=== PATIENT | female | born 1990 | race Caucasian/White ===

== ENCOUNTER 2016-10-22 13:52 | Emergency (ER) | payer MEDICAID ==
[~2016-10-22] VITALS: Ht 147.3 cm; Wt 68.0 kg
[~2016-10-22 13:52] MED LIST: ALBUTEROL-200 PUFFS/ IH; AMOXICILLIN 50500 MG PO; AMOXIL500 MG PO; AUGMENTIN1 TA2 PO; BACTRIM DS 8001 TA1 PO; BACTRIM DS 8001 TAB PO; BENTYL10 M1 PO; BENTYL20 M1 PO; BENTYL20 MG PO; CIPRO 250MG TA250 MG PO; CIPRO 500MG TA500 MG PO; CIPROFLOXACIN500 MG PO; CLEOCIN HCL300 MG PO; CLINDAMYCIN HC300 MG PO; ENDOMETRIN100 MG VG; FIORICET 325 MG1 TAB PO; FLAGYL 500MG.500 MG PO; FLEXERIL10 M1 PO; HYDROCODON-ACETAMINO PO; HYDROCODONE/ACE1 TA5 PO; HYDROXYZINE HYD25 MG PO; IBU-8800 MG PO; IBU400 MG PO; IBUPROFEN600 MG PO; LORTAB 5/500 501 TAB PO; MACROBID 100MG100 MG PO; MECLIZINE HYDRO25 MG PO; MEDROL 4MG. DOSE4 MG PO; MIRALAX(PO17 GM/1 PA PO; MOTRIN400 MG PO; NAPROSYN 375MG375 MG PO; NAPROSYN500 M1 PO; NAPROXEN SODIU500 MG PO; NOMEDS; NOMEDS *; NOMEDS XX; NORCO 325 MG-51 TAB PO; NYSTATIN OINTME15 GM EX; ORTHO TRI-CYCLE1 TAB PO; PERCOCET 5/3251 EACH PO; PHENERGAN 25MG.25 M1 PO; PREDNISONE 10MG10 MG PO; PREDNISONE50 MG PO; PRENATAL VITAMI1 TA3 PO; PROTONIX40 MG PO; PYRIDIUM 200MG200 MG PO; REGLAN 10 MG TA10 MG PO; REGLAN 5MG TABLE5 MG PO; SEPTRA DS 800 M1 TAB PO; SULFAMETHOXAZOL1 TA6 PO; TESSALON PERLE100 M1 PO; ULTRACET 325 MG1 TAB PO; ULTRAM 50 MG TA50 MG PO; VIBRAMYCIN 100100 MG PO; VISTARIL25 M1 PO; VOLTAREN75 MG PO; ZANTAC 150150 MG OR; ZANTAC 150150 MG PO; ZITHROMAX Z-PA250 M1 PO; ZOFRAN ODT4 MG PO; ZOFRAN ODT8 MG PO; ZOFRAN4 MG; ZOFRAN4 MG PO; ZYRTEC 10MG TAB10 MG PO; Zofran4 MG PO; [UNRECOGNIZED DRUG - OTHER] OP
--- NOTE | 2016-10-22 14:08 | Emergency Room Report ---
History of Present Illness Time Seen by 420Claire Presenting Problem in Triage Pt arrived:Walked Presenting Problem:PT HAS BEEN SEEN MULTIPLE TIMES OVER THE WEEKEND RELATED TO ISSUES WITH HER CATHETER, SHE ADVISES THAT THIS MORNING THERE HAS BEEN BLOOD IN HER URINE AND WHAT APPEARS TO BE LITTLE TYLOR. 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 N Clinical Suspician of Infection? N Mental Status: 1 - Regular (Normal Baseline) Sepsis Risk:Low Sepsis Risk Have you (or family members/close friends) recently traveled outside the [place]? N If Yes, where/when: Have you had exposure to infectious disease within the past month? N TB? Other? 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 She has since returned to [facility] and ED due to issues with discomfort, and Xiao removed then replaced. She now has a little blood in her urine. Patient of Dr. Al Choi in [place]. ALLERGIES Coded Allergies: cephalexin (From KEFLEX) (11/25/15) morphine (11/25/15) promethazine (From PHENERGAN) (11/25/15) tetanus toxoid, adsorbed (11/25/15) Home Medications Active Scripts DICYCLOMINE HCL (Bentyl) 10 MG PO Q8HP PRN spasm #21 CAP Prov: 10/20/16 History Medical History General CAD? No Angina: No [place]: No Hypertension? No Hyperlipidemia? No CHF? No DVT? No PE? No COPD? No Asthma? No Anemia? No GERD? No Gastric ulcers? Yes GI Bleed? No Hernia? No Thyroid Problems? No Hypothyroidism? No CVA? No Seizures? No Diabetes? No Insulin Dependent: No Insulin Pump: No Home FSBS? No Renal Insuffiency? No End Stage Renal Disease? No UTI? Yes BPH? No GB Disease: Yes Nephritic Syndrome? No Asplenia? No Hepatitis? No Sickle Cell Disease? No Arthritis? No Migraines? Yes Cataracts? No Glaucoma? No MRSA? No HIV? No TB? No Anxiety? Yes Depression? Yes Cancer? Yes Site: CERVICAL More? Yes Additional hx: DRUG USE Immunization Hx DT/Tetanus Refuses Flu Refused Pneumonia Refuses Surgical Hx Previous Surgery?Y EXP LAP -ENDOMETRIOSIS Tonsils EXC. OF OVARIAN CYST Appendix SCAR REVISION IMPLANON IMPLANON- REMOVED EGD IUD 02/2010 IUD REMOVED 05/19/10 GALLBLADDER BTL 2012 ABSCESS TO WRIST DERRICK HAND Hx LMP N/A Family History Family Hx Diabetes No CAD No Hypertension Yes Hyperlipidemia No Cancer No TB No Social History Smoking Hx Smoker: Current Every Day Smoker Tobacco: Yes Type Cigarettes Packs/day < 1 Pack Alcohol Alcohol: Yes Review of Systems All Other Systems Reviewed and Negative Genitourinary see HPI. Physical Exam Vital Signs Vital Signs Date Time Temp Pulse Resp B/P Pulse O2 O2 Flow FiO2 Ox Delivery Rate 10/22 1400 98.6 72 16 164/84 98 General Appearance normal appearance, WD/WN, no apparent distress Eye Exam - bilateral eye normal exam, bilateral eye PERRL Neck supple Respiratory Status No: respiratory distress. Cardiovascular no peripheral edema Gastrointestinal normal bowel sounds, normal exam, non tender, soft, no organomegaly, no guarding, no rebound Back normal inspection, no CVA tenderness Pelvic Xiao examined at urethral meatus; placement is good with no leakage or discharge noted; no trauma; no lesions or erythema. 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 Nurse present during exam? Yes Neurologic alert, normal exam, no motor/sensory deficits, oriented x 3 Skin intact, normal color Medical Decision Making LABS/Meds/Orders Pt receiving controlled substance in ED? No Results/Orders Laboratory Tests 10/22/16 1420: Urine Color YELLOW, Urine Appearance SL CLOUDY, Urine pH 6.0, Ur Specific [place] >= 1.030, Urine Protein 2+ H, Urine Ketones NEGATIVE, Urine Blood 3+ H , Urine Nitrate NEGATIVE, Urine Bilirubin NEGATIVE, Urine Urobilinogen 0.2, Ur Leukocyte Esterase TRACE H, Urine Glucose NEGATIVE Orders Procedure Date/time Status URINALYSIS/COMPLETE 10/22 1407 Complete Departure Departure Time of Disposition 1447 Disposition DC Home or Self Care(routine) Clinical Impression Primary Impression: Hematuria Secondary Impressions: Xiao catheter in place Condition STABLE Referrals Evan ARCINIEGA,Macho Choi MD,Isiah Rahman (Family) Patient Instructions How to Care for Your Xiao Catheter -- Female Additional Instructions Keep Xiao in place until further instructed by Dr. Choi; follow up with urologist of choice, this week. Discharge Counseling Counseled pt/family regarding diagnosis, test results, home care, follow up needs ED Critical Care Critical Care No at [id number]
--- NOTE | 2016-10-22 14:08 | Emergency Room Report ---
History of Present Illness Time Seen by 035Claire Presenting Problem in Triage Pt arrived:Walked Presenting Problem:PT HAS BEEN SEEN MULTIPLE TIMES OVER THE WEEKEND RELATED TO ISSUES WITH HER CATHETER, SHE ADVISES THAT THIS MORNING THERE HAS BEEN BLOOD IN HER URINE AND WHAT APPEARS TO BE LITTLE TYLOR. 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 N Clinical Suspician of Infection? N Mental Status: 1 - Regular (Normal Baseline) Sepsis Risk:Low Sepsis Risk Have you (or family members/close friends) recently traveled outside the [place]? N If Yes, where/when: Have you had exposure to infectious disease within the past month? N TB? Other? 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 She has since returned to [facility] and ED due to issues with discomfort, and Xiao removed then replaced. She now has a little blood in her urine. Patient of Dr. Al Choi in [place]. ALLERGIES Coded Allergies: cephalexin (From KEFLEX) (11/25/15) morphine (11/25/15) promethazine (From PHENERGAN) (11/25/15) tetanus toxoid, adsorbed (11/25/15) Home Medications Active Scripts DICYCLOMINE HCL (Bentyl) 10 MG PO Q8HP PRN spasm #21 CAP Prov: 10/20/16 History Medical History General CAD? No Angina: No [place]: No Hypertension? No Hyperlipidemia? No CHF? No DVT? No PE? No COPD? No Asthma? No Anemia? No GERD? No Gastric ulcers? Yes GI Bleed? No Hernia? No Thyroid Problems? No Hypothyroidism? No CVA? No Seizures? No Diabetes? No Insulin Dependent: No Insulin Pump: No Home FSBS? No Renal Insuffiency? No End Stage Renal Disease? No UTI? Yes BPH? No GB Disease: Yes Nephritic Syndrome? No Asplenia? No Hepatitis? No Sickle Cell Disease? No Arthritis? No Migraines? Yes Cataracts? No Glaucoma? No MRSA? No HIV? No TB? No Anxiety? Yes Depression? Yes Cancer? Yes Site: CERVICAL More? Yes Additional hx: DRUG USE Immunization Hx DT/Tetanus Refuses Flu Refused Pneumonia Refuses Surgical Hx Previous Surgery?Y EXP LAP -ENDOMETRIOSIS Tonsils EXC. OF OVARIAN CYST Appendix SCAR REVISION IMPLANON IMPLANON- REMOVED EGD IUD 02/2010 IUD REMOVED 05/19/10 GALLBLADDER BTL 2012 ABSCESS TO WRIST [employer] Hx LMP N/A Family History Family Hx Diabetes No CAD No Hypertension Yes Hyperlipidemia No Cancer No TB No Social History Smoking Hx Smoker: Current Every Day Smoker Tobacco: Yes Type Cigarettes Packs/day < 1 Pack Alcohol Alcohol: Yes Review of Systems All Other Systems Reviewed and Negative Genitourinary see HPI. Physical Exam Vital Signs Vital Signs Date Time Temp Pulse Resp B/P Pulse O2 O2 Flow FiO2 Ox Delivery Rate 10/22 1400 98.6 72 16 164/84 98 General Appearance normal appearance, WD/WN, no apparent distress Eye Exam - bilateral eye normal exam, bilateral eye PERRL Neck supple Respiratory Status No: respiratory distress. Cardiovascular no peripheral edema Gastrointestinal normal bowel sounds, normal exam, non tender, soft, no organomegaly, no guarding, no rebound Back normal inspection, no CVA tenderness Pelvic Xiao examined at urethral meatus; placement is good with no leakage or discharge noted; no trauma; no lesions or erythema. 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 Nurse present during exam? Yes Neurologic alert, normal exam, no motor/sensory deficits, oriented x 3 Skin intact, normal color Medical Decision Making LABS/Meds/Orders Pt receiving controlled substance in ED? No Results/Orders Laboratory Tests 10/22/16 1420: Urine Color YELLOW, Urine Appearance SL CLOUDY, Urine pH 6.0, Ur Specific [place] >= 1.030, Urine Protein 2+ H, Urine Ketones NEGATIVE, Urine Blood 3+ H , Urine Nitrate NEGATIVE, Urine Bilirubin NEGATIVE, Urine Urobilinogen 0.2, Ur Leukocyte Esterase TRACE H, Urine Glucose NEGATIVE Orders Procedure Date/time Status URINALYSIS/COMPLETE 10/22 1407 Complete Departure Departure Time of Disposition 1447 Disposition DC Home or Self Care(routine) Clinical Impression Primary Impression: Hematuria Secondary Impressions: Xiao catheter in place Condition STABLE Referrals Evan ARCINIEGA,Macho Choi MD,Isiah Rahman (Family) Patient Instructions How to Care for Your Xiao Catheter -- Female Additional Instructions Keep Xiao in place until further instructed by Dr. Choi; follow up with urologist of choice, this week. Discharge Counseling Counseled pt/family regarding diagnosis, test results, home care, follow up needs ED Critical Care Critical Care No at [id number]
--- OUTSIDE RECORDS SUMMARY | 2016-10-22 14:10 | External Medical Summary Rpt ---
Author Author , Organization [employer] Address Unknown Phone Unavailable Care Team Providers Care Residential Property Manager Name Role Phone JONATHAN CASTILLO Unavailable Unavailable OMAR LOMAR L Unavailable Unavailable CARLEY JAM, CARLEY JAM Unavailable Unavailable LEWIS, LEWIS Unavailable Unavailable LEWIS ALL, LEWIS ALL Unavailable Unavailable [facility] Unavailable Unavailable [facility], [facility] PH[facility]IAN Unavailable Unavailable PRACTICE L, [facility]available Unavailable SERVICE, [facility] Unavailable Unavailable SERVICE, [facility] FARAH, FARAH Unavailable Unavailable CELLAROSI - YORBA Unavailable Unavailable PAT, CELLAROSI - YORBA PAT CHEESEMAN MICHELLE, Unavailable Unavailable CHEESEMAN MICHELLE SNOWDEN TJ, SNOWDEN Unavailable Unavailable TJ SNOWDEN TJ, SNOWDEN Unavailable Unavailable TJ SNOWDEN, ERIK J, Unavailable Unavailable SNOW[facility], ERIK J [facility] Un[facility], Unavailable Unavailable [facility] Un[facility] Unavailable [facility], [facility] Unavailable Unavailable [facility] JONY, DAVON Unavailable Unavailable JONY KRISTAL, KRISTAL Unavailable Unavailable KRISTAL KIERA, Unavailable Unavailable KRISTAL KIERA KRISTAL KIERA, Unavailable Unavailable KRISTAL KIERA KRISTAL, GALA, Unavailable Unavailable KRISTAL, GALA LIRA PAULA, LIRA Unavailable Unavailable [facility] [place] [place]available [facility]available [facility] Unavailable Unavailable E[facility]ER[facility] C, Unavailable Unavailable [facility]ER[facility] C MICH WHEAT Unavailable Unavailable YANELIS QUANG VERA, QUANG Unavailable Unavailable CHUY QUANG VERA, QUANG Unavailable Unavailable CHUY [facility], Unavailable Unavailable [facility]available [facility], [facility] Unavailable Unavailable EMS, [facility] Unavailable Unavailable EMS, [facility] HARPEL DAVID, HARPEL Unavailable Unavailable DAVID HARPEL DAVID, HARPEL Unavailable Unavailable DAVID HARPEL, ZURDO R, Unavailable Unavailable HARPEL, ZURDO R DOMÍNGUEZ KYLE, DOMÍNGUEZ Unavailable Unavailable KYLE [facility] Unavailable Unavailable [facility], [facility] Unavailable Unavailable [facility], [facility] Unavailable Unavailable INC, [facility] Unavailable Unavailable [facility] Unavailable Unavailable HOSPITAL P, [facility] REMI STRATTON HARVEY, Unavailable Unavailable REMI [facility], Unavailable Unavailable [facility] CARDONA, CARDONA Unavailable Unavailable CARDONA CHRIS, CARDONA CHRIS Unavailable Unavailable CARDONA CHRIS, CARDONA CHRIS Unavailable Unavailable ROBY IMT, ROBY Unavailable Unavailable IMT JAHANSHAHI FEE, Unavailable Unavailable JAHANSHAHI FEE JAHANSHAHI FEE, Unavailable Unavailable JAHANSHAHI FEE [facility] ANNA DAYTON, ANNA DAYTON Unavailable Unavailable [facility] Unavailable [facility]available [facility] JUDGE, CINDY L, Unavailable Unavailable JUDGE, CINDY L AC JR DWI, AC Unavailable Unavailable JR DWI MARIMAR, W F, Unavailable Unavailable MARIMAR, W F EUGENE VICTOR, Unavailable Unavailable [facility], Unavailable Unavailable [facility] Unavailable Unavailable SERVICES, [facility] MAST ANN, MAST ANN Unavailable Unavailable MAST ANN, MAST ANN Unavailable Unavailable PEDRO PISANO JR Unavailable Unavailable F, PEDRO PISANO JR, PAMELA Unavailable Unavailable R, ADRIAN VAN R ASHOK ANDREWS, Unavailable Unavailable ASHOK ANDREWS [facility] Unavailable [facility] GABRIELE MITCHEL, GABRIELE MITCHEL Unavailable Unavailable GABRIELE GRULLON, GABRIELE MITCHEL Unavailable Unavailable RADHA EDW, RADHA Unavailable Unavailable EDW O'OMAIRA ANASTACIO, O'OMAIRA Unavailable Unavailable ANASTACIO O'OMAIRA ANASTACIO, O'OMAIRA Unavailable Unavailable ANASTACIO [facility], Unavailable [facility]available [facility], [facility] Unavailable Unavailable LAB, [facility] KINDRA MEJIA, Unavailable Unavailable KINDRA MEJIA PICKLESIMER JR GARRETT, Unavailable Unavailable PICKLESIMER JR GARRETT PICKLESIMER JR GARRETT, Unavailable Unavailable PICKLESIMER JR GARRETT [facility], Unavailable Unavailable [facility], Unavailable Unavailable [facility] RAINS ALL, RAINS ALL Unavailable Unavailable RENUSCH YULIANA, RENUSCH Unavailable Unavailable YULIANA [id number], Unavailable Unavailable [id number] Unavailable Unavailable [id number] [id number], [facility] [id number] [address] [id number] BLAKE KERMIT, BLAKE KERMIT Unavailable Unavailable BLAKE KERMIT, BLAKE KERMIT Unavailable Unavailable HONEY HERNANDEZ H, Unavailable Unavailable SHAKIRAEK, MOHAMED H ALESSIO GRULLON, ALESSIO Unavailable Unavailable MITCHEL ADRIAN WEISS, Unavailable Unavailable ADRIAN WEISS KARL, Unavailable Unavailable ANNIKA TALAMANTES SHA, ZAVALA SHA Unavailable Unavailable ZAVALA SHA, ZAVALA SHA Unavailable Unavailable SOKAN BAB, SOKAN BAB Unavailable Unavailable SOKAN, ADAN O, Unavailable Unavailable SOKAN, ADAN O SOT[facility]EANU MED[facility], Unavailable Unavailable SOTINGEANU MEDINA [facility] Unavailable [facility], [facility] ROSY SHE, Unavailable Unavailable ROSY SHE FRITZ, VIRAJ E, Unavailable Unavailable FRITZ, VIRAJ E [facility], Unavailable Unavailable [facility], Unavailable Unavailable [facility] WEHRMAN III MITCHEL, Unavailable Unavailable WEHRMAN III MITCHEL WEHRMAN III MITCHEL, Unavailable Unavailable WEHRMAN III MITCHEL KHUSHI CASTILLO, KHUSHI CASTILLO Unavailable Unavailable CRYSTAL COOLEY, Unavailable Unavailable CRYSTAL COOLEY [facility] Unavailable Unavailable [facility] [place], [facility] Purpose Continuity of Care Document - 06-02-2007 through 2016 Problems Code Diagnosis DOS Provider Status F19.10 OTHER 07-18-2016 PSYCHOACTIV E SUBSTANCE ABUSE, UNCOMPLICAT ED R03.0 ELEVATED 07-18-2016 BLOOD-PRESS URE READING, WITHOUT DIAGNOSIS OF HYPERTENSIO N R51 HEADACHE 07-18-2016 K29.20 ALCOHOLIC 07-13-2016 GASTRITIS WITHOUT BLEEDING R07.89 OTHER CHEST 07-13-2016 PAIN R07.9 CHEST PAIN, 07-13-2016 UNSPECIFIED R51 HEADACHE 07-13-2016 [facility] R079 CHEST PAIN 07-07-2016 [facility]- UNSPECIFIED [facility] R1013 EPIGASTRIC 07-07-2016 [facility]- PAIN [facility] H21042 PAIN IN 06-08-2016 [facility] B99181 PAIN IN 06-08-2016 [facility] UNSPECIFIED MEDICAL HIP IMAGING ASS Q66495 PAIN IN 06-08-2016 [facility] RIGHT MEDICAL FOREARM IM[facility] F47475 PAIN IN 06-08-2016 [facility] THIGH [facility] [id number] UNSPECIFIED 06-08-2016 [facility] INJURY [facility]ICAL RIGHT ELBOW IMAGING ASS INITIAL ENCOUNTER Z7689 PERSONS 06-08-2016 [facility]ALTH SRVC SERVICE OTH CIRCUMSTANC ES Z452 ENCOUNTER 05-23-2016 [facility] ADJUSTMENT& MEDICAL MGMT IMAGING ASS VASCULAR ACCESS DEVICE R600 LOCALIZED 05-21-2016 [facility]MA [facility] Z8701 PERSONAL 05-19-2016 [facility] HISTORY OF MEDICAL PNEUMONIA IMAGING ASS RECURRENT J209 ACUTE 05-11-2016 [facility] BRONCHITIS PHYSICIANS, UNSPECIFIED PLLC N926 IRREGULAR 03-19-2016 [facility] MENSTRUATIO PHYSICIANS N GROUP UNSPECIFIED R102 PELVIC AND 03-19-2016 [facility] PERINEAL PHYSICIANS PAIN GROUP R1084 GENERALIZED 03-17-2016 [facility] ABDOMINAL PHYSICIANS, PAIN PLLC R109 UNSPECIFIED 03-13-2016 [facility] ABDOMINAL [facility] PAIN IM[facility] R112 NAUSEA WITH 03-13-2016 [facility] UNSPECIFIED SERVICE P956BRJ FOREIGN 03-13-2016 [facility] BODY IN PHYSICIANS, VULVA & PLLC VAGINA INITIAL ENCOUNTER M545 LOW BACK 02-09-2016 [facility] PAIN PHYSICIANS, PLLC N200 CALCULUS OF 02-09-2016 [facility] R1031 RIGHT LOWER 02-09-2016 [facility] R1032 LEFT LOWER 02-09-2016 [facility] W88098 ENCOUNTER 12-23-2015 [facility] ROUTINE PHYSICIANS CHECKING IU GROUP CONTRACEPT DEVICE [id number] MIGRAINE 12-05-2015 [place] W/AURA NOT PHYSICIAN INTRACT W/O PRACTICE L STAT MIGRAINOSUS V35389 PERSONAL 11-25-2015 [facility] HISTORY OF [facility] NICOTINE INC DEPENDENCE W51038 ENCOUNTER 11-08-2015 [facility] INITIAL PHYSICIANS PRESCRIPTIO GROUP N IU CONTRACEPT DEV Z7251 HIGH RISK 11-08-2015 [facility] HETEROSEXUA [facility] L BEHAVIOR INC N6011 DIFFUSE 10-05-2015 [facility] CYSTIC [facility] MASTOPATHY INC OF RIGHT BREAST N6489 OTHER 10-05-2015 [facility] SPECIFIED MEDICAL DISORDERS IMAGING ASS OF BREAST N644 MASTODYNIA 09-27-2015 [facility] GROUP J40 BRONCHITIS 08-23-2015 [facility] NOT PHYSICIANS SPECIFIED GROUP ACUTE OR CHRONIC K219 GASTRO-ESOP 08-10-2015 [facility] H REFLUX PHYSICIANS DISEASE GROUP WITHOUT ESOPHAGITIS B1920 UNS VIRAL 07-27-2015 [facility] HEPATITIS C [facility] WITHOUT INC HEPATIC COMA R071 CHEST PAIN 05-24-2015 [facility]ERGENCY BREATHING PHYS R0789 OTHER CHEST 05-24-2015 [facility] PAIN COMMUNTIY HOSPITA R5381 OTHER 05-24-2015 [facility] MALAISE SCOT T CO EMS M940 CHONDROCOST 05-16-2015 [facility] JUNCTION N EMERGENCY SYNDROME PHYS TIETZE R072 PRECORDIAL 05-16-2015 [facility] PAIN N EMERGENCY PHYS R509 FEVER 05-16-2015 [facility] UNSPECIFIED SCOT T CO EMS R52 PAIN 05-16-2015 [facility] UNSPECIFIED SCOT T CO EMS [id number] POISONING 02-24-2015 [facility] HEROIN [facility] UNDETERMINE INC D INITIAL ENCOUNTER 75955 COMA 01-09-2015 [facility] AMBULANCE SERVICE 33354 POISONING 01-09-2015 [facility] BY [facility] P 9779 POISONING 01-09-2015 [facility] UNSPECIFIED AMBULANCE SERVICE DRUG/MEDICI NAL SUBSTANCE 6824 CELLULITIS& 09-23-2014 [facility] ABSCESS OF ANESTH OF HAND EXCEPT THE BLUE FINGERS&FERN MB 1905 CELLULITIS 09-22-2014 TG AND ABSCESS PHYSICIANS, OF UPPER PLLC ARM AND FOREARM 7245 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[facility] BACKACHE PHYSICIANS GROUP 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[facility] 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 68273 PHLEBITIS&T 03-14-2014 [facility] HROMBOPHLEB [facility] HOS[facility] SUP VEINS INC UPPER EXTREM 19568 PHLEBITIS 03-14-2014 [facility] AND N EMERGENCY THROMBOPHLE PHYS BITIS OF OTHER SITE 5758 OTHER 03-14-2014 [facility] SPECIFIED [facility] DISORDER OF INC GALLBLADDER V148 PERSONAL 03-14-2014 [facility] HISTORY [facility] ALLERGY OTH INC SPEC MEDICINAL AGTS 79470 UNSPECIFIED 03-02-2014 [facility] N [place] 6259 UNSPEC 03-02-2014 [facility] SYMPTOM [facility]OC CLINIC OF W/FEMALE [place] GENITAL ORGANS 6264 IRREGULAR 03-02-2014 [facility] MENSTRUAL HEALTH CYCLE CLINIC OF [place] 93492 ABDOMINAL 03-02-2014 [facility] PAIN, LEFT HEALTH LOWER CLINIC OF QUADRANT [place] 05580 UNSPECIFIED 02-02-2014 [facility] VAGINITIS [facility] OF VULVOVAGINI [place] TIS 17472 HEMATURIA 12-24-2013 [facility] UNSPECIFIED N EMERGENCY PHYS 45397 ABDOMINAL 12-24-2013 [place] PA[place] OTHER MEDICAL SPECIFIED IMAGING ASS SITE 21902 CHLAMYDTRAC 01-02-2013 [facility] HOMATIS JR TUCKER INFECTION LOWER SITES V242 ROUTINE 01-02-2013 [facility] JR TUCKER FOLLOW-UP 6146 PELVIC 11-21-2012 [facility] PERITONEAL [facility] ADHESIONS, INC FEMALE V252 STERILIZATI 11-21-2012 [place] V2509 OTH GENERAL 11-20-2012 [facility] CNSL&ADVICE INC CONTRACEPT MANAGEMENT 650 NORMAL 10-22-2012 [facility] DELIVERY 05391 FIRST-DEGRE 10-22-2012 [facility] E PERINEAL [facility] LACERATION INC WITH DELIVERY V270 OUTCOME OF 10-22-2012 [facility] DELIVERY [facility] SINGLE INC LIVEBORN 82918 THREATENED 10-20-2012 [facility] TJ PREMATURE LABOR ANTEPARTUM V221 SUPERVISION 10-20-2012 [facility] TJ OF OTHER NORMAL 12767 OTHER 10-11-2012 HARPEL DAVID THREATENED LABOR, ANTEPARTUM 29471 ABNORMAL 08-08-2012 [facility] TJ MATERNAL GLUCOSE TOLERANCE ANTEPARTUM 15051 DELAY DELIV 07-30-2012 O'OMAIRA ANASTACIO AFTER SPONT/UNSPE C RUP MEMB ANTPRTM 84445 CHEST PAIN 07-27-2012 BLAKE KERMIT UNSPECIFIED 08653 CERVICAL 07-21-2012 O'OMAIRA ANASTACIO SHORTENING ANTEPARTUM CONDITION OR COMP 33820 PREMATURE 07-18-2012 [facility] RUPTURE [facility] ANTEPARTUM 7802 SYNCOPE AND 07-18-2012 [facility] COLLAPSE V2341 SUPERVISION 07-18-2012 [facility] W/HISTORY PRE-TERM LABOR V2389 SUPERVISION 07-18-2012 [facility] OF OTHER [facility] HIGH-RISK 91559 LATE 07-17-2012 [facility] ANTEPARTUM 94902 OTH 07-17-2012 [facility] ALICE VENEREAL DISEASE ANTPRTM COND/COMPL 82772 OTH CURRENT 07-17-2012 [facility] CLASSIFIABL E ELSW ANTPRTM 58298 CERVICAL 07-17-2012 O'OMAIRAANNAMARIA KASPER DELIVERED W/WO ANTPRTM COND V230 07-17-2012 [facility] ANN WITH HISTORY OF INFERTILITY 63698 NAUSEA WITH 06-30-2012 [facility]OMITING [facility] INC 44995 ABDOMINAL 06-30-2012 [facility] PAIN, [facility] GENERALIZED INC V220 SUPERVISION 06-30-2012 SP SPENCER OF NORMAL FIRST V283 ENCOUNTER 06-19-2012 SP SPENCER ROUTINE SCREEN MALFORMATIO N ULTRASONIC 87855 DEHYDRATION 06-12-2012 [facility] INC 34253 HYPEREMESIS 06-12-2012 [facility] W/METAB INC DISTURBANCE ANTPRTM 7880 RENAL COLIC 06-12-2012 [facility] INC 01668 MILD 06-11-2012 QUANG MIC HYPEREMESIS GRAVIDARUM UNSPEC EPIS CARE 591 HYDRONEPHRO 06-04-2012 K[facility] SIS KIERA 59433 OTHER 06-04-2012 K[facility] SPECIFIED KIERA DISORDER OF KIDNEY AND URETER 06745 THREATENED 06-03-2012 [facility] PREMATURE [facility]ERG[facility]Y LABOR SERVICES UNSPEC EPIS CARE 09720 OTHER 06-03-2012 KRISTAL SPECIFED KIERA COMPLICATIO N ANTEPARTUM 45127 OT CURRENT 05-29-2012 WEHRMAN III MATERNAL MITCHEL CCE-COMPL PG CB/PP-UNS EOC 4660 ACUTE 04-30-2012 [facility] BRONCHITIS [facility] INC V222 04-30-2012 [facility] STATE, [facility] INCIDENTAL INC 7910 PROTEINURIA 04-25-2012 [facility] TJ 7916 ACETONURIA 04-25-2012 SP TJ 5920 CALCULUS OF 04-24-2012 [facility] 5990 URINARY 04-24-2012 [facility] TRACT EMERGENCY INFECTION SERVICES SITE NOT SPECIFIED 29806 INFS 04-24-2012 [facility] TRACT [facility] SERVICES UNSPEC EPIS CARE 55058 MILD 04-14-2012 [facility] HYPEREMESIS [facility] GRAVIDARUM INC ANTEPARTUM 15051 ABDOMINAL 04-14-2012 WEHRMAN III PAIN, MITCHEL UNSPECIFIED SITE 2768 HYPOPOTASSE 04-07-2012 [facility] DUYEN [facility] 5589 OTH&UNSPEC 04-07-2012 [facility] NONINFECTIO EMERGENCY US SERVICES GASTROENTER ITIS&COLITI S V745 SCREENING 03-19-2012 [facility] EXAMINATION VALENTE FOR VENEREAL DISEASE 58439 INFECTIONS 03-06-2012 [facility] GENITOURINA INC RY TRACT ANTEPARTUM V7242 03-03-2012 [facility] EXAMINATION HEALTH OR TEST CENTER POSITIVE RESULT 84965 PAIN IN 02-13-2012 [place] JOINT, MEDICAL ANKLE AND IMAGING ASS FOOT 7295 PAIN IN 02-13-2012 [facility] SOFT EMERGENCY TISSUES OF SERVICES LIMB 10473 UNSPECIFIED 02-13-2012 [facility] ANKLE SPRAIN AND STRAIN 46878 CONTUSION 02-13-2012 [facility] FOOT [facility] INC 9599 INJURY 02-13-2012 [facility] OTHER AND MEDICAL UNSPECIFIED IMAGING ASS UNSPECIFIED SITE 45228 ACUT 01-29-2012 [facility] TIS W/O LES INC RENAL MEDULRY NECROS 85320 UNSPECIFIED 01-29-2012 [facility] PYELONEPHRI SERVICES TIS 6201 CORPUS 01-10-2012 [facility] TJ LUTEUM CYST OR HEMATOMA 55143 ABDOMINAL 01-10-2012 [facility] TJ PAIN RIGHT LOWER QUADRANT 51334 UNSPECIFIED 11-10-2011 [facility] DENTAL [facility] CARIES INC 5259 UNSPECIFIED 11-10-2011 WEHRMAN III DISORDER MITCHEL TEETH&SUPPO RTING STRUCTURES 57030 PAIN IN 09-26-2011 [place] JOINT, HAND MEDICAL IMAGING ASS 40675 CONTUSION 09-26-2011 [facility] HAND EMERGENCY SERVICES E9179 OTHER 09-26-2011 [facility] STRIKING MEDICAL AGAINST IMAGING ASS W/WO SUBSEQUENT FALL 7804 DIZZINESS 08-23-2011 [facility] AND EMERGENCY GIDDINESS SERVICES V692 PROBLEMS 08-21-2011 [facility] TJ RELATED TO HIGH-RISK SEXUAL BEHAVIOR 7231 CERVICALGIA 08-20-2011 [facility] 91740 SPASM OF 08-20-2011 [facility] CHRIS MUSCLE 6202 OTHER AND 08-15-2011 [facility] UNSPECIFIED MEDICAL OVARIAN IMAGING ASS CYST 55026 OTHER 08-15-2011 [facility] ASCITES [facility] IM[facility]ING ASS 2662 OTHER 07-26-2011 [facility] B-COMPLEX HEALTH DEFICIENCIE CENTER S V7241 07-26-2011 [facility] MATHIS EXAMINATION HEALTH OR TEST CENTER NEGATIVE RESULT 7840 HEADACHE 07-19-2011 [facility] 6827 CELLULITIS 07-05-2011 [facility] AND ABSCESS EMERGENCY OF FOOT SERVICES EXCEPT TOES 13609 UNSPECIFIED 05-31-2011 WEHRMAN III ACUTE MITCHEL CONJUNCTIVI TIS 01341 UNSPECIFIED 05-31-2011 [facility] CONJUNCTIVI TIS 95660 LEUKOCYTOSI 05-28-2011 JAHANSHAHI S FEE UNSPECIFIED 88599 ABSCESS OF 05-28-2011 [facility] EYELID FEE 50568 ONE EYE: 05-27-2011 [facility] TOT VISN EMERGENCY IMPAIR; OTH SERVICES EYE: NR-NL VISN 88009 ORBITAL 05-27-2011 [facility] CELLULITIS [facility] 99688 PAIN IN OR 05-27-2011 [facility] AROUND EYE SERV FOUNDATIO 76011 SWELLING OR 05-27-2011 [facility] MASS OF SERV EYE FOUNDATIO 6820 CELLULITIS 05-27-2011 [facility]ICAL AND ABSCESS SERV OF FACE FOUNDATIO 462 ACUTE 05-05-2011 [facility] PHARYNGITIS EMERGENCY SERVICES 09836 MIGRAINE 04-04-2011 [facility] W/O HOSPITAL INTRACT W/O STATUS MIGRAINOSUS 6829 CELLULITIS 04-04-2011 [facility] MATHIS AND ABSCESS [facility] UNSPECIFIED SITE V5889 ENCOUNTER 04-01-2011 [facility] FOR OTHER N EMERGENCY SPECIFIED PHYSI AFTERCARE 9134 ELB 03-30-2011 [facility] FORARM&WRST [facility] INSECT INC BITE NONVENOMOUS W/O INF 07527 SPRAIN AND 07-31-2009 [facility] STRAIN OF MEDICAL UNSPECIFIED IMAGING SITE OF ASSOCIATES WRIST E8493 PLACE OF 07-31-2009 [facility] OCCURRENCE MEDICAL INDUSTRIAL IMAGING PLACES&PUSHPA ASSOCIATES ISES E918 CAUGHT 07-31-2009 [facility] ACCIDENTALL MEDICAL Y IN OR IMAGING BETWEEN ASSOCIATES OBJECTS V2549 SURVEILLANC 06-16-2009 [facility] E OTH PREV [facility] CY[facility] 9104 FCE 03-29-2009 [facility] NCK&SCLP NO EMERGENCY EYE INSECT SERVICES BITE ASSOCIATES NONVNOM W/O INF 9895 TOXIC 03-29-2009 [facility] EFFECT OF [facility] HOS[facility] VENOM INC 6160 CERVICITIS 03-07-2009 PATHOLOGY & AND CYTOLOGY ENDOCERVICI LAB TIS 75610 DYSPLASIA 03-07-2009 PATHOLOGY & OF CERVIX CYTOLOGY UNSPECIFIED LAB 38325 PAP SMER 03-04-2009 [facility]EN'[facility] CERV W/LW HEALTH GRADE CLINIC OF SQUAMOUS [place] INTRAEPITH PLLC LES 76120 CERV HIGH 03-04-2009 WOMEN'[facility] RISK HUMAN HEALTH PAPILLOMAVI CLINIC OF JENNIFER DNA [place] TEST POS PLLC 51831 PAP SMER 02-25-2009 [facility] CERV HEALTH W/ATYPICAL CENTRAL SQUAMOUS BANK ACCT CELLS UNDET V7231 ROUTINE 01-24-2009 [facility] GYNECOLOGIC HEALTH AL CLINIC OF EXAMINATION [place] PLLC 2331 CARCINOMA 12-12-2008 [facility] IN SITU [facility] CERVIX UTERI 83541 ERLY ONSET 12-12-2008 [facility] W/WO MENTION ANTPRTM COND 71412 OTH 12-12-2008 [facility] CONGENITAL/ HOSPITAL ACQUIRED ABNORM CERVIX W/DELIVERY 09920 OTHER AND 12-12-2008 [facility] UTERINE INERTIA W/DELIVERY 38168 ULCER OF 11-25-2008 [facility], ESOPHAGUS ANNIKA WITHOUT BLEEDING 5780 HEMATEMESIS 11-25-2008 [facility] ANNIKA 76954 VOMITING 11-25-2008 [facility], ALONE ANNIKA 63746 ACUTE 11-18-2008 PATHOLOGY & ESOPHAGITIS CYTOLOGY LAB 5533 DIAPHRAGMAT 11-18-2008 [facility] ANIVAL W/O MEM HOS[facility] MENTION INC OBSTRUCTION /GANGREN 02744 OTH CURRENT 11-18-2008 [facility] MATERNAL [facility] CCE INC W/DELIVERY 5789 UNSPECIFIED 11-10-2008 [facility] HEMORRHAGE EMERGENCY OF SERVICES GASTROINTES ASSOCIATES TINAL TRACT 9309 FOREIGN 09-01-2008 EDMUNDO Sauceda BODY IN [facility] UNSPECIFIED HOSP SITE ON EXTERNAL EYE E914 FOREIGN 09-01-2008 EDMUNDO B BODY [facility] ACCIDENTALL HOSP Y ENTERING EYE&ADNEXA V8271 SCREENING 08-16-2008 [facility] FOR GENETIC PATHOLOGY DISEASE LAB NETWORK CARRIER INC STATUS V2543 SURVEILLANC 10-09-2007 CATHY, E PREV PRSC ZURDO Hayward IMPL SUBDERMAL CONTRACEPT 6282 OTH D/O 08-29-2007 ZURDO Hayward MENSTRUATIO CATHY ARCINIEGA N&OTH ABN BLEED FE GNT TRACT 1110 PITYRIASIS 08-15-2007 [facility] VERSICOLOR [place] INTERNAL MED 59913 ANAL OR 08-15-2007 [facility] RECTAL PAIN [place] INTERNAL MED 9212 CONTUSION 08-01-2007 [facility] OF ORBITAL [facility] HOS[facility] TISSUES INC E8494 PLACE OF 08-01-2007 [facility] IMAGING RECREATION ASSOCIATES AND SPORT E8851 FALL FROM 08-01-2007 [facility] 5781 BLOOD IN 07-31-2007 [facility] [place] [facility] 6258 OTH SPEC 07-21-2007 [facility] W/FEMALE GENITAL ORGANS 5950 ACUTE 07-10-2007 [facility] [place] CYSTITIS CATHY ARCINIEGA V069 NEED PROPH 06-23-2007 [facility]ACC[facility] W/UNSPEC CENTRAL COMB BANK ACCT VACCINE V255 INSERTION 06-19-2007 [facility] BOSS MD IMPLANTABLE SUBDERMAL CONTRACEPTI VE V7388 SPECIAL SCR 06-13-2007 [facility] [place] [facility] EXAMINATION OTH SPEC CHLAMYDIAL DZ V762 SCREENING 06-13-2007 [facility] [place] [facility] MALIGNANT NEOPLASM OF THE CERVIX V780 SCREENING 06-13-2007 [facility] [place] FOR IRON CATHY ARCINIEGA DEFICIENCY ANEMIA 6918 OTHER 06-02-2007 [facility] CONDITIONS [id number] Excessive [place] vomiting in [facility] F10.929 ALCOHOL USE, UNSPECIFIED WITH INTOXICATIO N, UNSPECIFIED F11.10 OPIOID ABUSE, UNCOMPLICAT ED F14.10 COCAINE ABUSE, UNCOMPLICAT ED F19.90 OTHER PSYCHOACTIV E SUBSTANCE USE, UNSPECIFIED , UNCOMPLICAT ED F32.9 MAJOR DEPRESSIVE DISORDER, SINGLE EPISODE, UNSPECIFIED I80.8 PHLEBITIS AND THROMBOPHLE BITIS OF OTHER SITES J20.9 ACUTE BRONCHITIS, UNSPECIFIED L03.113 CELLULITIS OF RIGHT UPPER LIMB L03.90 CELLULITIS, UNSPECIFIED M54.9 DORSALGIA, UNSPECIFIED N32.89 OTHER SPECIFIED DISORDERS OF BLADDER R10.9 UNSPECIFIED ABDOMINAL PAIN R11.10 VOMITING, UNSPECIFIED R31.9 HEMATURIA, UNSPECIFIED R45.851 SUICIDAL IDEATIONS T19.2XXA FOREIGN BODY IN VULVA AND VAGINA, INITIAL ENCOUNTER T83.9XXA UNSP COMPLICATIO N OF GENITOURINA RY PROSTH DEV/GRFT, INIT Allergies, Adverse Reactions, Alerts Type Drug Allergy Propensity to adverse reactions to drug Adverse Reaction to Substance Substance Reaction Severity Cephalexin I-HIVES Intermediate Morphine S-DIFF. BREATHING Severe Tetanus Toxoid PT STATES ARM SWOLLEN Severe IN AREA OF INJECTION SIZE OF BASEBALL Promethazine I-HIVES Intermediate Medications Na ND Rx Da Fi Fi Am Da Di Ph RX Ph St me C No te ll ll ou ys ag ar # ys at rm s nt no ma ic us Or Da si cy ia de te s n re d OM 00 03 03 30 30 00 HO Ac EP 78 -0 -3 .0 00 ME ti RA 12 6- 1- 00 06 TO ve ZO 23 20 20 16 WN LE 40 17 [address] AR MA 40 CY MG CA PS UL E EV 60 03 03 0. 30 00 HO Ac ZI 84 -0 -3 80 00 ME ti O 20 8- 1- 0 06 TO ve 2 05 20 20 16 WN MG 10 17 17 56 1 60 PH AU AR TO MA -I CY NJ EC TO R PH 00 02 03 36 5 00 HO Ac EN 60 -1 -1 .0 00 ME ti OB 35 1- 0- 00 04 TO ve AR 16 20 20 04 WN BI 53 17 17 05 TA 2 55 PH L AR 16 MA .2 CY MG TA BL ET ON 00 02 03 15 25 00 HO Ac DA 78 -0 -1 .0 00 ME ti NS 15 9- 0- 00 06 TO ve ET 23 20 20 16 WN RO 86 17 17 28 N 4 10 PH OD AR T MA 4 CY MG TA BL ET HY 00 02 03 [address] 18 -0 -1 .0 00 ME ti OX 50 9- 0- 00 06 TO ve YZ 67 20 20 16 WN IN 40 17 17 28 E 5 11 PH PA AR M MA 25 CY MG CA P DO 00 02 03 30 30 00 HO Ac XE 37 -0 -1 .0 00 ME ti PI 84 9- 0- 00 06 TO ve N 25 20 20 16 WN 50 00 17 17 28 1 12 PH MG AR MA CA CY PS UL E CY 00 02 03 42 14 00 HO Ac CL 37 -0 -1 .0 00 ME ti OB 80 9- 0- 00 06 TO ve EN 75 20 20 16 WN ZA 11 17 17 28 OH 0 13 PH IN AR E MA 10 CY MG TA BL ET CL 00 01 02 15 5 00 CL Ac IN 59 -2 -1 .0 00 IN ti DA 12 1- 7- 00 00 IC ve MY 93 20 20 41 CI 20 17 17 97 PH N 1 84 AR HC MA L CY 30 0 MG CA PS UL E ME 68 01 02 21 6 00 HO Ac TH 00 -0 -0 .0 00 ME ti YL 10 6- 3- 00 06 TO ve OH 00 20 20 07 WN ED 50 17 17 90 NI 1 89 PH SO AR LO MA NE CY 4 OF MG CY DO NT SE HI PK AN A VE 00 01 02 18 30 00 HO Ac NT 17 -0 -0 .0 00 ME ti OL 30 6- 3- 00 06 TO ve IN 68 20 20 07 WN 22 17 17 90 HF 0 90 PH A AR 90 MA CY MC G OF IN SANDOVAL CY LE NT R HI AN A ON 55 12 01 15 25 00 RI Ac DA 11 -1 -0 .0 00 TE ti NS 10 3- 9- 00 01 ve ET 15 20 20 15 AI RO 33 16 17 88 D N 0 15 PH HC AR L MA 4 CY MG #3 TA 93 BL 8 ET FA 51 06 0 No MO 07 -2 TI 90 0- Lo DI 96 20 ng NE 62 13 er 0 20 Ac ti MG ve TA BL ET AN 00 06 0 No TA 11 -2 CI 30 0- Lo D [address] 74 13 er US 0 Ac AN ti TI ve -G RE LF LI Q DE 00 06 0 No XT 40 -1 RO 97 9- Lo SE 92 20 ng 90 13 er 5% 9 -L Ac R ti IV ve SO JAY TI ON LA [address] 40 -1 AT 97 9- Lo ED 95 20 ng 30 13 er RI 9 NG Ac ER ti S ve IN JE CT IO N PI 11 06 0 No TO 11 -1 CI 11 9- Lo N 11 20 ng 30 13 13 er 3 UN Ac IT ti S/ ve LR 50 0M L IV BU 55 06 2 No TO 39 -1 RP 00 9- Lo SANDOVAL 18 20 ng NO 30 13 er L 1 1 Ac MG ti /M ve L AL PA 59 06 0 No SO 76 -1 OH 25 9- Lo OS 00 20 ng TO 80 13 er L 1 20 Ac 0 ti MC ve G TA BL ET ON 00 06 2 No DA 64 -1 NS 16 9- Lo ET 08 20 ng RO 02 13 er N 5 HC Ac L ti 4 ve MG /2 ML AL MA 00 06 2 No PA 90 -1 P 41 9- Lo 32 98 20 ng 5 26 13 er MG 1 Ac TA ti BL ve ET DE 63 06 2 No RM 02 -1 OP 98 9- Lo LA [address] 40 13 er 1 SP Ac RA ti Y ve Ib 62 06 2 No up 58 -1 ro 40 9- Lo fe 74 20 ng n 60 13 er 40 1 0M Ac G ti Ta ve bl et OX 00 06 2 No YC 40 -1 OD 60 9- Lo ON 55 20 ng E 26 13 er HC 2 L Ac 5 ti MG ve TA BL ET WI 05 06 2 No TC 32 -1 H 58 9- Lo SANDOVAL 82 20 ng ZE 24 13 er L 0 40 Ac ti PA ve DS /C AN LA [address] 40 -2 AT 97 5- Lo ED 95 20 ng 30 13 er RI 9 NG Ac ER ti S ve IN JE CT IO N BU 55 02 0 No TO 39 -2 RP 00 5- Lo SANDOVAL 18 20 ng NO 30 13 er L 1 1 Ac MG ti /M ve L AL ON 00 02 0 No DA 64 -2 NS 16 5- Lo ET 08 20 ng RO 02 13 er N 5 HC Ac L ti 4 ve MG /2 ML AL FA 00 02 0 No MO 64 -2 TI 16 5- Lo DI 02 20 ng NE 22 13 er 5 20 Ac ti MG ve /2 ML AL DI 00 03 03 14 7 RI 82 GA Ac CL 78 -2 -2 .0 TE 74 IN ti OF 11 8- 9- 00 23 EY ve EN 78 20 20 AI AC 90 10 10 D PA 1 PH CH SO AR AE D MA L EC CY S 75 03 93 MG 8 # TA 03 B 93 ME 59 08 02 02 1. 1 CL [address] 76 -2 -2 00 IN 94 AR ti OX 24 4- 6- 0 IC 00 KE ve YP 53 20 20 RO 70 09 10 PH DE GE [address] MA K ER CY J ON E 15 0 MG /M L ME 00 11 12 00 21 6 RI 81 SO Ac TH 60 -2 -0 .0 TE 02 KA ti YL 34 4- 3- 00 91 N ve OH 59 20 20 AI BA ED 31 09 09 D BA NI 5 PH TU SO AR ND LO M E NE #3 O 4 93 8 MG DO SE PK BU 00 11 12 00 12 3 EA 15 GA Ac TA 59 -2 -[address] 31 IN ti LB 13 5- 3- 00 SI 25 EY ve -A 36 20 20 DE CE 90 09 09 PA TA 5 PH CH PA AR AE N- MA L CA CY S FF OF 50 CY -3 NT 25 HI -4 AN 0 A ANGULO 00 11 12 00 28 14 RI 81 SO Ac LF 60 -2 -0 .0 TE 02 KA ti AM 35 4- 3- 00 90 N ve ET 78 20 20 AI BA HO 12 09 09 D BA XA 8 PH TU ZO AR ND LE M E -T #3 O MP 93 8 DS TA BL ET ME 59 08 12 01 1. 1 CL [address] 76 -2 -0 00 IN 94 AR ti OX 24 4- 3- 0 IC 00 KE ve YP 53 20 20 RO 70 09 09 PH DE GE [address] [place] K ER CY J ON E 15 0 MG /M L TR 00 11 12 00 10 2 RI 81 SO Ac AM 09 -2 -0 .0 TE 02 KA ti AD 30 4- 3- 00 89 N ve OL 05 20 20 AI BA 80 09 09 D BA HC 1 PH TU L AR ND 50 M E #3 O MG 93 8 TA BL ET ME 59 08 09 00 1. 1 CL [address] 76 -2 -1 00 IN 94 AR ti OX 24 4- 0- 0 IC 00 KE ve YP 53 20 20 RO 70 09 09 PH DE GE [address] [place] K ER CY J ON E 15 0 MG /M L 59 08 08 00 30 30 RI 79 No Ac 63 -1 -2 .0 TE 53 t ti 00 1- 7- 00 39 Av ve 41 20 20 AI ai 83 09 09 D la 0 PH bl AR e M #3 93 8 IB 53 08 08 00 60 15 RI 79 No Ac UP 74 -1 -2 .0 TE 53 t ti RO 60 1- 7- 00 38 Av ve FE 46 20 20 AI ai N 50 09 09 D la 60 5 PH bl 0 AR e MG M #3 TA 93 BL 8 ET DO 00 08 08 00 60 30 RI 79 No Ac CU 53 -1 -2 .0 TE 53 t ti SA 63 1- 7- 00 41 Av ve TE 75 20 20 AI ai 70 09 09 D la SO 1 PH bl DI AR e UM M #3 25 93 0 8 MG CA PS UL E TR 00 08 08 00 28 28 RI 79 No Ac I- 55 -1 -2 .0 TE 53 t ti SP 59 2- 7- 00 40 Av ve RI 01 20 20 AI ai NT 85 09 09 D la EC 8 PH bl AR e TA M BL #3 ET 93 8 OH 37 07 07 00 56 28 RI 79 SC Ac IL 00 -1 -3 .0 TE 21 HU ti OS 00 6- 0- 00 15 LS ve EC 45 20 20 AI TA 50 09 09 D D OT 3 PH CA C AR MP 20 M BE .6 #3 LL 93 K MG 8 TA BL ET RA 00 07 07 00 60 30 RI 79 CL Ac NI 17 -2 -3 .0 TE 31 AR ti TI 24 4- 0- 00 42 KE ve DI 35 20 20 AI NE 74 09 09 D DE 9 PH RE 15 AR K 0 M J MG #3 93 TA 8 BL ET ME 63 07 07 00 10 2 RI 79 SO Ac TO 30 -0 -1 .0 TE 10 KA ti CL 40 8- 6- 00 23 N ve OP 84 20 20 AI BA RA 60 09 09 D BA PA 5 PH TU DE AR ND M E 10 #3 O 93 MG 8 TA BL ET FE 00 06 07 00 30 30 RI 78 CL Ac RR 67 -1 -0 .0 TE 85 AR ti OU 70 7- 2- 00 89 KE ve S 07 20 20 AI ANGULO 00 09 09 D DE LF 1 PH RE AT AR K E M J 32 #3 5 93 MG 8 TA BL ET FE 00 05 06 00 30 30 RI 78 CL Ac RR 67 -2 -0 .0 TE 52 AR ti OU 70 2- 4- 00 66 KE ve S 07 20 20 AI ANGULO 00 09 09 D DE LF 1 PH RE AT AR K E M J 32 #3 5 93 MG 8 TA BL ET BU 00 05 05 00 6. 1 RI 78 SO Ac TA 60 -1 -2 00 TE 42 KA ti LB 32 4- 1- 0 26 N ve -A 54 20 20 AI BA CE 42 09 09 D BA TA 1 PH TU PA AR ND N- M E CA #3 O FF 93 8 50 -3 25 -4 0 ON 00 05 05 00 12 30 RI 78 CL Ac DA 37 -0 -2 .0 TE 33 AR ti NS 80 8- 1- 00 87 KE ve ET 34 20 20 AI RO 49 09 09 D DE N 3 PH RE HC AR K L M J 8 #3 MG 93 8 TA BL ET 59 04 04 00 30 30 RI 77 CL Ac 63 -0 -0 .0 TE 82 AR ti 00 2- 9- 00 02 KE ve 41 20 20 AI 43 09 09 D DE 5 PH RE AR K M J #3 93 8 ME 00 05 05 00 10 2 RI 73 No Ac TO 09 -0 -2 .0 TE 27 t ti CL 32 8- 2- 00 87 Av ve OP 20 20 20 AI ai RA 40 08 08 D la PA 1 PH bl DE AR e 5 M #3 MG 93 8 TA BL ET 00 05 05 00 10 2 RI 73 No Ac 40 -0 -2 .0 TE 27 t ti 60 8- 2- 00 88 Av ve 35 20 20 AI ai 70 08 08 D la 5 PH bl AR e M #3 93 8 ANGULO 53 05 05 00 20 10 EA 97 No Ac LF 48 -1 -[address] 98 t ti AM 90 4- 2- 00 SI 75 Av ve ET 14 20 20 DE ai HO 60 08 08 la XA 1 PH bl ZO AR e LE MA -T CY MP OF DS CY NT TA HI BL AN ET A NI 00 05 05 00 20 10 RI 73 No Ac TR 37 -1 -2 .0 TE 27 t ti OF 83 1- 2- 00 86 Av ve UR 42 20 20 AI ai AN 20 08 08 D la TO 1 PH bl IN AR e M MO #3 NO 93 -M 8 CR 10 0 MG GR 00 04 04 00 30 30 EA 97 No Ac IS 88 -1 -[address] 57 t ti -P 40 1- 4- 00 SI 69 Av ve EG 77 20 20 DE ai 30 08 08 la 25 4 PH bl 0 AR e MG MA CY TA BL OF ET CY NT HI AN A 00 03 04 00 30 7 EA 97 No Ac 59 -0 -[address] 10 t ti 10 6- 7- 00 SI 78 Av ve 34 20 20 DE ai 90 08 08 la 1 PH bl AR e MA CY OF CY NT HI AN A 60 03 04 00 14 7 EA 97 No Ac 50 -0 -[address] 07 t ti 51 4- 7- 00 SI 25 Av ve 30 20 20 DE ai 90 08 08 la 1 PH bl AR e MA CY OF CY NT HI AN A OH 00 03 04 00 20 5 EA 97 No Ac OC 09 -0 -[address] 10 t ti HL 39 6- 7- 00 SI 79 Av ve OR 65 20 20 DE ai PE 20 08 08 la RA 1 PH bl ZI AR e NE MA CY 10 OF MG CY NT TA HI B AN A 00 03 04 00 6. 2 EA 97 No Ac 59 -0 -[address] 07 t ti 10 4- 7- 0 SI 24 Av ve 34 20 20 DE ai 90 08 08 la 1 PH bl AR e MA CY OF CY NT HI AN A 00 01 03 00 12 8 EA 96 No Ac 67 -2 -[address] 52 t ti 70 8- 6- 00 SI 67 Av ve 69 20 20 DE ai 80 08 08 la 1 PH bl AR e MA CY OF CY NT HI AN A 50 01 03 00 20 4 EA 96 No Ac 11 -2 -[address] 52 t ti 10 8- 6- 00 SI 66 Av ve 30 20 20 DE ai 80 08 08 la 1 PH bl AR e MA CY OF CY NT HI AN A Vital Signs 10-22-2012 08:48 Name Value Interpretat Reference Comment ion Range Weight 114 [lb_av] Measured Weight 51.710 kg Measured Results Labs Lab Lab Date Result Refere Interp Status Commen Order Detail nces retati t Range on pH BldCo (10-22-2012 12:48) pH 7.13 7.35-7. complet BldCo 013 UNK 45 ed 12:48 CBC with AUTO DIFF (10-22-2012 03:05) WBC # 10-22- 10.6 4.8-10. complet Bld 013 K/MM3 8 ed Auto 03:05 RBC # 4.21 4.2-5.4 complet Bld 013 M/mm3 ed Auto 03:05 Hgb 11.5 12.2-16 complet Bld-mCn 013 g/dL .2 ed c 03:05 Hct Fr 33.9 % 37.0-47 complet Bld 013 .0 ed 03:05 MCV RBC 80.4 fl 82.2-97 complet 013 .8 ed 03:05 MCH RBC 27.2 pg 27-31.2 complet Qn 013 ed Auto 03:05 MEAN 33.8 31.8-35 complet CORPUSC 013 g/dl .4 ed ULAR 03:05 HGB CONC RDW RBC 14.7 % 11.5-17 complet Auto 013 .5 ed 03:05 Platele 229 142-424 complet t Bld 013 K/mm3 ed Ql 03:05 Manual MEAN 06-19-2 9.2 fl 7.4-10. complet PLATELE 013 4 ed T 03:05 VOLUME Granulo 06-19-2 62.8 % 37.0-80 complet cytes 013 .0 ed Fr Bld 03:05 Auto LYMPH % 06-19-2 30.6 % 10-50.0 complet 013 ed 03:05 Monocyt 06-19-2 5.6 % 1.7-9.3 complet es Fr 013 ed Bld 03:05 Auto Eosinop 06-19-2 0.7 % 0.1-12. complet hil Fr 013 0 ed Bld 03:05 Auto Basophi 06-19-2 0.4 % 0.1-2.0 complet ls Fr 013 ed Bld 03:05 Auto Granulo 06-19-2 6.6 1.8-7.8 complet cytes # 013 K/mm3 ed Bld 03:05 Auto Lymphoc 06-19-2 3.2 0.7-4.5 complet ytes Fr 013 K/mm3 ed Bld 03:05 Auto Monocyt 06-19-2 0.6 0.1-1.0 complet es # 013 K/mm3 ed Bld 03:05 Auto Eosinop 06-19-2 0.1 0.0-0.4 complet hil # 013 K/mm3 ed Bld 03:05 Auto Basophi 06-19-2 0.0 0-0.2 complet ls # 013 K/MM3 ed Bld 03:05 Auto URINALYSIS/COMPLETE (10-22-2012 02:00) URINE 06-19-2 YELLOW YELLOW complet COLOR 013 ed 02:00 URINE -19-2 CLOUDY CLEAR complet APPEARA 013 ed NCE 02:00 URINE 06-19-2 NEGATIV NEG complet GLUCOSE 013 E ed - 02:00 DIPSTIC K URINE 06-19-2 NEGATIV NEG complet BILIRUB 013 E ed IN - 02:00 DIPSTIC K URINE 06-19-2 NEGATIV NEG complet KETONE 013 E mg/dL ed 02:00 URINE 06-19-2 1.015 1.005-1 complet SPECIFI 013 UNK .030 ed C 02:00 GRAVITY URINE -19-2 NEGATIV NEG complet BLOOD 013 E ed 02:00 URINE 06-19-2 8.5 UNK 5.0-8.5 complet PH 013 ed 02:00 URINE 10-22-2 NEGATIV NEG complet PROTEIN 013 E mg/dL ed - 02:00 DIPSTIC K URINE 10-22-2 0.2 NEG complet UROBILI 013 E.U./dL ed NOGEN - 02:00 DIPSTIC K URINE 10-22- NEGATIV NEG complet NITRATE 013 E ed - 02:00 DIPSTIC K URINE 10-22-2 NEGATIV NEG complet LEUK 013 E ed ESTERAS 02:00 E URINE 10-22- 5-10 NONE complet RENAL 013 #/HPF ed CELLS 02:00 URINE 10-22-2 4+ NONE complet AMORPH 013 ed SEDIMEN 02:00 T Procedures Procedure [place] [address] [facility] HEAD/BRAI 7 RADIOLOGY N W/O CONTRAST MATERIAL GROUND A0425 [facility] EVY RATLIFF PER AL EMS CO EMS STATUTE MILE AMB A0427 [facility] SERVICE 7 EVY RATLIFF ALS CO EMS CO EMS EMERGENCY TRANSPORT LEVEL 1 RADEX 83904 [facility] 2 7 MEDICAL VIEWS IMAGING ASS RADEX 51252 [facility] ELBOW 7 MEDICAL COMPLETE IMAGING MINIMUM 3 ASS VIEWS RADIOLOGI 54593 [facility] C 7 MEDICAL EXAMINATI IMAGING ON CHEST ASS SINGLE VIEW FRONTAL RADIOLOGI 89617 [facility] [facility] C 7 MEDICAL EXAMINATI IMAGING ON PELVIS ASS 1/2 VIEWS AMBULANCE A0429 [facility] SERVICE 7 AMBULANCE AMBULANCE BLS SERVICE SERVICE EMERGENCY TRANSPORT GROUND A0425 [facility] 7 AMBULANCE AMBULANCE PER SERVICE SERVICE STATUTE MILE RADIOLOGI 80732 [place] [facility] C 7 MEDICAL EXAMINATI IMAGING ON FEMUR ASS MINIMUM 2 VIEWS RADIOLOGI 42981 [facility] C 7 MEDICAL EXAMINATI IMAGING [place] [address] [place] [facility] EXTREMITY 7 MEDICAL NON-VASC IMAGING ASS REAL-TIME IMG LMTD RADIOLOGI 28375 [place] [facility] EXAM 7 MEDICAL CHEST 2 IMAGING VIEWS ASS FRONTAL&[place] [address] [facility] [place] [facility] TRANSVAGI 6 RADIOLOGY KYLE NAL RADIOLOGI 28501 [facility] [place] [facility] C 6 RADIOLOGY KYLE [place]AMIN[place] [address] [facility] ALL ABDOMEN & 6 MEDICAL PELVIS IMAGING W/CONTRAS ASS T MATERIAL AMBULANCE A0429 [facility] 6 AMBULANCE AMBULANCE BLS SERVICE SERVICE EMERGENCY TRANSPORT GROUND A0425 [facility] MILEAGE 6 AMBULANCE AMBULANCE PER SERVICE SERVICE STATUTE MILE UNCLASSIF J3490 [facility] IED DRUGS 6 [facility] INC INC URINE 97965 [facility] 6 [facility] TEST INC INC VISUAL COLOR CMPRSN METHS DRUG TST G0477 M[facility] PRESUMP;C 6 [facility] PBL BEING INC INC READ DC OPT OBV ONLY THERAPEUT 30807 [facility] IC 6 [facility] PROPHYLAC INC INC TIC/DX INJECTION SUBQ/[place] [address] [place] ALL ABDOMEN & 6 MEDICAL PELVIS IMAGING W/O ASS CONTRAST MATERIAL UNCLASSIF J3490 [facility] IED DRUGS 6 [facility] INC INC THERAPEUT 85796 [facility] IC 6 [facility] PROPHYLAC INC INC TIC/DX INJECTION SUBQ/IM IADNA 70058 [facility] NEISSERIA 6 [facility] INC INC GONORRHOE AE AMPLIFIED PROBE TQ IADNA 48766 [facility] CHLAMYDIA 6 [facility] INC INC TRACHOMAT IS AMPLIFIED PROBE TQ LEVONORGE J7298 [facility] SP STREL-RLS 6 PHYSICIAN TJ S GROUP INTRAUTER INE SHELBY SYS 52 MG INSERTION 63296 [facility] SP 6 PHYSICIAN TJ INTRAUTER S GROUP INE DEVICE IUD US BREAST 30414 [facility] ALL UNI REAL 6 MEDICAL TIME IMAGING WITH ASS IMAGE LIMITED US BREAST 15269 [facility] UNI REAL 6 [facility] TIME INC INC WITH IMAGE COMPLETE HEPATITIS 38459 M[facility] A 6 [facility] ANTIBODY INC INC HAAB INF AGT G0432 [facility] AB DETECT 6 [facility] EIA TECH INC INC HIV-1&/HI V-2 SCR HEPATITIS 55537 [facility] C 6 [facility] ANTIBODY INC INC HEPATITIS 75944 [facility] B CORE 6 [facility] ANTIBODY INC INC HBCAB TOTAL HEPATITIS 04438 [facility] SURF 6 [facility] [address] [facility] HEPATITIS 6 [facility] B INC INC SURFACE ANTIGEN COLLECTIO 21136 [facility] N VENOUS 6 [facility] BLOOD INC INC VENIPUNCT URE DRUG TEST G0479 [facility] 6 N N PRESUMP;I COMMUNTIY COMMUNTIY NSTRUMENT HOSPITA HOSPITA ED CHEMISTRY ANLYZER ECG 89433 [facility] CELLAROSI ROUTINE 6 [place] - YORBA ECG EMERGENCY PAT W/LEAST PHYS 12 LDS I&R ONLY GROUND A0425 [facility] MILEAGE 6 N SCOT T N SCOT [place] [address] [facility] INFUSION 6 N N HYDRATION COMMUNTIY COMMUNTIY EACH HOSPITA HOSPITA ADDITIONA L HOUR COLLECTIO 91871 [facility] N VENOUS 6 N N BLOOD COMMUNTIY COMMUNTIY VENIPUNCT HOSPITA HOSPITA URE COMPREHEN 66678 [facility] SIVE 6 N N METABOLIC COMMUNTIY COMMUNTIY PANEL HOSPITA HOSPITA AMB A0427 [facility] SERVICE 6 N SCOT T N SCOT T ALS CO EMS CO EMS EMERGENCY TRANSPORT LEVEL 1 FIBRIN 46208 [facility] DGRADJ 6 N N PRODUCTS COMMUNTIY COMMUNTIY D-DIMER HOSPITA HOSPITA QUANTITAT TANO THER 76565 [facility] PROPH/DX 6 N N NJX IV COMMUNTIY COMMUNTIY PUSH HOSPITA HOSPITA SINGLE/1S T SBST/DRUG ECG 92143 [facility] ROUTINE 6 N N ECG COMMUNTIY COMMUNTIY W/LEAST HOSPITA HOSPITA 12 [facility] TRCG ONLY W/O I&[place] [address] [facility] TROPONIN 6 N N QUANTITAT COMMUNTIY COMMUNTIY TANO HOSPITA HOSPITA BLOOD 27758 [facility] COUNT 6 N N COMPLETE COMMUNTIY COMMUNTIY AUTO&AUTO HOSPITA HOSPITA DIFRNTL WBC RADIOLOGI 48565 [facility] C EXAM 6 N N CHEST 2 COMMUNTIY COMMUNTIY VIEWS HOSPITA HOSPITA FRONTAL&L ATERAL THER 57948 [facility] PROPH/DX 6 N N NJX IV COMMUNTIY COMMUNTIY PUSH HOSPITA HOSPITA SINGLE/1S T SBST/DRUG ECG 79455 [facility] ROUTINE 6 N N ECG COMMUNTIY COMMUNTIY W/LEAST HOSPITA HOSPITA 12 [facility] TRCG ONLY W/O I&R COLLECTIO 91016 [facility] N VENOUS 6 N N BLOOD COMMUNTIY COMMUNTIY VENIPUN[place] [address] [facility] TROPONIN 6 N N QUANTITAT COMMUNTIY COMMUNTIY TANO HOSPITA HOSPITA RADIOLOGI 78684 [facility] C EXAM 6 N N CHEST 2 COMMUNTIY COMMUNTIY VIEWS HOSPITA HOSPITA FRONTAL&L ATERAL ECG 77632 [facility] ROUTINE 6 [place] YANELIS ECG EMERGENCY W/LEAST PHYS 12 LDS I&R ONLY GROUND A0425 [facility] MILEAGE 6 N SCOT T N SCOT T PER CO EMS CO EMS STATUTE MILE AMB A0427 [facility] SERVICE 6 N SCOT T N SCOT T ALS CO EMS CO EMS EMERGENCY TRANSPORT LEVEL 1 GROUND A0425 [facility] 5 AMBULANCE AMBULANCE PER SERVICE SERVICE STATUTE MILE AMB A0427 [facility] DIV[facility] SERVICE 5 AMBULANCE AMBULANCE ALS SERVICE SERVICE EMERGENCY TRANSPORT LEVEL 1 ECG 78906 [facility] SH[facility] JR ROUTINE 5 [facility] W/LEAST P 12 LDS I&R ONLY ANES 56747 [facility] INTEG 5 ANESTH SHE EXTREMITI OF THE ES ANT BLUE TRUNK & PERINEUM NOS INCISION 96886 [facility] NELSON L & 5 PHYSICIAN DRAINAGE S, PLLC ABSCESS COMPLICAT ED/MULTIP LE CULTURE 53284 [facility] BACTERIAL 5 [facility] INC INC QUANTTATI VE COLONY COUNT URINE CULTURE 96069 [facility] BCT 5 [facility] ISOL&PRSM INC INC PTV ID ISOLATE EA URINE SUSCEPTIB 02657 [facility] LTY STDY 5 [facility] ANTIMICRB INC INC IAL MICRO/AGA R DILUTJ URNLS DIP 04328 [facility] QUANG 5 PHYSICIAN CHUY STICK/TAB S GROUP LET RGNT NON-AUTO W/O MICRSCP UNCLASSIF J3490 [facility] IED DRUGS 4 [place] [address] [facility] TRANSVAGI 4 [facility] URNLS DIP 37486 [facility] 4 [facility]ALTH TJ STICK/TAB CLINIC OF LET RGNT [place] NON-AUTO W/O MICRSCP SMR PRIM 13808 [facility] SRC WET 4 [facility] TJ [facility] CL[facility] OF NFCT AGT [place] HANDLG&/O 78734 [facility] R CONVEY 4 HEALTH TJ OF SPEC CLINIC OF FOR TR [place] OFFICE TO LAB CULTURE 06668 [facility] BACTERIAL 4 [facility] INC INC QUANTTATI VE COLONY COUNT URINE UNCLASSIF J3490 [facility] IED DRUGS 4 [facility] INC INC URINE 77345 M[facility] 4 [facility] TEST INC [place] [address] [facility] ABDOMEN & 4 [facility] PELVIS INC INC W/O CONTRAST MATERIAL URNLS DIP 64298 [facility] 4 [facility] STICK/TAB INC INC LET REAGENT AUTO MICROSCOP Y IADNA 64031 [facility] P[facility] CHLAMYDIA 3 ER JR GARRETT ER JR GARRETT TRACHOMAT IS AMPLIFIED PROBE TQ CYTP C/V 08419 [facility] AUTO THIN 3 ER JR GARRETT ER JR GARRETT LYR PREPJ SCR MNL RESCR PHYS IADNA 83923 [facility] PICK[facility]IM NEISSERIA 3 ER JR GARRETT ER JR GARRETT GONORRHOE AE AMPLIFIED PROBE TQ ANES IPER 43749 GABRIELE SUAZO MITCHEL LWR ABD 3 W/LAPS TUBAL LIGATION/ [place] [address] [facility] INFUSION 3 [facility] THERAPY INC INC PROPHYLAX IS/DX EA HOUR LAPAROSCO 85989 [facility] PY W/PLMT 3 [facility] INC INC OCCLUSION DEVICE OVIDUCTS BASIC 30552 [facility] METABOLIC 3 [facility] PANEL INC INC CALCIUM TOTAL GONADOTRO 91606 [facility] PIN 3 [facility] CHORIONIC INC INC QUALITATI VE BLOOD 40941 [facility] COUNT 3 [facility] COMPLETE INC INC AUTO&AUTO DIFRNTL WBC REPAIR OF 7569 [facility] OTHER 3 [facility] CURRENT INC INC OBSTETRIC LACERATIO N NEURAXIAL 56471 SALLY ZAVALA SHA LABOR 3 ANALG/ANE S PLND VAGINAL DELIVERY VAGINAL 55267 [facility] DELIVERY 3 TJ TJ ONLY W/POSTPAR LAUREN CARE 54208 [facility] NONSTRESS 3 TJ TJ TEST 00745 [facility] NONSTRESS 3 TJ TJ TEST 75012 [facility] NONSTRESS 3 [facility] TEST INC INC CULTURE 91814 [facility] BACTERIAL 3 [facility] INC INC QUANTTATI VE COLONY COUNT URINE URNLS DIP 03139 [facility] 3 [facility] STICK/TAB INC INC LET REAGENT AUTO MICROSCOP Y 82052 SP [facility] NONSTRESS 3 TJ TJ TEST 56051 SP [facility] NONSTRESS 3 TJ TJ TEST CUL BACT 26495 COMBINED COMBINED XCPT 3 PHYSICIAN PHYSICIAN URINE S LA S LA BLOOD/STO OL AEROBIC ISOL 21537 [facility] NONSTRESS 3 TJ TJ TEST 03389 [facility] NONSTRESS 3 TJ TJ TEST 90424 [facility] NONSTRESS 3 TJ TJ TEST 58284 [facility] NONSTRESS 3 TJ TJ TEST US PREG 58755 [facility] UTERUS 3 TJ TJ REAL TIME W/IMAGE DCMTN TRANSVAG DOPPLER 62801 [facility] VELOCIMET 3 TJ TJ RY UMBILICAL ARTERY 17480 [facility] BIOPHYSIC 3 TJ TJ AL PROFILE NON-STRES S TESTING 52332 [facility] NONSTRESS 3 TJ TJ TEST 56212 [facility] NONSTRESS 3 TJ TJ TEST GLUCOSE 00073 [facility] TOLERANCE 3 TJ TJ TEST GTT 3 SPECIMENS 59177 [facility] NONSTRESS 3 [place] [address] [facility] O'OMAIRA 3 ANASTACIO ANASTACIO UTERUS LIMITED 1/> FETUSES ECG 12997 [facility] BLAKE KER[facility] ROUTINE 3 ECG W/LEAST 12 LDS [place] [address] [facility] UTERUS LIMITED 1/> [place]US[place] PREG 49622 [facility]'OMA[facility] UTERUS 3 ANASTACIO ANASTACIO REAL TIME W/IMAGE DCMTN TRANSVAG SBSQ 36209 [facility] CARE/DAY 25 MINUTES SBSQ 36626 [facility] CARE/DAY 25 [place] [address] [facility] 3 [facility] UTERUS LIMITED 1/> FETUSES [place] PREG 44772 [facility] 3 [facility] REAL TIME W/IMAGE DCMTN TRANSVAG ECG 96347 [facility] CHI ROUTINE 3 ECG W/LEAST 12 LDS I&R ONLY ECG 18417 [place] [facility] [place] CHI ROUTINE 3 ECG W/LEAST 12 LDS I&R ONLY US PREG 43695 [facility] UTERUS 3 Y Y W/DETAIL [facility] ARNOLD 1ST GESTATION [place] PREG 07056 [facility] UTERUS 3 Y Y REAL TIME [facility] W/IMAGE DCMTN TRANSVAG SBSQ 58145 [facility] 3 CARE/DAY 25 MINUTES THERAPEUT 70593 [facility] IC 3 [facility] PROPHYLAC INC INC TIC/DX INJECTION SUBQ/IM [place] PREG 11958 [facility] UTERUS 3 TJ TJ REAL TIME W/IMAGE DCMTN [facility] G0378 [facility] OBSERVATI 3 [facility] ON INC INC SERVICE [facility] G0378 [facility] OBSERVATI 3 [facility] ON INC INC SERVICE PER HOUR INJECTION J2405 [facility] 3 [facility] ONDANSETR INC INC ON HCL PER 1 MG INJECTION J0595 [facility] 3 [facility] BUTORPHAN INC INC OL TARTRATE 1 [place] PREG 43812 [facility] UTER[facility] 3 TJ TJ AFTER 1ST TRIMEST 1/ [facility] G0378 [facility] OBSERVATI 3 [facility] ON INC INC SERVICE PER HOUR INJECTION J2405 [facility] 3 [facility] ONDANSETR INC INC ON HCL PER 1 MG BLOOD 45007 [facility] COUNT 3 [facility] COMPLETE INC INC AUTO&AUTO DIFRNTL WBC BASIC 06750 [facility] METABOLIC 3 [facility] PANEL INC INC CALCIUM TOTAL CULTURE 47372 [facility] BACTERIAL 3 [facility] INC INC QUANTTATI VE COLONY COUNT URINE THERAPEUT 01746 M[facility] IC 3 [facility] [place]JECTION [place] [address] [facility] INFUSION 3 [facility] THERAPY/P INC INC ROPHYLAXI S /DX 1ST TO 1 HR URNLS DIP 48857 [facility] STICK/TAB INC INC LET REAGENT AUTO MICROSCOP Y BLOOD 26686 [facility] COUNT 3 [facility] COMPLETE INC INC AUTO&AUTO DIFRNTL WBC COMPREHEN 75200 [facility] SIVPoly 3 [facility] METABOLIC INC INC PANEL HOSPITAL G0378 [facility] OBSERVATI 3 [facility] ON INC INC SERVICE PER HOUR INJECTION J2405 [facility] 3 [facility] ONDANSETR INC INC ON HCL PER 1 [facility] G0378 [facility] OBSERVATI 3 [facility] ON INC INC SERVICE PER HOUR BLOOD 13284 [facility] COUNT 3 [facility] COMPLETE INC INC AUTO&AUTO DIFRNTL WBC INITIAL 98021 SP [facility] OBSERVATI 3 TJ TJ ON CARE/DAY 50 MINUTES BASIC 18933 [facility] METABOLIC 3 [facility] PANEL INC INC CALCIUM TOTAL LOCM Q9967 [facility] 300-399 3 [facility] MG/ML INC INC IODINE CONCENTRA TION PER ML INJECTION J2405 [facility] 3 [facility] ONDANSETR INC INC ON HCL PER 1 MG RADEX 71761 [facility] ABDOMEN 3 [facility] COMPL INC INC W/DCBTS&/ ERC VIEWS UROGRAPHY 80960 KRISTAL KRISTAL IV W/WO 3 KIERA KIERA KUB W/[place] [address] [facility] UTERUS INC INC LIMITED 1/> FETUSES COMPREHEN 74421 [facility] SIVE 3 MEM [facility] METABOLIC INC INC PANEL INJECTION J2405 M[facility]QUIADES ARNETT 3 [facility] ONDANSETR INC [place] ON HCL [place] 1 [place] [address] MELQUIADES ARNETT INFUSION 3 [facility] THERAPY/P INC INC ROPHYLAXI S /DX 1ST TO 1 HR URNLS DIP 54278 MELQUIADES ARNETT 3 [facility] STICK/TAB INC INC LET REAGENT AUTO MICROSCOP Y BLOOD 05041 MELQUIADES ARNETT COUNT 3 [facility] COMPLETE INC INC AUTO&AUTO DIFRNTL WBC INITIAL 82495 [facility] [place] OBSERVATI 3 TJ TJ ON CARE/DAY 30 MINUTES HOSPITAL [id number] MELQUIADES ARNETT OBSERVATI 3 [facility] ON INC INC SERVICE PER HOUR ALPHA-FET 76537 MELQUIADES ARNETT OPROTEIN 3 [facility] [place] [address] MELQUIADES ARNETT ESTRIOL 3 [facility] INC INC GONADOTRO 74523 MELQUIADES ARNETT PIN 3 [facility] CHORIONIC INC INC QUANTITAT TANO GONADOTRO 50113 MELQUIADES ARNETT PIN 3 [facility] CHORIONIC INC INC QUANTITAT TANO US PREG 12283 MELQUIADES ARNETT UTERUS 3 [facility] REAL TIME INC INC W/IMAGE DCMTN TRANSVAG US PREG 61748 KRISTAL KRISTAL UTERUS 3 KIERA KIERA REAL TIME F/U TRNSABDL PER FETUS URINE 76029 MELQUIADES ARNETT 3 [facility] TEST INC [place] [address] MELQUIADES ARNETT 3 [facility] UTERUS INC INC LIMITED 1/> FETUSES BLOOD 39929 MELQUIADES ARNETT COUNT 3 [facility] COMPLETE INC INC AUTO&AUTO DIFRNTL WBC URNLS DIP 76239 MELQUIADES ARNETT 3 [facility] STICK/TAB INC INC LET REAGENT AUTO MICROSCOP Y COMPREHEN 00309 MELQUIADES ARNETT SIVE 3 [facility] [place] [address] MELQUIADES MELQUIADES STREPTOCO 2 [facility] CCUS INC INC GROUP A IAADI 64603 MELQUIADES ARNETT INFLUENZA 2 [facility] B VIRUS INC INC IAADI 52586 MELQUIADES ARNETT INFFLUENZ 2 [facility] A A VIRUS INC INC URNLS DIP 92726 SP [place] 2 TJ TJ STICK/TAB [place] RG[place] [address] MELQUIADES ARNETT RETROPERI 2 [facility] TONEAL INC INC REAL TIME W/IMAGE COMPLETE URNLS DIP 04594 MELQUIADES ARNETT 2 [facility] STICK/TAB INC INC LET REAGENT AUTO MICROSCOP Y CULTURE 34277 MELQUIADES ARNETT BACTERIAL 2 [facility] INC INC QUANTTATI VE COLONY COUNT URINE US PREG 68971 MELQUIADES ARNETT UTERUS 2 [facility] REAL TIME INC INC W/IMAGE DCMTN TRANSVAG URNLS DIP 10731 SP [place] 2 TJ TJ STICK/TAB LET RGNT NON-AUTO W/O MICRSCP COMPREHEN 23122 MELQUIADES ARNETT SIVE 2 [facility] METABOLIC INC INC PANEL INJECTION J2405 MELQUIADES MELQUIADES 2 [facility] ONDANSETR INC INC ON HCL PER 1 MG THERAPEUT 15384 MELQUIADES ARNETT IC 2 [facility] INJECTION INC INC IV PUSH EACH NEW DRUG BLOOD 22580 MELQUIADESEMY ARNETT COUNT 2 [facility] COMPLETE INC INC AUTO&AUTO DIFRNTL WBC URNLS DIP 38902 MELQUIADES ARNETT 2 [facility] STICK/TAB INC [place] [address] MELQUIADES VASQUEZON INFUSION 2 [facility] THERAPY/P INC INC ROPHYLAXI S /DX 1ST TO 1 HR US PREG 84497 BECKY KRISTAL UTERUS 2 MEDICAL KIERA REAL TIME IMAGING W/IMAGE ASS DCMTN TRANSVAG OBSERVATI 33543 [facility] [place] ON CARE 2 JT TJ DISCHARGE [facility] G0378 MELQUIADES ARNETT OBSERVATI 2 [facility] ON INC INC SERVICE PER HOUR INJECTION J2405 MELQUIADES MELQUIADES 2 [facility] ONDANSETR INC INC [place] H[place] 1 [place] [address] MELQUIADES ARNETT INFUSION 2 [facility] THER INC INC PROPH ADDL SE[place]ENT[place] L TO 1 [place] [address] MELQUIADES ARNETT INFUSION 2 [facility] THERAPY INC INC PROPHYLAX IS/DX EA HOUR URINE 31636 MELQUIADES ARNETT 2 [facility] TEST INC INC VISUAL COLOR CMPRSN METHS BASIC 25975 MELQUIADES ARNETT METABOLIC 2 [facility] PANEL INC INC CALCIUM TOTAL CULTURE 67578 MELQUIADES ARNETT BACTERIAL 2 [facility] INC INC QUANTTATI VE COLONY COUNT URINE THER 08053 MELQUIADES ARNETT PROPH/DX 2 [facility] NJX EA INC INC SEQL [place] P[place] SBST/[place] [address] MELQUIADES ARNETT INFUSION 2 [facility] THERAPY/P INC INC ROPHYLAXI S /DX 1ST TO 1 HR URNLS DIP 33042 MELQUIADES ARNETT 2 [facility] STICK/TAB INC INC LET REAGENT AUTO MICROSCOP Y BLOOD 20019 MELQUIADES ARNETT COUNT 2 [facility] COMPLETE INC INC AUTO&AUTO DIFRNTL WBC THERAPEUT 56601 MELQUIADES ARNETT IC 2 [facility] INJECTION INC INC IV PUSH EACH NEW DRUG INITIAL 64114 SP [place] OBSERVATI 2 TJ TJ ON CARE/DAY 50 MINUTES IADNA 13343 EUGENE KNIGHT CHLAMYDIA 2 [facility] VAL[facility] TRACHOMAT IS AMPLIFIED PROBE TQ IADNA 34378 EUGENE KNIGHT NEISSERIA 2 VALENTE VALENTE GONORRHOE AE AMPLIFIED PROBE TQ CYTP 18771 EUGENE KNIGHT CERVICAL/ 2 [facility] VAL[facility]E VAGINAL REQ INTERP PHYSICIAN CYTP C/V 90638 EUGENE KNIGHT AUTO THIN 2 VALENTE VALENTE LYR PREPJ SCR MNL RESCR PHYS US PREG 86525 [facility] [place] UTERUS 2 TJ TJ REAL TIME W/IMAGE DCMTN TRANSVAG URNLS DIP 27995 MELQUIADES ARNETT 2 [facility] STICK/TAB INC INC LET REAGENT AUTO MICROSCOP Y URINE 28396 MELQUIADES ARNETT 2 [facility] TEST INC INC VISUAL COLOR CMPRSN METHS URINE 36121 MELQUIADES ARNETT 2 [facility]ENTER VISUAL COLOR CMPRSN METHS RUSTCHS E0114 [facility] UNDARM 2 OTH THAN WOOD PAIR PAD TIP&HNDGR IP RADEX 91627 MELQUIADES ARNETT FOOT 2 [facility] COMPLETE INC INC MINIMUM 3 VIEWS SUSCEPTIB 94804 MELQUIADES ARNETT LTY STDY 2 [facility] ANTIMICRB INC INC IAL MICRO/AGA R DILUTJ URNLS DIP 64833 MELQUIADES ARNETT 2 [facility] STICK/TAB INC INC LET REAGENT AUTO MICROSCOP Y CULTURE 59066 MELQUIADES ARNETT BACTERIAL 2 [facility] INC INC QUANTTATI VE COLONY COUNT URINE URINE 91568 MELQUIADES ARNETT 2 [facility] TEST INC INC VISUAL COLOR CMPRSN METHS THERAPEUT 18661 MELQUIADES ARNETT IC 2 [facility] PROPHYLAC INC INC TIC/DX INJECTION SUBQ/[place] [address] SP [place] TRANSVAGI 2 TJ TJ NAL URINE 41476 SP [place] 2 TJ TJ TEST [place] [address] SP [place] TRANSVAGI 2 TJ TJ NAL RADEX 57246 MELQUIADES MELQUIADES HAND 2 [facility] MINIMUM 3 INC INC VIEWS URINE 52963 MELQUIADES ARNETT 2 [facility] TEST INC INC VISUAL COLOR CMPRSN METHS URNLS DIP 81093 MELQUIADES ARNETT 2 [facility] STICK/TAB INC [place] [address] MELQUIADES ARNETT TRANSVAGI 2 [facility] [place] [address] MELQUIADES ARNETT LIPASE 2 [facility] INC INC BLOOD 63800 MELQUIADES ARNETT COUNT 2 [facility] COMPLETE INC INC AUTO&AUTO DIFRNTL WBC URNLS DIP 23858 MELQUIADES MELQUIADES 2 [facility] STICK/TAB INC INC LET REAGENT AUTO MICROSCOP Y URINE 96316 MELQUIADES ARNETT 2 [facility] TEST INC INC V[place] [address] MELQUIADES ARNETT AMYLASE 2 [facility] INC INC COMPREHEN 06628 MELQUIADES ARNETT SIVE 2 [facility] METABOLIC INC INC PANEL URINE 32522 MELQUIADES MELQUIADES 2 [facility] VISUAL COLOR CMPRSN METHS THERAPEUT 64519 MELQUIADES ARNETT IC 2 [facility] PROPHYLAC INC INC TIC/DX INJECTION SUBQ/IM INJECTION J0595 MELQUIADES ARNETT 2 [facility] BUTORPHAN INC INC OL TARTRATE 1 MG INJECTION J2405 MELQUIADES ARNETT 2 [facility] ONDANSETR INC INC ON HCL PER 1 MG [facility] 10404 [facility] 2 I FEE I FEE DAY MANAGEMEN T 30 MIN/< SBSQ 62930 [facility] 2 I FEE I FEE CARE/DAY 25 MINUTES INITIAL 70586 [facility] 2 EMERGENCY PAULA CARE/DAY SERVICES [address] ORBIT [address] [place] SELLA/POS 2 MEDICAL T SERV FOSSA/EAR FOUNDATIO W/[place] [address] MELQUIADES ARNETT STREPTOCO 1 [facility] CCUS INC INC GROUP A INJECTION J1885 [address] KETOROLAC TROMETHAM INE PER 15 MG THERAPEUT [address] PROPHYLAC TIC/DX INJECTION SUBQ/IM ONDANSETR Q0179 [facility] ON HCL [address] [place] [address] MG ORL NOT >48 HR DOSE REGIMEN RADEX 58957 ARNALDOY KRISTAL, WRIST 0 MEDICAL GALA COMPLETE IMAGING MINIMUM 3 ASSOCIATE VIEWS S RADEX 38210 BECKY KRISTAL, FOREARM 2 0 MEDICAL GALA VIEWS IMAGING ASSOCIATE S THERAPEUT 35725 [facility] SP, IC 0 HEALTH ERIK J PROPHYLAC CLINIC OF TIC/DX INJECTION [place] SUBQ/IM PLLC THERAPEUT 28685 [facility] SP, IC 9 [facility] ERIK J PROPHYLAC CLINIC OF TIC/DX INJECTION [place] SUBQ/[place] [address] PATHOLOGY PATHOLOGY SURG 9 & & PATHOLOGY CYTOLOGY CYTOLOGY LAB LAB GROSS&CHUY ROSCOPIC EXAM COLPOSCOP 26337 [facility] [place], Y CERVIX 9 HEALTH ERIK J BX CERVIX CLINIC OF & ENDOCRV KAUSHAL ROBERTS PLLC CYTP 14632 PATHOLOGY PATHOLOGY CERVICAL/ 9 & & VAGINAL CYTOLOGY CYTOLOGY REQ LAB LAB INTERP PHYSICIAN CYTP C/V 26176 PATHOLOGY PATHOLOGY AUTO THIN 9 & & LYR CYTOLOGY CYTOLOGY PREPJ SCR LAB LAB MNL RESCR PHYS IADNA 80017 PATHOLOGY PATHOLOGY PAPILLOMA 9 & & VIRUS CYTOLOGY CYTOLOGY HUMAN LAB LAB AMPLIFIED PROBE TQ VAGINAL 29450 [place] [facility] DELIVERY 9 MEDICAL NN, ONLY SERV ADRIAN Hayward PATIENCE OTHER 7359 [facility] 9 Y Y [place]IST[facility] [place] [address] MELQUIADES ARNETT INFUSION 9 [facility] THERAPY/P INC INC ROPHYLAXI S /DX 1ST TO 1 HR GROUND A0425 [facility] 9 AMBULANCE AMBULANCE [place] [address] MELQUIADES ARNETT INFUSION 9 [facility] THERAPY INC INC PROPHYLAX IS/DX EA HOUR 62653 MELQUIADES ARNETT NONSTRESS 9 [facility] TEST INC INC AMB A0427 [facility] 9 AMBULANCE AMBULANCE ALS SERVICE SERVICE EMERGENCY TRANSPORT LEVEL 1 OBSERVATI 92898 ZURDO MAE, EMY/INPATI 9 CATHY [facility] ENT [facility]PITAL CARE 55 MINUTES HOSPITAL G0378 MELQUIADES ARNETT OBSERVATI 9 [facility] ON INC INC SERVICE PER HOUR GLUCOSE 77370 [facility] [place], [facility] CLINIC OF DOSE [facility] GLUCOSE 82352 [facility] [place], TOLERANCE 9 [facility] TEST GTT CLINIC OF 3 SPECIMENS [facility] SPCL STN 03212 PATHOLOGY PATHOLOGY 2 I&R 9 & & EXCPT CYTOLOGY CYTOLOGY MICROORG/ LAB LAB ENZYME/IM CYT ANES 73396 COMMUNITY JUDGE, UPPER GI 9 ANESTH CINDY L ENDOSCOPY OF THE PROXIMAL BLUEGRASS TO DUODENUM EGD 64913 SCHUL[facility] KEVINSTJAREN TRANSORAL 9 , ANNIKA , ANNIKA BIOPSY SINGLE/[place] [address] MELQUIADES VASQUEZON INFUSION 9 [facility] THERAPY/P INC INC ROPHYLAXI S /DX 1ST TO 1 [place] [address] PATHOLOGY PATHOLOGY SURG 9 & & PATHOLOGY CYTOLOGY CYTOLOGY LAB LAB GROSS&CHUY ROSCOPIC EXAM ESOPHAGOG 4516 MELQUIADES ARNETT ASTRODUOD 9 [facility] ENOSCOPY INC INC WITH CLOSED BIOPSY BLOOD 85301 MELQUIADES ARNETT COUNT 9 [facility] COMPLETE INC INC AUTO&AUTO DIFRNTL WBC BLOOD 90142 MELQUIADES ARNETT OCCULT 9 [facility] PEROXIDAS INC INC E ACTV QUAL FECES 1-3 SPEC URNLS DIP 66351 MELQUIADES ARNETT 9 [facility] STICK/TAB INC INC LET REAGENT AUTO MICROSCOP Y BASIC 17066 MELQUIADES ARNETT METABOLIC 9 [facility] PANEL INC INC CALCIUM [place] PREG 98082 [facility] [place], UTERUS 9 HEALTH ERIK J AFTER 1ST CLINIC OF TRIMEST [place] GESTATION PLLC URNLS DIP 85503 MELQUIADES MELQUIADES 9 [facility] STICK/TAB INC INC LET REAGENT AUTO MICROSCOP Y BLOOD 80589 MELQUIADES ARNETT COUNT 9 [facility] COMPLETE INC INC AUTO&AUTO DIFRNTL WBC BASIC 42441 MELQUIADES ARNETT METABOLIC 9 [facility] PANEL INC INC CALCIUM TOTAL CULTURE 68049 MELQUIADES ARNETT BACTERIAL 9 [facility] INC INC QUANTTATI VE COLONY COUNT URINE GONADOTRO 08131 MELQUIADES ARNETT PIN 9 [facility] CHORIONIC INC INC QUANTITAT TANO ALPHA-FET 15837 MELQUIADES ARNETT OPROTEIN 9 [facility] [place] [address] MELQUIADES ARNETT ESTRIOL 9 [facility] INC INC US PREG 64972 [facility] [place], UTERUS 9 HEALTH ERIK J REAL TIME CLINIC OF W/IMAGE DCMTN KAUSHAL TRANSVAG PLLC MOLECULAR 21934 MOLECULAR MOLECULAR DX AMP 9 TARGET PATHOLOGY PATHOLOGY MULTIPLEX LAB LAB 1ST 2 NETWORK NETWORK SEQ INC INC MUTATION 63573 MOLECULAR MOLECULAR ID 9 ENZYMATIC PATHOLOGY PATHOLOGY LAB LAB LIG/PRIME NETWORK NETWORK R XTN 1 INC INC SGM EA MOLECULAR 08916 MOLECULAR MOLECULAR 9 DIAGNOSTI PATHOLOGY PATHOLOGY CS LAB LAB INTERPRET NETWORK NETWORK ATION & INC INC REPORT CYTP C/V 60064 PATHOLOGY PATHOLOGY AUTO THIN 9 & & LYR CYTOLOGY CYTOLOGY PREPJ SCR LAB LAB MNL RESCR PHYS CYTP 26279 PATHOLOGY PATHOLOGY CERVICAL/ 9 & & VAGINAL CYTOLOGY CYTOLOGY REQ LAB LAB INTERP PHYSICIAN IADNA 01738 PATHOLOGY PATHOLOGY NEISSERIA 9 & & CYTOLOGY CYTOLOGY GONORRHOE LAB LAB AE AMPLIFIED PROBE TQ MOLECULAR 92076 MOLECULAR MOLECULAR DX AMP 9 TARGET PATHOLOGY PATHOLOGY MULTIPLEX LAB LAB EA ADDL NETWORK NETWORK SEQ INC INC MOLEC 30784 MOLECULAR MOLECULAR SEP&ID HI 9 RESOLU PATHOLOGY PATHOLOGY TQ EACH LAB LAB NUCLEIC NETWORK NETWORK ACID PREP INC INC MOLEC 46852 MOLECULAR MOLECULAR ISOL/XTRJ 9 HP PATHOLOGY PATHOLOGY NUCLEIC LAB LAB ACID EA NETWORK NETWORK TYPE INC INC IADNA 24977 PATHOLOGY PATHOLOGY CHLAMYDIA 9 & & CYTOLOGY CYTOLOGY TRACHOMAT LAB LAB IS AMPLIFIED PROBE TQ URINE 96022 DHS/CO MELQUIADES 9 [facility] VISUAL BANK ACCT COLOR CMPRSN METHS REMOVAL 66013 HARPEL, HARPEL, IMPLANTAB 8 ZURDO RENNER R LE CONTRACEP TIVE CAPSULES URNLS DIP 62737 MELQUIADES ARNETT 8 [facility] STICK/TAB INC INC LET REAGENT AUTO MICROSCOP Y CULTURE 44220 MELQUIADES ARNETT BACTERIAL 8 [facility] INC INC QUANTTATI VE COLONY COUNT URINE COMPREHEN 45227 MELQUIADES ARNETT SIVE 8 [facility] METABOLIC INC INC PANEL URINE 01862 MELQUIADES ARNETT 8 [facility] TEST INC [place] [address] MELQUIADES ARNETT THER 8 [facility] PROPH/DX INC INC 1ST >1 HR BLOOD 96344 MELQUIADES ARNETT COUNT 8 [facility] COMPLETE INC INC AUTO&AUTO DIFRNTL WBC URINE 73953 ZURDO MAE, 8 CATHY [facility] TEST VISUAL COLOR CMPRSN METHS RADEX 79295 MELQUIADES ARNETT WRIST 8 [facility] COMPLETE INC INC MINIMUM 3 VIEWS 3D 42367 [place] KRISTAL, RENDERING 8 MEDICAL GALA IMAGING W/INTERP& ASSOCIATE POSTPROC S DIFF WORK STATION CULTURE 36833 MELQUIADES ARNETT BACTERIAL 8 [facility] INC INC QUANTTATI VE COLONY COUNT URINE CULTURE 38153 MELQUIADES ARNETT BCT 8 [facility] ISOL&PRSM [place] [address] [place] KRISTAL, ABDOMEN 8 MEDICAL GALA W/O IMAGING CONTRAST ASSOCIATE MATERIAL S SUSCEPTIB 51173 MELQUIADES ARNETT LTY STDY 8 [facility] ANTIMICRB INC INC IAL MICRO/AGA R DILUTJ URNLS DIP 53836 MELQUIADES ARNETT 8 [facility] STICK/TAB INC INC LET REAGENT AUTO MICROSCOP Y URINE 07375 MELQUIADES ARNETT 8 [facility] TEST INC INC VISUAL COLOR CMPRSN METHS CT PELVIS 74484 [place] KRISTAL, W/O 8 MEDICAL GALA CONTRAST IMAGING MATERIAL ASSOCIATE S URINE 56239 ZURDO MAE, 8 CATHY [facility] TEST VISUAL COLOR CMPRSN METHS INSERTION 76837 ZURDO MAE, 8 CATHY [facility] IMPLANTAB LE CONTRACEP TIVE CAPSULES CYTP 82730 [facility] FR[facility], CERV/VAG 8 [place] INC VIRAJ E AUTO THIN LAYER PREP MNL SCREEN BLOOD 51685 ZURDO MAE, COUNT 8 CATHY [facility] HEMOGLOBI N IADNA 80420 [facility] FR[facility], NEISSERIA 8 [place] INC VIRAJ E GONORRHOE AE AMPLIFIED PROBE TQ IADNA 84467 [facility], CHLAMYDIA 8 [place] INC VIRAJ Pang TRACHOMAT [place] [address] MELQUIADES ARNETT STREPTOCO 8 [facility] INC GROUP A Encounters Encounter Start End Date Code Location Performer Type Date EMERGENCY 79599 TG CARDONA 7 7 PHYSICIAN [facility] T VISIT HIGH/URGE NT SEVERITY OFFICE 38493 [facility] SP OUTPATIEN 6 6 PHYSICIAN TJ T VISIT S GROUP 25 MINUTES EMERGENCY 89456 TG BRAUN 6 6 PHYSICIAN [place] [facility] T VISIT HIGH/URGE NT SEVERITY EMERGENCY 83135 TG [place] DEPT 6 6 PHYSICIAN [place] VISIT [facility] HIGH SEVERITY& THREAT FUNCJ EMERGENCY 86264 TG RIZZO 6 6 PHYSICIAN U MEDINA [facility] T VISIT HIGH/URGE NT SEVERITY EMERGENCY 64893 MELQUIADES 6 6 [facility] T VISIT LOW/MODER SEVERITY HOSPITAL MELQUIADES - 6 6 [facility] OFF[facility] 99786 [facility] SP MURRIETAPATIEN 6 6 PHYSICIAN TJ T VISIT S GROUP 15 MINUTES OFFICE 20740 [facility] OUTPATIEN 6 6 PHYSICIAN JONY T NEW 30 PRACTICE MINUTES L EMERGENCY 98327 MELQUIADES 6 6 [facility] T VISIT LOW/MODER SEVERITY EMERGENCY 29950 TG DEL RIO 6 6 PHYSICIAN [facility] T VISIT MODERATE SEVERITY HOSPITAL MELQUIADES - 6 6 [facility] MELQUIADES - 6 6 [facility] MELQUIADES [facility] 6 6 [facility] OFF[facility] 02773 [facility] [place] OUTPATIEN 6 6 PHYSICIAN TJ T VISIT S GROUP 15 MINUTES OFFICE 25504 [facility] QUANG OUTPATIEN 6 6 PHYSICIAN CHUY T VISIT S GROUP 15 MINUTES OFFICE 58390 [facility] QUANG OUTPATIEN 6 6 PHYSICIAN CHUY T VISIT S GROUP 15 MINUTES HOSPITAL MELQUIADES - 6 6 [facility] OUTPATIEN INC T EMERGENCY 55826 [facility] 6 6 N DEPARTMEN COMMUNTIY T VISIT HOSPITA HIGH/URGE NT SEVERITY EMERGENCY 03026 [facility] DEPT 6 6 [place] - YOR[place] VISIT EMERGENCY PAT HIGH PHYS SEVERITY& THREAT [facility] - 6 6 N OUTPATIEN COMMUNTIY T [facility] - 6 6 N OUTPATIEN COMMUNTIY [facility] EMERGENCY 07413 [facility] DEPT 6 6 [place] YANELIS VISIT EMERGENCY HIGH PHYS SEVERITY& THREAT [facility] EMERGENCY 79588 [facility] 6 6 N DEPARTMEN COMMUNTIY T VISIT HOSPITA HIGH/URGE NT SEVERITY EMERGENCY 52966 MELQUIADES 5 5 [facility] DEPARTMEN INC T VISIT MODERATE SEVERITY HOSPITAL MELQUIADES - 5 5 [facility] OUTPATIEN INC T EMERGENCY 52394 TG Ramos 5 5 PHYSIC[facility] HIGH/URGE NT SEVERITY HOSPITAL MELQUIADES - 5 5 [facility] OUTPATIEN INC T OFFICE 59142 [facility] QUANG OUTPATIEN 5 5 PHYSICIAN CHUY T VISIT S GROUP 15 MINUTES HOSPITAL MELQUIADES - 4 4 [facility] OUTPATIEN INC T EMERGENCY 58118 [facility] 4 4 [place] IMT DEPARTMEN EMERGENCY T VISIT PHYS MODERATE SEVERITY EMERGENCY 34176 MELQUIADES 4 4 [facility] DEPARTMEN INC T VISIT LIMITED/M INOR PROB OFFICE 87233 [facility] OUTPATIEN 4 4 HEALTH TJ T VISIT CLINIC OF 15 DANITA MINUTES OFFICE 91243 [facility] OUTPATIEN 4 4 HEALTH TJ T VISIT CLINIC OF 25 DANITA MINUTES [facility] MELQUIADES - 4 4 [facility] OUTPATIEN INC T EMERGENCY 87873 MELQUIADES 4 4 [facility] DEPARTMEN INC T VISIT LOW/MODER SEVERITY EMERGENCY 50974 [facility] [address] [facility] EMERGENCY T VISIT PHYS HIGH/URGE NT SEVERITY [facility] MELQUIADES - 3 3 [facility] OUT[facility]IEN [facility] MELQUIADES - 3 3 [facility] OUTPATIEN [facility] T Inpatient IMP Melquiades Mae MD (IN) 3 00:40 3 14:10 [facility] MELQUIADES - 3 3 [facility] INPATIENT INC OFFICE 91217 SP [facility] OUTPATIEN 3 3 TJ TJ T VISIT 15 MINUTES OFFICE 52751 [facility] OUTPATIEN 3 3 TJ TJ T VISIT 15 MINUTES HOSPITAL MELQUIADES - 3 3 [facility] OUTPATIEN INC T OFFICE 16688 CATHY MAE OUTPATIEN 3 3 DAVID DAVID T VISIT 15 MINUTES OFFICE 64403 [facility] OUTPATIEN 3 3 TJ TJ T VISIT 15 MINUTES OFFICE 07377 [facility] OUTPATIEN 3 3 TJ TJ T VISIT 15 MINUTES OFFICE 40585 SP [facility] OUTPATIEN 3 3 TJ TJ T VISIT 15 MINUTES OFFICE 27372 SP [facility] OUTPATIEN 3 3 TJ TJ T VISIT 15 MINUTES OFFICE 70245 SP [facility] OUTPATIEN 3 3 TJ TJ T VISIT 15 MINUTES OFFICE 41033 SP [facility] OUTPATIEN 3 3 TJ TJ T VISIT 15 MINUTES OFFICE 15925 SP [facility] OUTPATIEN 3 3 TJ TJ T VISIT 15 MINUTES OFFICE 11423 [facility] OUTPATIEN 3 3 TJ TJ T VISIT 5 MINUTES OFFICE 30626 [facility] OUTPATIEN 3 3 TJ TJ T VISIT 15 MINUTES HOSPITAL UNIVERSIT - 3 3 Y INPATIENT [facility] MELQUIADES - 3 3 [facility] OUTPATIEN INC T Inpatient IMP Melquiades Snowden ([place]) 3 13:32 3 10:10 [facility] MELQUIADES - 3 3 [facility] OUTPATIEN INC T OFFICE 24219 [facility] OUTPATIEN 3 3 TJ TJ T VISIT 15 MINUTES OFFICE 82532 SP [facility] OUTPATIEN 3 3 TJ TJ T VISIT 15 MINUTES HOSPITAL MELQUIADES - 3 3 [facility] OUTPATIEN INC T EMERGENCY 45533 MELQUIADES 3 3 [facility] DEPARTMEN INC T VISIT HIGH/URGE NT SEVERITY EMERGENCY 02183 QUANG DEL RIO DEPT 3 3 CHUY CHUY VISIT HIGH SEVERITY& THREAT FUNJ OFFICE 72852 SP [facility] OUTPATIEN 3 3 TJ TJ T VISIT 15 MINUTES EMERGENCY 26266 MELQUIADES 3 3 [facility] DEPARTMEN INC T VISIT HIGH/URGE NT SEVERITY [facility]OSPITAL M[facility]QUIADES - 3 3 [facility] OUTPATIEN INC T EMERGENCY 38373 EUGENE VAUGHAN DEPT 3 3 EMERGENCY VISIT SERVICES HIGH SEVERITY& THREAT FUN HOSPITAL MELQUIADES - 3 3 [facility] T OFFICE 65099 SP [facility] OUTPATIEN 3 3 TJ TJ T VISIT 15 MINUTES EMERGENCY 33182 CHRISTIAN GONZALES DEPT 3 3 III MITCHEL III MITCHEL VISIT HIGH SEVERITY& THREAT [facility] MELQUIADES - 3 3 [facility] T EMERGENCY 82810 MELQUIADES 3 3 [facility] T VISIT HIGH/URGE NT SEVERITY OFFICE 69849 SP [facility] OUTPATIEN 3 3 TJ TJ T VISIT 15 MINUTES EMERGENCY 88736 MELQUIADES 2 2 [facility] T VISIT LIMITED/M INOR PROB EMERGENCY 49811 QUANG DEL RIO 2 2 [facility] T VISIT HIGH/URGE NT SEVERITY HOSPITAL MELQUIADES - 2 2 [facility] OFFICE 30306 SP [facility] OUTPATIEN 2 2 TJ TJ T VISIT 15 MINUTES HOSPITAL MELQUIADES - 2 2 [facility] 17707 MELQUIADES 2 2 [facility] T VISIT LOW/MODER SEVERITY EMERGENCY 48420 EUGENE MCCALLUM DEPT 2 2 EMERGENCY MITCHEL VISIT SERVICES HIGH SEVERITY& THREAT [facility] OFFICE 07208 SP SNOWDEN OUTPATIEN 2 2 TJ TJ T VISIT 15 MINUTES EMERGENCY 00719 MELQUIADES 2 2 [facility] T VISIT HIGH/URGE NT SEVERITY EMERGENCY 52263 CHRISTIAN GONZALES DEPT 2 2 III MITCHEL III MITCHEL VISIT HIGH SEVERITY& THREAT [facility] MELQUIADES - 2 2 [facility] OUTPATIEN [facility] HOSPITAL MELQUIADES - 2 2 [facility] T EMERGENCY 18453 MELQUIADES DEPT 2 2 [facility] VISIT INC HIGH SEVERITY& THREAT [facility] EMERGENCY 49265 EUGENE CASTILLO DEPT 2 2 EMERGENCY VISIT SERVICES HIGH SEVERITY& THREAT [facility] EMERGENCY 64729 MELQUIADES 2 2 [facility] DEPARTMEN INC T VISIT LIMITED/M INOR PROB EMERGENCY 05974 QUANG DEL RIO 2 2 [facility] DEPARTMEN T VISIT HIGH/URGE NT SEVERITY HOSPITAL MELQUIADES - 2 2 [facility] OUTPATI[facility] INC T OFFICE 65352 MELQUIADES SIMMONS 2 2 [facility] T VISIT CENTER CENTER 25 MINUTES EMERGENCY 37563 EUGENE CASTILLO 2 2 EMERGENCY DEPARTMEN SERVICES T VISIT HIGH/URGE NT SEVERITY EMERGENCY 57381 [facility] 2 2 [facility] T VISIT MODERATE SEVERITY [facility] - 2 2 [facility] T [facility] - 2 2 [facility] OUTPATI[facility] INC T EMERGENCY 66655 MELQUIADES 2 2 [facility] DEPARTMEN INC T VISIT MODERATE SEVERITY EMERGENCY 08106 EUGENE CASTILLO DEPT 2 2 EMERGENCY VISIT SERVICES HIGH SEVERITY& THREAT FUNCJ OFFICE 33324 SP ESTEVEZEN 2 2 TJ TJ T VISIT 25 MINUTES EMERGENCY 03458 CHRISTIAN GONZALES 2 2 III MITCHEL III MITCHEL DEPARTMEN T VISIT HIGH/URGE NT SEVERITY [facility]OSPITAL [facility] - 2 2 [facility] OUTPATIEN INC T EMERGENCY 61476 MELQUIADES 2 2 [facility] DEPARTMEN INC T VISIT LOW/MODER SEVERITY EMERGENCY 99795 EUGENE MCCALLUM 2 2 EMERGENCY [facility]CHEL DEPARTMEN SERVICES T VISIT MODERATE SEVERITY EMERGENCY 14481 MELQUIADES 2 2 [facility] DEPARTMEN INC T VISIT LOW/MODER SEVERITY HOSPITAL M[facility] - 2 2 [facility] OUTPATIEN [facility] T HOSPITAL MELQUIADES [facility] 2 2 [facility] OUTPATIEN INC T EMERGENCY 13754 EUGENE DEL RIO DEPT 2 2 EMERGENCY CHUY VISIT SERVICES HIGH SEVERITY& THREAT FUNCJ EMERGENCY 09665 MELQUIADES 2 2 [facility] DEPARTMEN INC T VISIT LOW/MODER SEVERITY OFFICE 08286 SP SNODWEN OUTPATIEN 2 2 TJ TJ T VISIT 25 MINUTES EMERGENCY 26100 NAHED 2 2 [facility] T VISIT LOW/MODER SEVERITY HOSPITAL BORACHEL - 2 2 [facility] T EMERGENCY 75573 DULCE PEREZ DEPT 2 2 VISIT [facility]IGH SEVERITY& [facility] 2 [facility] OUTPATIEN [facility] T EMERGENCY 50115 CHRISTIAN GONZALES 2 2 III MITCHEL III [facility] DEPART[facility] T VISIT HIGH/URGE NT SEVERITY HOSPITAL M[facility]QUIADES - 2 2 [facility] OUTPATIEN [facility] T EMERGENCY 32464 MELQUIADES 2 2 [facility] DEPARTMEN INC T VISIT MODERATE SEVERITY OFFICE 35506 MELQUIADES AR[facility]T OUTPATIEN 2 2 [facility] T VISIT CENTER CENTER 15 MINUTES EMERGENCY 28903 EUGENE DEL RIO 2 2 EMERGENCY [facility] DEPARTMEN SERVICES T VISIT HIGH/URGE NT SEVERITY EMERGENCY 72535 MELQUIADES 2 2 [facility] DEPARTMEN INC T VISIT MODERATE SEVERITY HOSPITAL MELQUIADES - 2 2 [facility] OUTPATIEN INC T EMERGENCY 97393 EUGENE DEL RIO 2 2 EMERGENCY [facility] DEPARTMEN SERVICES T VISIT MODERATE SEVERITY EMERGENCY 71409 MELQUIADES 2 2 [facility] DEPART[facility] INC T VISIT LOW/MODER SEVERITY [facility]OSPITAL [facility] - 2 2 [facility] OUTPATIEN INC T EMERGENCY 17373 MELQUIADES 2 2 [facility] DEPARTMEN INC T VISIT LIMITED/M INOR PROB EMERGENCY 37019 UNIVERSIT 2 2 [facility] H[facility] T VISIT HIGH/URGE NT SEVERITY HOSPITAL [facility] - [facility] 49355 [place] RAINS ALL 2 2 MEDICAL DEPARTMEN SERV T VISIT FOUNDATIO MODERATE SEVERITY HOSPITAL UNIVERSIT - 2 2 Y INPATIENT HOSPITAL EMERGENCY 90120 [place] ECKERLINE DEPT 2 2 MEDICAL C VISIT SERV HIGH FOUNDATIO SEVERITY& THREAT [facility] MELQUIADES - 2 2 [facility] OUTPATIEN INC T EMERGENCY 58517 [facility] V[facility]/M INOR PROB EMERGENCY 97156 CHRISTIAN GONZALES 2 2 III MITCHEL III [facility] EMERGENCY DEPARTMENT T VISIT MODERATE SEVERITY HOSPITAL MELQUIADES - 2 2 [facility] OUTPATIEN INC T EMERGENCY 31429 MELQUIADES 2 2 [facility] L[facility]MODER SEVERITY EMERGENCY 28483 CHRISTIAN GONZALES [address] [facility] SE[facility] - 1 1 [facility] OUTPATIEN INC T EMERGENCY 68571 EUGENE DEL RIO 1 1 EMERGENCY [facility] SERVICES T VISIT MODERATE SEVERITY EMERGENCY 64470 MELQUIADES 1 1 [facility] DEPARTMEN INC T VISIT LOW/MODER SEVERITY EMERGENCY 95884 ZEHRA 1 1 HOSPITAL DEPARTMEN T VISIT MODERATE SEVERITY OFFICE 66321 MELQUIADES RANETT OUTPATIEN 1 1 [facility] T VISIT CENTER CENTER 15 MINUTES HOSPITAL [facility] 1 1 [facility] OUTPATIEN T EMERGENCY 13810 [facility] CHEESEBIB 1 1 [facility] EMERGENCY T VISIT PHYSI HIGH/URGE NT SEVERITY EMERGENCY 63335 [facility] CARLEY JAM 1 1 [facility] EMERGENCY T VISIT PHYSI HIGH/URGE NT SEVERITY EMERGENCY 91841 [facility] RADHA DEPT 1 1 [facility]IN EDW VISIT EMERGENCY HIGH PHYSI SEVERITY& THREAT [facility] MELQUIADES - 1 1 [facility] OUTPATIEN INC T EMERGENCY 31502 MELQUIADES 1 1 [facility] LOW/MODER SEVERITY EMERGENCY 45846 [facility]QU[facility]ADES 0 0 [facility]IGH/URGE NT SEVERITY [facility]OSPITAL MELQUIADES - 0 0 [facility] OFF[facility] 33906 [facility] 0 0 [facility] J T VISIT 5 CLINIC OF MINUTES [facility] MELQUIADES - 0 0 [facility]EN [facility] HOSPITAL MELQUIADES - 9 9 [facility] OUTPATIEN [facility] T OFFICE 22613 [facility] 9 9 [facility] E[facility]K J T VISIT 5 CLINIC OF MINUTES [facility] EMERGENCY 51393 EUGENE DEL RIO, 9 9 EMERGENCY CATARINA S [facility] SERVICES T VISIT HIGH/URGE ASSOCIATE NT S SEVERITY EMERGENCY 59776 MELQUIADES 9 9 [facility] DEPARTMEN INC T VISIT LIMITED/M INOR PROB EMERGENCY 79050 EUGENE MARES, 9 9 [facility] HIGH/URGE ASSOCIATE NT S SEVERITY HOSPITAL [facility] - 9 9 [facility] OUTPATIEN INC T EMERGENCY 90515 MELQUIADES 9 9 [facility] DEPARTMEN INC T VISIT LOW/MODER SEVERITY OFFICE 12097 [facility] OUTPATIEN 9 9 [facility]ALTH [facility] T [facility]IT [facility] 25 BANK ACCT MINUTES OFFICE 66518 [facility], [facility] 9 9 HEALTH E[facility] J T VISIT CLINIC OF 25 MINUTES [facility] OFFICE 64415 [facility], OUTPATIEN 9 9 [facility]ALTH [facility] T VISIT CLINIC OF 15 MINUTES [facility] UNIVERSIT - 9 9 Y INPATIENT HOSPITAL OFFICE 79275 [facility], OUTPAT[facility]EN 9 9 HEALTH ERIK J T VISIT 5 CLINIC OF MINUTES [facility] OFFICE 72036 [facility] OUTPATIEN 9 9 HEALTH E[facility]K T VISIT CLINIC OF 15 MINUTES [facility] OFFICE 60143 [facility] OUTPATIEN 9 9 , ANNIKA ROBLERO T VISIT 10 MINUTES HOSPITAL M[facility]QUIADES - 9 9 [facility] OUTPATIEN INC T OFFICE 27933 [facility] 9 9 , ANNIKA ROBLERO ION NEW/ESTAB PATIENT 60 MIN EMERGENCY 62136 MELQUIADES 9 9 [facility] DEPARTMEN INC T VISIT LOW/MODER SEVERITY EMERGENCY 76090 EUGENE MARES, DEPT 9 9 EMERGENCY ADAN VISIT SERVICES O HIGH SEVERITY& ASSOCIATE THREAT S [facility] MELQUIADES - 9 9 [facility] OUTPATIEN INC T OFFICE 38442 [facility] OUTPATIEN 9 9 HEALTH ERIK J T VISIT CLINIC OF 15 MINUTES [facility] OFFICE 06227 [facility], OUTPATIEN 9 9 [facility]ALTH [facility] J T VISIT CLINIC OF 15 MINUTES [facility] EMERGENCY 73571 MELQUIADES 9 9 [facility] DEPARTMEN INC T VISIT MODERATE SEVERITY HOSPITAL MELQUIADES - 9 9 [facility] OUTPATIEN INC T OFFICE 03630 [facility] J T VISIT CLINIC OF 15 MINUTES [facility] MELQUIADES - 9 9 [facility] OUTPATIEN INC T EMERGENCY 78226 EDMUNDO MINAYA, 9 [facility] T VISIT LOW/MODER SEVERITY OFFICE 66202 DHS/CO [facility] 9 9 HEALTH CO HEALTH T VISIT [facility] 25 BANK ACCT MINUTES HOSPITAL NAHED - 8 8 [facility] T EMERGENCY 78713 JUSTICE MEJIA, 8 8 [facility] EMERGENCY T VISIT PHYS INC MODERATE SEVERITY EMERGENCY 14006 NAHED 8 8 [facility] T VISIT LOW/MODER SEVERITY EMERGENCY 40335 MELQUIADES 8 8 [facility] T VISIT LIMITED/M INOR PROB HOSPITAL MELQUIADES [facility] 8 8 [facility] T EMERGENCY 60126 MELQUIADES 8 8 [facility] INC T VISIT LOW[facility]MODER SEVERITY HOSPITAL MELQUIADES [facility] 8 8 [facility] T EMERGENCY 81447 MELQUIADES COOLEY, 8 8 [facility] T VISIT PROF SERV MODERATE SEVERITY HOSPITAL MELQUIADES - 8 8 [facility] OUTPATIEN INC T OFFICE 54010 IRIS WEISS 8 8 CATHY Hayward T VISIT 15 MINUTES EMERGENCY 03051 MELQUIADES 8 8 [facility] DEPARTMEN INC T VISIT LOW/MODER SEVERITY HOSPITAL MELQUIADES - 8 8 [facility] OUTPATIEN INC T EMERGENCY 75740 MELQUIADES HERNANDEZ, 8 8 [facility] T VISIT PROF SERV MODERATE SEVERITY OFFICE 10993 [facility] OUTPATIEN 8 8 NORRIS MARTINEZ, T VISIT INTERNAL PEDRO F 15 MED MINUTES HOSPITAL MELQUIADES - 8 8 [facility] OUTPATIEN INC T EMERGENCY 18078 MELQUIADES 8 8 [facility] MODERATE SEVERITY OFFICE 02315 [facility] NORRIS KHALIL T VISIT INTERNAL 15 MED MINUTES OFFICE 37342 ZURDO MAE OUTPATIEN 8 8 CATHY Hayward T VISIT 15 MINUTES OFFICE 75505 [facility] 8 CATHY Hayward T VISIT 15 MINUTES HOSPITAL MELQUIADES - 8 8 [facility] OUTPATIEN INC T EMERGENCY 26000 MELQUIADES 8 8 [facility] DEPARTMEN INC T VISIT LOW/MODER SEVERITY OFFICE 57483 DHS/CO [facility] 8 8 HEALTH CO HEALTH T VISIT [facility] 10 BANK ACCT MINUTES PERIODIC 44505 ZURDO MAE, PREVENTIV 8 8 CATHY Hayward E MED EST PATIENT 18-39 YRS HOSPITAL MELQUIADES - 8 8 [facility] OUTPATIEN INC T EMERGENCY 02505 MELQUIADES 8 8 [facility] DEPARTMEN INC T VISIT LOW/MODER SEVERITY
--- OUTSIDE RECORDS SUMMARY | 2016-10-22 14:10 | External Medical Summary Rpt ---
Author Author , Organization [employer] Address Unknown Phone Unavailable Care Team Providers Care Java Security Architect Name Role Phone JONATHAN CASTILLO Unavailable Unavailable OMAR LOMAR L Unavailable Unavailable CARLEY JAM, CARLEY JAM Unavailable Unavailable LEWIS, LEWIS Unavailable Unavailable LEWIS ALL, LEWIS ALL Unavailable Unavailable [facility] Unavailable Unavailable [facility], [facility] Unavailable Unavailable PRACTICE L, [facility] Unavailable Unavailable SERVICE, [facility] Unavailable Unavailable SERVICE, [facility] FARAH, FARAH Unavailable Unavailable [...] [facility] Unavailable Unavailable [facility] JONY, DAVON Unavailable Unavailable JONY KRISTAL, KRISTAL Unavailable Unavailable KRISTAL KIERA, Unavailable Unavailable KRISTAL KIERA KRISTAL KIERA, Unavailable Unavailable KRISTAL KIERA KRISTAL, GALA, Unavailable Unavailable KRISTAL, GALA LIRA PAULA, LIRA Unavailable Unavailable PAULA [facility] Un[place] [place] [facility]available Unavailable [facility] Unavailable Unavailable E[facility]ER[facility] C, Unavailable Unavailable E[facility]ER[facility] C MICH WHEAT Unavailable Unavailable YANELIS QUANG VERA, QUANG Unavailable Unavailable CHUY QUANG VERA, QUANG Unavailable Unavailable CHUY CATARINA DEL RIO, Unavailable Unavailable CATARINA DEL RIO [facility], [facility] Unavailable [facility]available EMS, [facility] Unavailable Unavailable EMS, [facility] Unavailable Unavailable EMS, [facility] HARPEL DAVID, HARPEL Unavailable Unavailable DAVID HARPEL DAVID, HARPEL Unavailable Unavailable DAVID HARPEL, ZURDO R, Unavailable Unavailable HARPEL, ZURDO R DOMÍNGUEZ KYLE, DOMÍNGUEZ Unavailable Unavailable KYLE [facility] Unavailable Unavailable [place] Unavailable Unavailable [place], [facility] Unavailable Unavailable INC, [facility] Unavailable Unavailable Hospital, [facility] Unavailable Unavailable HOSPITAL P, [facility] REMI STRATTON HARVEY, Unavailable Unavailable REMI [facility], Unavailable Unavailable [facility] CARDONA, CARDONA Unavailable Unavailable CARDONA CHRIS, CARDONA CHRIS Unavailable Unavailable CARDONA CHRIS, CARDONA CHRIS Unavailable Unavailable ROBY IMT, ROBY Unavailable Unavailable IMT JAHANSHAHI FEE, Unavailable Unavailable JAHANSHAHI FEE JAHANSHAHI FEE, Unavailable Unavailable JAHANSHAHI FEE [facility] ANNA DAYTON, ANNA DAYTON [...] Unavailable [facility] Unavailable Unavailable SERVICES, [facility] MAST ANN, MAST ANN Unavailable [...] PHARM #[id number] [facility] Unavailable Unavailable [id number] [address] [id number], [facility] [id number] # [id number] BLAKE KERMIT, BLAKE KERMIT Unavailable [...] O SOTINGEANU MEDINA, Unavailable Unavailable SOTINGEANU MEDINA [facility] Unavailable Unavailable EMERGENCY PHYS, [facility] Unavailable Unavailable EMERGENCY PHYSI, [facility] ROSY SHE, Unavailable Unavailable ROSY SHE FRITZ, VIRAJ E, Unavailable Unavailable FRITZ, VIRAJ E [facility], Unavailable Unavailable [facility], Unavailable Unavailable [facility] WEHRMAN III MITCHEL, Unavailable Unavailable WEHRMAN III [...] [facility] [place] [facility] R079 CHEST PAIN 07-07-2016 [facility]- UNSPECIFIED [facility] R1013 EPIGASTRIC 07-07-2016 [facility]- PAIN [facility] [id number] PAIN IN 06-08-2016 [place] [facility] Q91344 PAIN IN 06-08-2016 [place] UNSPECIFIED MEDICAL HIP IMAGING ASS F88290 PAIN IN 06-08-2016 [place] RIGHT MEDICAL FOREARM IMAGING ASS C99708 PAIN IN 06-08-2016 [place] RIGHT THIGH [facility]ICAL IMAGING ASS [id number] UNSPECIFIED 06-08-2016 [place] INJURY MEDICAL RIGHT ELBOW IMAGING ASS INITIAL ENCOUNTER Z7689 PERSONS 06-08-2016 [facility] HEALTH SRVC SERVICE OTH CIRCUMSTANC ES Z452 ENCOUNTER 05-23-2016 [place] ADJUSTMENT& MEDICAL MGMT IMAGING ASS VASCULAR ACCESS DEVICE R600 LOCALIZED 05-21-2016 [facility] EDEMA [facility] Z8701 PERSONAL 05-19-2016 [place] HISTORY OF MEDICAL PNEUMONIA IMAGING ASS RECURRENT J209 ACUTE 05-11-2016 [facility] BRONCHITIS PHYSICIANS, UNSPECIFIED PLLC N926 IRREGULAR 03-19-2016 [facility] MENSTRUATIO PHYSICIANS N GROUP UNSPECIFIED R102 PELVIC AND 03-19-2016 [facility] PERINEAL PHYSICIANS PAIN GROUP R1084 GENERALIZED 03-17-2016 [facility] ABDOMINAL PHYSICIANS, PAIN PLLC R109 UNSPECIFIED 03-13-2016 [place] ABDOMINAL MEDICAL PAIN IMAGING ASS R112 NAUSEA WITH 03-13-2016 [facility] UNSPECIFIED SERVICE D246QCH FOREIGN 03-13-2016 [facility] BODY IN PHYSICIANS, VULVA & PLLC VAGINA INITIAL ENCOUNTER M545 LOW BACK 02-09-2016 [facility] PAIN PHYSICIANS, PLLC N200 CALCULUS OF 02-09-2016 [place] KIDNEY [facility] R1031 RIGHT LOWER 02-09-2016 [place] [facility]ANT [facility] PAIN IMAGING ASS R1032 LEFT LOWER 02-09-2016 [place] [facility] PA[facility] IMAGING ASS Z88698 ENCOUNTER 12-23-2015 [facility] ROUTINE PHYSICIANS CHECKING IU GROUP CONTRACEPT DEVICE L14292 MIGRAINE 12-05-2015 [place] W/AURA NOT PHYSICIAN INTRACT W/O PRACTICE L STAT MIGRAINOSUS V62994 PERSONAL 11-25-2015 [facility] HISTORY OF [facility] NICOTINE INC DEPENDENCE C58818 ENCOUNTER 11-08-2015 [facility] INITIAL PHYSICIANS PRESCRIPTIO GROUP N IU CONTRACEPT DEV Z7251 HIGH RISK 11-08-2015 [facility] HETEROSEXUA [facility] L BEHAVIOR INC N6011 DIFFUSE 10-05-2015 [facility] CYSTIC [facility] MASTOPATHY INC OF RIGHT BREAST N6489 OTHER 10-05-2015 [place] SPECIFIED MEDICAL DISORDERS IMAGING ASS OF BREAST N644 MASTODYNIA 09-27-2015 [facility] PHYS[facility]ANS GROUP J40 BRONCHITIS 08-23-2015 [facility] NOT PHYSICIANS SPECIFIED GROUP ACUTE OR CHRONIC K219 GASTRO-ESOP 08-10-2015 [facility] H REFLUX PHYSICIANS DISEASE GROUP WITHOUT ESOPHAGITIS B1920 UNS VIRAL 07-27-2015 [facility] HEPATITIS C [facility] WITHOUT INC HEPATIC COMA R071 CHEST PAIN 05-24-2015 [facility] N EMERGENCY BREATHING PHYS R0789 OTHER CHEST 05-24-2015 [facility] PAIN COMMUNTIY HOSPITA R5381 OTHER 05-24-2015 [facility] MALAISE [facility] EMS M940 CHONDROCOST 05-16-2015 [facility] AL JUNCTION N EMERGENCY SYNDROME PHYS TIETZE R072 PRECORDIAL 05-16-2015 [facility] PAIN N EMERGENCY PHYS R509 FEVER 05-16-2015 [facility] UNSPECIFIED SCOT T CO EMS R52 PAIN 05-16-2015 [facility] UNSPECIFIED SCOT T CO EMS [id number] POISONING 02-24-2015 [facility] HEROIN [facility] UNDETERMINE INC D INITIAL ENCOUNTER 00062 COMA 01-09-2015 [facility]ANCE SERVICE 17440 POISONING 01-09-2015 [facility] BY [facility] P 9779 POISONING 01-09-2015 [facility] UNSPECIFIED AMBULANCE SERVICE DRUG/MEDICI NAL SUBSTANCE 6824 CELLULITIS& 09-23-2014 [facility] ABSCESS OF ANESTH OF HAND EXCEPT THE BLUE FINGERS&FERN MB 7667 CELLULITIS 09-22-2014 TG AND ABSCESS PHYSICIANS, OF UPPER PLLC ARM AND FOREARM 7245 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[facility] BACKACHE PHYSICIANS GROUP 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[facility] 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 24718 PHLEBITIS&T 03-14-2014 [facility] HROMBOPHLEB [facility]OS[facility] SUP VEINS INC UPPER EXTREM 44546 PHLEBITIS 03-14-2014 [facility] AND N EMERGENCY THROMBOPHLE PHYS BITIS OF OTHER SITE 5758 OTHER 03-14-2014 [facility] SPECIFIED [facility] DISORDER OF INC GALLBLADDER V148 PERSONAL 03-14-2014 [facility] HISTORY [facility] ALLERGY OTH INC SPEC MEDICINAL AGTS 73736 UNSPECIFIED 03-02-2014 [facility] CONST[facility] CLINIC OF N DANITA 6259 UNSPEC 03-02-2014 [facility] SYMPTOM HEALTH ASSOC CLINIC OF W/FEMALE DANITA GENITAL ORGANS 6264 IRREGULAR 03-02-2014 [facility] MENSTRUAL HEALTH CYCLE CLINIC OF DANITA 93388 ABDOMINAL 03-02-2014 [facility]EN'[facility] PAIN, LEFT HEALTH LOWER CLINIC OF QUADRANT DANITA 40479 UNSPECIFIED 02-02-2014 [facility] VAGINITIS [facility] AND CLIN[facility] OF VULVOVAGINI DANITA TIS 28709 HEMATURIA 12-24-2013 [facility] UNSPECIFIED N EMERGENCY PHYS 82028 ABDOMINAL 12-24-2013 [place] PAIN OTHER MEDICAL SPECIFIED IMAGING ASS SITE 52607 CHLAMYDTRAC 01-02-2013 [facility] HOMATIS JR TUCKER INFECTION LOWER SITES V242 ROUTINE 01-02-2013 [facility] JR TUCKER FOLLOW-UP 6146 PELVIC 11-21-2012 [facility] PERITONEAL [facility] ADHESIONS, INC FEMALE V252 STERILIZATI 11-21-2012 SUAZO MITCHEL ON V2509 OTH GENERAL 11-20-2012 [facility] CNSL&ADVICE INC CONTRACEPT MANAGEMENT 650 NORMAL 10-22-2012 [facility]AV[facility] DELIVERY 06749 FIRST-DEGRE 10-22-2012 [facility] E PERINEAL [facility] LACERATION INC WITH DELIVERY V270 OUTCOME OF 10-22-2012 [facility] DELIVERY [facility] SINGLE INC LIVEBORN 25431 THREATENED 10-20-2012 [facility] PREMATURE LABOR ANTEPARTUM V221 SUPERVISION 10-20-2012 [facility] OF OTHER NORMAL 25352 OTHER 10-11-2012 HARPEL DAVID THREATENED LABOR, ANTEPARTUM 61298 ABNORMAL 08-08-2012 [facility] MATERNAL GLUCOSE TOLERANCE ANTEPARTUM 15610 DELAY DELIV 07-30-2012 [facility] ANASTACIO AFTER SPONT/UNSPE C RUP MEMB ANTPRTM 60283 CHEST PAIN 07-27-2012 BLAKE KERMIT UNSPECIFIED 22478 CERVICAL 07-21-2012 [facility] ANASTACIO SHORTENING ANTEPARTUM CONDITION [place] COMP 15798 PREMATURE 07-18-2012 [facility] ANTEPARTUM 7802 SYNCOPE AND 07-18-2012 [facility] COLLAPSE V2341 SUPERVISION 07-18-2012 [facility] W/HISTORY PRE-TERM LABOR V2389 SUPERVISION 07-18-2012 [facility] OF OTHER GELNN HIGH-RISK 11617 LATE 07-17-2012 [facility] ANTEPARTUM 16029 OTH 07-17-2012 [facility] VENEREAL DISEASE ANTPRTM COND/COMPL 43020 OTH CURRENT 07-17-2012 [facility] CLASSIFIABL E ELSW ANTPRTM 23384 CERVICAL 07-17-2012 O'OMAIRAANNAMARIA KASPER DELIVERED W/WO ANTPRTM COND V230 07-17-2012 [facility] WITH HISTORY OF INFERTILITY 24572 NAUSEA WITH 06-30-2012 [facility] VOMITING [facility] INC 69189 ABDOMINAL 06-30-2012 [facility] PAIN, [facility] GENERALIZED INC V220 SUPERVISION 06-30-2012 SP SPENCER OF NORMAL FIRST V283 ENCOUNTER 06-19-2012 SP SPENCER ROUTINE SCREEN MALFORMATIO N ULTRASONIC 96563 DEHYDRATION 06-12-2012 [facility] INC 40435 HYPEREMESIS 06-12-2012 [facility] W/METAB INC DISTURBANCE ANTPRTM 7880 RENAL COLIC 06-12-2012 [facility] INC 07992 MILD 06-11-2012 QUANG MIC HYPEREMESIS GRAVIDARUM UNSPEC EPIS CARE 591 HYDRONEPHRO 06-04-2012 KRISTAL SIS KIERA 55503 OTHER 06-04-2012 KRISTAL SPECIFIED KIERA DISORDER OF KIDNEY AND URETER 26993 THREATENED 06-03-2012 [facility] LABOR SERVICES UNSPEC EPIS CARE 24309 OTHER 06-03-2012 KRISTAL SPECIFED KIERA COMPLICATIO N ANTEPARTUM 53861 OT CURRENT 05-29-2012 WEHR[facility] III MATERNAL MITCHEL CCE-COMPL PG CB/PP-UNS EOC 4660 ACUTE 04-30-2012 [facility] BRONCHITIS [facility] INC V222 04-30-2012 [facility] STATE, [facility] INCIDENTAL INC 7910 PROTEINURIA 04-25-2012 [facility] TJ 7916 ACETONURIA 04-25-2012 SP TJ 5920 CALCULUS OF 04-24-2012 [facility] KIDNEY [facility] SERVICES 5990 URINARY 04-24-2012 [facility] TRACT EMERGENCY INFECTION SERVICES SITE NOT SPECIFIED 05510 INFS 04-24-2012 [facility] TRACT [facility]ERGENCY SERVICES UNSPEC EPIS CARE 80810 MILD 04-14-2012 [facility] HYPEREMESIS [facility] GRAVIDARUM INC ANTEPARTUM 73981 ABDOMINAL 04-14-2012 WEHRMAN III PAIN, MITCHEL UNSPECIFIED SITE 2768 HYPOPOTASSE 04-07-2012 [facility] DUYEN [facility] SERVICES 5589 OTH&UNSPEC 04-07-2012 [facility] NONINFECTIO EMERGENCY US SERVICES GASTROENTER ITIS&COLITI S V745 SCREENING 03-19-2012 [facility] EXAMINATION [place] FOR VENEREAL DISEASE 17395 INFECTIONS 03-06-2012 [facility] GENITOURINA INC RY TRACT ANTEPARTUM V7242 03-03-2012 [facility] EXAM[facility]ATION [facility] OR TEST CENTER POSITIVE RESULT 80930 PAIN IN 02-13-2012 [place] JOINT, MEDICAL ANKLE AND IMAGING ASS FOOT 7295 PAIN IN 02-13-2012 [facility] SOFT EMERGENCY TISSUES OF SERVICES LIMB 30819 UNSPECIFIED 02-13-2012 [facility] SITE OF ANKLE SPRAIN AND STRAIN 62525 CONTUSION 02-13-2012 [facility] FOOT [facility] INC 9599 INJURY 02-13-2012 [place] OTHER AND MEDICAL UNSPECIFIED IMAGING ASS UNSPECIFIED SITE 24621 ACUT 01-29-2012 [facility] TIS W/O LES INC RENAL MEDULRY NECROS 23707 UNSPECIFIED 01-29-2012 [facility] PYELONEPHRI SERVICES TIS 6201 CORPUS 01-10-2012 [facility] LUTEUM CYST OR HEMATOMA 56166 ABDOMINAL 01-10-2012 [facility] PAIN RIGHT LOWER QUADRANT 35829 UNSPECIFIED 11-10-2011 [facility] DENTAL [facility] CARIES INC 5259 UNSPECIFIED 11-10-2011 [facility] III DISORDER MITCHEL TEETH&SUPPO RTING STRUCTURES 18343 PAIN IN 09-26-2011 [place] JOINT, HAND MEDICAL IMAGING ASS 03543 CONTUSION 09-26-2011 [facility] HAND EMERGENCY SERVICES E9179 OTHER 09-26-2011 [place] STRIKING MEDICAL AGAINST IMAGING ASS W/WO SUBSEQUENT FALL 7804 DIZZINESS 08-23-2011 [facility] AND EMERGENCY GIDDINESS SERVICES V692 PROBLEMS 08-21-2011 [facility] T[facility] RELATED TO HIGH-RISK SEXUAL BEHAVIOR 7231 CERVICALGIA 08-20-2011 [facility] 74007 SPASM OF 08-20-2011 C[facility] CHRIS MUSCLE 6202 OTHER AND 08-15-2011 [place] UNSPECIFIED MEDICAL OVARIAN IMAGING ASS CYST 63658 OTHER 08-15-2011 [place] ASCITES MEDICAL IMAGING ASS 2662 OTHER 07-26-2011 [facility] B-COMPLEX HE[facility] DEFICIENCIE CENTER S V7241 07-26-2011 [facility] MATHIS EXAMINATION HEALTH OR TEST CENTER NEGATIVE RESULT 7840 HEADACHE 07-19-2011 [facility] 6827 CELLULITIS 07-05-2011 [facility] AND ABSCESS EMERGENCY OF FOOT SERVICES EXCEPT TOES 76447 UNSPECIFIED 05-31-2011 WE[facility] III ACUTE MITCHEL CONJUNCTIVI TIS 48692 UNSPECIFIED 05-31-2011 [facility] CONJUNCTIVI TIS 73090 LEUKOCYTOSI 05-28-2011 JAHANSHAHI S FEE UNSPECIFIED 29272 ABSCESS OF 05-28-2011 [facility] EYELID FEE 30487 ONE EYE: 05-27-2011 [facility] TOT VISN EMERGENCY IMPAIR; OTH SERVICES EYE: NR-NL VISN 84326 ORBITAL 05-27-2011 [facility] CELLULITIS [facility] 48589 PAIN IN OR 05-27-2011 [facility] AROUND EYE SERV FOUNDATIO 43997 SWELLING OR 05-27-2011 [facility] MASS OF SERV EYE FOUNDATIO 6820 CELLULITIS 05-27-2011 [facility] AND ABSCESS SERV OF FACE FOUNDATIO 462 ACUTE 05-05-2011 [facility] PHARYNGITIS EMERGENCY SERVICES 72893 MIGRAINE 04-04-2011 [facility] W/O HOSPITAL INTRACT W/O STATUS MIGRAINOSUS 6829 CELLULITIS 04-04-2011 [facility] MATHIS AND ABSCESS HEALTH OF [place] UNSPECIFIED SITE V5889 ENCOUNTER 04-01-2011 [facility] FOR OTHER N EMERGENCY SPECIFIED PHYSI AFTERCARE 9134 ELB 03-30-2011 [facility] FORARM&WRST [facility] INSECT INC BITE NONVENOMOUS W/O INF 72579 SPRAIN AND 07-31-2009 [place] STRAIN OF MEDICAL UNSPECIFIED IMAGING SITE OF ASSOCIATES WRIST E8493 PLACE OF 07-31-2009 [place] OCCURRENCE MEDICAL INDUSTRIAL IMAGING PLACES&PUSHPA ASSOCIATES ISES E918 CAUGHT 07-31-2009 [place] ACCIDENTALL MEDICAL Y IN OR IMAGING BETWEEN ASSOCIATES OBJECTS V2549 SURVEILLANC 06-16-2009 WOMEN'S E OTH PREV [facility] 9104 FCE 03-29-2009 [facility] NCK&SCLP NO EMERGENCY EYE INSECT SERVICES BITE ASSOCIATES NONVNOM W/O INF 9895 TOXIC 03-29-2009 [facility] EFFECT OF [facility] VENOM INC 6160 CERVICITIS 03-07-2009 PATHOLOGY & AND CYTOLOGY ENDOCERVICI LAB TIS 21110 DYSPLASIA 03-07-2009 PATHOLOGY & OF CERVIX CYTOLOGY UNSPECIFIED LAB 21058 PAP SMER 03-04-2009 WOMEN'S CERV W/LW HEALTH GRADE CLINIC OF SQUAMOUS [place] INTRAEPITH PLLC LES 62567 CERV HIGH 03-04-2009 WOMEN'S RISK HUMAN HEALTH PAPILLOMAVI CLINIC OF JNENIFER DNA [place] TEST POS PLLC 99742 PAP SMER 02-25-2009 [facility] CERV HEALTH W/ATYPICAL CENTRAL SQUAMOUS BANK ACCT CELLS UNDET V7231 ROUTINE 01-24-2009 WOMEN'S GYNECOLOGIC HEALTH AL CLINIC OF EXAMINATION [place] PLLC 2331 CARCINOMA 12-12-2008 [facility] IN SITU [facility] CERVIX UTERI 55994 ERLY ONSET 12-12-2008 [facility] AZLE W/WO MENTION ANTPRTM COND 59200 OTH 12-12-2008 [facility] CONGENITAL/ HOSPITAL ACQUIRED ABNORM CERVIX W/DELIVERY 55078 OTHER AND 12-12-2008 [facility] UTERINE INERTIA W/DELIVERY 57032 ULCER OF 11-25-2008 VINITA, ESOPHAGUS ANNIKA WITHOUT BLEEDING 5780 HEMATEMESIS 11-25-2008 [facility] ANNIKA 74104 VOMITING 11-25-2008 VINITA, ALONE ANNIKA 76967 ACUTE 11-18-2008 PATHOLOGY & ESOPHAGITIS CYTOLOGY LAB 5533 DIAPHRAGMAT 11-18-2008 [facility] ANIVAL W/O [facility] MENTION INC OBSTRUCTION /GANGREN 25053 OTH CURRENT 11-18-2008 [facility] MATERNAL [facility] CCE INC W/DELIVERY 5789 UNSPECIFIED 11-10-2008 [facility] HEMORRHAGE EMERGENCY OF SERVICES GASTROINTES ASSOCIATES TINAL TRACT 9309 FOREIGN 09-01-2008 EDMUNDO Sauceda BODY IN [facility] UNSPECIFIED HOSP SITE ON EXTERNAL EYE E914 FOREIGN 09-01-2008 EDMUNDO B BODY [facility] ACCIDENTALL HOSP Y ENTERING EYE&ADNEXA V8271 SCREENING 08-16-2008 [facility] FOR GENETIC PATHOLOGY DISEASE LAB NETWORK CARRIER INC STATUS V2543 SURVEILLANC 10-09-2007 CATHY, E PREV PRSC ZURDO [place] IMPL SUBDERMAL CONTRACEPT 6285 OTH D/O 08-29-2007 ZURDO Hayward MENSTRUATIO CATHY ARCINIEGA N&OTH ABN BLEED FE GNT TRACT 1110 PITYRIASIS 08-15-2007 [facility] VERSICOLOR [facility] INTERNAL MED 63344 ANAL OR 08-15-2007 [facility] RECTAL PAIN MILLS INTERNAL MED 9212 CONTUSION 08-01-2007 [facility] OF ORBITAL [facility] HOS[facility] TISSUES INC E8494 PLACE OF 08-01-2007 [facility] IMAGING RECREATION ASSOCIATES AND SPORT E8851 FALL FROM 08-01-2007 [facility] IMAGING ASSOCIATES 5781 BLOOD IN 07-31-2007 [facility] STOOL [facility]ILLS INTERNAL MED 6258 OTH SPEC 07-21-2007 ZURDO [...] CATHY ARCINIEGA DEFICIENCY ANEMIA 6918 OTHER 06-02-2007 [facility] AND RELATED PROF SERV CONDITIONS [id number] Excessive Roland vomiting in [facility] F10.929 ALCOHOL USE, UNSPECIFIED WITH INTOXICATIO N, [...] 16 WN ZA 11 17 17 28 MS 0 13 PH IN AR E MA [...] 10 6- 3- 00 06 TO ve MS 00 20 20 07 WN ED 50 [...] 90 MA CY MC G OF IN SANDOAVL CY LE NT R HI AN A [...] Ac MG ti /M ve L AL GA 59 06 0 No SO 76 -1 MS 25 9- Lo OS 00 20 ng [...] 20 AI AC 90 10 10 D GA 1 PH CH SO AR AE D [...] 34 4- 3- 00 91 N ve MS 59 20 20 AI BA ED 31 [...] 20 20 DE CE 90 09 09 GA TA 5 PH CH GA AR AE N- MA L CA CY [...] TA M BL #3 ET 93 8 MS 37 07 07 00 56 28 RI [...] BA RA 60 09 09 D BA GA 5 PH TU DE AR ND M [...] 09 D BA TA 1 PH TU GA AR ND N- M E CA #3 [...] ai RA 40 08 08 D la GA 1 PH bl DE AR e 5 [...] CY OF CY NT HI AN A MS 00 03 04 00 20 5 EA [...] Procedure [place] [address] [facility] HEAD/BRAI 7 RADIOLOGY N W/O CONTRAST MATERIAL GROUND A0425 [facility] 7 EVY RATLIFF PER ME EMS CO EMS STATUTE MILE AMB A0427 [facility] SERVICE 7 EVY RATLIFF ALS CO EMS CO EMS EMERGENCY TRANSPORT LEVEL 1 RADEX 01901 [place] [facility]IS FOREARM 2 7 MEDICAL VIEWS IMAGING ASS RADEX 88612 [place] LEWIS ELBOW 7 MEDICAL COMPLETE IMAGING MINIMUM 3 ASS VIEWS RADIOLOGI 18602 [place] LEWIS C 7 MEDICAL EXAMINATI IMAGING ON CHEST ASS SINGLE VIEW FRONTAL RADIOLOGI 59869 [place] LWEIS C 7 MEDICAL EXAMINATI IMAGING ON PELVIS ASS 1/2 VIEWS AMBULANCE A0429 [facility] SERVICE 7 AMBULANCE AMBULANCE BLS SERVICE SERVICE EMERGENCY TRANSPORT GROUND A0425 [facility] 7 AMBULANCE AMBULANCE PER SERVICE SERVICE STATUTE MILE RADIOLOGI 95265 [place] LEWIS C 7 MEDICAL EXAMINATI IMAGING ON FEMUR ASS MINIMUM 2 VIEWS RADIOLOGI 60359 [place] LEWIS C 7 MEDICAL EXAMINATI [place] [address] [place] KRISTAL EXTREMITY 7 MEDICAL NON-VASC IMAGING ASS REAL-TIME IMG LMTD RADIOLOGI 84584 [place] BEINE[place] C EXAM 7 MEDICAL CHEST 2 IMAGING VIEWS ASS FRONTAL&[place] [address] [facility] [place] DOMÍNGUEZ TRANSVAGI 6 RADIOLOGY KYLE NAL RADIOLOGI 53694 [facility] [place] DOMÍNGUEZ C 6 RADIOLOGY KYLE EXAMINAT[place] [address] BECKY LEWIS ALL ABDOMEN & 6 MEDICAL PELVIS IMAGING W/CONTRAS ASS T MATERIAL AMBULANCE A0429 [facility] SERVICE 6 AMBULANCE AMBULANCE BLS SERVICE SERVICE EMERGENCY TRANSPORT GROUND A0425 [facility] MILEAGE 6 AMBULANCE AMBULANCE PER SERVICE SERVICE STATUTE MILE UNCLASSIF J3490 [facility] IED DRUGS 6 MEM HOS[facility] INC INC URINE 42506 [facility] 6 [facility] TEST INC INC VISUAL COLOR CMPRSN METHS DRUG TST G0477 [facility] PRESUMP;C 6 [facility] PBL BEING INC INC READ DC OPT OBV ONLY THERAPEUT 46488 [facility] IC 6 [facility] PROPHYLAC INC INC TIC/DX INJECTION SUBQ/[place] [address] [place] [facility] ABDOMEN & 6 MEDICAL PELVIS IMAGING W/O ASS CONTRAST MATERIAL UNCLASSIF [id number] [facility] IED DRUGS 6 [facility] INC INC THERAPEUT 37499 [facility] IC 6 [facility] PROPHYLAC INC INC TIC/DX INJECTION SUBQ/IM IADNA 42178 [facility] NEISSERIA 6 [facility] INC INC GONORRHOE AE AMPLIFIED PROBE TQ IADNA 50783 [facility] CHLAMYDIA 6 [facility] INC INC TRACHOMAT IS AMPLIFIED PROBE TQ LEVONORGE J7298 [facility] SP STREL-RLS 6 PHYSICIAN TJ S GROUP INTRAUTER INE SHELBY SYS 52 MG INSERTION 35650 [facility] SP 6 PHYSICIAN TJ INTRAUTER S GROUP INE DEVICE IUD US BREAST 34487 [facility] LEWIS ALL UNI REAL 6 MEDICAL TIME IMAGING WITH ASS IMAGE LIMITED US BREAST 87577 [facility] UNI REAL 6 [facility] TIME INC INC WITH IMAGE COMPLETE HEPATITIS 62960 [facility] A 6 [facility] ANTIBODY INC INC HAAB INF AGT G0432 [facility] AB DETECT 6 [facility] EIA TECH INC INC HIV-1&/HI V-2 SCR HEPATITIS 11570 [facility] C 6 [facility] ANTIBODY INC INC HEPATITIS 08498 [facility] B CORE 6 [facility] ANTIBODY INC INC HBCAB TOTAL HEPATITIS 10184 [facility] [place] SURF 6 [facility] [place] [address] [facility] HEPATITIS 6 [facility] B INC INC SURFACE ANTIGEN COLLECTIO 80595 [facility] N VENOUS 6 [facility] BLOOD INC INC VENIPUNCT URE DRUG TEST G0479 [facility] 6 N N PRESUMP;I COMMUNTIY COMMUNTIY NSTRUMENT HOSPITA HOSPITA ED CHEMISTRY ANLYZER ECG 05349 [facility] CELLAROSI ROUTINE 6 [place] - YORBA ECG EMERGENCY PAT W/LEAST PHYS 12 LDS I&R ONLY GROUND A0425 [facility] MILEAGE 6 N SCOT T N SCOT [place] [address] [facility] INFUSION 6 N N HYDRATION COMMUNTIY COMMUNTIY EACH HOSPITA HOSPITA ADDITIONA L HOUR COLLECTIO 03077 [facility] N VENOUS 6 N N BLOOD COMMUNTIY COMMUNTIY VENIPUNCT HOSPITA HOSPITA URE COMPREHEN 37188 [facility] SIVE 6 N N METABOLIC COMMUNTIY COMMUNTIY PANEL HOSPITA HOSPITA AMB A0427 [facility] SERVICE 6 N SCOT T N SCOT T ALS CO EMS CO EMS EMERGENCY TRANSPORT LEVEL 1 FIBRIN 66610 [facility] DGRADJ 6 N N PRODUCTS COMMUNTIY COMMUNTIY D-DIMER HOSPITA HOSPITA QUANTITAT TANO THER 00266 [facility] PROPH/DX 6 N N NJX IV COMMUNTIY COMMUNTIY PUSH HOSPITA HOSPITA SINGLE/1S T SBST/DRUG ECG 03009 [facility] ROUTINE 6 N N ECG COMMUNTIY COMMUNTIY W/LEAST HOSPITA HOSPITA 12 [place]TA [facility] [place] [address] [facility] TROPONIN 6 N N QUANTITAT COMMUNTIY COMMUNTIY TANO HOSPITA HOSPITA BLOOD 98432 [facility] COUNT 6 N N COMPLETE COMMUNTIY COMMUNTIY AUTO&AUTO HOSPITA HOSPITA DIFRNTL WBC RADIOLOGI 88255 [facility] C EXAM 6 N N CHEST 2 COMMUNTIY COMMUNTIY VIEWS HOSPITA HOSPITA FRONTAL&L ATERAL THER 34609 [facility] PROPH/DX 6 N N NJX IV COMMUNTIY COMMUNTIY PUSH HOSPITA HOSPITA SINGLE/1S T SBST/DRUG ECG 80821 [facility] ROUTINE 6 N N ECG COMMUNTIY COMMUNTIY W/LEAST HOSPITA HOSPITA 12 [facility] ONLY W/O I&R COLLECTIO 71018 [facility] N VENOUS 6 N N BLOOD COMMUNTIY COMMUNTIY [place] [address] [facility] TROPONIN 6 N N QUANTITAT COMMUNTIY COMMUNTIY TANO HOSPITA HOSPITA RADIOLOGI 68080 [facility] C EXAM 6 N N CHEST 2 COMMUNTIY COMMUNTIY VIEWS HOSPITA HOSPITA FRONTAL&L ATERAL ECG 25867 [facility] ROUTINE 6 BENJAMIN YANELIS ECG EMERGENCY W/LEAST PHYS 12 LDS I&R ONLY GROUND A0425 [facility] MILEAGE 6 N SCOT T N SCOT T PER CO EMS CO EMS STATUTE MILE AMB [id number] [facility] SERVICE 6 N SCOT T N SCOT T ALS CO EMS CO EMS EMERGENCY TRANSPORT LEVEL 1 GROUND A0425 [facility] 5 AMBULANCE AMBULANCE PER SERVICE SERVICE STATUTE MILE AMB A0427 [facility] SERVICE 5 AMBULANCE AMBULANCE ALS SERVICE SERVICE EMERGENCY TRANSPORT LEVEL 1 ECG 94390 [facility]QU[facility] SHEN JR ROUTINE 5 [facility] W/LEAST P 12 LDS I&R ONLY ANES 95903 [facility] INTEG 5 ANESTH SHE EXTREMITI OF THE ES ANT BLUE TRUNK & PERINEUM NOS INCISION 52900 [facility] NELSON L & 5 PHYSICIAN DRAINAGE S, PLLC ABSCESS COMPLICAT ED/MULTIP LE CULTURE 49335 [facility] BACTERIAL 5 [facility] INC INC QUANTTATI VE COLONY COUNT URINE CULTURE 34961 [facility] BCT 5 [facility] ISOL&PRSM INC INC PTV ID ISOLATE EA URINE SUSCEPTIB 36130 [facility] LTY STDY 5 [facility] ANTIMICRB INC INC IAL MICRO/AGA R DILUTJ URNLS DIP 93091 [facility] QUANG 5 PHYSICIAN CHUY STICK/TAB S GROUP LET RGNT NON-AUTO W/O MICRSCP UNCLASSIF J3490 MELQUIADES ARNETT IED DRUGS 4 [place] [address] [facility] TRANSVAGI 4 HEALTH TJ [facility] [place] URNLS DIP 40273 [facility] 4 HEALTH TJ STICK/TAB CLINIC OF LET RGNT [place]AN[place] NON-AUTO W/O MICRSCP SMR PRIM 78905 [facility] SRC WET 4 [facility] TJ [facility] CL[facility] OF NFCT AGT DANITA HANDLG&/O 60026 [facility] R CONVEY 4 HEALTH TJ OF SPEC CLINIC OF FOR TR [place]AN[place] OFFICE TO LAB CULTURE 78613 [facility] BACTERIAL 4 [facility] INC INC QUANTTATI VE COLONY COUNT URINE UNCLASSIF J3490 [facility] IED DRUGS 4 [facility] INC INC URINE 95311 M[facility] AR[facility] 4 [facility] TEST INC [place] [address] [facility] AR[facility] ABDOMEN & 4 [facility] PELVIS INC INC W/O CONTRAST MATERIAL URNLS DIP 99316 [facility] ARNET[facility] 4 [facility] STICK/TAB INC INC LET REAGENT AUTO MICROSCOP Y IADNA 34967 PICKLESIM PICKLESIM CHLAMYDIA 3 ER JR GARRETT ER JR GARRETT TRACHOMAT IS AMPLIFIED PROBE TQ CYTP C/V 29322 PICKLESIM PICKLESIM AUTO THIN 3 ER JR GARRETT ER JR GARRETT LYR PREPJ SCR MNL RESCR PHYS IADNA 42760 PICKLESIM PICKLESIM NEISSERIA 3 ER JR GARRETT ER JR GARRETT GONORRHOE AE AMPLIFIED PROBE TQ ANES IPER 33574 GABRIELE SUAZO MITCHEL LWR ABD 3 W/LAPS TUB[place] LIGATION/ [place] [address] [facility] AR[facility] INFUSION 3 [facility] THERAPY INC INC PROPHYLAX IS/DX EA HOUR LAPAROSCO 43489 [facility] PY W/PLMT 3 [facility] INC INC OCCLUSION DEVICE OVIDUCTS BASIC 49904 [facility] METABOLIC 3 [facility] PANEL INC INC CALCIUM TOTAL GONADOTRO 65910 [facility] PIN 3 [facility] CHORIONIC INC INC QUALITATI VE BLOOD 81306 [facility] COUNT 3 [facility] COMPLETE INC INC AUTO&AUTO DIFRNTL WBC REPAIR OF 7569 [facility] AR[facility] OTHER 3 [facility] CURRENT INC INC OBSTETRIC LACERATIO N NEURAXIAL 49484 SALLY ZAVALA SHA LABOR 3 ANALG/ANE S PLND VAGINAL DELIVERY VAGINAL 07964 [facility] DELIVERY 3 TJ TJ ONLY W/POSTPAR LAUREN CARE 88771 [facility] NONSTRESS 3 TJ TJ TEST 28729 [facility] NONSTRESS 3 TJ TJ TEST 46872 [facility] AR[facility] NONSTRESS 3 [facility] TEST INC INC CULTURE 33488 [facility] AR[facility] BACTERIAL 3 [facility] INC INC QUANTTATI VE COLONY COUNT URINE URNLS DIP 84905 [facility] ARNETT 3 [facility] STICK/TAB INC INC LET REAGENT AUTO MICROSCOP Y 32537 [facility] NONSTRESS 3 TJ TJ TEST 41654 [facility] NONSTRESS 3 TJ TJ TEST CUL BACT 53343 COMBINED COMBINED XCPT 3 PHYSICIAN PHYSICIAN URINE S LA S LA BLOOD/STO OL AEROBIC ISOL 69585 [facility] NONSTRESS 3 TJ TJ TEST 31015 [facility] NONSTRESS 3 TJ TJ TEST 81490 [facility] NONSTRESS 3 TJ TJ TEST 04053 [facility] NONSTRESS 3 TJ TJ TEST [place] PREG 96323 [facility] UTERUS 3 TJ TJ REAL TIME W/IMAGE DCMTN TRANSVAG DOPPLER 53381 [facility] VELOCIMET 3 TJ TJ RY UMBILICAL ARTERY 06387 [facility] BIOPHYSIC 3 TJ TJ AL PROFILE NON-STRES S TESTING 54914 [facility] NONSTRESS 3 TJ TJ TEST 63589 [facility] NONSTRESS 3 TJ TJ TEST GLUCOSE 89271 [facility] TOLERANCE 3 TJ TJ TEST GTT 3 SPECIMENS 79980 [facility] NONSTRESS 3 [place] [address] [facility] O'OMAIR[facility] 3 ANASTACIO ANASTACIO UTERUS LIMITED 1/> FETUSES ECG 47826 [facility] ROUTINE 3 ECG W/LEAST 12 LDS I&[place] [address] [facility] UTERUS LIMITED 1/> FETUSES [place] PREG 96773 [facility] UTERUS 3 ANASTACIO ANASTACIO REAL TIME W/IMAGE DCMTN TRANSVAG SBSQ 68297 [facility] 3 [facility] CARE/DAY 25 MINUTES SBSQ 50906 [facility] 3 [facility]ENN CARE/DAY 25 [place] [address] [facility] UTERUS LIMITED 1/> FETUSES US PREG 81130 [facility] UTERUS 3 GLENN GLENN REAL TIME W/IMAGE DCMTN TRANSVAG ECG 42308 [facility] ROUTINE 3 ECG W/LEAST 12 LDS I&R ONLY ECG 92884 [facility] CHI ROUTINE 3 ECG W/LEAST 12 LDS I&R ONLY US PREG 47893 [facility] UTERUS 3 Y Y W/DETAIL [facility] [place] 1ST [place] PREG 32549 [facility] UTERUS 3 Y Y REAL TIME [facility] W/IMAGE DCMTN TRANSVAG SBSQ 86793 [facility] 3 CARE/DAY 25 MINUTES THERAPEUT 82417 MELQUIADES ARNETT IC 3 [facility] PROPHYLAC INC INC TIC/DX INJECTION SUBQ/IM US PREG 06234 [facility] UTERUS 3 TJ TJ REAL TIME W/IMAGE DCMTN [facility] G0378 MELQUIADES ARNETT OBSERVATI 3 [facility] [...] INC OL TARTRATE 1 MG [place] PREG 79585 [facility] UTERUS 3 TJ TJ AFTER 1ST [facility]IMEST 1/ [facility] G[facility]8 [facility] OBSERVATI 3 [facility] ON INC INC SERVICE PER HOUR INJECTION J2405 [facility] ARNETT 3 [facility] ONDANSETR INC INC ON HCL PER 1 MG BLOOD 71978 MELQUIADES ARNETT COUNT 3 [facility] COMPLETE INC INC AUTO&AUTO DIFRNTL WBC BASIC 13570 MELQUIADES ARNETT METABOLIC 3 [facility] PANEL INC INC CALCIUM TOTAL CULTURE 81656 M[facility]QUIAD[facility] ARNETT BACTERIAL 3 [facility] INC INC QUANTTATI VE COLONY COUNT URINE THERAPEUT 78438 M[facility] ARNETT IC 3 [facility] INJECTION [place] [address] M[facility]QUIAD[facility] ARNETT INFUSION 3 [facility] THERAPY/P INC INC ROPHYLAXI S /DX 1ST TO 1 HR URNLS DIP 76190 [facility] ARNETT 3 [facility] STICK/TAB INC INC LET REAGENT AUTO MICROSCOP Y BLOOD 41471 [facility]QUIAD[facility] ARNETT COUNT 3 [facility] COMPLETE INC INC AUTO&AUTO DIFRNTL WBC COMPREHEN 83261 MELQUIAD[facility] ARNETT SIVPoly 3 [facility] METABOLIC INC INC PANEL [facility]OSPITAL G0378 M[facility]QUIAD[facility] AR[facility]T OBSERVATI 3 [facility] ON INC INC SERVICE PER HOUR INJECTION J2405 [facility]QUIADES ARNETT 3 [facility] ONDANSETR INC INC ON HCL PER 1 MG [facility] G0378 MELQUIADES ARNETT OBSERVATI 3 [facility] ON INC INC SERVICE PER HOUR BLOOD 75707 [facility]AD[facility] ARNETT COUNT 3 [facility] COMPLETE INC INC AUTO&AUTO DIFRNTL WBC INITIAL 06334 [facility] OBSERVATI 3 TJ TJ ON CARE/DAY 50 MINUTES BASIC 44066 MELQUIADES ARNETT METABOLIC 3 [facility] PANEL INC INC CALCIUM TOTAL LOCM Q9967 MELQUIADES ARNETT 300-399 3 [facility] MG/ML INC INC IODINE CONCENTRA TION PER ML INJECTION J2405 MELQUIADES ARNETT 3 [facility] ONDANSETR INC INC ON HCL PER 1 MG RADEX 87431 MELQUIADES ARNETT ABDOMEN 3 [facility] COMPL INC INC W/DCBTS&/ ERC VIEWS UROGRAPHY 15988 KRISTAL KRISTAL IV W/WO 3 KIERA KIERA KUB W/[place] [address] MELQUIADES ARNETT 3 [facility] UTERUS INC INC LIMITED 1/> FETUSES COMPREHEN 64058 [facility]QUIAD[facility] ARNETT SIVE 3 [facility] METABOLIC INC INC PANEL INJECTION J2405 MELQUIADES ARNETT 3 [facility] ONDANSETR INC [place] ON H[place] 1 [place] [address] MELQUIADES ARNETT INFUSION 3 [facility] THERAPY/P INC INC ROPHYLAXI S /DX 1ST TO 1 HR URNLS DIP 82506 MELQUIAD[facility] ARNETT 3 [facility] STICK/TAB INC INC LET REAGENT AUTO MICROSCOP Y BLOOD 19811 MELQUIADES ARNETT COUNT 3 [facility] COMPLETE INC INC AUTO&AUTO DIFRNTL WBC INITIAL 77048 [facility] OBSERVATI 3 TJ TJ ON CARE/DAY 30 MINUTES HOSPITAL G0378 M[facility]QUIAD[facility] AR[facility]T OBSERVATI 3 [facility] ON INC INC SERVICE PER HOUR ALPHA-FET 36241 MELQUIADES ARNETT OPROTEIN 3 [facility] [place] [address] MELQUIADES ARNETT ESTRIOL 3 [facility] INC INC GONADOTRO 68616 MELQUIADES ARNETT PIN 3 [facility] CHORIONIC INC INC QUANTITAT TANO GONADOTRO 15263 MELQUIADES ARNETT PIN 3 [facility] CHORIONIC INC [place] P[place] 46886 MELQUIADES ARNETT UTERUS 3 [facility] REAL TIME INC INC W/IMAGE DCMTN TRANSVAG [place] P[place] 83512 KRISTAL KRISTAL UTERUS 3 KIERA KIERA REAL TIME F/U TRNSABDL PER FETUS URINE 23326 MELQUIADES ARNETT 3 [facility] TEST INC [place] [address] MELQUIADES RANETT 3 [facility] UTERUS INC INC LIMITED 1/> FETUSES BLOOD 26198 MELQUIADES ARNETT COUNT 3 [facility] COMPLETE INC INC AUTO&AUTO DIFRNTL WBC URNLS DIP 07278 MELQUIADES ARNETT 3 [facility] STICK/TAB INC INC LET REAGENT AUTO MICROSCOP Y COMPREHEN 60683 MELQUIADES ARNETT SIVE 3 [facility] [address] MELQUIADES MELQUIADES STREPTOCO 2 [facility] CCUS INC INC GROUP A IAADI 89293 MELQUIADES ARNETT INFLUENZA 2 [facility] B VIRUS INC INC IAADI 59573 M[facility]QUIAD[facility] ARNETT INFFLUENZ 2 [facility] A A VIRUS INC INC URNLS DIP 06406 [facility] 2 TJ TJ STICK/TAB LET RGNT [place] [address] MELQUIADES ARNETT RETROPERI 2 [facility] TONEAL INC INC REAL TIME W/IMAGE COMPLETE URNLS DIP 04317 MELQUIADES ARNETT 2 [facility] STICK/TAB INC INC LET REAGENT AUTO MICROSCOP Y CULTURE 99162 MELQUIADES ARNETT BACTERIAL 2 [facility] INC INC QUANTTATI [place] 57635 MELQUIADES ARNETT UTERUS 2 [facility] REAL TIME INC INC W/IMAGE DCMTN TRANSVAG URNLS DIP 48919 SP [facility] 2 TJ TJ STICK/TAB LET RGNT NON-AUTO W/O MICRSCP COMPREHEN 83050 MELQUIADES ARNETT SIVE 2 [facility] METABOLIC INC INC PANEL INJECTION J2405 MELQUIADES MELQUIADES 2 [facility] ONDANSETR INC INC ON HCL PER 1 MG THERAPEUT 93271 MELQUIADES ARNETT IC 2 [facility] INJECTION INC INC IV PUSH EACH NEW DRUG BLOOD 83387 MELQUIADESEMY ARNETT COUNT 2 [facility] COMPLETE INC INC AUTO&AUTO DIFRNTL WBC URNLS DIP 38782 MELQUIADES ARNETT 2 [facility] STICK/TAB INC [place] [address] MELQUIADES VASQUEZON INFUSION 2 [facility] THERAPY/P INC INC ROPHYLAXI S /DX 1ST TO 1 HR US PREG 59229 BECKY KRISTAL UTERUS 2 MEDICAL KIERA REAL TIME IMAGING W/IMAGE ASS DCMTN TRANSVAG OBSERVATI 33149 [facility] ON CARE 2 TJ TJ DISCHARGE [facility] G0378 MELQUIADES ARNETT OBSERVATI 2 [facility] ON INC INC SERVICE PER HOUR INJECTION J2405 MELQUIADES MELQUIADES 2 [facility] ONDANSETR INC INC ON HCL PER 1 [place] [address] MELQUIADES ARNETT INFUSION 2 [facility] THER INC INC PROPH ADDL SEQUENT[place] L TO 1 [place] [address] MELQUIADES ARNETT INFUSION 2 [facility] THERAPY INC INC PROPHYLAX IS/DX EA HOUR URINE 85354 MELQUIADES ARNETT 2 [facility] TEST INC INC VISUAL COLOR CMPRSN METHS BASIC 42607 MELQUIADES ARNETT METABOLIC 2 [facility] PANEL INC INC CALCIUM TOTAL CULTURE 84901 MELQUIADES ARNETT BACTERIAL 2 [facility] INC INC QUANTTATI VE COLONY COUNT URINE THER 75556 MELQUIADES ARNETT PROPH/DX 2 [facility] NJX EA INC INC SEQL [place] P[place] SBST/[place] [address] MELQUIADES ARNETT INFUSION 2 [facility] THERAPY/P INC INC ROPHYLAXI S /DX 1ST TO 1 HR URNLS DIP 34185 MLEQUIADES ARNETT 2 [facility] STICK/TAB INC INC LET REAGENT AUTO MICROSCOP Y BLOOD 43022 MELQUIADES ARNETT COUNT 2 [facility] COMPLETE INC INC AUTO&AUTO DIFRNTL WBC THERAPEUT 75068 MELQUIADES ARNETT IC 2 [facility] INJECTION INC INC IV PUSH EACH NEW DRUG INITIAL 93447 [facility] OBSERVATI 2 TJ TJ ON CARE/DAY 50 MINUTES IADNA 64710 EUGENE KNIGHT CHLAMYDIA 2 [facility] TRACHOMAT IS AMPLIFIED PROBE TQ IADNA 54445 EU[facility] KNIGHT NEISSERIA 2 [facility] GONORRHOE AE AMPLIFIED PROBE TQ CYTP 23913 EU[facility] K[facility]IGHT CERVICAL/ 2 [facility] VAGINAL REQ INTERP PHYSICIAN CYTP C/V 75478 [facility]IGHT AUTO THIN 2 VALENTE VALENTE LYR PREPJ SCR MNL [place]YS [place] PREG 13018 [facility] UTERUS 2 TJ TJ REAL TIME W/IMAGE DCMTN TRANSVAG URNLS DIP 00589 MELQUIADES ARNETT 2 [facility] STICK/TAB INC INC LET REAGENT AUTO MICROSCOP Y URINE 33613 MELQUIADES ARNETT 2 [facility] TEST INC INC VISUAL COLOR CMPRSN METHS URINE 41533 MELQUIADES ARNETT 2 [facility] CENTER VISUAL COLOR CMPRSN [facility]HS [facility] E[facility]14 [facility] UNDARM 2 OTH THAN WOOD PAIR PAD TIP&HNDGR IP RADEX 79601 MELQUIADES ARNETT FOOT 2 [facility] COMPLETE INC INC MINIMUM 3 VIEWS SUSCEPTIB 85309 MELQUIADES ARNETT LTY STDY 2 [facility] ANTIMICRB INC INC IAL MICRO/AGA R DILUTJ URNLS DIP 78211 MELQUIADES ARNETT 2 [facility] STICK/TAB INC INC LET REAGENT AUTO MICROSCOP Y CULTURE 48144 MELQUIADES ARNETT BACTERIAL 2 [facility] INC INC QUANTTATI VE COLONY COUNT URINE URINE 38622 MELQUIADES ARNETT 2 [facility] TEST INC INC VISUAL COLOR CMPRSN METHS THERAPEUT 68643 MELQUIADES ARNETT IC 2 [facility] PROPHYLAC INC INC TIC/[place] INJECTION SUBQ/[place] [address] [facility] TRANSVAGI 2 TJ TJ NAL URINE 57640 SP [facility] 2 TJ TJ [place] [address] [facility] TRANSVAGI 2 TJ TJ NAL RADEX 87340 MELQUIADES MELQUIADES HAND 2 [facility] MINIMUM 3 INC INC VIEWS URINE 92633 MELQUIADES ARNETT 2 [facility] TEST INC INC VISUAL COLOR CMPRSN METHS URNLS DIP 94695 MELQUIADES ARNETT 2 [facility] STICK/TAB INC [place] [address] MELQUIADES ARNETT TRANSVAGI 2 [facility] [place] [address] MELQUIADES ARNETT LIPASE 2 [facility] INC INC BLOOD 46432 MELQUIADES ARNETT COUNT 2 [facility] COMPLETE INC INC AUTO&AUTO DIFRNTL WBC URNLS DIP 99323 MELQUIADES MELQUIADES 2 [facility] STICK/TAB INC INC LET REAGENT AUTO MICROSCOP Y URINE 61527 MELQUIADES ANRETT 2 [facility] TEST INC INC [place] [address] MELQUIADES ARNETT AMYLASE 2 [facility] INC INC COMPREHEN 45091 MELQUIADES ARNETT SIVE 2 [facility] METABOLIC INC INC PANEL URINE 21157 MELQUIADES MELQUIADES 2 [facility] VISUAL COLOR CMPRSN METHS THERAPEUT 96166 MELQUIADES ARNETT IC 2 [facility] PROPHYLAC INC INC TIC/DX INJECTION SUBQ/IM INJECTION J0595 MELQUIADES ARNETT 2 [facility] BUTORPHAN INC INC OL TARTRATE 1 MG INJECTION J2405 MELQUIADES ARNETT 2 [facility] ONDANSETR INC INC ON HCL PER 1 MG [facility] [address] [facility] 2 I FEE I FEE DAY MANAGEMEN T 30 MIN/< SBSQ 17605 [facility] 2 I FEE I FEE CARE/DAY 25 MINUTES INITIAL 03900 [facility] 2 EMERGENCY PAULA CARE/DAY SERVICES [address] ORBIT [address] [place] SELLA/POS 2 MEDICAL T SERV FOSSA/EAR FOUNDATIO W/[place] [address] MELQUIADES ARNETT STREPTOCO 1 [facility] CCUS INC INC GROUP A INJECTION J1885 [address] KETOROLAC TROMETHAM INE PER 15 MG THERAPEUT [address] PROPHYLAC TIC/DX INJECTION SUBQ/IM ONDANSETR Q0179 [facility] ON HCL [address] [place] [address] MG ORL NOT >48 HR DOSE REGIMEN RADEX 13375 ARNALDOY KRISTAL, WRIST 0 MEDICAL GALA COMPLETE IMAGING MINIMUM 3 ASSOCIATE VIEWS S RADEX 36075 BECKY KRISTAL, FOREARM 2 0 MEDICAL GALA VIEWS IMAGING ASSOCIATE S THERAPEUT 73166 [facility] SP, IC 0 HEALTH ERIK J PROPHYLAC CLINIC OF TIC/DX INJECTION [place] SUBQ/IM PLLC THERAPEUT 67959 [facility] SP, IC 9 [facility] ERIK J PROPHYLAC CLINIC OF TIC/DX INJECTION [place] SUBQ/[place] [address] PATHOLOGY PATHOLOGY SURG 9 & & PATHOLOGY CYTOLOGY CYTOLOGY LAB LAB GROSS&CHUY ROSCOPIC EXAM COLPOSCOP 66076 [facility], Y CERVIX 9 HEALTH ERIK J BX CERVIX CLINIC OF & ENDOCRV KAUSHAL ROBERTS PLLC CYTP 77152 PATHOLOGY PATHOLOGY CERVICAL/ 9 & & VAGINAL CYTOLOGY CYTOLOGY REQ LAB LAB INTERP PHYSICIAN CYTP C/V 30246 PATHOLOGY PATHOLOGY AUTO THIN 9 & & LYR CYTOLOGY CYTOLOGY PREPJ SCR LAB LAB MNL RESCR PHYS IADNA 99229 PATHOLOGY PATHOLOGY PAPILLOMA 9 & & VIRUS CYTOLOGY CYTOLOGY HUMAN LAB LAB AMPLIFIED PROBE TQ VAGINAL 20431 [place] [facility] DELIVERY 9 MEDICAL NN, ONLY SERV ADRIAN [facility] PATIENCE OTHER 7359 [facility] 9 Y Y [facility]ISTED [place] [address] MELQUIADES ARNETT INFUSION 9 [facility] THERAPY/P INC INC ROPHYLAXI S /DX 1ST TO 1 HR GROUND A0425 [facility] 9 AMBULANCE AMBULANCE [place] [address] MELQUIADES ARNETT INFUSION 9 [facility] THERAPY INC INC PROPHYLAX IS/DX EA HOUR 38973 MELQUIADES ARNETT NONSTRESS 9 [facility] TEST INC INC AMB A0427 [facility] SERVICE 9 AMBULANCE AMBULANCE ALS SERVICE SERVICE EMERGENCY TRANSPORT LEVEL 1 OBSERVATI 88587 ZURDO MAE, EMY/INPATI 9 [facility] CARE 55 MINUTES HOSPITAL G0378 MELQUIADES ARNETT OBSERVATI 9 [facility] ON INC INC SERVICE PER HOUR GLUCOSE 45947 [facility] DOSE [facility] GLUCOSE 67494 [facility] [place], TOLERANCE 9 [facility] TEST [facility] OF 3 SPECIMENS [facility] SPCL STN 57855 PATHOLOGY PATHOLOGY 2 I&R 9 & & EXCPT CYTOLOGY CYTOLOGY MICROORG/ LAB LAB ENZYME/IM CYT ANES 75746 COMMUNITY JUDGE, UPPER GI 9 ANESTH CINDY L ENDOSCOPY OF THE PROXIMAL [place]UEGRASS TO DUODENUM EGD 75803 SCHULSTAD KEVINSTJAREN TRANSORAL 9 , ANNIKA , ANNIKA BIOPSY SINGLE/[place] [address] MELQUIADES VASQUEZON INFUSION 9 [facility] THERAPY/P INC INC ROPHYLAXI S /DX 1ST TO [place] [address] PATHOLOGY PATHOLOGY SURG 9 & & PATHOLOGY CYTOLOGY CYTOLOGY LAB LAB GROSS&CHUY ROSCOPIC EXAM ESOPHAGOG 4516 MELQUIADES ARNETT ASTRODUOD 9 [facility] ENOSCOPY INC INC WITH CLOSED BIOPSY BLOOD 35976 MELQUIADES [facility] COUNT 9 [facility] COMPLETE INC INC AUTO&AUTO DIFRNTL WBC BLOOD 03817 M[facility]QUIADES [facility] OCCULT 9 [facility] PEROXIDAS INC INC E ACTV QUAL FECES 1-3 SPEC URNLS DIP 81964 MELQUIADES ARNETT 9 [facility] STICK/TAB INC INC LET REAGENT AUTO MICROSCOP Y BASIC 40920 MELQUIADES ARNETT METABOLIC 9 [facility] PANEL INC INC CALCIUM TOTAL US PREG 66088 [facility] [place], UTERUS 9 [facility]ALTH ERIK J AFTER [facility] [place] [facility] URNLS DIP 44101 MELQUIADES MELQUIADES 9 [facility] STICK/TAB INC INC LET REAGENT AUTO MICROSCOP Y BLOOD 93662 MELQUIADES ARNETT COUNT 9 [facility] COMPLETE INC INC AUTO&AUTO DIFRNTL WBC BASIC 85058 MELQUIADES ARNETT METABOLIC 9 [facility] PANEL INC INC CALCIUM TOTAL CULTURE 30140 MELQUIADES AR[facility] BACTERIAL 9 [facility] INC INC QUANTTATI VE COLONY COUNT URINE GONADOTRO 22456 MELQUIADES ARNETT PIN 9 [facility] CHORIONIC INC INC QUANTITAT TANO ALPHA-FET 80108 MELQUIADES AR[facility]T OPROTEIN 9 [facility] [place] [address] MELQUIADES ARNETT ESTRIOL 9 [facility] INC INC [place] PREG 78288 [facility] [place], UTERUS 9 HEALTH ERIK J [facility] OF W/IMAGE DCMTN [facility] MOLECULAR 50034 MOLECULAR MOLECULAR DX AMP 9 TARGET PATHOLOGY PATHOLOGY MULTIPLEX LAB LAB 1ST 2 NETWORK NETWORK SEQ INC INC MUTATION 19890 MOLECULAR MOLECULAR ID 9 ENZYMATIC PATHOLOGY PATHOLOGY LAB LAB LIG/PRIME NETWORK NETWORK R XTN 1 INC INC SGM EA MOLECULAR 35406 MOLECULAR MOLECULAR 9 DIAGNOSTI PATHOLOGY PATHOLOGY CS LAB LAB INTERPRET NETWORK NETWORK ATION & INC INC REPORT CYTP C/V 11855 PATHOLOGY PATHOLOGY AUTO THIN 9 & & LYR CYTOLOGY CYTOLOGY PREPJ SCR LAB LAB MNL RESCR PHYS CYTP 13408 PATHOLOGY PATHOLOGY CERVICAL/ 9 & & VAGINAL CYTOLOGY CYTOLOGY REQ LAB LAB INTERP PHYSICIAN IADNA 73139 PATHOLOGY PATHOLOGY NEISSERIA 9 & & CYTOLOGY CYTOLOGY GONORRHOE LAB LAB AE AMPLIFIED PROBE TQ MOLECULAR 17968 MOLECULAR MOLECULAR DX AMP 9 TARGET PATHOLOGY PATHOLOGY MULTIPLEX LAB LAB EA ADDL NETWORK NETWORK SEQ INC INC MOLEC 04002 MOLECULAR MOLECULAR SEP&ID HI 9 RESOLU PATHOLOGY PATHOLOGY TQ EACH LAB LAB NUCLEIC NETWORK NETWORK ACID PREP INC INC MOLEC 29951 MOLECULAR MOLECULAR ISOL/XTRJ 9 HP PATHOLOGY PATHOLOGY NUCLEIC LAB LAB ACID EA NETWORK NETWORK TYPE INC INC IADNA 03311 PATHOLOGY PATHOLOGY CHLAMYDIA 9 & & CYTOLOGY CYTOLOGY TRACHOMAT LAB LAB IS AMPLIFIED PROBE TQ URINE 70804 DHS/CO MELQUIADES 9 [facility] VISUAL BANK ACCT COLOR CMPRSN METHS REMOVAL 97360 HARPEL, HARPEL, IMPLANTAB 8 ZURDO RENNER R LE CONTRACEP TIVE CAPSULES URNLS DIP 43713 MELQUIADES ARNETT 8 [facility] STICK/TAB INC INC LET REAGENT AUTO MICROSCOP Y CULTURE 50765 MELQUIADES ARNETT BACTERIAL 8 [facility] INC INC QUANTTATI VE COLONY COUNT URINE COMPREHEN 94947 MELQUIADES ARNETT SIVE 8 [facility] METABOLIC INC INC PANEL URINE 76887 MELQUIADES ARNETT 8 [facility] TEST INC [place] [address] MELQUIADES ARNETT THER 8 [facility] PROPH/DX INC INC 1ST >1 HR BLOOD 08790 MELQUIADES ARNETT COUNT 8 [facility] COMPLETE INC INC AUTO&AUTO DIFRNTL WBC URINE 60661 ZURDO MAE, 8 CATHY [place] TEST VISUAL COLOR CMPRSN METHS RADEX 72252 MELQUIADES ARNETT WRIST 8 [facility] COMPLETE INC INC MINIMUM 3 VIEWS 3D 09365 [place] KRIST[place], RENDERING 8 MEDICAL GAL[facility] IMAGING W/INTERP& ASSOCIATE POSTPROC S DIFF WORK STATION CULTURE 23649 MELQUIADES ARNETT BACTERIAL 8 [facility] INC INC QUANTTATI VE COLONY COUNT URINE CULTURE 48316 MELQUIADES ARNETT BCT 8 [facility] IS[facility]&PRSM INC [place] [address] [place], ABDOMEN 8 MEDICAL [facility]AL[place] W/O IMAGING CONTRAST ASSOCIATE MATERIAL S SUSCEPTIB 32415 MELQUIADES ARNETT LTY STDY 8 [facility] ANTIMICRB INC INC IAL MICRO/AGA R DILUTJ URNLS DIP 00110 MELQUIADES ARNETT 8 [facility] STICK/TAB INC INC LET REAGENT AUTO MICROSCOP Y URINE 23741 MELQUIADES ARNETT 8 [facility] TEST INC INC VISUAL COLOR CMPRSN [place] CT PELVIS [address] [place] KRISTAL, W/O 8 MEDICAL [facility]AL[place] CONTRAST IMAGING MATERIAL ASSOCIATE S URINE 02110 ZURDO MAE, 8 CATHY [place] TEST VISUAL COLOR CMPRSN METHS INSERTION 49014 ZURDO MAE, 8 CATHY Hayward IMPLANTAB LE CONTRACEP TIVE CAPSULES CYTP 86541 [facility] FRITZ, CERV/VAG 8 [place] INC VIRAJ E AUTO THIN LAYER PREP MNL SCREEN BLOOD 16055 ZURDO MAE, COUNT 8 CATHY Hayward HEMOGLOBI N IADNA 89342 [facility], NEISSERIA 8 [place] VIR[place] GONORRHOE AE AMPLIFIED PROBE TQ IADNA 73593 [facility], CHLAMYDIA 8 [place] VIR[place] Pang TRACHOM[place] [address] MELQUIADES ARNETT STREPTOCO 8 [facility] INC GROUP A Encounters Encounter Start End Date Code Location Performer Type Date EMERGENCY 07803 TG CARDONA 7 7 PHYSICIAN [facility] T VISIT HIGH/URGE NT SEVERITY OFFICE 96304 [facility] SP OUTPATIEN 6 6 PHYSICIAN TJ T VISIT S GROUP 25 MINUTES EMERGENCY 67703 TG BRAUN 6 6 PHYSICIAN [place] [facility] T VISIT HIGH/URGE NT SEVERITY EMERGENCY 42054 TG [place] DEPT 6 6 PHYSICIAN [place] VISIT [facility] HIGH SEVERITY& THREAT FUNCJ EMERGENCY 70194 TG RIZZO 6 6 PHYSICIAN U MEDINA [facility] T VISIT HIGH/URGE NT SEVERITY EMERGENCY 01964 MELQUIADES 6 6 [facility] T VISIT LOW/MODER SEVERITY HOSPITAL MELQUIADES - 6 6 [facility] 21907 [facility] SP MURRIETAPATIEN 6 6 PHYSICIAN TJ T VISIT S GROUP 15 MINUTES OFFICE 83936 NAHED MAYS OUTPATIEN 6 6 PHYSICIAN JONY T NEW 30 PRACTICE MINUTES L EMERGENCY 69584 MELQUIADES 6 6 MEM [facility] T VISIT LOW/MODER SEVERITY EMERGENCY 34951 TG DEL RIO 6 6 PHYSICIAN [facility] T VISIT MODERATE SEVERITY HOSPITAL MELQUIADES - 6 6 [facility] M[facility]QUIADES - 6 6 [facility] MELQUIADES [facility] 6 6 [facility] OFF[facility] 37944 [facility] SNOWDEN OUTPATIEN 6 6 PHYSICIAN TJ T VISIT S GROUP 15 MINUTES OFFICE 76377 [facility] QUANG OUTPATIEN 6 6 PHYSICIAN CHUY T VISIT S GROUP 15 MINUTES OFFICE 07984 [facility] QUANG OUTPATIEN 6 6 PHYSICIAN CHUY T VISIT S GROUP 15 MINUTES HOSPITAL MELQUIADES - 6 6 [facility] OUTPATIEN INC T EMERGENCY 97932 [facility] 6 6 N DEPARTMEN COMMUNTIY T VISIT HOSPITA HIGH/URGE NT SEVERITY EMERGENCY 30977 [facility] CELLAR[facility] DEPT 6 6 [place] - YORBA VISIT EMERGENCY PAT HIGH PHYS SEVERITY& THREAT [facility] - 6 6 N OUTPATIEN COMMUNTIY T [facility] - 6 6 N OUTPATIEN COMMUNTIY T [facility] EMERGENCY 94258 [facility] DEPT 6 6 [place] YANELIS VISIT EMERGENCY HIGH PHYS SEVERITY& THREAT [facility] EMERGENCY 64346 [facility] 6 6 N DEPARTMEN COMMUNTIY T VISIT HOSPITA HIGH/URGE NT SEVERITY EMERGENCY 20995 MELQUIADES 5 5 [facility] DEPARTMEN INC T VISIT MODERATE SEVERITY HOSPITAL MELQUIADES - 5 5 [facility] OUTPATIEN INC T EMERGENCY 33699 TG Ramos 5 5 PHYSICIAN DEPARTMEN S, [facility] T VISIT HIGH/URGE NT SEVERITY HOSPITAL MELQUIADES - 5 5 [facility] OUTPATIEN INC T OFFICE 46899 [facility] QUANG OUTPATIEN 5 5 PHYSICIAN CHUY T VISIT S GROUP 15 MINUTES HOSPITAL MELQUIADES - 4 4 [facility] OUTPATIEN INC T EMERGENCY 38170 [facility] 4 4 [place] IMT DEPARTMEN EMERGENCY T VISIT PHYS MODERATE SEVERITY EMERGENCY 87485 MELQUIADES 4 4 [facility] DEPARTMEN INC T VISIT LIMITED/M INOR PROB OFFICE 52855 [facility] OUTPATIEN 4 4 HEALTH TJ T VISIT CLINIC OF 15 DANITA MINUTES OFFICE 31927 [facility] 4 4 HEALTH TJ T VISIT CLINIC OF 25 DANITA MINUTES [facility] MELQUIADES - 4 4 [facility] OUTPATIEN INC T EMERGENCY 24498 MELQUIADES 4 4 [facility] DEPARTMEN INC T VISIT LOW/MODER SEVERITY EMERGENCY 98035 [facility] 4 4 [facility] EMERGENCY T VISIT PHYS HIGH/URGE NT SEVERITY [facility] MELQUIADES - 3 3 [facility] OUTPATIEN [facility]PITAL MELQUIADES - 3 3 [facility] OUTPATIEN [facility] T Inpatient IMP Melquiades Mae MD (IN) 3 00:40 3 14:10 [facility] MELQUIADES - 3 3 [facility] INPATIENT INC OFFICE 30108 [facility] OUTPATIEN 3 3 TJ TJ T VISIT 15 MINUTES OFFICE 17450 [facility] OUTPATIEN 3 3 TJ TJ T VISIT 15 MINUTES HOSPITAL MELQUIADES - 3 3 [facility] OUTPATIEN INC T OFFICE 32461 CATHY MAE OUTPATIEN 3 3 DAVID DAVID T VISIT 15 MINUTES OFFICE 06698 [facility] OUTPATIEN 3 3 TJ TJ T VISIT 15 MINUTES OFFICE 48368 [facility] OUTPATIEN 3 3 TJ TJ T VISIT 15 MINUTES OFFICE 02232 [facility] OUTPATIEN 3 3 TJ TJ T VISIT 15 MINUTES OFFICE 45419 SP [facility] OUTPATIEN 3 3 TJ TJ T VISIT 15 MINUTES OFFICE 28805 SP [facility] OUTPATIEN 3 3 TJ TJ T VISIT 15 MINUTES OFFICE 78256 SP [facility] OUTPATIEN 3 3 TJ TJ T VISIT 15 MINUTES OFFICE 62430 SP OMRRISE OUTPATIEN 3 3 TJ TJ T VISIT 15 MINUTES OFFICE 36607 [facility] OUTPATIEN 3 3 TJ TJ T VISIT 5 MINUTES OFFICE 60769 [facility] OUTPATIEN 3 3 TJ TJ T VISIT 15 MINUTES HOSPITAL UNIVERSIT - 3 3 Y INPATIENT [facility] MELQUIADES - 3 3 [facility] OUTPATIEN INC T Inpatient IMP Melquiades Snowden (IN) 3 13:32 3 10:10 [facility] MELQUIADES - 3 3 [facility] OUTPATIEN INC T OFFICE 45588 [facility] OUTPATIEN 3 3 TJ TJ T VISIT 15 MINUTES OFFICE 69758 [facility] OUTPATIEN 3 3 TJ TJ T VISIT 15 MINUTES HOSPITAL MELQUIADES - 3 3 [facility] OUTPATIEN INC T EMERGENCY 08961 MELQUIADES 3 3 [facility] DEPARTMEN INC T VISIT HIGH/URGE NT SEVERITY EMERGENCY 99065 QUANG DEL RIO DEPT 3 3 CHUY CHUY VISIT HIGH SEVERITY& THREAT FUNJ OFFICE 63290 SP [facility] OUTPATIEN 3 3 TJ TJ T VISIT 15 MINUTES EMERGENCY 03984 MELQUIADES 3 3 [facility] DEPARTMEN INC T VISIT HIGH/URGE NT SEVERITY HOSPITAL MELQUIADES - 3 3 [facility] OUTPATIEN INC T EMERGENCY 80002 EUGENE VAUGHAN DEPT 3 3 EMERGENCY VISIT SERVICES HIGH SEVERITY& THREAT FUN [facility]OSPITAL MELQUIADES - 3 3 [facility] T OFFICE 03873 SP [facility] OUTPATIEN 3 3 TJ TJ T VISIT 15 MINUTES EMERGENCY 95540 CHRISTIAN GONZALES DEPT 3 3 III MITCHEL III MITCHEL VISIT HIGH SEVERITY& THREAT [facility] MELQUIADES - 3 3 [facility] T EMERGENCY 26392 MELQUIADES 3 3 [facility] T VISIT HIGH/URGE NT SEVERITY OFFICE 23995 [facility] OUTPATIEN 3 3 TJ TJ T VISIT 15 MINUTES EMERGENCY 09786 MELQUIADES 2 2 [facility] T VISIT LIMITED/M INOR PROB EMERGENCY 82260 QUANG DEL RIO 2 2 [facility] T VISIT HIGH/URGE NT SEVERITY HOSPITAL MELQUIADES - 2 2 [facility] OFFICE 36842 [facility] OUTPATIEN 2 2 TJ TJ T VISIT 15 MINUTES HOSPITAL MELQIUADES - 2 2 [facility] 52817 MELQUIADES 2 2 [facility] T VISIT LOW/MODER SEVERITY EMERGENCY 26222 EUGENE MCCALLUM DEPT 2 2 EMERGENCY MITCHEL VISIT SERVICES HIGH SEVERITY& THREAT [facility] OFFICE 96284 [facility] OUTPATIEN 2 2 TJ TJ T VISIT 15 MINUTES EMERGENCY 46488 MELQUIADES 2 2 [facility] T VISIT HIGH/URGE NT SEVERITY EMERGENCY 60510 CHRISTIAN GONZALES DEPT 2 2 III MITCHEL III MITCHEL VISIT HIGH SEVERITY& THREAT [facility] MELQUIADES - 2 2 [facility]OSPITAL MELQUIADES - 2 2 [facility] OUTPATIEN INC T EMERGENCY 90551 MELQUIADES DEPT 2 2 [facility] VISIT INC HIGH SEVERITY& THREAT FUNCJ EMERGENCY 00633 EUGENE CASTILLO DEPT 2 2 EMERGENCY VISIT SERVICES HIGH SEVERITY& THREAT FUNCJ EMERGENCY 25485 MELQUIADES 2 2 [facility] DEPARTMEN INC T VISIT LIMITED/M INOR PROB EMERGENCY 58279 QUANG DEL RIO 2 2 CHUY [facility] DEPARTMEN T VISIT HIGH/URGE NT SEVERITY HOSPITAL MELQUIADES - 2 2 [facility] OUTPATIEN INC T OFFICE 29532 MELQUIADES SIMMONS 2 2 [facility] T VISIT CENTER CENTER 25 MINUTES EMERGENCY 40987 EUGENE CASTILLO 2 2 EMERGENCY DEPARTMEN SERVICES T VISIT HIGH/URGE NT SEVERITY EMERGENCY 73338 MELQUIADES 2 2 [facility] DEPARTMEN INC T VISIT MODERATE SEVERITY HOSPITAL MELQUIADES - 2 2 [facility] OUTPATIEN INC T HOSPITAL MELQUIADES - 2 2 [facility] OUTPATIEN INC T EMERGENCY 65780 MELQUIADES 2 2 [facility] DEPARTMEN INC T VISIT MODERATE SEVERITY EMERGENCY 41827 EUGENE CASTILLO DEPT 2 2 EMERGENCY VISIT SERVICES HIGH SEVERITY& THREAT FUNCJ OFFICE 31713 SP ESTEVEZEN 2 2 TJ TJ T VISIT 25 MINUTES EMERGENCY 68323 CHRISTIAN GONZALES 2 2 III MITCHEL III MITCHEL DEPARTMEN T VISIT HIGH/URGE NT SEVERITY HOSPITAL MELQUIADES - 2 2 [facility] OUTPATIEN INC T EMERGENCY 26673 MELQUIADES 2 2 [facility] DEPARTMEN INC T VISIT LOW/MODER SEVERITY EMERGENCY 54069 EUGENE MCCALLUM 2 2 EMERGENCY MITCHEL DEPARTMEN SERVICES T VISIT MODERATE SEVERITY EMERGENCY 08733 MELQUIADES 2 2 [facility] DEPARTMEN INC T VISIT LOW/MODER SEVERITY HOSPITAL MELQUIADES - 2 2 [facility] OUTPATIEN [facility] T HOSPITAL MELQUIADES - 2 2 [facility] OUTPATIEN INC T EMERGENCY 46738 EUGENE DEL RIO DEPT 2 2 EMERGENCY CHUY VISIT SERVICES HIGH SEVERITY& THREAT FUNCJ EMERGENCY 66656 MELQUIADES 2 2 [facility] DEPARTMEN INC T VISIT LOW/MODER SEVERITY OFFICE 16363 [facility] OUTPATIEN 2 2 TJ TJ T VISIT 25 MINUTES EMERGENCY 36901 NAHED 2 2 [facility] T VISIT LOW/MODER SEVERITY HOSPITAL BORACHEL - 2 2 [facility] T EMERGENCY 60991 DULCE PEREZ DEPT 2 2 VISIT [facility]IGH SEVERITY& [facility]AT [facility] M[facility] - 2 2 [facility] OUTPATIEN [facility] T EMERGENCY 71289 CHRISTIAN GONZALES 2 2 III MITCHEL III [facility] DEPARTMEN T VISIT HIGH/URGE NT SEVERITY HOSPITAL MELQUIADES - 2 2 [facility] OUTPATIEN [facility] T EMERGENCY 00864 MELQUIADES 2 2 [facility] DEPARTMEN INC T VISIT MODERATE SEVERITY OFFICE 56738 MELQUIADES ARNETT OUTPATIEN 2 2 [facility] T VISIT CENTER CENTER 15 MINUTES EMERGENCY 04373 EUGENE DEL RIO 2 2 EMERGENCY [facility] DEPARTMEN SERVICES T VISIT HIGH/URGE NT SEVERITY EMERGENCY 49528 MELQUIADES 2 2 [facility] DEPARTMEN INC T VISIT MODERATE SEVERITY HOSPITAL MELQUIADES - 2 2 [facility] OUTPATIEN INC T EMERGENCY 65723 EUGENE DEL RIO 2 2 EMERGENCY [facility] DEPARTMEN SERVICES T VISIT MODERATE SEVERITY EMERGENCY 81165 MELQUIADES 2 2 [facility] DEPARTMEN INC T VISIT LOW/MODER SEVERITY HOSPITAL MELQUIADES - 2 2 [facility] OUTPATIEN INC T EMERGENCY 61404 MELQUIADES 2 2 [facility] DEPARTMEN INC T VISIT LIMITED/M INOR PROB EMERGENCY 58059 UNIVERSIT 2 2 Y [facility] T VISIT HIGH/URGE NT SEVERITY HOSPITAL UNIVERSIT - 2 2 [facility] 35794 [place] RAINS ALL 2 2 MEDICAL DEPARTMEN SERV T VISIT FOUNDATIO MODERATE SEVERITY HOSPITAL UNIVERSIT - 2 2 Y INPATIENT HOSPITAL EMERGENCY 58776 [place] ECKERLINE DEPT 2 2 MEDICAL C VISIT SERV HIGH FOUNDATIO SEVERITY& THREAT [facility] MELQUIADES - 2 2 [facility] OUTPATIEN INC T EMERGENCY 45834 M[facility]QUIADES 2 2 [facility] VISIT LIMITED/M INOR PROB EMERGENCY 00587 CHRISTIAN GONZALES 2 2 III [facility] T VISIT MODERATE SEVERITY [facility]OSPITAL MELQUIADES - 2 2 [facility] T EMERGENCY 64701 MELQUIADES 2 2 [facility] T VISIT LOW/MODER SEVERITY EMERGENCY 92383 CHRISTIAN GONZALES 2 2 III MITCHEL III [facility] T VISIT MODERATE SEVERITY HOSPITAL MELQUIADES - 1 1 [facility] OUTPATIEN INC T EMERGENCY 98914 EUGENE DEL RIO 1 1 EMERGENCY [facility] SERVICES T VISIT MODERATE SEVERITY EMERGENCY 09155 MELQUIADES 1 1 [facility] DEPARTMEN INC T VISIT LOW/MODER SEVERITY EMERGENCY 70870 ZEHRA 1 1 HOSPITAL DEPARTMEN T VISIT MODERATE SEVERITY OFFICE 36160 MELQUIADES ARNETT OUTPATIEN 1 1 [facility] HEALTH T VISIT CENTER CENTER 15 MINUTES HOSPITAL [facility] 1 1 [facility] OUTPATIEN T EMERGENCY 05464 [facility] CHEESEBIB 1 1 [place] [facility] EMERGENCY T VISIT PHYSI HIGH/URGE NT SEVERITY EMERGENCY 67278 [facility] CARLEY JAM 1 1 [place] [facility] EMERGENCY T VISIT PHYSI HIGH/URGE NT SEVERITY EMERGENCY 20969 [facility] RADHA DEPT 1 1 [place] EDW VISIT EMERGENCY HIGH PHYSI SEVERITY& THREAT [facility] MELQUIADES - 1 1 [facility] OUTPATIEN INC T EMERGENCY 39742 MELQUIADES 1 1 [facility] T VISIT LOW/MODER SEVERITY EMERGENCY 32373 MELQUIADES 0 0 [facility] T VISIT HIGH/URGE NT SEVERITY HOSPITAL MELQUIADES - 0 0 [facility] OFFICE 69021 [facility], OUT[facility]IEN 0 0 HEALTH ERIK J T VISIT 5 CLINIC OF MINUTES [facility] MELQUIADES - 0 0 [facility] OUTPATIEN [facility] HOSPITAL MELQUIADES - 9 9 [facility] OUTPATIEN [facility] T OFFICE 29117 [facility], OUTPATIEN 9 9 HEALTH ERIK J T VISIT 5 CLINIC OF MINUTES [facility] EMERGENCY 84156 EUGENE DEL RIO, 9 9 EMERGENCY CATARINA S [facility] SERVICES T VISIT HIGH/URGE ASSOCIATE NT S SEVERITY EMERGENCY 43873 MELQUIADES 9 9 [facility] DEPARTMEN INC T VISIT LIMITED/M INOR PROB EMERGENCY 89407 EUGENE MARES, 9 9 EMERGENCY ADAN [facility] T VISIT HIGH/URGE ASSOCIATE NT S SEVERITY HOSPITAL MELQUIADES - 9 9 [facility] OUTPATIEN INC T EMERGENCY 88912 MELQUIADES 9 9 [facility] DEPARTMEN INC T VISIT LOW/MODER SEVERITY OFFICE 24303 DHS/CO MELQUIADES OUTPATIEN 9 9 HEALTH CO [facility]ALTH T [facility]IT [facility] 25 BANK ACCT MINUTES OFFICE 10825 [facility], OUTPATIEN 9 9 HEALTH ERIK J T VISIT CLINIC OF 25 MINUTES [facility] OFFICE 28621 [facility], OUTPATIEN 9 9 HEALTH ERIK T VISIT CLINIC OF 15 MINUTES [facility] UNIVERSIT - 9 9 Y INPATIENT HOSPITAL OFFICE 72523 [facility], OUTPATIEN 9 9 HEALTH ERIK J T VISIT 5 CLINIC OF MINUTES [facility] OFFICE 05327 [facility] OUTPATIEN 9 9 HEALTH ERIK T VISIT CLINIC OF 15 MINUTES [facility] OFFICE 32497 VINITA TALAMANTES OUTPATIEN 9 9 , ANNIKA ROBLERO T VISIT 10 MINUTES HOSPITAL MELQUIADES - 9 9 [facility] OUTPATIEN INC T OFFICE 58199 [facility] 9 9 , ANNIKA ROBLERO ION NEW/ESTAB PATIENT 60 MIN EMERGENCY 34588 MELQUIADES 9 9 [facility] DEPARTMEN INC T VISIT LOW/MODER SEVERITY EMERGENCY 02038 EUGENE MARES, DEPT 9 9 EMERGENCY ADAN VISIT SERVICES O HIGH SEVERITY& ASSOCIATE THREAT S [facility] MELQUIADES - 9 9 [facility] OUTPATIEN INC T OFFICE 01137 [facility], OUTPATIEN 9 9 HEALTH ERIK J T VISIT CLINIC OF 15 MINUTES [facility] OFFICE 29406 [facility], OUTPATIEN 9 9 HEALTH ERIK J T VISIT CLINIC OF 15 MINUTES [facility] EMERGENC[facility] 68388 MELQUIADES 9 9 [facility] DEPARTMEN INC T VISIT MODERATE SEVERITY HOSPITAL MELQUIADES - 9 9 [facility] OUTPATIEN INC T OFFICE 03826 [facility] 9 HEALTH ERIK J T VISIT CLINIC OF 15 MINUTES [facility] MELQUIADES - 9 9 [facility] OUTPATIEN INC T EMERGENCY 51898 EDMUNDO MINAYA, 9 9 [facility] T VISIT LOW/MODER SEVERITY OFFICE 98086 DHS/CO [facility] 9 9 HEALTH CO HEALTH T VISIT [facility] 25 BANK ACCT MINUTES HOSPITAL NAHED - 8 8 [facility] T EMERGENCY 43250 JUSTICE MEJIA, 8 8 [facility] EMERGENCY T VISIT PHYS INC MODERATE SEVERITY EMERGENCY 45654 NAHED 8 8 [facility] T VISIT LOW/MODER SEVERITY EMERGENCY 95599 MELQUIADES 8 8 [facility] T VISIT LIMITED/M INOR PROB HOSPITAL MELQUIADES - 8 8 [facility] T EMERGENCY 16175 MELQUIADES 8 8 [facility] INC T VISIT LOW/MODER SEVERITY HOSPITAL MELQUIADES - 8 8 [facility] T EMERGENCY 84676 MELQUIADES COOLEY, [address] [facility] T VISIT PROF SERV MODERATE SEVERITY HOSPITAL MELQUIADES - 8 8 [facility] OUTPATIEN INC T OFFICE 13023 IRIS WEISS 8 8 CATHY Hayward T VISIT 15 MINUTES EMERGENCY 37462 MELQUIADES 8 8 [facility] DEPARTMEN INC T VISIT LOW/MODER SEVERITY HOSPITAL MELQUIADES - 8 8 [facility] OUTPATIEN INC T EMERGENCY 57111 MELQUIADES HERNANDEZ, 8 8 [facility] T VISIT PROF SERV MODERATE SEVERITY OFFICE 49552 [facility] RINKUPoly OUTPATIEN 8 8 NORRIS MARTINEZ, T VISIT INTERNAL PEDRO F 15 MED MINUTES HOSPITAL MELQUIADES - 8 8 [facility] OUTPATIEN INC T EMERGENCY 36866 MELQUIADES 8 8 [facility] T VISIT MODERATE SEVERITY OFFICE 60851 [facility] 8 NORRIS KHALIL T VISIT INTERNAL 15 MED MINUTES OFFICE 70647 ZURDO MAE OUTPATIEN 8 8 CATHY Hayward T VISIT 15 MINUTES OFFICE 67480 [facility] 8 8 CATHY Hayward T VISIT 15 MINUTES HOSPITAL MELQUIADES - 8 8 [facility] OUTPATIEN INC T EMERGENCY 15933 MELQUIADES 8 8 [facility] DEPARTMEN INC T VISIT LOW/MODER SEVERITY OFFICE 35390 DHS/CO MELQUIADES [facility] 8 8 HEALTH CO HEALTH T VISIT [facility] 10 BANK ACCT MINUTES PERIODIC 66502 ZURDO MAE, PREVENTIV 8 8 CATHY Hayward E MED EST PATIENT 18-39 YRS HOSPITAL MELQUIADES - 8 8 [facility] OUTPATIEN INC T EMERGENCY 72244 MELQUIADES 8 8 [facility] DEPARTMEN INC T VISIT LOW/MODER SEVERITY
--- OUTSIDE RECORDS SUMMARY | 2016-10-22 14:20 | External Medical Summary Rpt ---
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 Name Role Phone JONATHAN CASTILLO Unavailable Unavailable OMAR L, OMAR L Unavailable Unavailable CARLEY JAM, CALREY JAM Unavailable Unavailable LEWIS, LEWIS Unavailable Unavailable LEWIS ALL, LEWIS ALL Unavailable Unavailable [facility] Unavailable Unavailable HOSPITAL, [facility] Unavailable Unavailable PRACTICE L, [facility] Unavailable Unavailable SERVICE, [facility] Unavailable Unavailable SERVICE, [facility] FARAH, FARAH Unavailable Unavailable CELLAROSI - YORBA Unavailable Unavailable PAT, CELLAROSI - YORBA PAT CHEESEMAN MICHELLE, Unavailable Unavailable CHEESEMAN MICHELLE SNOWDEN TJ, SNOWDEN Unavailable Unavailable TJ SNOWDEN TJ, SNOWDEN Unavailable Unavailable TJ ERIK SNOWDEN J, Unavailable Unavailable [facility], Unavailable Unavailable [facility] Unavailable Unavailable [place], [facility] Unavailable Unavailable [facility] DAVON JONY, DAVON Unavailable Unavailable JONY KRISTAL, KRISTAL Unavailable Unavailable KRISTAL KIERA, Unavailable Unavailable KRISTAL KIERA KRISTAL KIERA, Unavailable Unavailable RKISTAL KIERA KRISTAL, GALA, Unavailable Unavailable KRISTAL, GALA LIRA PAULA, LIRA Unavailable Unavailable PAULA [facility] [place] [facility] [facility] Unavailable Unavailable [facility] Unavailable Unavailable ECKER[facility] C, Unavailable Unavailable ECKER[facility] C MICH YANELISRUSHEPPS Unavailable Unavailable YANELIS QUANG CHUY, QUANG Unavailable Unavailable CHUY QUANG CHUY, QUANG Unavailable Unavailable CHUY CATARINA DEL RIO, Unavailable Unavailable CATARINA DEL RIO [facility], [facility] Unavailable Unavailable EMS, [facility] Unavailable Unavailable EMS, [facility] Unavailable Unavailable EMS, [facility] HARPEL DAVID, HARPEL Unavailable Unavailable DAVID HARPEL DAVID, HARPEL Unavailable Unavailable DAVID HARPEL, ZURDO R, Unavailable Unavailable HARPEL, ZURDO R DOMÍNGUEZ KYLE, DOMÍNGUEZ Unavailable Unavailable KYLE [facility] Unavailable Unavailable [facility], [facility] Unavailable Unavailable EULESS, [facility] Unavailable Unavailable INC, [facility] Unavailable Unavailable HOSPITAL P, [facility] REMI STRATTON, VIRAL, Unavailable Unavailable REMI [facility], Unavailable Unavailable [facility] CARDONA, CARDONA Unavailable Unavailable [...] L, Unavailable Unavailable JUDGE, CINDY L AC MARTINEZ DWI, AC Unavailable Unavailable JR DWI MARIMAR, W F, Unavailable Unavailable MARIMAR, W F EUGENE VICTOR, Unavailable Unavailable EUGENERASHAWN [facility], Unavailable Unavailable [facility] Unavailable Unavailable SERVICES, [facility] MAST ANN, MAST ANN Unavailable Unavailable MAST ANN, MAST ANN Unavailable Unavailable PEDRO PISANO JR Unavailable Unavailable F, PEDRO PISANO JR F DMITRIYBOPoly-ADRIAN PERSAUD Unavailable Unavailable R, JOHAN-ADRIAN PERSAUD R ASHOK ANDREWS, Unavailable Unavailable ASHOK ANDREWS [facility] Unavailable [facility]available [facility] GABRIELE MITCHEL, GABRIELE MITCHEL Unavailable Unavailable GABRIELE MITCHEL, GABRIELE MITCHEL Unavailable Unavailable RADHA EDW, RADHA Unavailable Unavailable EDW O'OMAIRA ANASTACIO, O'OMAIRA Unavailable Unavailable ANASTACIO O'OMAIRA ANASTACIO, O'OMAIRA Unavailable Unavailable ANASTACIO [facility], Unavailable Unavailable [facility] Unavailable Unavailable LAB[facility] ROBERTO, KINDRA O, Unavailable Unavailable KINDRA MEJIA O PICKLESIMER JR GARRETT, Unavailable Unavailable PICKLESIMER JR GARRETT PICKLESIMER JR GARRETT, Unavailable Unavailable PICKLESIMER JR GARRETT [facility], Unavailable Unavailable [facility], Unavailable Unavailable [facility] RAINS ALL, RAINS ALL Unavailable Unavailable RENUSCH YULIANA, RENUSCH Unavailable Unavailable YULIANA [id number], Unavailable Unavailable [id number] Unavailable Unavailable [id number] [id number], [facility] [id number] [address] [id number] BLAKE KERMIT, BLAKE KERMIT Unavailable Unavailable BLAKE KERMIT, BLAKE KERMIT Unavailable Unavailable SADEK, MOHAMED H, Unavailable Unavailable SADEK, MOHAMED H ALESSIO GRULLON, ALESSIO Unavailable Unavailable MITCHEL ADRIAN WEISS, Unavailable Unavailable ADRIAN WEISS KARL, Unavailable Unavailable ANNIKA TALAMANTES SHA, ZAVALA SHA Unavailable Unavailable ZAVALA SHA, ZAVALA SHA Unavailable Unavailable SOKAN BAB, SOKAN BAB Unavailable Unavailable SOKAN, ADAN O, Unavailable Unavailable SOKAN, ADAN O SOTINGEANU MEDINA, Unavailable Unavailable SOTINGEANU MEDINA [facility] Unavailable Unavailable EMERGENCY PHYS, [facility] Unavailable Unavailable EMERGENCY PHYSI, [facility] ROSY SHE, Unavailable Unavailable ROSY SHE [facility], Unavailable Unavailable [facility], Unavailable Unavailable [facility], Unavailable Unavailable [facility] WEHRMAN III MITCHEL, Unavailable Unavailable WEHRMAN III MITCHEL WEHRMAN III MITCHEL, Unavailable Unavailable WEHRMAN III MITCHEL KHUSHI CASTILLO, KHUSHI CASTILLO Unavailable Unavailable CRYSTAL COOLEY, Unavailable Unavailable CRYSTAL COOLEY [facility] Unavailable Unavailable OF [place], [facility] Purpose Continuity of Care Document - 06-02-2007 through 2016 Problems Code Diagnosis DOS Provider Status R51 HEADACHE 07-13-2016 [facility] R079 CHEST PAIN 07-07-2016 [facility] U[facility]PECIFIED [facility] R1013 EPIGASTRIC 07-07-2016 [facility]IN [facility] [id number] PAIN IN 06-08-2016 [facility] [id number] PAIN IN 06-08-2016 [place] UNSPECIFIED MEDICAL HIP IMAGING ASS G14419 PAIN IN 06-08-2016 [place] RIGHT MEDICAL FOREARM IMAGING ASS [id number] PAIN IN 06-08-2016 [place] RIGHT THIGH MEDICAL IMAGING ASS [id number] UNSPECIFIED 06-08-2016 [place] INJURY MEDICAL RIGHT ELBOW IMAGING ASS INITIAL ENCOUNTER Z7689 PERSONS 06-08-2016 [facility] SRVC SERVICE OTH CIRCUMSTANC ES Z452 ENCOUNTER 05-23-2016 [place] ADJUSTMENT& MEDICAL MGMT IMAGING ASS VASCULAR ACCESS DEVICE R600 LOCALIZED 05-21-2016 [place] EDEMA [facility] ASS Z8701 PERSONAL 05-19-2016 [place] HISTORY OF MEDICAL PNEUMONIA IMAGING ASS RECURRENT J209 ACUTE 05-11-2016 [facility] BRONCHITIS PHYSICIANS, UNSPECIFIED PLLC N926 IRREGULAR 03-19-2016 [facility] MENSTRUATIO PHYSICIANS N GROUP UNSPECIFIED R102 PELVIC AND 03-19-2016 [facility] PERINEAL PHYSICIANS PAIN GROUP R1084 GENERALIZED 03-17-2016 [facility] ABDOMINAL PHYSICIANS, PAIN PLLC R109 UNSPECIFIED 03-13-2016 [place] ABDOMINAL [facility]ICAL PAIN IMAGING ASS R112 NAUSEA WITH 03-13-2016 [facility] UNSPECIFIED SERVICE S030BRC FOREIGN 03-13-2016 [facility] BODY IN PHYSICIANS, VULVA & PLLC VAGINA INITIAL ENCOUNTER M545 LOW BACK 02-09-2016 [facility] PAIN PHYSICIANS, PLLC N200 CALCULUS OF 02-09-2016 [place] KIDNEY [facility]ICAL IMAG[facility] ASS R1031 RIGHT LOWER 02-09-2016 [place] QUADRANT [facility]ICAL PAIN IMAGING ASS R1032 LEFT LOWER 02-09-2016 [place] IMAGING ASS K72859 ENCOUNTER 12-23-2015 [facility] ROUTINE PHYSICIANS CHECKING IU GROUP CONTRACEPT DEVICE X08545 MIGRAINE 12-05-2015 [place] W/AURA NOT PHYSICIAN INTRACT W/O PRACTICE L STAT MIGRAINOSUS I31578 PERSONAL 11-25-2015 [facility] HISTORY OF [facility] NICOTINE INC DEPENDENCE J55255 ENCOUNTER 11-08-2015 [facility] INITIAL PHYSICIANS PRESCRIPTIO GROUP N IU CONTRACEPT DEV Z7251 HIGH RISK 11-08-2015 [facility] HETEROSEXUA [facility] L BEHAVIOR INC N6011 DIFFUSE 10-05-2015 [facility] CYSTIC [facility] MASTOPATHY INC OF RIGHT BREAST N6489 OTHER 10-05-2015 [place] SPECIFIED MEDICAL DISORDERS IMAGING ASS OF BREAST N644 MASTODYNIA 09-27-2015 [facility] PHYSICIANS GROUP J40 BRONCHITIS 08-23-2015 [facility] NOT PHYSICIANS SPECIFIED GROUP ACUTE OR CHRONIC K219 GASTRO-ESOP 08-10-2015 [facility] H REFLUX PHYSICIANS DISEASE GROUP WITHOUT ESOPHAGITIS B1920 UNS VIRAL 07-27-2015 [facility] HEPATITIS C [facility] WITHOUT INC HEPATIC COMA R071 CHEST PAIN 05-24-2015 [facility] N EMERGENCY BREATHING PHYS R0789 OTHER CHEST 05-24-2015 [facility] COMM[facility]TIY HOSPITA R5381 OTHER 05-24-2015 [facility] MALAISE SCOT T CO EMS M940 CHONDROCOST 05-16-2015 [facility] JUNCTION N EMERGENCY SYNDROME PHYS TIETZE R072 PRECORDIAL 05-16-2015 [facility] PAIN N EMERGENCY PHYS R509 FEVER 05-16-2015 [facility] [place] UNSPECIFIED SCOT T CO EMS R52 PAIN 05-16-2015 [facility] [place] UNSPECIFIED SCOT T CO EMS [id number] POISONING 02-24-2015 [facility] HEROIN [facility] UNDETERMINE INC D INITIAL ENCOUNTER 66400 COMA 01-09-2015 [facility] 54581 POISONING 01-09-2015 [facility] BY [facility] P 9779 POISONING 01-09-2015 [facility] UNSPECIFIED AMBULANCE SERVICE DRUG/MEDICI NAL SUBSTANCE 6824 CELLULITIS& 09-23-2014 [facility] ABSCESS OF ANESTH OF HAND EXCEPT THE BLUE FINGERS&FERN MB 6823 CELLULITIS 09-22-2014 [facility] AND ABSCESS PHYSICIANS, OF UPPER PLLC ARM AND FOREARM 7245 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[facility] BACKACHE PHYSICIANS GROUP 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[facility] 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 46734 PHLEBITIS&T 03-14-2014 [facility] HROMBOPHLEB [facility] HOS[facility] SUP VEINS INC UPPER EXTREM 78710 PHLEBITIS 03-14-2014 [facility] AND N EMERGENCY THROMBOPHLE PHYS BITIS OF OTHER SITE 5758 OTHER 03-14-2014 [facility] SPECIFIED [facility] DISORDER OF INC GALLBLADDER V148 PERSONAL 03-14-2014 [facility] HISTORY [facility] ALLERGY OTH INC SPEC MEDICINAL AGTS 25557 UNSPECIFIED 03-02-2014 [facility] N [place] 2029 UNSPEC 03-02-2014 [facility] SYMP[facility]OM [facility] CLINIC OF W/FEMALE [place] GENITAL ORGANS 6264 IRREGULAR 03-02-2014 [facility] MENSTRUAL HEALTH CYCLE CLINIC OF [place] 83070 ABDOMINAL 03-02-2014 [facility] PAIN, LEFT HEALTH LOWER CLINIC OF QUADRANT [place] 77190 UNSPECIFIED 02-02-2014 [facility] VAGINITIS [facility] OF VULVOVAGINI [place] TIS 57623 HEMATURIA 12-24-2013 [facility] UNSPECIFIED N EMERGENCY PHYS 63207 ABDOMINAL 12-24-2013 [place] [facility] OTHER MEDICAL SPECIFIED IMAGING ASS SITE 70640 CHLAMYDTRAC 01-02-2013 ROWENAJORDYAYDEE HOMATIS GARRETT INFECTION LOWER SITES V242 ROUTINE 01-02-2013 SANIA GARRETT FOLLOW-UP 6146 PELVIC 11-21-2012 [facility] PERITONEAL [facility] ADHESIONS, INC FEMALE V252 STERILIZATI 11-21-2012 SUAZO MITCHEL ON V2509 OT GENERAL 11-20-2012 [facility] CNSL&ADVICE INC CONTRACEPT MANAGEMENT 650 NORMAL 10-22-2012 ZAVALA SHA DELIVERY 22934 FIRST-DEGRE 10-22-2012 [place] [facility] PERINEAL [facility] LACERATION INC WITH DELIVERY V270 OUTCOME OF 10-22-2012 [facility] DELIVERY [facility] SINGLE INC LIVEBORN 23844 THREATENED 10-20-2012 SP TJ PREMATURE LABOR ANTEPARTUM V221 SUPERVISION 10-20-2012 SP [facility] OF OTHER NORMAL 16730 OTHER 10-11-2012 HARPEL DAVID THREATENED LABOR, ANTEPARTUM 27395 ABNORMAL 08-08-2012 SP [facility] MATERNAL GLUCOSE TOLERANCE ANTEPARTUM 01786 DELAY DELIV 07-30-2012 O'OMAIRA ANASTACIO AFTER SPONT/UNSPE C RUP MEMB ANTPRTM 24615 CHEST PAIN 07-27-2012 BLAKE KERMIT UNSPECIFIED 95274 CERVICAL 07-21-2012 O'OMAIRA ANASTACIO SHORTENING ANTEPARTUM CONDITION OR COMP 68629 PREMATURE 07-18-2012 [facility]URE [facility] ANTEPARTUM 7802 SYNCOPE AND 07-18-2012 [facility] COLLAPSE V2341 SUPERVISION 07-18-2012 [facility] W/HISTORY PRE-TERM LABOR V2389 SUPERVISION 07-18-2012 [facility] OF OTHER [facility] HIGH-RISK 75707 LATE 07-17-2012 [facility] ANTEPARTUM 71366 OTH 07-17-2012 [facility] VENEREAL DISEASE ANTPRTM COND/COMPL 87367 OTH CURRENT 07-17-2012 [facility] CLASSIFIABL E ELSW ANTPRTM 00828 CERVICAL 07-17-2012 O'OMAIR[facility] ANASTACIO SHORTENING DELIVERED W/WO ANTPRTM COND V230 07-17-2012 [facility] WITH HISTORY OF INFERTILITY 82716 NAUSEA WITH 06-30-2012 [facility] VOMITING [facility]OS[facility] INC 62123 ABDOMINAL 06-30-2012 [place] PAIN, [facility]OS[facility] GENERALIZED INC V220 SUPERVISION 06-30-2012 SP SPENCER OF NORMAL FIRST V283 ENCOUNTER 06-19-2012 SP SPENCER ROUTINE SCREEN MALFORMATIO N ULTRASONIC 94516 DEHYDRATION 06-12-2012 [facility] HOSP INC 78600 HYPEREMESIS 06-12-2012 [facility] W/METAB INC DISTURBANCE ANTPRTM 7880 RENAL COLIC 06-12-2012 [facility] HOS[facility] INC 94566 MILD 06-11-2012 [facility] HYPEREMESIS GRAVIDARUM UNSPEC EPIS CARE 591 HYDRONEPHRO 06-04-2012 KRISTAL SIS KIERA 09320 OTHER 06-04-2012 KRISTAL SPECIFIED KIERA DISORDER OF KIDNEY AND URETER 62597 THREATENED 06-03-2012 [facility] SERVICES UNSPEC EPIS CARE 32711 OTHER 06-03-2012 KRISTAL SPECIFED KIERA COMPLICATIO N ANTEPARTUM 34013 OTH CURRENT 05-29-2012 WEHRMAN III MATERNAL MITCHEL CCE-COMPL PG CB/PP-UNS EOC 4660 ACUTE 04-30-2012 [place] BRONCHITIS [facility] HOSP INC V222 04-30-2012 [facility] INCIDENTAL INC 7910 PROTEINURIA 04-25-2012 [place] TJ 7916 ACETONURIA 04-25-2012 SP TJ 5920 CALCULUS OF 04-24-2012 [facility]NEY [facility] 5990 URINARY 04-24-2012 [facility] TRACT [facility]ERGENCY INFECTION SERVICES SITE NOT SPECIFIED 86211 INFS 04-24-2012 [facility] TRACT [facility]Y SERVICES UNSPEC EPIS CARE 16251 MILD 04-14-2012 [facility] HYPEREMESIS [facility] HOSP GRAVIDARUM INC ANTEPARTUM 66604 ABDOMINAL 04-14-2012 WEHRMAN III PAIN, MITCHEL UNSPECIFIED SITE 2768 HYPOPOTASSE 04-07-2012 [facility] DUYEN [facility] SERVICES 5589 OTH&UNSPEC 04-07-2012 [facility] NONINFECTIO EMERGENCY US SERVICES GASTROENTER ITIS&COLITI S V745 SCREENING 03-19-2012 [facility] EXAMINATION VALENTE FOR VENEREAL DISEASE 58777 INFECTIONS 03-06-2012 [facility] GENITOURINA INC RY TRACT ANTEPARTUM V7242 03-03-2012 [facility] EXAMINATION HEALTH OR TEST CENTER POSITIVE RESULT 84323 PAIN IN 02-13-2012 [place] JOINT, MEDICAL ANKLE AND IMAGING ASS FOOT 7295 PAIN IN 02-13-2012 [facility] SOFT EMERGENCY TISSUES OF SERVICES LIMB 34335 UNSPECIFIED 02-13-2012 [facility] S[facility] OF ANKLE SPRAIN AND STRAIN 02380 CONTUSION 02-13-2012 [place] OF FOOT MEM HOS[facility] INC 9599 INJURY 02-13-2012 [place] OTHER AND MEDICAL UNSPECIFIED IMAGING ASS UNSPECIFIED SITE 36901 ACUT 01-29-2012 [place] PYELONEPHRI MEM [facility]OS[facility] TIS W/O LES INC RENAL MEDULRY NECROS 73306 UNSPECIFIED 01-29-2012 [facility] PYELONEPHRI SERVICES TIS 6201 CORPUS 01-10-2012 [place] TJ LUTEUM CYST OR HEMATOMA 80511 ABDOMINAL 01-10-2012 [place] TJ PAIN RIGHT LOWER QUADRANT 38002 UNSPECIFIED 11-10-2011 [facility] DENTAL [facility] CARIES INC 5259 UNSPECIFIED 11-10-2011 WEHRMAN III DISORDER MITCHEL TEETH&SUPPO RTING STRUCTURES 52078 PAIN IN 09-26-2011 [place] JOINT, HAND MEDICAL IMAGING ASS 27374 CONTUSION 09-26-2011 [facility] OF HAND EMERGENCY SERVICES E9179 OTHER 09-26-2011 [place] STRIKING MEDICAL AGAINST IMAGING ASS W/WO SUBSEQUENT FALL 7804 DIZZINESS 08-23-2011 [facility] AND EMERGENCY GIDDINESS SERVICES V692 PROBLEMS 08-21-2011 [place] TJ RELATED TO HIGH-RISK SEXUAL BEHAVIOR 7231 CERVICALGIA 08-20-2011 [facility] 96175 SPASM OF 08-20-2011 [facility] CHRIS MUSCLE 6202 OTHER AND 08-15-2011 [place] UNSPECIFIED MEDICAL OVARIAN IMAGING ASS CYST 39554 OTHER 08-15-2011 [place] ASCITES MEDICAL IMAGING ASS 2662 OTHER 07-26-2011 [facility] B-COMPLEX HEALTH DEFICIENCIE CENTER S V7241 07-26-2011 [facility] EXAMINATION HEALTH OR TEST CENTER NEGATIVE RESULT 7840 HEADACHE 07-19-2011 [facility] 6827 CELLULITIS 07-05-2011 [facility] AND ABSCESS EMERGENCY OF FOOT SERVICES EXCEPT TOES 29036 UNSPECIFIED 05-31-2011 WEHRMAN III ACUTE MITCHEL CONJUNCTIVI TIS 00469 UNSPECIFIED 05-31-2011 [facility] CONJUNCTIVI TIS 97341 LEUKOCYTOSI 05-28-2011 JAHANSHAHI S FEE UNSPECIFIED 02771 ABSCESS OF 05-28-2011 [facility] EYELID FEE 33536 ONE EYE: 05-27-2011 [facility] TOT VISN EMERGENCY IMPAIR; OTH SERVICES EYE: NR-NL VISN 46544 ORBITAL 05-27-2011 [place] CELLULITIS [facility] 78943 PAIN IN OR 05-27-2011 [place] MED[facility] AROUND EYE SERV FOUNDATIO 43098 SWELLING OR 05-27-2011 [place] [facility]ASS OF SERV EYE FOUNDATIO 6820 CELLULITIS 05-27-2011 [place] [facility] AND ABSCESS SERV OF FACE FOUNDATIO 462 ACUTE 05-05-2011 [facility] PHARYNGITIS EMERGENCY SERVICES 35970 MIGRAINE 04-04-2011 [facility] W/O HOSPITAL INTRACT W/O STATUS MIGRAINOSUS 6829 CELLULITIS 04-04-2011 [facility] CO AND ABSCESS [facility] UNSPECIFIED SITE V5889 ENCOUNTER 04-01-2011 [facility] FOR OTHER N EMERGENCY SPECIFIED PHYSI AFTERCARE 9134 ELB 03-30-2011 [facility] FORARM&WRST MEM [facility]OS[facility] INSECT INC BITE NONVENOMOUS W/O INF 57517 SPRAIN AND 07-31-2009 [place] STRAIN OF MEDICAL UNSPECIFIED IMAGING SITE OF ASSOCIATES WRIST E8493 PLACE OF 07-31-2009 [place] OCCURRENCE MEDICAL INDUSTRIAL IMAGING PLACES&PUSHPA ASSOCIATES ISES E918 CAUGHT 07-31-2009 [place] ACCIDENTALL MEDICAL Y IN OR IMAGING BETWEEN ASSOCIATES OBJECTS V2549 SURVEILLANC 06-16-2009 [facility] E OTH PREV HEALTH PRSC CLINIC OF CONTRACEPT [place] METHOD PLLC 9104 FCE 03-29-2009 [facility] NCK&SCLP NO EMERGENCY EYE INSECT SERVICES BITE ASSOCIATES NONVNOM W/O INF 9895 TOXIC 03-29-2009 [facility] EFFECT OF MEM HOSP VENOM INC 6160 CERVICITIS 03-07-2009 PATHOLOGY & AND CYTOLOGY ENDOCERVICI LAB TIS 56346 DYSPLASIA 03-07-2009 PATHOLOGY & OF CERVIX CYTOLOGY UNSPECIFIED LAB 19532 PAP SMER 03-04-2009 WOMEN'S CERV W/LW HEALTH GRADE CLINIC OF SQUAMOUS [place] INTRAEPITH PLLC LES 49519 CERV HIGH 03-04-2009 WOMEN'S RISK HUMAN HEALTH PAPILLOMAVI CLINIC OF JENNIFER DNA [place] TEST POS PLLC 59114 PAP SMER 02-25-2009 [facility] CERV HEALTH W/ATYPICAL CENTRAL SQUAMOUS BANK ACCT CELLS UNDET V7231 ROUTINE 01-24-2009 [facility]OMEN'S GYNECOLOGIC HEALTH AL CLINIC OF EXAMINATION [place] [facility] 2331 CARCINOMA 12-12-2008 [facility] IN [facility] CERVIX UTERI 70058 ERLY ONSET 12-12-2008 [facility] W/WO MENTION ANTPRTM COND 72727 OTH 12-12-2008 [facility] CONGENITAL/ HOSPITAL ACQUIRED ABNORM CERVIX W/DELIVERY 35192 OTHER AND 12-12-2008 [facility] U[facility] INERTIA W/DELIVERY 66776 ULCER OF 11-25-2008 [facility] ESOPHAGUS ANNIKA WITHOUT BLEEDING 5780 HEMATEMESIS 11-25-2008 [facility] ANNIKA 29627 VOMITING 11-25-2008 [facility] ALONE ANNIKA 59299 ACUTE 11-18-2008 PATHOLOGY & ESOPHAGITIS CYTOLOGY LAB 5533 DIAPHRAGMAT 11-18-2008 [facility] ANIVAL W/O MEM HOSP MENTION INC OBSTRUCTION /GANGREN 46520 OTH CURRENT 11-18-2008 [facility] MATERNAL [facility] CCE INC W/DELIVERY 5789 UNSPECIFIED 11-10-2008 [facility] EMERGENCY OF SERVICES GASTROINTES ASSOCIATES TINAL TRACT 9309 FOREIGN 09-01-2008 EDMUNDO Sauceda BODY IN [facility] UNSPECIFIED HOSP SITE ON EXTERNAL EYE E914 FOREIGN 09-01-2008 ED[facility] BODY [facility] ACCIDENTALL HOSP Y ENTERING EYE&ADNEXA V8271 SCREENING 08-16-2008 [facility] FOR GENETIC PATHOLOGY DISEASE LAB NETWORK CARRIER INC STATUS V2543 SURVEILLANC 10-09-2007 Poly MORGAN PREV PRSC ZURDO [place] IMPL SUBDERMAL CONTRACEPT 6268 OTH D/O 08-29-2007 ZURDO [place] MENSTRUATIO CATHY ARCINIEGA N&OTH ABN BLEED FE GNT TRACT 1110 PITYRIASIS 08-15-2007 [place] VERSICOLOR [place] INTERNAL MED 39162 ANAL OR 08-15-2007 [facility] RECTAL PAIN [place] INTERNAL MED 9212 CONTUSION 08-01-2007 [facility] OF ORBITAL MEM HOSP TISSUES INC E8494 PLACE OF 08-01-2007 [facility] IMAGING RECREATION ASSOCIATES AND SPORT E8851 FALL FROM 08-01-2007 [facility] [place] Plasma [facility] ATES IMAGING ASSOCIATES 5781 BLOOD IN 07-31-2007 [facility] STOOL [place] INTERNAL MED 6258 OT SPEC 07-21-2007 ZURDO MORGAN MD ASSOC W/FEMALE GENITAL ORGANS 5950 ACUTE [...] CATHY ARCINIEGA DEFICIENCY ANEMIA 6918 OTHER 06-02-2007 [facility] REL[facility] PROF SERV CONDITIONS Medications Na ND Rx Da Fi Fi [...] 16 WN ZA 11 17 17 28 NJ 0 13 PH IN AR E MA [...] 10 6- 3- 00 06 TO ve NJ 00 20 20 07 WN ED 50 [...] MG #3 TA 93 BL 8 ET DI 00 03 03 14 7 RI 82 GA Ac CL 78 -2 -2 .0 TE 74 IN ti OF 11 8- 9- 00 23 EY ve EN 78 20 20 AI AC 90 10 10 D MN 1 PH CH SO AR AE D [...] 34 4- 3- 00 91 N ve NJ 59 20 20 AI BA ED 31 [...] 20 20 DE CE 90 09 09 MN TA 5 PH CH MN AR AE N- MA L CA CY [...] TA M BL #3 ET 93 8 NJ 37 07 07 00 56 28 RI [...] BA RA 60 09 09 D BA MN 5 PH TU DE AR ND M [...] 09 D BA TA 1 PH TU MN AR ND N- M E CA #3 [...] AR K M J #3 93 8 NI 00 05 05 00 20 10 RI 73 No Ac TR 37 -1 -2 .0 TE 27 t ti OF 83 1- 2- 00 86 Av ve UR 42 20 20 AI ai AN 20 08 08 D la TO 1 PH bl IN AR e M MO #3 NO 93 -M 8 CR 10 0 MG ANGULO 53 05 05 00 20 10 EA 97 No Ac LF 48 -1 -[address] 98 t ti AM 90 4- 2- 00 SI 75 Av ve ET 14 20 20 DE ai HO 60 08 08 la XA 1 PH bl ZO AR e LE MA -T CY MP OF DS CY NT TA HI BL AN ET A 00 05 05 00 10 2 RI 73 No Ac 40 -0 -2 .0 TE 27 t ti 60 8- 2- 00 88 Av ve 35 20 20 AI ai 70 08 08 D la 5 PH bl AR e M #3 93 8 ME 00 05 05 00 10 2 RI 73 No Ac TO 09 -0 -2 .0 TE 27 t ti CL 32 8- 2- 00 87 Av ve OP 20 20 20 AI ai RA 40 08 08 D la MN 1 PH bl DE AR e 5 M #3 MG 93 8 TA BL ET GR 00 04 04 00 30 30 EA 97 No Ac IS 88 -1 -[address] 57 t ti -P 40 1- 4- 00 SI 69 Av ve EG 77 20 20 DE ai 30 08 08 la 25 4 PH bl 0 AR e MG MA CY TA BL OF ET CY NT HI AN A 00 03 04 00 6. 2 EA 97 No Ac 59 -0 -[address] 07 t ti 10 4- 7- 0 SI 24 Av ve 34 20 20 DE ai 90 08 08 la 1 PH bl AR e MA CY OF CY NT HI AN A 00 03 [...] CY OF CY NT HI AN A NJ 00 03 04 00 20 5 EA 97 No Ac OC 09 -0 -[address] 10 t ti HL 39 6- 7- 00 SI 79 Av ve OR 65 20 20 DE ai PE 20 08 08 la RA 1 PH bl ZI AR e NE MA CY 10 OF MG CY NT TA HI B AN A 00 01 03 00 12 [...] CY OF CY NT HI AN A Procedures Procedure [place] [address] [facility] HEAD/BRAI 7 RADIOLOGY N W/O CONTRAST MATERIAL AMB A0427 [facility] SERVICE 7 EVY RATLIFF ALS CO EMS CO EMS EMERGENCY TRANSPORT LEVEL 1 GROUND A0425 [facility] MILEA 7 EVY RATLIFF PER CO EMS CO EMS STATUTE MILE RADIOLOGI 67618 [facility] 7 MEDICAL EXAMINATI IMAGING ON PELVIS ASS 1/2 VIEWS AMBULANCE A0429 [facility] 7 AMBULANCE AMBULANCE BLS SERVICE SERVICE EMERGENCY TRANSPORT GROUND A0425 [facility] 7 AMBULANCE AMBULANCE PER SERVICE SERVICE STATUTE MILE RADEX 46976 [facility] EL[facility]OW 7 MEDICAL COMPLETE IMAGING MINIMUM 3 ASS VIEWS RADIOLOGI 51396 [facility] C 7 MEDICAL EXAMINATI IMAGING ON FEMUR ASS MINIMUM 2 VIEWS RADEX 43542 [facility] FOREARM 2 7 MEDICAL VIEWS IMAGING ASS RADIOLOGI 94208 [facility] C 7 MEDICAL EXAMINATI IMAGING ON CHEST ASS SINGLE VIEW FRONTAL RADIOLOGI 91963 [facility] C 7 MEDICAL EXAMINATI [place]AGING [place] [address] [facility] EXTREMITY 7 MEDICAL NON-VASC IMAGING ASS REAL-TIME IMG LMTD RADIOLOGI 58414 [facility] EXAM 7 MEDICAL CHEST 2 IMAGING VIEWS ASS FRONTAL&[place] [address] [facility] [place] TRANSVAGI 6 RADIOLOGY KYLE NAL RADIOLOGI 74379 [facility] [place] DOMÍNGUEZ C 6 RADIOLOGY KYLE [place]AMIN[place] [address] BECKY LEWIS ALL ABDOMEN & 6 MEDICAL PELVIS IMAGING W/CONTRAS ASS T MATERIAL AMBULANCE A0429 [facility] SERVICE 6 AMBULANCE AMBULANCE BLS SERVICE SERVICE EMERGENCY TRANSPORT GROUND A0425 [facility] MILEAGE 6 AMBULANCE AMBULANCE PER SERVICE SERVICE STATUTE MILE UNCLASSIF J3490 MELQUIADES ARNETT IED DRUGS 6 [facility] INC INC URINE 51787 MELQUIADES ARNETT 6 [facility] TEST INC INC VISUAL COLOR CMPRSN METHS DRUG TST G0477 MELQUIADES ARNETT PRESUMP;C 6 [facility] PBL BEING INC INC READ DC OPT OBV ONLY THERAPEUT 85568 MELQUIADES ARNETT IC 6 [facility] PROPHYLAC INC INC TIC/DX INJECTION SUBQ/[place] [address] BECKY LEWIS ALL ABDOMEN & 6 MEDICAL PELVIS IMAGING W/O ASS CONTRAST MATERIAL THERAPEUT 07347 MELQUIADES ARNETT IC 6 [facility] PROPHYLAC INC INC TIC/DX INJECTION SUBQ/IM UNCLASSIF J3490 MELQUIADES ARNETT IED DRUGS 6 [facility] INC INC IADNA 87166 MELQUIADES ARNETT NEISSERIA 6 [facility] INC INC GONORRHOE AE AMPLIFIED PROBE TQ IADNA 87689 MELQUIADES ARNETT CHLAMYDIA 6 [facility] INC INC TRACHOMAT IS AMPLIFIED PROBE TQ INSERTION 02970 [facility] SP 6 PHYSICIAN TJ INTRAUTER S GROUP INE DEVICE IUD LEVONORGE J7298 [facility] SP STREL-RLS 6 PHYSICIAN TJ S GROUP INTRAUTER INE SHELBY SYS 52 MG US BREAST 74327 MELQUIADES ARNETT UNI REAL 6 [facility] TIME INC INC WITH IMAGE COMPLETE US BREAST 37350 BECKY LEWIS ALL UNI REAL 6 MEDICAL TIME IMAGING WITH ASS IMAGE LIMITED COLLECTIO 59209 MELQUIADES ARNTET N VENOUS 6 [facility] BLOOD INC INC VENIPUNCT URE HEPATITIS 15812 MELQUIADES ARNETT A 6 [facility] ANTIBODY INC INC HAAB INF AGT G0432 MELQUIADES ARNETT AB DETECT 6 [facility] EIA TECH INC INC HIV-1&/HI V-2 SCR HEPATITIS 70507 MELQUIADES Sauceda CORE 6 [facility] ANTIBODY INC INC HBCAB TOTAL HEPATITIS 67257 MELQUIADES Sauceda SURF 6 [facility] [place] [address] MELQUIADES ARNETT HEPATITIS 6 [facility] B INC INC SURFACE ANTIGEN HEPATITIS 20928 MELQUIADES ARNETT C 6 [facility] ANTIBODY INC INC DRUG TEST G0479 [facility] 6 N N PRESUMP;I COMMUNTIY COMMUNTIY NSTRUMENT HOSPITA HOS[place] [address] [facility] TROPONIN 6 N N QUANTITAT COMMUNTIY COMMUNTIY TANO HOSPITA HOSPITA BLOOD 01291 [facility] COUNT 6 N N COMPLETE COMMUNTIY COMMUNTIY AUTO&AUTO HOSPITA HOSPITA DIFRNTL WBC RADIOLOGI 00438 [facility] C EXAM 6 N N CHEST 2 COMMUNTIY COMMUNTIY VIEWS HOSPITA HOSPITA FRONTAL&L ATERAL FIBRIN 39360 [facility] DGRADJ 6 N N PRODUCTS COMMUNTIY COMMUNTIY D-DIMER HOSPITA HOSPITA QUANTITAT TANO THER 26064 [facility] PROPH/DX 6 N N NJX IV COMMUNTIY COMMUNTIY PUSH HOSPITA HOSPITA SINGLE/1S T SBST/DRUG ECG 20243 [facility] ROUTINE 6 N N ECG COMMUNTIY COMMUNTIY W/LEAST HOSPITA HOSPITA 12 LDS TRCG ONLY W/O [place] [address] [facility] INFUSION 6 N N HYDRATION COMMUNTIY COMMUNTIY EACH HOSPITA HOSPITA ADDITIONA L HOUR COLLECTIO 16234 [facility] N VENOUS 6 N N BLOOD COMMUNTIY COMMUNTIY VENIPUNCT HOSPITA HOSPITA URE COMPREHEN 79275 [facility] SIVE 6 N N METABOLIC COMMUNTIY COMMUNTIY PANEL HOSPITA HOSPITA GROUND A0425 [facility] MILEA 6 N SCOT T N SCOT T PER CO EMS CO EMS STATUTE MILE ECG 60874 [facility] ROUTINE 6 BENJAMIN - YORBA ECG EMERGENCY PAT W/LEAST PHYS 12 LDS I&R ONLY AMB A0427 [facility] SERVICE 6 N SCOT T N SCOT T ALS CO EMS CO EMS EMERGENCY TRANSPORT LEVEL 1 ECG 08949 [facility] ROUTINE 6 BENJAMIN YANELIS ECG EMERGENCY W/LEAST PHYS 12 LDS I&R ONLY GROUND A0425 [facility] MILEA 6 N SCOT T N SCOT T PER [place] [address] [facility] TROPONIN 6 N N QUANTITAT COMMUNTIY COMMUNTIY TANO HOSPITA HOSPITA RADIOLOGI 01423 [facility] C EXAM 6 N N CHEST 2 COMMUNTIY COMMUNTIY VIEWS HOSPITA HOSPITA FRONTAL&L ATERAL COLLECTIO 28910 [facility] N VENOUS 6 N N BLOOD COMMUNTIY COMMUNTIY VENIPUNCT HOSPITA HOSPITA URE ECG 62950 [facility] ROUTINE 6 N N ECG COMMUNTIY COMMUNTIY W/LEAST HOSPITA HOSPITA 12 LDS TRCG ONLY W/O I&R AMB A0427 [facility] SERVICE 6 N SCOT T N SCOT T ALS CO EMS CO EMS EMERGENCY TRANSPORT LEVEL 1 THER 93558 [facility] PROPH/DX 6 N N NJX IV COMMUNTIY COMMUNTIY PUSH HOSPITA HOSPITA SINGLE/1S T SBST/DRUG AMB A0427 [facility] 5 AMBULANCE AMBULANCE ALS SERVICE SERVICE EMERGENCY TRANSPORT LEVEL 1 ECG 55587 MELQUIADES SHEN JR ROUTINE 5 [facility] W/LEAST P 12 LDS I&R ONLY GROUND A0425 [facility] AMBULANCE PER SERVICE SERVICE STATUTE MILE [facility] 32761 [facility] INTEG 5 ANESTH SHE EXTREMITI OF THE ES ANT BLUE TRUNK & PERINEUM NOS INCISION 43826 TG ERWINARD L & 5 PHYSICIAN DRAINAGE S, PLLC ABSCESS COMPLICAT ED/MULTIP LE SUSCEPTIB 62991 MELQUIADES ARNETT LTY STDY 5 [facility] ANTIMICRB INC INC IAL MICRO/AGA R DILUTJ URNLS DIP 11202 [facility] QUANG 5 PHYSICIAN CHUY STICK/TAB S GROUP LET RGNT NON-AUTO W/O MICRSCP CULTURE 74118 MELQUIADES ARNETT BACTERIAL 5 [facility] INC INC QUANTTATI VE COLONY COUNT URINE CULTURE 44524 MELQUIADES ARNETT BCT 5 [facility] ISOL&PRSM INC INC PTV ID ISOLATE EA URINE UNCLASSIF J3490 MELQUIADES ARNETT IED DRUGS 4 [place] [address] [facility] TRANSVAGI 4 [facility] HANDLG&/O 22750 [facility] R CONVEY 4 HEALTH TJ OF SPEC CLINIC OF FOR TR DANITA OFFICE TO LAB SMR PRIM 23892 [facility] SRC WET 4 HEALTH TJ [facility] CLINIC OF NFCT AGT DANITA URNLS DIP 96761 [facility] 4 HEALTH TJ STICK/TAB CLINIC OF LET RGNT DANITA NON-AUTO W/O MICRSCP CULTURE 28427 MELQUIADES ARNETT BACTERIAL 4 [facility] INC INC QUANTTATI VE COLONY COUNT URINE UNCLASSIF J3490 MELQUIADES ARNETT IED DRUGS 4 [facility] INC INC URINE 37207 MELQUIADES ARNETT 4 [facility] TEST INC [place] [address] MELQUIADES ARNETT ABDOMEN & 4 [facility] PELVIS INC INC W/O CONTRAST MATERIAL URNLS DIP 56348 MELQUIADES ARNETT 4 [facility] STICK/TAB INC INC LET REAGENT AUTO MICROSCOP Y IADNA 71922 PICKLESIM PICKLESIM CHLAMYDIA 3 ER JR GARRETT ER JR GARRETT TRACHOMAT IS AMPLIFIED PROBE TQ CYTP C/V 53475 P[facility] PICKLESIM AUTO THIN 3 ER JR GARRETT ER JR GARRETT LYR PREPJ SCR MNL RESCR PHYS IADNA 86378 PICK[facility]IM PICKLESIM NEISSERIA 3 ER JR GARRETT ER JR GARRETT GONORRHOE AE AMPLIFIED PROBE TQ ANES IPER 60797 GABRIELE SUAZO MITCHEL LWR ABD 3 W/LAPS TUBAL LIGATION/ [place] [address] MELQUIAEDS ARNETT INFUSION 3 [facility] THERAPY INC INC PROPHYLAX IS/DX EA HOUR LAPAROSCO 81382 MELQUIADES ARNETT PY W/PLMT 3 [facility] INC INC OCCLUSION DEVICE OVIDUCTS BASIC 46659 MELQUIADES ARNETT METABOLIC 3 [facility] PANEL INC INC CALCIUM TOTAL GONADOTRO 39664 MELQUIADES ARNETT PIN 3 [facility] CHORIONIC INC INC QUALITATI VE BLOOD 66319 MELQUIADES ARNETT COUNT 3 [facility] COMPLETE INC INC AUTO&AUTO DIFRNTL WBC VAGINAL 00241 [facility] DELIVERY 3 TJ TJ ONLY W/POSTPAR LUAREN CARE NEURAXIAL 04706 SALLY ZAVALA SHA LABOR 3 ANALG/ANE S PLND VAGINAL DELIVERY REPAIR OF 7569 MELQUIADES ARNETT OTHER 3 [facility] CURRENT INC INC OBSTETRIC LACERATIO N 20596 SP [facility] NONSTRESS 3 TJ TJ TEST 09052 [facility] NONSTRESS 3 TJ TJ TEST 82021 HARPEL HARPEL NONSTRESS 3 DAVID DAVID TEST CULTURE 36826 MELQUIADES ARNETT BACTERIAL 3 [facility] INC INC QUANTTATI VE COLONY COUNT URINE URNLS DIP 51909 MELQUIADES ARNETT 3 [facility] STICK/TAB INC INC LET REAGENT AUTO MICROSCOP Y 32761 SP MORRISE NONSTRESS 3 TJ TJ TEST 36494 SNOWDENPoly [facility] NONSTRESS 3 TJ TJ TEST CUL BACT 67548 COMBINED COMBINED XCPT 3 PHYSICIAN PHYSICIAN URINE S LA S LA BLOOD/STO OL AEROBIC ISOL 98751 [facility] NONSTRESS 3 TJ TJ TEST 68985 [facility] NONSTRESS 3 TJ TJ TEST 21941 [facility] NONSTRESS 3 TJ TJ TEST 85802 [facility] NONSTRESS 3 TJ [place] PREG 39342 [facility] UTERUS 3 TJ TJ REAL TIME W/IMAGE DCMTN TRANSVAG DOPPLER 77287 [facility] VELOCIMET 3 TJ TJ RY UMBILICAL ARTERY 47344 [facility] BIOPHYSIC 3 TJ TJ AL PROFILE NON-STRES S TESTING 19802 [facility] NONSTRESS 3 TJ TJ TEST 97351 [facility] NONSTRESS 3 TJ TJ TEST GLUCOSE 28059 [facility] TOLERANCE 3 TJ TJ TEST GTT 3 SPECIMENS 17041 [facility] SNOW[facility] NONSTRESS 3 [place] [address] O'OMAIRA O'OMAIRA 3 ANASTACIO ANASTACIO UTERUS LIMITED 1/> FETUSES ECG 91780 [facility] ROUTINE 3 ECG W/LEAST 12 LDS I&[place] [address] [facility] 3 GLENN GLENN UTERUS LIMITED 1/> [place]US[place] PREG 40334 O'OMAIRA O'OMAIRA UTERUS 3 ANASTACIO ANASTACIO REAL TIME W/IMAGE DCMTN TRANSVAG SBSQ 62541 [facility] GLENN GLENN CARE/[place] 25 [place] [address] [facility] 3 GLENN GLENN UTERUS LIMITED 1/> FETUSES SBSQ 75839 [facility] 3 GLENN GLENN CARE/DAY 25 MINUTES ECG 54998 [facility] CHI ROUTINE 3 ECG W/LEAST 12 LDS I&R ONLY US PREG 71379 [facility] UTERUS 3 GLENN GLENN REAL TIME W/IMAGE DCMTN TRANSVAG [place] PREG 84257 [facility] UTERUS 3 Y Y REAL TIME HOSPITAL HOSPITAL W/IMAGE DCMTN TRANSVAG [place] P[place] 03265 [facility] UTERUS 3 Y Y W/DETAIL [facility] ARNOLD 1ST GESTATION ECG 04629 [facility]I [facility] CHI ROUTINE 3 ECG W/LEAST 12 LDS I&R ONLY SBSQ 62838 [facility] 3 CARE/DAY 25 MINUTES THERAPEUT 25823 MELQUIADES ARNETT IC 3 [facility] PROPHYLAC INC INC TIC/DX INJECTION SUBQ/IM US PREG 20082 SP [facility] UTERUS 3 TJ TJ REAL TIME W/IMAGE DCMTN [facility] G0378 MELQUIADES ARNETT OBSERVATI 3 [facility] ON INC INC SERVICE PER HOUR HOSPITAL G0378 MELQUIADES ARNETT OBSERVATI 3 [facility] ON INC INC SERVICE PER HOUR INJECTION J0595 MELQUIADES ARNETT 3 [facility] BUTORPHAN INC INC OL TARTRATE 1 MG INJECTION J2405 MELQUIADES ARNETT 3 [facility] ONDANSETR INC INC ON HCL PER 1 MG [place] PREG 76708 SP [facility] UTERUS 3 TJ TJ AFTER 1ST TRIMEST 1/ [facility] G0378 MELQUIADES ARNETT OBSERVATI 3 [facility] ON INC INC SERVICE PER HOUR INJECTION J2405 MELQUIADES ARNETT 3 [facility] ONDANSETR INC INC ON HCL PER 1 MG BLOOD 14762 MELQUIADES RANETT COUNT 3 [facility] COMPLETE INC INC AUTO&AUTO DIFRNTL WBC BASIC 69083 MELQUIADES ARNETT METABOLIC 3 [facility] PANEL INC INC CALCIUM TOTAL CULTURE 77457 MELQUIADES ARNETT BACTERIAL 3 [facility] INC INC QUANTTATI VE COLONY COUNT URINE THERAPEUT 02321 MELQUIADES ARNETT IC 3 [facility] INJECTION [place] [address] MELQUIADES ARNETT INFUSION 3 [facility] THERAPY/P INC INC ROPHYLAXI S /DX 1ST TO 1 HR URNLS DIP 07720 MELQUIADES ARNETT 3 [facility] STICK/TAB INC INC LET REAGENT AUTO MICROSCOP Y BLOOD 82836 MELQUIADES ARNETT COUNT 3 [facility] COMPLETE INC INC AUTO&AUTO DIFRNTL WBC COMPREHEN 08791 MELQUIADES MELQUIADES SIVE 3 [facility] METABOLIC INC INC [facility] G0378 MELQUIADESEMY ARNETT OBSERVATI 3 [facility] ON INC INC SERVICE PER HOUR INJECTION J2405 MELQUIADES MELQUIADES 3 [facility] ONDANSETR INC INC ON HCL PER 1 MG BLOOD 81899 MELQUIADESEMY ARNETT COUNT 3 [facility] COMPLETE INC INC AUTO&AUTO DIFRNTL WBC BASIC 59230 MELQUIADES ARNETT METABOLIC 3 [facility] PANEL INC INC CALCIUM TOTAL UROGRAPHY 89206 KRISTAL KRISTAL IV W/WO 3 KIERA KIERA KUB W/WO TOMOGRAPH Y INITIAL 56862 SP [facility] OBSERVATI 3 TJ TJ ON CARE/DAY 50 MINUTES RADEX 78601 MELQUIADES ARNETT ABDOMEN 3 [facility] COMPL INC INC W/DCBTS&/ ERC VIEWS HOSPITAL G0378 MELQUIADES ARNETT OBSERVATI 3 [facility] ON INC INC SERVICE PER HOUR LOCM Q9967 MELQUIADES ARNETT 300-399 3 [facility] MG/ML INC INC IODINE CONCENTRA TION PER ML INJECTION J2405 MELQUIADES ARNETT 3 [facility] ONDANSETR INC INC ON HCL PER 1 MG COMPREHEN 66263 MELQUIADES ARNETT SIVE 3 [facility] METABOLIC INC INC [facility] G0378 MELQUIADES ARNETT OBSERVATI 3 [facility] ON INC INC SERVICE PER HOUR INJECTION J2405 MELQUIDAES ARNETT 3 [facility] ONDANSETR INC [place] ON HCL PER 1 [place] [address] MELQUIADES ARNETT INFUSION 3 [facility] THERAPY/P INC INC ROPHYLAXI S /DX 1ST TO 1 HR URNLS DIP 71458 MELQUIADES ARNETT 3 [facility] STICK/TAB INC INC LET REAGENT AUTO MICROSCOP Y INITIAL 58389 PS [facility] OBSERVATI 3 TJ TJ ON CARE/DAY [address] [place] [address] MELQUIADES ARNETT 3 [facility] UTERUS INC INC LIMITED 1/> FETUSES BLOOD 91913 MELQUIADES ARNETT COUNT 3 [facility] COMPLETE INC INC AUTO&[place] [address] MELQUIADES ARNETT ESTRIOL 3 [facility] INC INC ALPHA-FET 25043 MELQUIADES ARNETT OPROTEIN 3 [facility] SERUM INC INC GONADOTRO 39508 MELQUIADES ARNETT PIN 3 [facility] CHORIONIC INC INC QUANTITAT TANO GONADOTRO 80842 MELQUIADES ARNETT PIN 3 [facility] CHORIONIC INC [place] 37218 MELQUIADES ARNETT UTERUS 3 [facility] REAL TIME INC INC W/IMAGE DCMTN TRANSVAG COMPREHEN 76521 MELQUIADES ARNETT SIVE 3 [facility] METABOLIC [place] 33130 KRISTAL KRISTAL UTERUS 3 KIERA KIERA REAL TIME F/U TRNSABDL PER FETUS URNLS DIP 20095 MELQUIADES ARNETT 3 [facility] STICK/TAB INC INC LET REAGENT AUTO MICROSCOP Y BLOOD 94862 MELQUIADES ARNETT COUNT 3 [facility] COMPLETE INC INC AUTO&AUTO DIFRNTL WBC URINE 11557 MELQUIADES ARNETT 3 [facility] TEST INC [place] [address] MELQUIADES ARNETT 3 [facility] UTERUS INC INC LIMITED 1/> FETUSES IAADI 26569 MELQUIADES ARNETT INFLUENZA 2 [facility] B VIRUS INC INC IAADI 15063 MELQUIADES ARNETT INFFLUENZ 2 [facility] [place] [address] MELQUIADES ARNETT STREPTOCO 2 [facility] CCUS INC INC GROUP A URNLS DIP 89847 SP [facility] 2 TJ TJ STICK/TAB LET RGNT NON-AUTO W/O MICRSCP US PREG 62395 MELQUIADES ARNETT UTERUS 2 [facility] REAL TIME INC INC W/IMAGE DCMTN TRANSVAG CULTURE 19900 MELQUIADES ARNETT BACTERIAL 2 [facility] INC INC QUANTTATI VE COLONY COUNT URINE URNLS DIP 63505 MELQUIADES ARNETT 2 [facility] STICK/TAB INC [place] [address] BECKY KRISTAL RETROPERI 2 MEDICAL KIERA TONEAL IMAGING REAL TIME ASS W/IMAGE COMPLETE URNLS DIP 87072 SP SN[facility] 2 TJ TJ STICK/TAB LET RGNT NON-AUTO W/O MICRSCP INJECTION J2405 MELQUIADES ARNETT 2 [facility] ONDANSETR INC INC ON HCL PER 1 MG COMPREHEN 92993 MELQUIADES ARNETT SIVE 2 [facility] METABOLIC INC INC PANEL [place] PREG 84042 BECKY KRISTAL UTERUS 2 MEDICAL KIERA REAL TIME IMAGING [place] [address] MELQUIADES ARNETT INFUSION 2 [facility] THERAPY/P INC INC ROPHYLAXI S /DX 1ST TO 1 HR URNLS DIP 97690 MELQUIADES ARNETT 2 [facility] STICK/TAB INC INC LET REAGENT AUTO MICROSCOP Y BLOOD 07900 MELQUIADESEMY ARNETT COUNT 2 [facility] COMPLETE INC INC AUTO&AUTO DIFRNTL WBC THERAPEUT 11587 MELQUIADES ARNETT IC 2 [facility] INJECTION [place] [address] MELQUIADES ARNETT INFUSION 2 [facility] THERAPY/P INC INC ROPHYLAXI S /DX 1ST TO 1 HR URNLS DIP 02238 MELQUIADES VASQUEZON 2 [facility] STICK/TAB INC INC LET REAGENT AUTO MICROSCOP Y BLOOD 32744 MELQUIADES VASQUEZON COUNT 2 [facility] COMPLETE INC INC AUTO&AUTO DIFRNTL WBC THERAPEUT 47602 MELQUIADES VASQUEZON IC 2 [facility] INJECTION INC INC IV PUSH EACH NEW DRUG OBSERVATI 82543 SP [facility] ON CARE 2 [place] [address] MELQUIADES ARNETT INFUSION 2 [facility] THERAPY INC INC PROPHYLAX IS/DX EA HOUR URINE 19659 MELQUIADES ARNETT 2 [facility] TEST INC INC VISUAL COLOR CMPRSN METHS BASIC 96370 MELQUIADES ARNETT METABOLIC 2 [facility] PANEL INC INC CALCIUM TOTAL CULTURE 68677 MELQUIADES ARNETT BACTERIAL 2 [facility] INC INC QUANTTATI VE COLONY COUNT URINE THER 04126 MELQUIADES ARNETT PROPH/DX 2 [facility] NJX EA INC INC SEQL IV PUSH SBST/DRUG FAC INJECTION J2405 MELQUIADES ARNETT 2 [facility] ONDANSETR INC INC ON HCL PER 1 [place] [address] MELQUIADES ARNETT INFUSION 2 [facility] THER INC INC PROPH ADDL SEQUENTIA L TO 1 HR HOSPITAL G0378 MELQUIADES ARNETT OBSERVATI 2 [facility] ON INC INC SERVICE PER HOUR INITIAL 21432 SP [facility] OBSERVATI 2 TJ TJ ON CARE/DAY 50 MINUTES CYTP 54357 EUGENE EUGENE CERVICAL/ 2 VALENTE VALENTE VAGINAL REQ INTERP PHYSICIAN CYTP C/V 85919 EUGENE EUGENE AUTO THIN 2 VALENTE VALENTE LYR PREPJ SCR MNL RESCR PHYS IADNA 82120 EUGENE KNIGHT CHLAMYDIA 2 VALENTE VALENTE TRACHOMAT IS AMPLIFIED PROBE TQ IADNA 21381 EUGENE KNIGHT NEISSERIA 2 VALENTE VALENTE GONORRHOE AE AMPLIFIED PROBE TQ US PREG 71528 SP [facility] UTERUS 2 TJ TJ REAL TIME W/IMAGE DCMTN TRANSVAG URINE 68738 MELQUIADES ARNETT 2 [facility] TEST INC INC VISUAL COLOR CMPRSN METHS URNLS DIP 92443 MELQUIADES ARNETT 2 [facility] STICK/TAB INC INC LET REAGENT AUTO MICROSCOP Y URINE 91460 MELQUIADES ARNETT 2 [facility] CENTER VISUAL COLOR CMPRSN METHS CRTCHS E0114 [facility] UNDARM 2 OTH THAN WOOD PAIR PAD TIP&HNDGR IP RADEX 19397 BECKY GIRALDO FOOT 2 MEDICAL KIERA COMPLETE IMAGING MINIMUM 3 ASS VIEWS THERAPEUT 35439 MELQUIADES ARNETT IC 2 [facility] PROPHYLAC INC INC TIC/DX INJECTION SUBQ/IM URNLS DIP 06188 MELQUIADES ARNETT 2 [facility] STICK/TAB INC INC LET REAGENT AUTO MICROSCOP Y SUSCEPTIB 24613 MELQUIADES ARNETT LTY STDY 2 [facility] ANTIMICRB INC INC IAL MICRO/AGA R DILUTJ URINE 25435 MELQUIADES ARNETT 2 [facility] TEST INC INC VISUAL COLOR CMPRSN METHS CULTURE 40260 MELQUIADES ARNETT BACTERIAL 2 [facility] INC [place] [address] SP [facility] TRANSVAGI 2 TJ TJ NAL URINE 54123 SP SNOWDEN 2 TJ TJ TEST [place] [address] SP [place] TRANSVAGI 2 TJ TJ NAL RADEX 62564 MELQUIADES ARNETT HAND 2 [facility] MINIMUM 3 INC INC VIEWS URINE 76035 MELQUIADES ARNETT 2 [facility] TEST INC INC VISUAL COLOR CMPRSN METHS URNLS DIP 28285 MELQUIADES ARNETT 2 [facility] STICK/TAB INC [place] [address] MELQUIADES ARNETT TRANSVAGI 2 [facility] [place] [address] MELQUIADES ARNETT LIPASE 2 [facility] INC INC URINE 03004 MELQUIADES ARNETT 2 [facility] TEST INC INC VISUAL COLOR CMPRSN METHS COMPREHEN 60741 MELQUIADES ARNETT SIVE 2 [facility] [place] [address] MELQUIADES ARNETT AMYLASE 2 [facility] INC INC URNLS DIP 64196 MELQUIADES ARNETT 2 [facility] STICK/TAB INC INC LET REAGENT AUTO MICROSCOP Y BLOOD 34292 MELQUIADES ARNETT COUNT 2 [facility] COMPLETE INC INC AUTO&AUTO DIFRNTL WBC URINE 77351 MELQUIADES ARNETT 2 [facility] CENTER VISUAL COLOR CMPRSN METHS INJECTION J2405 M[facility]QUIADES [facility] 2 [facility] ONDANSETR INC INC ON HCL PER 1 MG INJECTION J0595 MELQUIADES MELQUIADES 2 [facility] BUTORPHAN INC INC OL TARTRATE 1 MG THERAPEUT 23289 MELQUIADES [facility] IC 2 [facility] PROPHYLAC INC INC TIC/DX INJECTION SUBQ/IM [facility] 87292 [facility] 2 I FEE I FEE DAY MANAGEMEN T 30 MIN/< SBSQ 93403 [facility] 2 I FEE I FEE CARE/DAY 25 MINUTES INITIAL 82495 [facility] 2 EMERGENCY PAULA CARE/DAY SERVICES [address] ORBIT 92922 LAKSHMI CASTILLO [place] SELLA/POS 2 MEDICAL T SERV FOSSA/EAR FOUNDATIO [place] [address] MELQUIADES MELQUIADES STREPTOCO 1 [facility] CCUS INC INC GROUP A ONDANSETR Q0179 [facility] ON HCL 8 1 [facility] MG ORL NOT >48 HR DOSE REGIMEN THERAPEUT 47043 [facility] 1 [facility] PROPHYLAC TIC/DX INJECTION SUBQ/IM INJECTION [id number] KETOROLAC TROMETHAM INE PER 15 MG RADEX 39391 MELQUIADES [facility] WRIST 0 [facility] COMPLETE INC INC MINIMUM 3 VIEWS RADEX 10109 MELQUIADES [facility]T FOREARM 2 0 [facility] VIEWS INC INC THERAPEUT 15347 [facility], IC 0 HEALTH ERIK J PROPHYLAC CLINIC OF TIC/DX INJECTION [place] SUBQ/IM PLLC THERAPEUT 61728 [facility], IC 9 HEALTH ERIK J PROPHYLAC CLINIC OF TIC/DX INJECTION [place] SUBQ/[place] [address] PATHOLOGY PATHOLOGY SURG 9 & & PATHOLOGY CYTOLOGY CYTOLOGY LAB LAB GROSS&CHUY ROSCOPIC EXAM COLPOSCOP 11155 [facility], Y CERVIX 9 HEALTH ERIK J BX CERVIX CLINIC OF & ENDOCRV [facility] IADNA 64834 PATHOLOGY PATHOLOGY [place] 9 & & VIRUS CYTOLOGY CYTOLOGY HUMAN LAB LAB AMPLIFIED PROBE TQ CYTP C/V 63314 PATHOLOGY PATHOLOGY AUTO THIN 9 & & LYR CYTOLOGY CYTOLOGY PREPJ SCR LAB LAB MNL RESCR PHYS CYTP 07472 PATHOLOGY PATHOLOGY CERVICAL/ 9 & & VAGINAL CYTOLOGY CYTOLOGY REQ LAB LAB INTERP PHYSICIAN VAGINAL 16938 [place] [facility] DELIVERY 9 MEDICAL NN, ONLY SERV [facility] [place] FOUNDAT[facility] OTHER 7359 [facility] 9 Y Y [facility] DELIVERY GROUND A0425 [facility] MILEAGE 9 AMBULANCE AMBULANCE PER SERVICE SERVICE STATUTE MILE OBSERVATI 14098 EMY WEISS/INPATI 9 CATHY [facility] CARE 55 MINUTES AMB A0427 [facility] SERVICE 9 AMBULANCE AMBULANCE ALS SERVICE SERVICE EMERGENCY TRANSPORT LEVEL 1 46709 MELQUIADES [facility] NONSTRESS 9 [place] [address] MELQUIADES AR[facility] INFUSION 9 [facility] THERAPY INC [place] [address] MELQUIADES [facility] INFUSION 9 [facility] THERAPY/P INC INC ROPHYLAXI S /DX 1ST TO 1 HR H[facility]PITAL G0378 MELQUIADES [facility] OBSERVATI 9 [facility] ON INC INC SERVICE PER HOUR GLUCOSE 21449 [facility], POST 9 HEALTH ERIK J GLUCOSE CLINIC OF DOSE [facility] GLUCOSE 44188 [facility], TOLERANCE 9 [facility] TEST GTT CLINIC OF 3 SPECIMENS [facility] SPCL STN 53251 PATHOLOGY PATHOLOGY 2 I&R 9 & & EXCPT CYTOLOGY CYTOLOGY MICROORG/ LAB LAB ENZYME/IM CYT EGD 76910 MELQUIADES [facility] TRANSORAL 9 [facility] BIOPSY [place] INC SINGLE/[place] [address] MELQUIADES MELQUIADES INFUSION 9 [facility] THERAPY/P INC INC ROPHYLAXI S /DX 1ST TO 1 HR ANES 33385 [facility] JUDGE, UPPER GI 9 ANESTH CINDY L ENDOSCOPY OF THE [place] [address] PATHOLOGY PATHOLOGY SURG 9 & & PATHOLOGY CYTOLOGY CYTOLOGY LAB LAB GROSS&CHUY ROSCOPIC EXAM ESOPHAGOG 4516 MELQUIADES [facility] ASTRODUOD 9 [facility] ENOSCOPY INC INC WITH CLOSED BIOPSY BLOOD 02693 MELQUIADES [facility] OCCULT 9 [facility] PEROXIDAS INC INC E ACTV QUAL FECES 1-3 SPEC BLOOD 02826 MELQUIADES [facility] COUNT 9 [facility] COMPLETE INC INC AUTO&AUTO DIFRNTL WBC BASIC 98429 MELQUIADES [facility] METABOLIC 9 [facility] PANEL INC INC CALCIUM TOTAL URNLS DIP 04393 MELQUIADES [facility] 9 [facility] STICK/TAB INC INC LET REAGENT AUTO MICROSCOP Y US PREG 41332 [facility], UTERUS 9 HEALTH ERIK J AFTER 1ST CLINIC OF TRIMEST [place] GESTATION PLL BLOOD 04494 MELQUIADES [facility] COUNT 9 [facility] COMPLETE INC INC AUTO&AUTO DIFRNTL WBC URNLS DIP 34543 MELQUIADES [facility] 9 [facility] STICK/TAB INC INC LET REAGENT AUTO MICROSCOP Y CULTURE 34047 MELQUIADES [facility] BACTERIAL 9 [facility] INC INC QUANTTATI VE COLONY COUNT URINE BASIC 59983 MELQUIADES ARNETT METABOLIC 9 [facility] PANEL INC INC CALCIUM TOTAL GONADOTRO 00181 MELQUIADES ARNETT PIN 9 [facility] CHORIONIC [place] [address] MELQUIADES ARNETT ESTRIOL 9 [facility] INC INC ALPHA-FET 45553 MELQUIADES ARNETT OPROTEIN 9 [facility] SERUM INC INC US PREG 39747 [facility], UTERUS 9 HEALTH ERIK J [facility] OF W/IMAGE DCMTN [place] [facility] CYTP 22704 PATHOLOGY PATHOLOGY CERVICAL/ 9 & & VAGINAL CYTOLOGY CYTOLOGY REQ LAB LAB INTERP PHYSICIAN CYTP C/V 86749 PATHOLOGY PATHOLOGY AUTO THIN 9 & & LYR CYTOLOGY CYTOLOGY PREPJ SCR LAB LAB MNL RESCR PHYS MOLECULAR 29812 MOLECULAR MOLECULAR 9 DIAGNOSTI PATHOLOGY PATHOLOGY CS LAB LAB INTERPRET NETWORK NETWORK ATION & INC INC REPORT MUTATION 32677 MOLECULAR MOLECULAR ID 9 ENZYMATIC PATHOLOGY PATHOLOGY LAB LAB LIG/PRIME NETWORK NETWORK R XTN 1 INC INC SGM EA MOLECULAR 32318 MOLECULAR MOLECULAR DX AMP 9 TARGET PATHOLOGY PATHOLOGY MULTIPLEX LAB LAB 1ST 2 NETWORK NETWORK SEQ INC INC IADNA 96995 PATHOLOGY PATHOLOGY CHLAMYDIA 9 & & CYTOLOGY CYTOLOGY TRACHOMAT LAB LAB IS AMPLIFIED PROBE TQ MOLEC 96372 MOLECULAR MOLECULAR ISOL/XTRJ 9 HP PATHOLOGY PATHOLOGY NUCLEIC LAB LAB ACID EA NETWORK NETWORK TYPE INC INC IADNA 98691 PATHOLOGY PATHOLOGY NEISSERIA 9 & & CYTOLOGY CYTOLOGY GONORRHOE LAB LAB AE AMPLIFIED PROBE TQ MOLEC 56155 MOLECULAR MOLECULAR SEP&ID HI 9 RESOLU PATHOLOGY PATHOLOGY TQ EACH LAB LAB NUCLEIC NETWORK NETWORK ACID PREP INC INC MOLECULAR 83172 MOLECULAR MOLECULAR DX AMP 9 TARGET PATHOLOGY PATHOLOGY MULTIPLEX LAB LAB EA ADDL NETWORK NETWORK SEQ INC INC URINE 93818 DHS/CO MELQUIADES 9 [facility] VISUAL BANK ACCT COLOR CMPRSN METHS REMOVAL 87539 HARPEL, HARPEL, IMPLANTAB 8 ZURDO R ZURDO R LE CONTRACEP TIVE CAPSULES URNLS DIP 74467 [facility]ES [facility]T [facility] STICK/TAB INC INC LET REAGENT AUTO MICROSCOP Y BLOOD 19328 MELQUIADES ARNETT COUNT 8 [facility] COMPLETE INC INC AUTO&AUTO DIFRNTL WBC CULTURE 54532 MELQUIADES ARNETT BACTERIAL 8 [facility] INC INC [place] [address] MELQUIADES ARNETT THER 8 [facility] PROPH/DX INC INC 1ST >1 HR URINE 47414 EMLQUIADES ARNETT 8 [facility] TEST INC INC VISUAL COLOR CMPRSN METHS COMPREHEN 94698 MELQUIADES ARNETT SIVE 8 [facility] METABOLIC INC INC PANEL URINE 16377 ZURDO MORGAN, 8 CATHY Hayward TEST VISUAL COLOR CMPRSN METHS RADEX 84012 [place] JUL[place], WRIST 8 MEDICAL ASHOK P COMPLETE IMAGING MINIMUM 3 ASSOCIATE VIEWS S URINE 60892 MELQUIADES ARNETT 8 [facility] TEST INC INC VISUAL COLOR CMPRSN METHS CT PELVIS 15900 MELQUIADES ARNETT W/O 8 [facility] [place] [address] MELQUIADES ARNETT ABDOMEN 8 [facility] W/O INC INC CONTRAST MATERIAL CULTURE 46337 MELQUIADES ARNETT BCT 8 [facility] ISOL&PRSM INC INC PTV ID ISOLATE EA URINE CULTURE 08336 MELQUIADES ARNETT BACTERIAL 8 [facility] INC INC QUANTTATI VE COLONY COUNT URINE 3D 72116 MELQUIADES ARNETT RENDERING 8 [facility] INC INC W/INTERP& POSTPROC DIFF WORK STATION URNLS DIP 80718 MELQUIADES ARNETT 8 [facility] STICK/TAB INC INC LET REAGENT AUTO MICROSCOP Y SUSCEPTIB 02058 MELQUIADES ARNETT LTY STDY 8 [facility] ANTIMICRB INC INC IAL MICRO/AGA R DILUTJ URINE 59965 ZURDO MORGAN, 8 CATHY Hayward TEST VISUAL COLOR CMPRSN METHS INSERTION 17745 ZURDO MORGAN, Bridget Hayward IMPLANTAB LE CONTRACEP TIVE CAPSULES IADNA 38151 [facility] FRITZ, NEISSERIA 8 [place] INC VIRAJ E GONORRHOE AE AMPLIFIED PROBE TQ CYTP 36439 [facility], CERV/VAG 8 [place] INC VIRAJ Pang AUTO THIN LAYER PREP MNL SCREEN BLOOD 75194 ZURDO MORGAN, COUNT 8 CATHY Hayward HEMOGLOBI N IADNA 59660 [facility] FR[facility], CHLAMYDIA 8 [place] INC VIRAJ E TRACHOM[place] [address] MELQUIADES ARNETT STREPTOCO 8 [facility] CCUS INC INC GROUP A Encounters Encounter Start End Date Code Location Performer Type Date EMERGENCY 60213 TG CARODNA 7 7 PHYSICIAN [facility] S, [facility] T VISIT HIGH/URGE NT SEVERITY OFFICE 50890 [facility] SP ESTEVEZEN 6 6 PHYSICIAN TJ T VISIT S GROUP 25 MINUTES EMERGENCY 35054 TG BRAUN 6 6 PHYSICIAN [place]UL[place]NA [facility] T VISIT HIGH/URGE NT SEVERITY EMERGENCY 16665 TG BRAUN DEPT 6 6 PHYSICIAN [place] VISIT [facility] HIGH SEVERITY& THREAT FUNCJ EMERGENCY 45134 MELQUIADES 6 6 [facility] INC T VISIT LOW/MODER SEVERITY EMERGENCY 71550 TG RIZZO 6 6 PHYSICIAN [facility] T VISIT HIGH/URGE NT SEVERITY HOSPITAL MELQUIADES - 6 6 [facility] OUTPATIEN [facility] OFFICE 46104 [facility] SP ESTEVEZEN 6 6 PHYSICIAN TJ T VISIT S GROUP 15 MINUTES OFFICE 51293 NAHED MURRIETAPATIEN 6 6 PHYSICIAN JOYN T NEW 30 PRACTICE MINUTES HOSPITAL MELQUIADES - 6 6 [facility] OUTPATIEN [facility] EMERGENCY 00823 MELQUIADES 6 6 [facility] T VISIT LOW/MODER SEVERITY EMERGENCY 64945 TG DEL RIO 6 6 PHYSICIAN CHUY [facility] T VISIT MODERATE SEVERITY HOSPITAL MELQUIADES - 6 6 [facility] OUTPATIEN INC HOSPITAL MELQUIADES - 6 6 [facility] OUTPATIEN [facility] T OFFICE 13160 [facility] SP OUTPATIEN 6 6 PHYSICIAN TJ T VISIT S GROUP 15 MINUTES OFFICE 77182 [facility] 6 6 PHYSICIAN CHUY T VISIT S GROUP 15 MINUTES OFFICE 62053 [facility] OUT[facility] 6 6 PHYSICIAN CHUY T VISIT S GROUP 15 MINUTES HOSPITAL MELQUIADES - 6 6 [facility] OUTPATIEN INC T HOSPITAL [facility] - 6 6 N OUTPATIEN COMMUNTIY T HOSPITA EMERGENCY 60206 [facility] 6 6 N DEPARTMEN COMMUNTIY T VISIT HOSPITA HIGH/URGE NT SEVERITY EMERGENCY 25798 [facility] CELLAR[facility] DEPT 6 6 [facility]IN - YORBA VISIT EMERGENCY PAT HIGH PHYS SEVERITY& THREAT [facility] 99944 [facility] 6 6 N DEPARTMEN COMMUNTIY T VISIT HOSPITA HIGH/URGE NT SEVERITY [facility] - 6 6 N OUTPATIEN COMMUNTIY T HOSPITA EMERGENCY 11364 [facility] DEPT 6 6 BENJAMIN YANELIS VISIT EMERGENCY HIGH PHYS SEVERITY& THREAT [facility] MELQUIADES - 5 5 [facility] OUTPATIEN INC T EMERGENCY 96137 MELQUIADES 5 5 [facility] DEPARTMEN INC T VISIT MODERATE SEVERITY EMERGENCY 44598 TG Ramos 5 5 PHYSICIAN DEPARTMEN S, [facility] T VISIT HIGH/URGE NT SEVERITY OFFICE 11625 [facility] 5 PHYSICIAN CHUY T VISIT S GROUP 15 MINUTES HOSPITAL MELQUIADES - 5 5 [facility] OUTPATIEN INC T EMERGENCY 47467 [facility] 4 4 BENJAMIN IMT DEPARTMEN EMERGENCY T VISIT PHYS MODERATE SEVERITY HOSPITAL MELQUIADES - 4 4 [facility] OUTPATIEN INC T EMERGENCY 94935 MELQUIADES 4 4 [facility] DEPARTMEN INC T VISIT LIMITED/M INOR PROB OFFICE 31062 [facility] OUTPATIEN 4 4 HEALTH TJ T VISIT CLINIC OF 15 DANITA MINUTES OFFICE 28332 [facility] OUTPATIEN 4 4 HEALTH TJ T VISIT CLINIC OF 25 DANITA MINUTES EMERGENCY 93646 [facility] 4 4 BENJAMIN CHUY DEPARTMEN EMERGENCY T VISIT PHYS HIGH/URGE NT SEVERITY EMERGENCY 14082 MELQUIADES 4 4 [facility] DEPARTMEN INC T VISIT LOW/MODER SEVERITY HOSPITAL [facility] - 4 4 [facility] OUTPATIEN [facility] MELQUIADES - 3 3 [facility]IEN [facility] MELQUIADES - 3 3 [facility] MELQUIADES - 3 3 [facility] INPATIENT INC OFFICE 80513 SP MORRISE OUTPATIEN 3 3 TJ TJ T VISIT 15 MINUTES OFFICE 84042 [facility] OUT[facility] 3 3 TJ TJ T VISIT 15 MINUTES HOSPITAL MELQUIADES - 3 3 [facility] OUTPATIEN INC T OFFICE 92346 HARPEL HARPEL OUTPATIEN 3 3 DAVID DAVID T VISIT 15 MINUTES OFFICE 01630 [facility] OUT[facility]IEN 3 3 TJ TJ T VISIT 15 MINUTES OFFICE 48912 [facility] OUT[facility]IEN 3 3 TJ TJ T VISIT 15 MINUTES OFFICE 05235 [facility] OUTPATIEN 3 3 TJ TJ T VISIT 15 MINUTES OFFICE 11968 [facility] OUTPATIEN 3 3 TJ TJ T VISIT 15 MINUTES OFFICE 18818 [facility] OUTPATIEN 3 3 TJ TJ T VISIT 15 MINUTES OFFICE 44233 [facility] SONWD[facility] OUTPATIEN 3 3 TJ TJ T VISIT 15 MINUTES OFFICE 37293 SP [facility] OUTPATIEN 3 3 TJ TJ T VISIT 15 MINUTES OFFICE 02357 [facility] OUTPATIEN 3 3 TJ TJ T VISIT 5 MINUTES OFFICE 04614 SP [facility] OUTPATIEN 3 3 TJ TJ T VISIT 15 MINUTES HOSPITAL UNIVERSIT - 3 3 Y [facility] MELQUIADES - 3 3 [facility] OUTPATIEN INC T OFFICE 08118 SP [facility] OUTPATIEN 3 3 TJ TJ T VISIT 15 MINUTES HOSPITAL MELQUIADES - 3 3 [facility] OUTPATIEN INC T OFFICE 78110 [facility] OUTPATIEN 3 3 TJ TJ T VISIT 15 MINUTES EMERGENCY 82984 MELQUIADES 3 3 [facility] DEPARTMEN INC T VISIT HIGH/URGE NT SEVERITY HOSPITAL MELQUIADES - 3 3 [facility] OUTPATIEN INC T EMERGENCY 31830 QUANG DEL RIO DEPT 3 3 CHUY CHUY VISIT HIGH SEVERITY& THREAT FUN OFFICE 12122 [facility] OUTPATIEN 3 3 TJ TJ T VISIT 15 MINUTES EMERGENCY 42234 MELQUIADES 3 3 [facility] DEPARTMEN INC T VISIT HIGH/URGE NT SEVERITY EMERGENCY 76211 EUGENE VAUGHAN DEPT 3 3 EMERGENCY VISIT SERVICES HIGH SEVERITY& THREAT [facility] MELQUIADES - 3 3 [facility] OUTPATIEN INC T OFFICE 86551 [facility] OUTPATIEN 3 3 TJ TJ T VISIT 15 MINUTES HOSPITAL MELQUIADES - 3 3 [facility] OUTPATIEN INC T EMERGENCY 67320 MELQUIADES 3 3 [facility] DEPARTMEN INC T VISIT HIGH/URGE NT SEVERITY EMERGENCY 84817 CHRISTIAN GONZALES DEPT 3 3 III MITCHEL III MITCHEL VISIT HIGH SEVERITY& THREAT [facility] MELQUIADES - 3 3 [facility] OUTPATIEN INC T OFFICE 69122 [facility] OUTPATIEN 3 3 TJ TJ T VISIT 15 MINUTES EMERGENCY 49464 MELQUIADES 2 2 [facility] DEPARTMEN INC T VISIT LIMITED/M INOR PROB HOSPITAL MELQUIADES - 2 2 [facility] OUTPATIEN INC T EMERGENCY 75561 QUANG DEL RIO 2 2 [facility] DEPARTMEN T VISIT HIGH/URGE NT SEVERITY OFFICE 34281 [facility] OUTPATIEN 2 2 TJ TJ T VISIT 15 MINUTES EMERGENCY 74031 EUGENE MCCALLUM DEPT 2 2 EMERGENCY MITCHEL VISIT SERVICES HIGH SEVERITY& THREAT [facility] MELQUIADES - 2 2 [facility] OUTPATIEN INC T EMERGENCY 32461 MELQUIADES 2 2 [facility] DEPARTMEN INC T VISIT LOW/MODER SEVERITY OFFICE 10344 [facility] OUTPATIEN 2 2 TJ TJ T VISIT 15 MINUTES EMERGENCY 09845 CHRISTIAN GONZALES DEPT 2 2 III MITCHEL III MITCHEL VISIT HIGH SEVERITY& THREAT [facility] EMER[facility]ENC[facility] 07433 MELQUIADES 2 2 [facility] DEPARTMEN INC T VISIT HIGH/URGE NT SEVERITY HOSPITAL MELQUIADES - 2 2 [facility] OUTPATIEN INC T EMERGENCY 74787 MELQUIADES DEPT 2 2 [facility] VISIT INC HIGH SEVERITY& THREAT [facility] MELQUIADES - 2 2 [facility] OUTPATIEN INC T EMERGENCY 32432 EUGENE CASTILLO DEPT 2 2 EMERGENCY VISIT SERVICES HIGH SEVERITY& THREAT [facility] MELQUIADES - 2 2 [facility] OUTPATIEN INC T EMERGENCY 40271 QUANG DEL RIO 2 2 CHUY CHUY DEPARTMEN T VISIT HIGH/URGE NT SEVERITY EMERGENCY 61623 MELQUIADES 2 2 [facility] DEPARTMEN INC T VISIT LIMITED/M INOR PROB OFFICE 06321 MELQUIADES SIMMONS 2 2 [facility] T VISIT CENTER CENTER 25 MINUTES EMERGENCY 49074 EUGENE CASTILLO 2 2 EMERGENCY DEPARTMEN SERVICES T VISIT HIGH/URGE NT SEVERITY HOSPITAL MELQUIADES - 2 2 [facility] OUTPATIEN INC T EMERGENCY 10543 MELQUIADES 2 2 [facility] DEPARTMEN INC T VISIT MODERATE SEVERITY HOSPITAL MELQUIADES - 2 2 [facility] OUTPATIEN INC T EMERGENCY 62967 EUGENE CASTILLO DEPT 2 2 EMERGENCY VISIT SERVICES HIGH SEVERITY& THREAT FUNCJ EMERGENCY 67277 MELQUIADES 2 2 [facility] DEPARTMEN INC T VISIT MODERATE SEVERITY OFFICE 29764 SP SIMMONS 2 2 TJ TJ T VISIT 25 MINUTES HOSPITAL MELQUIADES - 2 2 [facility] OUTPATIEN INC T EMERGENCY 81784 MELQUIADES 2 2 [facility] DEPARTMEN INC T VISIT LOW/MODER SEVERITY EMERGENCY 91580 CHRISTIAN GONZALES 2 2 III MITCHEL III MITCHEL DEPARTMEN T VISIT HIGH/URGE NT SEVERITY HOSPITAL MELQUIADES - 2 2 [facility] OUTPATIEN INC T EMERGENCY 55314 MELQUIADES 2 2 [facility] DEPARTMEN INC T VISIT LOW/MODER SEVERITY EMERGENCY 78124 EUGENE MCCALLUM 2 2 EMERGENCY MITCHEL DEPARTMEN SERVICES T VISIT MODERATE SEVERITY EMERGENCY 33600 EUGENE DEL RIO DEPT 2 2 EMERGENCY CHUY VISIT SERVICES HIGH SEVERITY& THREAT [facility]J [facility]PITAL MELQUIADES - 2 2 [facility] OUTPATIEN INC T EMERGENCY 91634 MELQUIADES 2 2 [facility] DEPARTMEN INC T VISIT LOW/MODER SEVERITY OFFICE 77432 [facility] TJ TJ T VISIT 25 MINUTES EMERGENCY 54389 DULCE PEREZ DEPT 2 2 VISIT HIGH SEVERITY& THREAT FUNCJ EMERGENCY 60683 [place] 2 2 [facility] T VISIT LOW/MODER SEVERITY HOSPITAL BOMILDREDON - [address] [facility] T HOSPITAL MELQUIADES - 2 2 [facility] OUTPATIEN INC T EMERGENCY 22814 MELQUIADES 2 2 [facility] DEPARTMEN INC T VISIT MODERATE SEVERITY EMERGENCY 88923 CHRISTIAN GONZALES 2 2 III MITCHEL III [facility] DEPARTMEN T VISIT HIGH/URGE NT SEVERITY HOSPITAL MELQUIADES - 2 2 [facility] OUTPATIEN INC T OFFICE 18604 MELQUIADES ARNETT OUTPATIEN 2 2 [facility] T VISIT CENTER CENTER 15 MINUTES HOSPITAL MELQUIADES - 2 2 [facility] OUTPATIEN INC T EMERGENCY 21856 EUGENE DEL RIO 2 2 [facility] T VISIT HIGH/URGE NT SEVERITY EMERGENCY 53784 MELQUIADES 2 2 [facility] DEPARTMEN INC T VISIT MODERATE SEVERITY EMERGENCY 94802 EUGENE DEL RIO 2 2 EMERGENCY [facility] DEPARTMEN SERVICES T VISIT MODERATE SEVERITY HOSPITAL MELQUIADES - 2 2 [facility] OUTPATIEN INC T EMERGENCY 90675 MELQUIADES 2 2 [facility] DEPARTMEN INC T VISIT LOW/MODER SEVERITY EMERGENCY 24409 LAKSHMI RAINS ALL 2 2 MEDICAL DEPARTMEN SERV T VISIT FOUNDATIO MODERATE SEVERITY HOSPITAL [facility]ERS[facility] - 2 2 [facility]ER[facility] 93599 UNIVERS 2 2 Y [facility] T VISIT HIGH/URGE NT SEVERITY EMERGENCY 48962 MELQUIADES 2 2 [facility] INC T VISIT LIMITED/M INOR PROB EMERGENCY 85649 [place] ECKERLINE DEPT 2 2 MEDICAL C VISIT SERV HIGH FOUNDATIO SEVERITY& THREAT [facility] UNIVERSIT - 2 2 Y INPATIENT HOSPITAL EMERGENCY 83463 CHRISTIAN GONZALES 2 2 III MITCHEL III [facility] T VISIT MODERATE SEVERITY EMERGENCY 94066 MELQUIADES 2 2 [facility] T VISIT LIMITED/M INOR PROB HOSPITAL MELQUIADES - 2 2 [facility] T EMERGENCY 28610 MELQUIADES 2 2 [facility] INC T VISIT LOW/MODER SEVERITY HOSPITAL MELQUIADES - 2 2 [facility] T EMERGENCY 14746 CHRISTIAN GONZALES 2 2 III MITCHEL III [facility] T VISIT MODERATE SEVERITY EMERGENCY 18296 EUGENE DEL RIO 1 1 EMERGENCY [facility] SERVICES T VISIT MODERATE SEVERITY HOSPITAL MELQUIADES - 1 1 [facility] T EMERGENCY 56208 MELQUIADES 1 1 [facility] INC T VISIT LOW/MODER SEVERITY EMERGENCY [address] T VISIT MODERATE SEVERITY EMERGENCY [address] [facility] [facility] 1 1 [facility] EMERGENCY T VISIT PHYSI HIGH/URGE NT SEVERITY OFFICE 12024 M[facility]QUIADES [facility] [address] [place] [address] T VISIT CENTER CENTER 15 MINUTES HOSPITAL [address] OUTPATIEN T EMERGENCY 83819 [facility] CARLEY JAM 1 1 [facility] DEPARTMEN EMERGENCY T VISIT PHYSI HIGH/URGE NT SEVERITY EMERGENCY 66829 [facility] RADHA DEPT 1 1 BENJ[facility]IN EDW VISIT EMERGENCY HIGH PHYSI SEVERITY& THREAT [facility] MELQUIADES - 1 1 [facility] OUTPATIEN INC T EMERGENCY 88018 MELQUIADES 1 1 [facility] DEPARTMEN INC T VISIT LOW/MODER SEVERITY HOSPITAL MELQUIADES - 0 0 [facility] OUTPATIEN INC T EMERGENCY 44657 MELQUIADES 0 0 [facility] DEPARTMEN INC T VISIT HIGH/URGE NT SEVERITY OFFICE 87703 [facility], OUTPATIEN 0 0 HEALTH ERIK J T VISIT 5 CLINIC OF MINUTES [facility] MELQUIADES - 0 0 [facility] OUTPATIEN INC T OFFICE 48577 [facility], OUTPATIEN 9 9 HEALTH ERIK J T VISIT 5 CLINIC OF MINUTES [facility] MELQUIADES - 9 9 [facility] OUTPATIEN INC T EMERGENCY 90008 EUGENE DEL RIO, 9 9 EMERG[facility]Y [facility] T VISIT HIGH/URGE ASSOCIATE NT S SEVERITY EMERGENCY 40668 M[facility]QUIADES 9 9 [facility] T VISIT LIMITED/M INOR PROB EMERGENCY 07019 EUGENE MARES, 9 9 [address] [facility] T VISIT HIGH/URGE ASSOCIATE NT S SEVERITY HOSPITAL MELQUIADES - 9 9 [facility] OUTPATIEN INC T EMERGENCY 07568 MELQUIADES 9 9 [facility] DEPARTMEN INC T VISIT LOW/MODER SEVERITY OFFICE 67428 DHS/CO MELQUIADES SIMMONS 9 9 HEALTH CO HEALTH T VISIT [facility] 25 BANK ACCT MINUTES OFFICE 18049 [facility], OUTPATIEN 9 9 HEALTH ERIK Joyce T VISIT CLINIC OF 25 MINUTES [facility] OFFICE 76932 [facility], OUTPATIEN 9 9 HEALTH ERIK J T VISIT CLINIC OF 15 MINUTES [facility] UNIVERSIT - 9 9 Y INPATIENT HOSPITAL OFFICE 96772 [facility], OUTPATIEN 9 9 HEALTH ERIK J T VISIT 5 CLINIC OF MINUTES [facility] OFFICE 94475 [facility], OUTPATIEN 9 9 HEALTH ERIK J T VISIT CLINIC OF 15 MINUTES [facility] OFFICE 48221 [facility] TALMAANT[facility] OUTPATIEN 9 9 , ANNIKA ROBLERO T VISIT 10 MINUTES [facility] MELQUIADES - 9 9 [facility] OUTPATIEN INC T OFFICE 81340 [facility] CONSULTAT 9 9 , ANNIKA ROBLERO ION NEW/ESTAB PATIENT 60 MIN HOSPITAL MELQUIADES - 9 9 [facility] OUTPATIEN INC T EMERGENCY 71782 MELQUIADES 9 9 [facility] DEPARTMEN INC T VISIT LOW/MODER SEVERITY EMERGENCY 89890 EUGENE MAERS, DEPT 9 9 EMERGENCY ADAN VISIT SERVICES O HIGH SEVERITY& ASSOCIATE THREAT S [facility] OFFICE 71486 [facility], OUTPATIEN 9 9 HEALTH ERIK J T VISIT CLINIC OF 15 MINUTES [facility] OFFICE 19287 [facility] OUTPATIEN 9 9 HEALTH ERIK J T VISIT CLINIC OF 15 MINUTES [facility] EMERGENCY 60020 MELQUIADES 9 9 [facility] DEPARTMEN INC T VISIT MODERATE SEVERITY HOSPITAL MELQUIADES - 9 9 [facility] OUTPATIEN INC T HOSPITAL MELQUIADES - 9 9 [facility] OUTPATIEN INC T OFFICE 24809 [facility] 9 9 HEALTH ERIK Joyce T VISIT CLINIC OF 15 MINUTES [facility] EMERGENCY 04561 EDMUNDO Sohail MARIMAR, [address] [facility] HOSP T VISIT LOW/MODER SEVERITY OFFICE 57828 DHS/CO MELQUIADES [facility] 9 9 HEALTH CO HEALTH T VISIT [facility] 25 BANK ACCT MINUTES HOSPITAL ABHISHEKON - [address] [facility] T EMERGENCY 12721 [facility], 8 8 [place] KINDRA [facility] EMERGENCY T VISIT [facility] MODERATE SEVERITY EMERGENCY 76840 NAHED 8 8 [facility] T VISIT LOW/MODER SEVERITY [facility]OSPITAL [facility] - 8 8 [facility] T EMERGENCY 85106 M[facility]QUIADES 8 8 [facility] T VISIT LIMITED/M [facility] M[facility]QUI[facility] - 8 8 [facility] T EMERGENCY 56521 MELQUIADES COOLEY, 8 8 [facility] T VISIT PROF SERV LOW/MODER SEVERITY EMERGENCY 14131 MELQUIADES 8 8 [facility] T VISIT MODERATE SEVERITY [facility]PITAL [facility] - 8 8 [facility] INC T OFFICE 25323 IRIS WEISS 8 8 CATHY [place] T VISIT 15 MINUTES EMERGENCY 05034 MELQUIADES HERNANDEZ, 8 8 [facility] T VISIT PROF SERV MODERATE SEVERITY EMERGENCY 27493 MELQUIADES 8 8 [facility] T VISIT LOW/MODER SEVERITY [facility]OSPITAL [facility]QUIAD[facility] - 8 8 [facility] INC T OFFICE 67808 ISAURO PISANO OUTPATIEN 8 8 NORRIS JR, T VISIT INTERNAL PEDRO F 15 MED MINUTES HOSPITAL [facility] - 8 8 [facility] T EMERGENCY 24727 MELQUIADES 8 8 [facility] T VISIT MODERATE SEVERITY OFFICE 95282 LICKING VIRAL, OUTPATIEN 8 8 [place] T VISIT INTERNAL 15 MED MINUTES OFFICE 46249 ZURDO MORGAN, OUTPATIEN 8 8 CATHY [place] T VISIT 15 MINUTES OFFICE 70276 [facility] 8 8 CATHY [place] T VISIT 15 MINUTES EMERGENCY 68964 MELQUIADES 8 8 [facility] T VISIT LOW/MODER SEVERITY HOSPITAL MELQUIADES - 8 8 [facility] T OFF[facility] 41846 DHS/CO [facility] 8 8 HEALTH [facility] T VISIT [facility] 10 BANK ACCT MINUTES PERIODIC 29551 ZURDO MORGAN, PREVENTIV 8 8 CATHY Hyaward E MED EST PATIENT 18-39 YRS EMERGENCY 36123 MELQUIADES SCHEDAHLIA 8 8 [facility] T VISIT PROF SERV LOW/MODER SEVERITY HOSPITAL M[facility] - 8 8 [facility] OUTPATIEN INC T
--- OUTSIDE RECORDS SUMMARY | 2016-10-22 14:20 | External Medical Summary Rpt ---
Author Author , Organization [employer] Address Unknown Phone Unavailable Care Team Providers Care Senior Systems Analyst Name Role Phone JONATHAN CASTILLO Unavailable Unavailable OMAR L, OMAR L Unavailable Unavailable CARLEY JAM, CARLEY JAM Unavailable Unavailable LEWIS, LEWIS Unavailable Unavailable LEWIS ALL, LEWIS ALL Unavailable Unavailable [facility] Unavailable Unavailable [facility]PITAL, [facility] PHYSICIAN Unavailable Unavailable PRACTICE L, [facility] Unavailable Unavailable SERVICE, [facility]available Unavailable SERVICE, [facility] FARAH, FARAH Unavailable Unavailable [facility] [...] [facility] Unavailable Unavailable [facility] DAVON JONY, DAVON Unavailable Unavailable JONY KRISTAL, KRISTAL Unavailable Unavailable KRISTAL KIERA, Unavailable Unavailable KRISTAL KIERA KRISTAL KIERA, Unavailable Unavailable KRISTAL KIERA KRISTAL, GALA, Unavailable Unavailable KRISTAL, GALA LIRA PAULA, LIRA Unavailable Unavailable PAULA [facility] [place] [facility] [place] [facility] Unavailable [facility]available [facility] Unavailable Unavailable E[facility]ER[facility] C, Unavailable Unavailable [facility]ER[facility] C MICH YANELISRUSHEPPS Unavailable Unavailable YANELIS QUANG CHUY, QUANG Unavailable Unavailable CHUY QUANG CHUY, QUANG Unavailable Unavailable CHUY CATARINA DEL RIO, Unavailable Unavailable CATARINA DEL RIO [facility] [employer] [facility] Unavailable Unavailable EMS[facility] [employer] [facility] Unavailable Unavailable EMS, [facility] Unavailable Unavailable EMS, [facility] HARPEL DAVID, HARPEL Unavailable Unavailable DAVID HARPEL DAVID, HARPEL Unavailable Unavailable DAVID HARPEL, ZURDO R, Unavailable Unavailable HARPEL, ZURDO R DOMÍNGUEZ KYLE, DOMÍNGUEZ Unavailable Unavailable K[facility] Unavailable Unavailable [place] Unavailable [facility]available [place], [facility] Unavailable Unavailable INC, [facility] Unavailable [facility]available HOSPITAL P, [facility] REMI STRATTON, VIRAL, Unavailable Unavailable REMI [facility], Unavailable Unavailable [facility] CARDONA, CARDONA Unavailable Unavailable CARDONA CHRIS, CARDONA CHRIS Unavailable Unavailable CARDONA CHRIS, CARDONA CHRIS Unavailable Unavailable ROBY IMT, ROBY Unavailable Unavailable IMT JAHANSHAHI FEE, Unavailable Unavailable JAHANSHAHI FEE JAHANSHAHI FEE, Unavailable Unavailable JAHANSHAHI FEE [facility] Un[facility] Un[facility], [facility] ANNA DAYTON, ANNA DAYTON [...] Unavailable Unavailable EUGENERASHAWN KNIGHT VALENTE, Unavailable Unavailable [facility] Unavailable Unavailable SERVICES, [facility] MAST ANN, MAST ANN Unavailable [...] PHARM #[id number] [facility] Unavailable Unavailable [id number] [address] [id number], [facility] [id number] [address] [id number] BLAKE KERMIT, BLAKE KERMIT Unavailable [...] O SOTINGEANU MEDINA, Unavailable Unavailable SOTINGEANU MEDINA [facility] Unavailable Unavailable [facility]ERGENCY PH[facility], [facility] Unavailable Unavailable EMERGENCY PHYSI, [facility] ROSY SHE, Unavailable Unavailable ROSY SHE VIRAJ HU, Unavailable Unavailable VIRAJ HU [facility], Unavailable Unavailable [facility], Unavailable Unavailable [facility] WEHRMAN III MITCHEL, Unavailable Unavailable WEHRMAN III [...] [facility] [place] [facility] R079 CHEST PAIN 07-07-2016 [facility]- UNSPECIFIED [facility] R1013 EPIGASTRIC 07-07-2016 MAN[facility]ANITA- PAIN [facility] [id number] PAIN IN 06-08-2016 [place] RIGHT [facility] C75799 PAIN IN 06-08-2016 [place] UNSPECIFIED MEDICAL HIP IMAGING ASS L94632 PAIN IN 06-08-2016 [place] RIGHT MEDICAL FOREARM IMAGING ASS G15080 PAIN IN 06-08-2016 [place] RIGHT THIGH MEDICAL IMAGING ASS [id number] UNSPECIFIED 06-08-2016 [place] INJURY MEDICAL RIGHT ELBOW IMAGING ASS INITIAL ENCOUNTER Z7689 PERSONS 06-08-2016 [facility] ENC[facility]TER [facility] HE[facility] SRVC SERVICE OTH CIRCUMSTANC ES Z452 ENCOUNTER 05-23-2016 [place] ADJUSTMENT& MEDICAL MGMT IMAGING ASS VASCULAR ACCESS DEVICE R600 LOCALIZED 05-21-2016 [place] EDEMA [facility]ICAL IM[facility] ASS Z8701 PERSONAL 05-19-2016 [place] HISTORY OF MEDICAL PNEUMONIA IMAGING ASS RECURRENT J209 ACUTE 05-11-2016 [facility] BRONCHITIS PHYSICIANS, UNSPECIFIED PLLC N926 IRREGULAR 03-19-2016 [facility] MENSTRUATIO PHYSICIANS N GROUP UNSPECIFIED R102 PELVIC AND 03-19-2016 [facility] PERINEAL PHYSICIANS PAIN GROUP R1084 GENERALIZED 03-17-2016 [facility] ABDOMINAL PHYSICIANS, PAIN PLLC R109 UNSPECIFIED 03-13-2016 [place] ABDOMINAL [facility]ICAL PAIN IMAGING ASS R112 NAUSEA WITH 03-13-2016 [facility]IT[facility] UNSPECIFIED SERVICE I494KPF FOREIGN 03-13-2016 [facility] BODY IN PHYSICIANS, VULVA & PLLC VAGINA INITIAL ENCOUNTER M545 LOW BACK 02-09-2016 [facility] PAIN PHYSICIANS, PLLC N200 CALCULUS OF 02-09-2016 [facility] KIDNEY MEDICAL IM[facility] ASS R1031 RIGHT LOWER 02-09-2016 [place] QUADRANT MEDICAL PAIN IMAGING ASS R1032 LEFT LOWER 02-09-2016 [place] [facility]ANT [facility]ICAL PAIN IMAGING ASS G05425 ENCOUNTER 12-23-2015 [facility] ROUTINE PHYSICIANS CHECKING IU GROUP CONTRACEPT DEVICE E87410 MIGRAINE 12-05-2015 [place] W/AURA NOT PHYSICIAN INTRACT W/O PRACTICE L STAT MIGRAINOSUS G88014 PERSONAL 11-25-2015 [facility] HISTORY OF [facility] NICOTINE INC DEPENDENCE V19160 ENCOUNTER 11-08-2015 [facility] INITIAL PHYSICIANS PRESCRIPTIO GROUP N IU CONTRACEPT DEV Z7251 HIGH RISK 11-08-2015 [facility] HETEROSEXUA [facility] L BEHAVIOR INC N6011 DIFFUSE 10-05-2015 [facility] CYSTIC [facility] MASTOPATHY INC OF RIGHT BREAST N6489 OTHER 10-05-2015 [place] SPECIFIED MEDICAL DISORDERS IMAGING ASS OF BREAST N644 MASTODYNIA 09-27-2015 [facility] PHYSICIANS GROUP J40 BRONCHITIS 08-23-2015 [facility] NOT PHYSICIANS SPECIFIED GROUP ACUTE OR CHRONIC K219 GASTRO-ESOP 08-10-2015 [facility] H REFLUX PHYSICIANS DISEASE GROUP WITHOUT ESOPHAGITIS B1920 UNS VIRAL 07-27-2015 [facility] HEPATITIS C [facility] WITHOUT INC HEPATIC COMA R071 CHEST PAIN 05-24-2015 [facility] N EMERGENCY BREATHING PHYS R0789 OTHER CHEST 05-24-2015 [facility] PAIN COMMUNTIY HOSPITA R5381 OTHER 05-24-2015 [facility] MALAISE [facility] EMS M940 CHONDROCOST 05-16-2015 [facility] JUNCTION N EMERGENCY SYNDROME PHYS TIETZE R072 PRECORDIAL 05-16-2015 [facility] PAIN N EMERGENCY PHYS R509 FEVER 05-16-2015 [facility] UNSPECIFIED [facility] EMS R52 PAIN 05-16-2015 [facility] UNSPECIFIED SCOT T [facility] EMS [id number] POISONING 02-24-2015 [facility] HEROIN [facility] UNDETERMINE INC D INITIAL ENCOUNTER 21068 COMA 01-09-2015 [facility] AMBULANCE SERVICE 23933 POISONING 01-09-2015 [facility] BY HEROIN [facility] P 9779 POISONING 01-09-2015 [facility] UNSPECIFIED AMBULANCE SERVICE DRUG/MEDICI NAL SUBSTANCE 6824 CELLULITIS& 09-23-2014 COMM[facility] ABSCESS OF ANESTH OF HAND EXCEPT THE BLUE FINGERS&FERN MB 6823 CELLULITIS 09-22-2014 TG AND ABSCESS PHYSICIANS, OF UPPER PLLC ARM AND FOREARM 7245 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[facility] BACKACHE PHYSICIANS GROUP 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[facility] 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 51924 PHLEBITIS&T 03-14-2014 [facility] HROMBOPHLEB [facility]OS[facility] SUP VEINS INC UPPER EXTREM 62469 PHLEBITIS 03-14-2014 [facility] AND N EMERGENCY THROMBOPHLE PHYS BITIS OF OTHER SITE 5758 OTHER 03-14-2014 [facility] SPECIFIED [facility] DISORDER OF INC GALLBLADDER V148 PERSONAL 03-14-2014 [facility] HISTORY [facility] ALLERGY OTH INC SPEC MEDICINAL AGTS 50401 UNSPECIFIED 03-02-2014 [facility] CLIN[facility] OF N DANITA 3309 UNSPEC 03-02-2014 [facility] SYMPTOM HEALTH ASSOC CLINIC OF W/FEMALE DANITA GENITAL ORGANS 6264 IRREGULAR 03-02-2014 [facility] MENSTRUAL HEALTH CYCLE CLINIC OF DANITA 61049 ABDOMINAL 03-02-2014 [facility]EN'[facility] PAIN, LEFT HEALTH LOWER CLINIC OF QUADRANT DANITA 91173 UNSPECIFIED 02-02-2014 [facility] VAGINITIS [facility] AND CLINIC OF VULVOVAGINI DANITA TIS 80998 HEMATURIA 12-24-2013 [facility] UNSPECIFIED N EMERGENCY PHYS 65061 ABDOMINAL 12-24-2013 [place] PAIN OTHER MEDICAL SPECIFIED IMAGING ASS SITE 31546 CHLAMYDTRAC 01-02-2013 ROWENAJORDYAYDEE HOMATIS GARRETT INFECTION LOWER SITES V242 ROUTINE 01-02-2013 SANIA GARRETT FOLLOW-UP 6146 PELVIC 11-21-2012 [facility] PERITONEAL [facility] ADHESIONS, INC FEMALE V252 STERILIZATI 11-21-2012 [place] MITCHEL ON V2509 OT GENERAL 11-20-2012 [facility] CNSL&ADVICE INC CONTRACEPT MANAGEMENT 650 NORMAL 10-22-2012 ZAVALA SHA DELIVERY 25174 FIRST-DEGRE 10-22-2012 [facility] E PERINEAL [facility] LACERATION INC WITH DELIVERY V270 OUTCOME OF 10-22-2012 [facility] DELIVERY [facility] SINGLE INC LIVEBORN 45611 THREATENED 10-20-2012 SP TJ PREMATURE LABOR ANTEPARTUM V221 SUPERVISION 10-20-2012 SP TJ OF OTHER NORMAL 04982 OTHER 10-11-2012 HARPEL DAVID THREATENED LABOR, ANTEPARTUM 04338 ABNORMAL 08-08-2012 SP T[facility] MATERNAL GLUCOSE TOLERANCE ANTEPARTUM 25384 DELAY DELIV 07-30-2012 [facility] ANASTACIO AFTER SPONT/UNSPE C RUP MEMB ANTPRTM 73471 CHEST PAIN 07-27-2012 BLAKE KERMIT UNSPECIFIED 85128 CERVICAL 07-21-2012 [facility] ANASTACIO SHORTENING ANTEPARTUM CONDITION OR COMP 47271 PREMATURE 07-18-2012 [facility] RUPTURE [facility] ANTEPARTUM 7802 SYNCOPE AND 07-18-2012 [facility] COLLAPSE V2341 SUPERVISION 07-18-2012 [facility] W/HISTORY PRE-TERM LABOR V2389 SUPERVISION 07-18-2012 [facility] OF OTHER [facility] HIGH-RISK 09575 LATE 07-17-2012 [facility] ANTEPARTUM 29506 OTH 07-17-2012 [facility] VENEREAL DISEASE ANTPRTM COND/COMPL 60668 OTH CURRENT 07-17-2012 [facility] CLASSIFIABL E ELSW ANTPRTM 64276 CERVICAL 07-17-2012 [facility] ANASTACIO SHORTENING DELIVERED W/WO ANTPRTM COND V230 07-17-2012 [facility]ST ANN WITH HISTORY OF INFERTILITY 58973 NAUSEA WITH 06-30-2012 [facility] VOMITING [facility] INC 42798 ABDOMINAL 06-30-2012 [facility] PAIN, [facility] GENERALIZED INC V220 SUPERVISION 06-30-2012 SP SPENCER OF NORMAL FIRST V283 ENCOUNTER 06-19-2012 SP SPENCER ROUTINE SCREEN MALFORMATIO N ULTRASONIC 98310 DEHYDRATION 06-12-2012 [facility] HOSP INC 33495 HYPEREMESIS 06-12-2012 [facility] W/METAB INC DISTURBANCE ANTPRTM 7880 RENAL COLIC 06-12-2012 [facility] HOS[facility] INC 61945 MILD 06-11-2012 [facility] HYPEREMESIS GRAVIDARUM UNSPEC EPIS CARE 591 HYDRONEPHRO 06-04-2012 KRISTAL SIS KIERA 86208 OTHER 06-04-2012 KRISTAL SPECIFIED KIERA DISORDER OF KIDNEY AND URETER 81099 THREATENED 06-03-2012 [facility] PREMATURE [facility] LABOR SERVICES UNSPEC EPIS CARE 15926 OTHER 06-03-2012 KRISTAL SPECIFED KIERA COMPLICATIO N ANTEPARTUM 91273 OTH CURRENT 05-29-2012 WEHRMAN III MATERNAL MITCHEL CCE-COMPL PG CB/PP-UNS EOC 4660 ACUTE 04-30-2012 [facility] BRONCHITIS [facility] INC V222 04-30-2012 [facility] INCIDENTAL INC 7910 PROTEINURIA 04-25-2012 [place] TJ 7916 ACETONURIA 04-25-2012 SP TJ 5920 CALCULUS OF 04-24-2012 [facility] KIDNEY [facility] SERVICES 5990 URINARY 04-24-2012 [facility] TRACT EMERGENCY INFECTION SERVICES SITE NOT SPECIFIED 25056 INFS 04-24-2012 [facility] TRACT [facility]ERGENCY SERVICES UNSPEC EPIS CARE 95208 MILD 04-14-2012 [facility] HYPEREMESIS [facility] GRAVIDARUM INC ANTEPARTUM 03944 ABDOMINAL 04-14-2012 WEHRMAN III PAIN, MITCHEL UNSPECIFIED SITE 2768 HYPOPOTASSE 04-07-2012 [facility] DUYEN EMERG[facility]Y SERVICES 5589 OTH&UNSPEC 04-07-2012 [facility] NONINFECTIO EMERGENCY US SERVICES GASTROENTER ITIS&COLITI S V745 SCREENING 03-19-2012 [facility] EXAMINATION VALENTE FOR VENEREAL DISEASE 99722 INFECTIONS 03-06-2012 [facility] GENITOURINA INC RY TRACT ANTEPARTUM V7242 03-03-2012 [facility] EXAMINATION HEALTH OR TEST CENTER POSITIVE RESULT 64644 PAIN IN 02-13-2012 [place] JOINT, MEDICAL ANKLE AND IMAGING ASS FOOT 7295 PAIN IN 02-13-2012 [facility] SOFT EMERGENCY TISSUES OF SERVICES LIMB 02471 UNSPECIFIED 02-13-2012 [facility] SITE OF ANKLE SPRAIN AND STRAIN 83151 CONTUSION 02-13-2012 [facility] OF FOOT [facility] INC 9599 INJURY 02-13-2012 [place] OTHER AND MEDICAL UNSPECIFIED IMAGING ASS UNSPECIFIED SITE 27523 ACUT 01-29-2012 [facility] PYELONEPHRI [facility]OS[facility] TIS W/O LES INC RENAL MEDULRY NECROS 35906 UNSPECIFIED 01-29-2012 [facility] PYELONEPHRI SERVICES TIS 6201 CORPUS 01-10-2012 [place] TJ LUTEUM CYST OR HEMATOMA 77647 ABDOMINAL 01-10-2012 [place] TJ PAIN RIGHT LOWER QUADRANT 46107 UNSPECIFIED 11-10-2011 [facility] DENTAL [facility] CARIES INC 5259 UNSPECIFIED 11-10-2011 WEHRMAN III DISORDER MITCHEL TEETH&SUPPO RTING STRUCTURES 66057 PAIN IN 09-26-2011 [place] JOINT, HAND MEDICAL IMAGING ASS 40255 CONTUSION 09-26-2011 [facility] OF HAND EMERGENCY SERVICES E9179 OTHER 09-26-2011 [place] STRIKING MEDICAL AGAINST IMAGING ASS W/WO SUBSEQUENT FALL 7804 DIZZINESS 08-23-2011 [facility] AND EMERGENCY GIDDINESS SERVICES V692 PROBLEMS 08-21-2011 [place] TJ RELATED TO HIGH-RISK SEXUAL BEHAVIOR 7231 CERVICALGIA 08-20-2011 [facility] 55520 SPASM OF 08-20-2011 CARDONA CHRIS MUSCLE 6202 OTHER AND 08-15-2011 [place] UNSPECIFIED MEDICAL OVARIAN IMAGING ASS CYST 62771 OTHER 08-15-2011 [place] ASCITES MEDICAL IMAGING ASS 2662 OTHER 07-26-2011 [facility] B-COMPLEX HEALTH DEFICIENCIE CENTER S V7241 07-26-2011 [facility] EXAMINATION HEALTH OR TEST CENTER NEGATIVE RESULT 7840 HEADACHE 07-19-2011 [facility] 6827 CELLULITIS 07-05-2011 [facility] AND ABSCESS EMERGENCY OF FOOT SERVICES EXCEPT TOES 32101 UNSPECIFIED 05-31-2011 WEHRMAN III ACUTE MITCHEL CONJUNCTIVI TIS 21993 UNSPECIFIED 05-31-2011 [facility] CONJUNCTIVI TIS 19977 LEUKOCYTOSI 05-28-2011 JAHANSHAHI S FEE UNSPECIFIED 62244 ABSCESS OF 05-28-2011 TAMIA EYELID FEE 12522 ONE EYE: 05-27-2011 [facility] TOT VISN EMERGENCY IMPAIR; OTH SERVICES EYE: NR-NL VISN 73824 ORBITAL 05-27-2011 [facility] CELLULITIS [facility] 69486 PAIN IN OR 05-27-2011 [facility] [facility] SERV FOUNDATIO 20292 SWELLING OR 05-27-2011 [place] [facility]ASS OF SERV EYE FOUNDATIO 6820 CELLULITIS 05-27-2011 [place] [facility] AND ABSCESS SERV OF FACE FOUNDATIO 462 ACUTE 05-05-2011 [facility] PHARYNGITIS EMERGENCY SERVICES 35630 MIGRAINE 04-04-2011 [facility] W/O HOSPITAL INTRACT W/O STATUS MIGRAINOSUS 6829 CELLULITIS 04-04-2011 [facility] CO AND [facility]ESS [facility] UNSPECIFIED SITE V5889 ENCOUNTER 04-01-2011 [facility] FOR OTHER N EMERGENCY SPECIFIED PHYSI AFTERCARE 9134 ELB 03-30-2011 [facility] FORARM&WRST [facility] INSECT INC BITE NONVENOMOUS W/O INF 77021 SPRAIN AND 07-31-2009 [place] STRAIN OF MEDICAL UNSPECIFIED IMAGING SITE OF ASSOCIATES WRIST E8493 PLACE OF 07-31-2009 [place] OCCURRENCE MEDICAL INDUSTRIAL IMAGING PLACES&PUSHPA ASSOCIATES ISES E918 CAUGHT 07-31-2009 [place] ACCIDENTALL MEDICAL Y IN OR IMAGING BETWEEN ASSOCIATES OBJECTS V2549 SURVEILLANC 06-16-2009 [facility] E OTH PREV HEALTH PRSC CLINIC OF CONTRACEPT [place] METHOD PLLC 9104 FCE 03-29-2009 [facility] NCK&SCLP NO EMERGENCY EYE INSECT SERVICES BITE ASSOCIATES NONVNOM W/O INF 9895 TOXIC 03-29-2009 [facility] EFFECT OF [facility] VENOM INC 6160 CERVICITIS 03-07-2009 PATHOLOGY & AND CYTOLOGY ENDOCERVICI LAB TIS 88465 DYSPLASIA 03-07-2009 PATHOLOGY & OF CERVIX CYTOLOGY UNSPECIFIED LAB 83681 PAP SMER 03-04-2009 [facility] CERV W/LW HEALTH GRADE CLINIC OF SQUAMOUS [place] INTRAEPITH PLLC LES 02693 CERV HIGH 03-04-2009 WOMEN'S RISK HUMAN HEALTH PAPILLOMAVI CLINIC OF JENNIFER DNA [place] TEST POS PLLC 80003 PAP SMER 02-25-2009 [facility] CERV HEALTH W/ATYPICAL CENTRAL SQUAMOUS BANK ACCT CELLS UNDET V7231 ROUTINE 01-24-2009 [facility]OMEN'[facility] GYNECOLOGIC HEALTH AL CLINIC OF EXAMINATION [place] [facility] 2331 CARCINOMA 12-12-2008 [facility] IN [facility] CERVIX UTERI 93354 ERLY ONSET 12-12-2008 [facility] W/WO MENTION ANTPRTM COND 25196 OTH 12-12-2008 [facility] CONGENITAL/ HOSPITAL ACQUIRED ABNORM CERVIX W/DELIVERY 03975 OTHER AND 12-12-2008 [facility] UNSPECUNITY [facility]YCHIATRIC CARE [facility] UTERINE INERTIA W/DELIVERY 31091 ULCER OF 11-25-2008 [facility] ESOPHAGUS ANNIKA WITHOUT BLEEDING 5780 HEMATEMESIS 11-25-2008 [facility] ANNIKA 18734 VOMITING 11-25-2008 [facility] ALONE ANNIKA 17001 ACUTE 11-18-2008 PATHOLOGY & ESOPHAGITIS CYTOLOGY LAB 5533 DIAPHRAGMAT 11-18-2008 [facility] ANIVAL W/O [facility] H[facility] MENTION INC OBSTRUCTION /GANGREN 24788 OTH CURRENT 11-18-2008 [facility] MATERNAL [facility] CCE INC W/DELIVERY 5789 UNSPECIFIED 11-10-2008 [facility] EMERGENCY OF SERVICES GASTROINTES ASSOCIATES TINAL TRACT [...] GNT TRACT 1110 PITYRIASIS 08-15-2007 [facility] VERSICOLOR [facility] INTERNAL MED 04319 ANAL OR 08-15-2007 [facility] RECTAL PAIN [facility] INTERNAL MED 9212 CONTUSION 08-01-2007 [facility] OF ORBITAL [facility] TISSUES INC E8494 PLACE OF 08-01-2007 [facility] IMAGING RECREATION ASSOCIATES AND SPORT E8851 FALL FROM 08-01-2007 [facility] [employer] ATES IMAGING ASSOCIATES 5781 BLOOD IN 07-31-2007 [facility] STOOL [facility]AC INTERNAL MED 6258 OT SPEC 07-21-2007 ZURDO [...] CATHY ARCINIEGA DEFICIENCY ANEMIA 6918 OTHER 06-02-2007 [facility] AND RELATED PROF SERV CONDITIONS Medications Na [...] 16 WN ZA 11 17 17 28 CO 0 13 PH IN AR E MA [...] 10 6- 3- 00 06 TO ve CO 00 20 20 07 WN ED 50 [...] 20 AI AC 90 10 10 D AK 1 PH CH SO AR AE D [...] 34 4- 3- 00 91 N ve CO 59 20 20 AI BA ED 31 [...] 20 20 DE CE 90 09 09 AK TA 5 PH CH AK AR AE N- MA L CA CY [...] TA M BL #3 ET 93 8 CO 37 07 07 00 56 28 RI [...] BA RA 60 09 09 D BA AK 5 PH TU DE AR ND M [...] 09 D BA TA 1 PH TU AK AR ND N- M E CA #3 [...] ai RA 40 08 08 D la AK 1 PH bl DE AR e 5 [...] CY OF CY NT HI AN A CO 00 03 04 00 20 5 EA [...] Procedure [place] [address] [facility] HEAD/BRAI 7 RADIOLOGY N W/O CONTRAST MATERIAL AMB A0427 [facility] SERVICE 7 EVY RATLIFF ALS CO EMS CO EMS EMERGENCY TRANSPORT LEVEL 1 GROUND A0425 [facility] MILEA 7 EVY RATLIFF PER CO EMS CO EMS STATUTE MILE RADIOLOGI 00963 [place] LEWIS C 7 MEDICAL EXAMINATI IMAGING ON PELVIS ASS 1/2 VIEWS AMBULANCE A0429 [facility] 7 AMBULANCE AMBULANCE BLS SERVICE SERVICE EMERGENCY TRANSPORT GROUND A0425 [facility] 7 AMBULANCE AMBULANCE PER SERVICE SERVICE STATUTE MILE RADEX 64531 [place] LEWIS ELBOW 7 MEDICAL COMPLETE IMAGING MINIMUM 3 ASS VIEWS RADIOLOGI 46459 [place] LEWIS C 7 MEDICAL EXAMINATI IMAGING ON FEMUR ASS MINIMUM 2 VIEWS RADEX 38146 [place] LEWIS FOREARM 2 7 MEDICAL VIEWS IMAGING ASS RADIOLOGI 77233 [place] LEWIS C 7 MEDICAL EXAMINATI IMAGING ON CHEST ASS SINGLE VIEW FRONTAL RADIOLOGI 56641 [place] LEWIS C 7 MEDICAL EXAMINATI [place]ING [place] [address] [place] KRISTAL EXTREMITY 7 MEDICAL NON-VASC IMAGING ASS REAL-TIME IMG LMTD RADIOLOGI 33316 [place] BEINEKE C EXAM 7 MEDICAL CHEST 2 IMAGING VIEWS ASS FRONTAL&[place] [address] [facility] [place] DOMÍNGUEZ TRANSVAGI 6 RADIOLOGY KYLE NAL RADIOLOGI 69443 [facility] [place] DOMÍNGUEZ C 6 RADIOLOGY KYLE EXAMINAT[place] [address] BECKY LEWIS ALL ABDOMEN & 6 MEDICAL PELVIS IMAGING W/CONTRAS ASS T MATERIAL AMBULANCE A0429 [facility] SERVICE 6 AMBULANCE AMBULANCE BLS SERVICE SERVICE EMERGENCY TRANSPORT GROUND A0425 [facility] MILEAGE 6 AMBULANCE AMBULANCE PER SERVICE SERVICE STATUTE MILE UNCLASSIF J3490 [facility] IED DRUGS 6 MEM HOSP [facility] INC INC URINE 46275 [facility] 6 [facility] TEST INC INC VISUAL COLOR CMPRSN METHS DRUG TST G0477 [facility] PRESUMP;C 6 MEM HOSP [facility]OS[facility] PBL BEING INC INC READ DC OPT OBV ONLY THERAPEUT 25269 [facility] IC 6 MEM HOSP MEM HOSP PROPHYLAC INC INC TIC/DX INJECTION SUBQ/[place] [address] BECKY LEWIS ALL ABDOMEN & 6 MEDICAL PELVIS IMAGING W/O ASS CONTRAST MATERIAL THERAPEUT 37657 [facility] IC 6 MEM HOSP [facility] PROPHYLAC INC INC TIC/DX INJECTION SUBQ/IM UNCLASSIF J3490 [facility] IED DRUGS 6 [facility] HOSP [facility]OS[facility] INC INC IADNA 51329 [facility] NEISSERIA 6 [facility] HOS[facility] INC INC GONORRHOE AE AMPLIFIED PROBE TQ IADNA 09946 [facility] CHLAMYDIA 6 [facility] INC TRACHOMAT IS AMPLIFIED PROBE TQ INSERTION 98588 [facility] SP 6 PHYSICIAN TJ INTRAUTER S GROUP INE DEVICE IUD LEVONORGE J7298 [facility] SP STREL-RLS 6 PHYSICIAN TJ S GROUP INTRAUTER INE SHELBY SYS 52 MG US BREAST 42094 [facility] UNI REAL 6 [facility] TIME INC INC WITH IMAGE COMPLETE US BREAST 94766 [facility] LEWIS ALL UNI REAL 6 MEDICAL TIME IMAGING WITH ASS IMAGE LIMITED COLLECTIO 98595 [facility] N VENOUS 6 [facility] BLOOD INC INC VENIPUNCT URE HEPATITIS 62219 [facility] A 6 [facility] ANTIBODY INC INC HAAB INF AGT G0432 [facility] AB DETECT 6 [facility] EIA TECH INC INC HIV-1&/HI V-2 SCR HEPATITIS 16819 [facility] [place] CORE 6 [facility] ANTIBODY INC INC HBCAB TOTAL HEPATITIS 81786 [facility] [place] SURF 6 [facility] [address] [facility] HEPATITIS 6 [facility] B INC INC SURFACE ANTIGEN HEPATITIS 43255 [facility] C 6 [facility] ANTIBODY INC INC DRUG TEST G0479 [facility] 6 N N PRESUMP;I COMMUNTIY COMMUNTIY NSTRUMENT HOSPITA HOS[place] [address] [facility] TROPONIN 6 N N QUANTITAT COMMUNTIY COMMUNTIY TANO HOSPITA HOSPITA BLOOD 19149 [facility] COUNT 6 N N COMPLETE COMMUNTIY COMMUNTIY AUTO&AUTO HOSPITA HOSPITA DIFRNTL WBC RADIOLOGI 32461 [facility] C EXAM 6 N N CHEST 2 COMMUNTIY COMMUNTIY VIEWS HOSPITA HOSPITA FRONTAL&L ATERAL FIBRIN 82187 [facility] DGRADJ 6 N N PRODUCTS COMMUNTIY COMMUNTIY D-DIMER HOSPITA HOSPITA QUANTITAT TANO THER 44260 [facility] PROPH/DX 6 N N NJX IV COMMUNTIY COMMUNTIY PUSH HOSPITA HOSPITA SINGLE/1S T SBST/DRUG ECG 21815 [facility] ROUTINE 6 N N ECG COMMUNTIY COMMUNTIY W/LEAST HOSPITA HOSPITA 12 LDS TRCG ONLY W/O [place] [address] [facility] INFUSION 6 N N HYDRATION COMMUNTIY COMMUNTIY EACH HOSPITA HOSPITA ADDITIONA L HOUR COLLECTIO 73900 [facility] N VENOUS 6 N N BLOOD COMMUNTIY COMMUNTIY VENIPUNCT HOSPITA HOSPITA URE COMPREHEN 53303 [facility] SIVE 6 N N METABOLIC COMMUNTIY COMMUNTIY PANEL HOSPITA HOSPITA GROUND A0425 [facility] MILEA 6 N SCOT T N SCOT T PER CO EMS CO EMS STATUTE MILE ECG [address] [facility] ROUTINE 6 [place] - YORBA ECG EMERGENCY PAT W/LEAST PHYS 12 LDS I&R ONLY AMB A0427 [facility] SERVICE 6 N SCOT T N SCOT T ALS CO EMS CO EMS EMERGENCY TRANSPORT LEVEL 1 ECG 56796 [facility] ROUTINE 6 [place] YANELIS ECG EMERGENCY W/LEAST PHYS 12 LDS I&R ONLY GROUND A0425 [facility] [place] 6 N SCOT T N SCOT T [place] [address] [facility] TROPONIN 6 N N QUANTITAT COMMUNTIY COMMUNTIY TANO HOSPITA HOSPITA RADIOLOGI 54778 [facility] C EXAM 6 N N CHEST 2 COMMUNTIY COMMUNTIY VIEWS HOSPITA HOSPITA FRONTAL&L ATERAL COLLECTIO 73379 [facility] N VENOUS 6 N N BLOOD COMMUNTIY COMMUNTIY VENIPUNCT HOSPITA HOSPITA URE ECG 02927 [facility] ROUTINE 6 N N ECG COMMUNTIY COMMUNTIY W/LEAST HOSPITA HOSPITA 12 LDS TRCG ONLY W/O I&R AMB [id number] [facility] SERVICE 6 N SCOT T N SCOT T ALS CO EMS CO EMS EMERGENCY TRANSPORT LEVEL 1 THER 41872 [facility] PROPH/DX 6 N N NJX IV COMMUNTIY COMMUNTIY PUSH HOSPITA HOSPITA SINGLE/1S T SBST/DRUG AMB [id number] [facility] 5 AMBULANCE AMBULANCE ALS SERVICE SERVICE EMERGENCY TRANSPORT LEVEL 1 ECG 96030 MELQUIADES SHEN JR ROUTINE 5 [facility] W/LEAST P 12 LDS I&R ONLY GROUND A0425 [facility] AMBUL[facility] PER SERVICE SERVICE STATUTE MI[facility] 03333 [facility] INTEG 5 ANESTH SHE EXTREMITI OF THE ES ANT BLUE TRUNK & PERINEUM NOS INCISION 26188 TG ERWINARD L & 5 PHYSICIAN DRAINAGE S, PLLC ABSCESS COMPLICAT ED/MULTIP LE SUSCEPTIB 79830 M[facility]QUIADES ARNETT LTY STDY 5 [facility] ANTIMICRB INC INC IAL MICRO/AGA R DILUTJ URNLS DIP 99026 [facility] 5 PHYSICIAN CHUY STICK/TAB S GROUP LET RGNT NON-AUTO W/O MICRSCP CULTURE 79017 MELQUIADES ARNETT BACTERIAL 5 [facility] INC INC QUANTTATI VE COLONY COUNT URINE CULTURE 94504 MELQUIADES ARNETT BCT 5 [facility] ISOL&PRSM INC INC PTV ID ISOLATE EA URINE UNCLASSIF J3490 MELQUIADES ARNETT IED DRUGS 4 [place] [address] [facility] TRANSVAGI 4 [facility] HANDLG&/O 91024 [facility] R CONVEY 4 HEALTH TJ OF SPEC CLINIC OF FOR TR DANITA OFFICE TO LAB SMR PRIM 04175 [facility] SRC WET 4 [facility]ALTH [facility] AGT DANITA URNLS DIP 18921 [facility] 4 HEALTH TJ STICK/TAB CLINIC OF LET RGNT DANITA NON-AUTO W/O MICRSCP CULTURE 28698 MELQUIADES ARNETT BACTERIAL 4 [facility] INC INC QUANTTATI VE COLONY COUNT URINE UNCLASSIF J3490 [facility]QUI[facility] ARNETT IED DRUGS 4 [facility] INC INC URINE 28447 MELQUIADES ARNETT 4 [facility] TEST INC [place] [address] MELQUIADES ARNETT ABDOMEN & 4 [facility] PELVIS INC INC W/O CONTRAST MATERIAL URNLS DIP 58286 MELQUIADES ARNETT 4 [facility] STICK/TAB INC INC LET REAGENT AUTO MICROSCOP Y IADNA 16253 PICKLESIM PICKLESIM CHLAMYDIA 3 ER JR GARRETT ER JR GARRETT TRACHOMAT IS AMPLIFIED PROBE TQ CYTP C/V 16681 PICKLESIM PICKLESIM AUTO THIN 3 ER JR GARRETT ER JR GARRETT LYR PREPJ SCR MNL RESCR PHYS IADNA 28990 PICKLESIM PICKLESIM NEISSERIA 3 ER JR GARRETT ER JR GARRETT GONORRHOE AE AMPLIFIED PROBE TQ ANES IPER 78012 GABRIELE SUAZO MITCHEL LWR ABD 3 W/LAPS TUB[place] LIGATION/ [place] [address] MELQUIADES ARNETT INFUSION 3 [facility] THERAPY INC INC PROPHYLAX IS/DX EA HOUR LAPAROSCO 12793 MELQUIADES ARNETT PY W/PLMT 3 [facility] INC INC OCCLUSION DEVICE OVIDUCTS BASIC 64299 MELQUIADES ARNETT METABOLIC 3 [facility] PANEL INC INC CALCIUM TOTAL GONADOTRO 87838 MELQUIADES ARNETT PIN 3 [facility] CHORIONIC INC INC QUALITATI VE BLOOD 42100 MELQUIADES ARNETT COUNT 3 [facility] COMPLETE INC INC AUTO&AUTO DIFRNTL WBC VAGINAL 85007 [facility] DELIVERY 3 TJ TJ ONLY W/POSTPAR LAUREN CARE NEURAXIAL 94491 SALLY ZAVALA SHA LABOR 3 ANALG/ANE S PLND VAGINAL DELIVERY REPAIR OF 7569 MELQUIADES ARNETT OTHER 3 [facility] CURRENT [place] [address] [facility] NONSTRESS 3 TJ TJ TEST 83067 [facility] NONSTRESS 3 TJ TJ TEST 00135 HARPEL HARPEL NONSTRESS 3 DAVID DAVID TEST CULTURE 44186 MEQLUIADES ARNETT BACTERIAL 3 [facility] INC INC QUANTTATI VE COLONY COUNT URINE URNLS DIP 25816 MELQUIADES ARNETT 3 [facility] STICK/TAB INC INC LET REAGENT AUTO MICROSCOP Y 97771 SP MORRISE NONSTRESS 3 TJ TJ TEST 13934 SN[facility] NONSTRESS 3 TJ TJ TEST CUL BACT 80180 COMBINED COMBINED XCPT 3 PHYSICIAN PHYSICIAN URINE S LA S LA BLOOD/STO OL AEROBIC ISOL 47625 [facility] NONSTRESS 3 TJ TJ TEST 99927 [facility] NONSTRESS 3 TJ TJ TEST 70682 [facility] NONSTRESS 3 TJ TJ TEST 57638 [facility] NONSTRESS 3 TJ TJ TEST US PREG 84392 [facility] UTERUS 3 TJ TJ REAL TIME W/IMAGE DCMTN TRANSVAG DOPPLER 79374 [facility] VELOCIMET 3 TJ TJ RY UMBILICAL ARTERY 19965 [facility] BIOPHYSIC 3 TJ TJ AL PROFILE NON-STRES S TESTING 43723 [facility] NONSTRESS 3 TJ TJ TEST 65399 [facility] NONSTRESS 3 TJ TJ TEST GLUCOSE 81555 [facility] TOLERANCE 3 TJ TJ TEST GTT 3 SPECIMENS 34473 [facility] NONSTRESS 3 [place] [address] O'OMAIRA O'OMAIRA 3 ANASTACIO ANASTACIO UTERUS LIMITED 1/> FETUSES ECG 99919 [facility] ROUTINE 3 ECG W/LEAST 12 LDS [place] [address] [facility] 3 [facility] GLENN UTERUS LIMITED 1/> FETUSES US PREG 78327 O'OMAIRA O'OMAIRA UTERUS 3 ANASTACIO ANASTACIO REAL TIME W/IMAGE DCMTN TRANSVAG SBSQ 37082 [facility] GLENN GLENN CARE/DAY 25 [place] [address] [facility] 3 [facility] GLENN UTERUS LIMITED 1/> FETUSES SBSQ 35811 [facility] 3 GLENN GLENN CARE/DAY 25 MINUTES ECG 37023 [facility] CHI ROUTINE 3 ECG W/LEAST 12 LDS I&R ONLY US PREG 68737 [facility] UTERUS 3 GLENN GLENN REAL TIME W/IMAGE DCMTN TRANSVAG US PREG 43188 [facility] UTERUS 3 Y Y REAL TIME HOSPITAL HOSPITAL W/IMAGE DCMTN TRANSVAG US PREG 70672 [facility] UTERUS 3 Y Y W/DETAIL [facility] ARNOLD 1ST GESTATION ECG 44344 [facility] CHI DAK[place] CHI ROUTINE 3 ECG W/LEAST 12 LDS I&R ONLY SBSQ 19880 [facility] 3 CARE/DAY 25 MINUTES THERAPEUT 39766 MELQUIADES ARNETT IC 3 [facility] PROPHYLAC INC INC TIC/DX INJECTION SUBQ/IM US PREG 07273 [facility] UTERUS 3 TJ TJ REAL TIME W/IMAGE DCMTN [facility] G0378 MELQUIADES ARNETT OBSERVATI 3 [facility] HOS[facility] [...] ON HCL PER 1 MG US PREG 63133 [facility] UTERUS 3 TJ TJ AFTER 1ST [facility]/ [facility] G0378 MELQUIADES ARNETT OBSERVATI 3 [facility] ON INC INC SERVICE PER HOUR INJECTION J2405 MELQUIADES ARNETT 3 [facility] ONDANSETR INC INC ON HCL PER 1 MG BLOOD 93916 MELQUIADES ARNETT COUNT 3 [facility] COMPLETE INC INC AUTO&AUTO DIFRNTL WBC BASIC 70089 MELQUIADES ARNETT METABOLIC 3 [facility] PANEL INC INC CALCIUM TOTAL CULTURE 89011 MELQUIADES ARNETT BACTERIAL 3 [facility] INC INC QUANTTATI VE COLONY COUNT URINE THERAPEUT 06666 MELQUIADES ARNETT IC 3 [facility] INJECTION [place] [address] MELQUIADES ARNETT INFUSION 3 [facility] THERAPY/P INC INC ROPHYLAXI S /DX 1ST TO 1 HR URNLS DIP 79227 MELQUIADES ARNETT 3 [facility] STICK/TAB INC INC LET REAGENT AUTO MICROSCOP Y BLOOD 41160 MELQUIADES ARNETT COUNT 3 [facility] COMPLETE INC INC AUTO&AUTO DIFRNTL WBC COMPREHEN 59416 MELQUIADES MELQUIADES SIVE 3 [facility] METABOLIC INC INC [facility] G0378 MELQUIADESEMY ARNETT OBSERVATI 3 [facility] ON INC INC SERVICE PER HOUR INJECTION J2405 MELQUIADES MELQUIADES 3 [facility] ONDANSETR INC INC ON HCL PER 1 MG BLOOD 31993 MELQUIADESEMY ARNETT COUNT 3 [facility] COMPLETE INC INC AUTO&AUTO DIFRNTL WBC BASIC 74998 MELQUIADES ARNETT METABOLIC 3 [facility] PANEL INC INC CALCIUM TOTAL UROGRAPHY 28091 KRISTAL KRISTAL IV W/WO 3 KIERA KIERA KUB W/WO TOMOGRAPH Y INITIAL 72537 [facility] OBSERVATI 3 TJ TJ ON CARE/DAY 50 MINUTES RADEX 74555 MELQUIADES ARNETT ABDOMEN 3 [facility] MEM [...] INC ON HCL PER 1 MG COMPREHEN 87841 MELQUIADES ARNETT SIVE 3 [facility] METABOLIC INC INC [facility] G0378 MELQUIADES ARNETT OBSERVATI 3 [facility] ON INC INC SERVICE PER HOUR INJECTION J2405 MELQUIADES ARNETT 3 [facility] ONDANSETR INC INC ON HCL PER 1 [place] [address] MELQUIADES ARNETT INFUSION 3 [facility] THERAPY/P INC INC ROPHYLAXI S /DX 1ST TO 1 HR URNLS DIP 00579 MELQUIADES ARNETT 3 [facility] STICK/TAB INC INC LET REAGENT AUTO MICROSCOP Y INITIAL 59125 [facility] OBSERVATI 3 TJ TJ ON CARE/DAY 30 [place] [address] MELQUIADES ARNETT 3 [facility] UTERUS INC INC LIMITED 1/> FETUSES BLOOD 02798 MELQUIADES ARNETT COUNT 3 [facility] COMPLETE INC INC AUTO&[place] [address] MELQUIADES ARNETT ESTRIOL 3 [facility] INC INC ALPHA-FET 12709 MELQUIADES ARNETT OPROTEIN 3 [facility] SERUM INC INC GONADOTRO 59607 MELQUIADES ARNETT PIN 3 [facility] CHORIONIC INC INC QUANTITAT TANO GONADOTRO 15708 MELQUIADES ARNETT PIN 3 [facility] CHORIONIC INC [place] P[place] 66735 MELQUIADES ARNETT UTERUS 3 [facility] REAL TIME INC INC W/IMAGE DCMTN TRANSVAG COMPREHEN 65985 MELQUIADES ARNETT SIVE 3 [facility] METABOLIC [place] 08893 KRISTAL KRISTAL UTERUS 3 KIERA KIERA REAL TIME F/U TRNSABDL PER FETUS URNLS DIP 90148 MELQUIADES ARNETT 3 [facility] STICK/TAB INC INC LET REAGENT AUTO MICROSCOP Y BLOOD 66345 MELQUIADES ARNETT COUNT 3 [facility] COMPLETE INC INC AUTO&AUTO DIFRNTL WBC URINE 35699 MELQUIADES ARNETT 3 [facility] TEST INC [place] [address] MELQUIADES ARNETT 3 [facility] UTERUS INC INC LIMITED 1/> FETUSES IAADI 20064 MELQUIADES ARNETT INFLUENZA 2 [facility] B VIRUS INC INC IAADI 65875 MELQUIADES ARNETT INFFLUENZ 2 [facility] [place] [address] MELQUIADES ARNETT STREPTOCO 2 [facility] CCUS INC INC GROUP A URNLS DIP 49018 SP [facility] 2 TJ TJ STICK/TAB LET RGNT NON-AUTO W/O MICRSCP US PREG 90403 MELQUIADES ARNETT UTERUS 2 [facility] REAL TIME INC INC W/IMAGE DCMTN TRANSVAG CULTURE 00853 MELQUIADES ARNETT BACTERIAL 2 [facility] INC INC QUANTTATI VE COLONY COUNT URINE URNLS DIP 63965 MELQUIADES ARNETT 2 [facility] STICK/TAB INC [place] [address] BECKY KRISTAL RETROPERI 2 MEDICAL KIERA TONEAL IMAGING REAL TIME ASS W/IMAGE COMPLETE URNLS DIP 98829 SP [facility] 2 TJ TJ STICK/TAB LET RGNT NON-AUTO W/O MICRSCP INJECTION J2405 MELQUIADES ARNETT 2 [facility] ONDANSETR INC INC ON HCL PER 1 MG COMPREHEN 70734 MELQUIADES ARNETT SIVE 2 [facility] METABOLIC INC INC PANEL US PREG 05637 BECKY KRISTAL UTERUS 2 MEDICAL KIERA REAL TIME IMAGING W/[place] [address] MELQUIADES ARNETT INFUSION 2 [facility] THERAPY/P INC INC ROPHYLAXI S /DX 1ST TO 1 HR URNLS DIP 47337 MELQUIADES ARNETT 2 [facility] STICK/TAB INC INC LET REAGENT AUTO MICROSCOP Y BLOOD 05632 MELQUIADESEMY ARNETT COUNT 2 [facility] COMPLETE INC INC AUTO&AUTO DIFRNTL WBC THERAPEUT 86186 MELQUIADES ARNETT IC 2 [facility] INJECTION [place] [address] MELQUIADES ARNETT INFUSION 2 [facility] THERAPY/P INC INC ROPHYLAXI S /DX 1ST TO 1 HR URNLS DIP 44279 MELQUIADES VASQUEZON 2 [facility] STICK/TAB INC INC LET REAGENT AUTO MICROSCOP Y BLOOD 22081 MELQUIADES VASQUEZON COUNT 2 [facility] COMPLETE INC INC AUTO&AUTO DIFRNTL WBC THERAPEUT 64135 MELQUIADES VASQUEZON IC 2 [facility] INJECTION INC INC IV PUSH EACH NEW DRUG OBSERVATI 29065 [facility] ON CARE 2 [place] [address] MELQUIADES ARNETT INFUSION 2 [facility] THERAPY INC INC PROPHYLAX IS/DX EA HOUR URINE 39876 MELQUIADES ARNETT 2 [facility] TEST INC INC VISUAL COLOR CMPRSN METHS BASIC 23954 MELQUIADES ARNETT METABOLIC 2 [facility] PANEL INC INC CALCIUM TOTAL CULTURE 12470 MELQUIADES ARNETT BACTERIAL 2 [facility] INC INC QUANTTATI VE COLONY COUNT URINE THER 49744 MELQUIADES ARNETT PROPH/DX 2 [facility] NJX EA INC INC SEQL IV PUSH SBST/DRUG FAC INJECTION J2405 MELQUIADES ARNETT 2 [facility] ONDANSETR INC INC ON HCL PER 1 [place] [address] MELQUIADES ARNETT INFUSION 2 [facility] THER INC INC PROPH ADDL SEQUENTIA L TO 1 HR HOSPITAL G0378 MELQUIADES ARNETT OBSERVATI 2 [facility] ON INC INC SERVICE PER HOUR INITIAL 94493 [facility] OBSERVATI 2 TJ TJ ON CARE/DAY 50 MINUTES CYTP 65835 EUGENE EUGENE CERVICAL/ 2 VALENTE VALENTE VAGINAL REQ INTERP PHYSICIAN CYTP C/V 93585 EUGENE EUGENE AUTO THIN 2 VALENTE VALENTE LYR PREPJ SCR MNL RESCR PHYS IADNA 96034 EUGENE KNIGHT CHLAMYDIA 2 VALENTE VALENTE TRACHOMAT IS AMPLIFIED PROBE TQ IADNA 47219 EUGENE KNIGHT NEISSERIA 2 VALENTE VALENTE GONORRHOE AE AMPLIF[place] T[place] PREG 20845 [facility] UTERUS 2 TJ TJ REAL TIME W/IMAGE DCMTN TRANSVAG URINE 61611 MELQUIADES ARNETT 2 [facility] TEST INC INC VISUAL COLOR CMPRSN METHS URNLS DIP 07777 MELQUIADES ARNETT 2 [facility] STICK/TAB INC INC LET REAGENT AUTO MICROSCOP Y URINE 20312 MELQUIADES ARNETT 2 [facility] CENTER VISUAL COLOR CMPRSN MET[facility] CRTCHS E0114 [facility] UNDARM 2 OTH THAN WOOD PAIR PAD TIP&HNDGR IP RADEX 92295 BECKY GIRALDO FOOT 2 MEDICAL KIERA COMPLETE IMAGING MINIMUM 3 ASS VIEWS THERAPEUT 08499 MELQUIADES ARNETT IC 2 [facility] PROPHYLAC INC INC TIC/DX INJECTION SUBQ/IM URNLS DIP 40194 MELQUIADES ARNETT 2 [facility] STICK/TAB INC INC LET REAGENT AUTO MICROSCOP Y SUSCEPTIB 78184 MELQUIADES ARNETT LTY STDY 2 [facility] ANTIMICRB INC INC IAL MICRO/AGA R DILUTJ URINE 02463 MELQUIADES ARNETT 2 [facility] TEST INC INC VISUAL COLOR CMPRSN MET[place] CULTURE 87592 MELQUIADES ARNETT BACTERIAL 2 [facility] INC [place] [address] [facility] TRANSVAGI 2 TJ TJ NAL URINE 38511 SP [facility] 2 TJ TJ [place] [address] [facility] TRANSVAGI 2 TJ TJ NAL RADEX 41236 MELQUIADES ARNETT HAND 2 [facility] MINIMUM 3 INC INC VIEWS URINE 59956 MELQUIADES ARNETT 2 [facility] TEST INC INC VISUAL COLOR CMPRSN METHS URNLS DIP 02338 MELQUIADES ARNETT 2 [facility] STICK/TAB INC [place] [address] MELQUIADES ARNETT TRANSVAGI 2 [facility] [place] [address] MELQUIADES ARNETT LIPASE 2 [facility] INC INC URINE 50188 MELQUIADES ARNETT 2 [facility] TEST INC INC VISUAL COLOR CMPRSN METHS COMPREHEN 96382 MELQUIADES ARNETT SIVE 2 [facility] [place] [address] MELQUIADES ARNETT AMYLASE 2 [facility] INC INC URNLS DIP 00854 MELQUIADES ARNETT 2 [facility] STICK/TAB INC INC LET REAGENT AUTO MICROSCOP Y BLOOD 70975 MELQUIADES ARNETT COUNT 2 [facility] COMPLETE INC INC AUTO&AUTO DIFRNTL WBC URINE 50739 MELQUIADES ARNETT 2 [facility] CENTER VISUAL COLOR CMPRSN METHS INJECTION J2405 MELQUIADES ARNETT 2 [facility] ONDANSETR INC INC ON HCL PER 1 MG INJECTION J0595 MELQUIADES MELQUIADES 2 [facility] BUTORPHAN INC INC OL TARTRATE 1 MG THERAPEUT 92835 MELQUIADES ARNETT IC 2 [facility] PROPHYLAC INC INC TIC/DX INJECTION SUBQ/IM HOSPITAL 00801 [facility] 2 I FEE I FEE DAY MANAGEMEN T 30 MIN/< SBSQ 70658 [facility] 2 I FEE I FEE CARE/DAY 25 MINUTES INITIAL 83416 [facility] 2 EMERGENCY PAULA CARE/DAY SERVICES [address] ORBIT 26212 LAKSHMI CASTILL[place] SELLA/POS 2 MEDICAL T SERV FOSSA/EAR FOUNDATIO W/[place] [address] MELQUIADES MELQUIADES STREPTOCO 1 [facility] CCUS INC INC GROUP A ONDANSETR Q0179 [facility] ON HCL 8 1 [facility] MG ORL NOT >48 HR DOSE REGIMEN THERAPEUT 41151 [facility] 1 [facility] PROPHYLAC TIC/DX INJECTION SUBQ/IM INJECTION J18[address] KETOROLAC TROMETHAM INE PER 15 MG RADEX 06521 MELQUIADES ARNETT WRIST 0 [facility] COMPLETE INC INC MINIMUM 3 VIEWS RADEX 32779 MELQUIADES ARNETT FOREARM 2 0 [facility] VIEWS INC INC THERAPEUT 34075 [facility] IC 0 HEALTH ERIK J PROPHYLAC CLINIC OF TIC/DX INJECTION [place] SUBQ/IM PLLC THERAPEUT 87598 [facility] SP, IC 9 HEALTH ERIK J PROPHYLAC CLINIC OF TIC/DX INJECTION [place] SUBQ/[place] [address] PATHOLOGY PATHOLOGY SURG 9 & & PATHOLOGY CYTOLOGY CYTOLOGY LAB LAB GROSS&CHUY ROSCOPIC EXAM COLPOSCOP 04333 [facility], Y CERVIX 9 HEALTH ERIK J BX CERVIX CLINIC OF & ENDOCRV [facility] IADNA 53113 PATHOLOGY PATHOLOGY [place] 9 & & VIRUS CYTOLOGY CYTOLOGY HUMAN LAB LAB AMPLIFIED PROBE TQ CYTP C/V 93605 PATHOLOGY PATHOLOGY AUTO THIN 9 & & LYR CYTOLOGY CYTOLOGY PREPJ SCR LAB LAB MNL RESCR PHYS CYTP 33769 PATHOLOGY PATHOLOGY CERVICAL/ 9 & & VAGINAL CYTOLOGY CYTOLOGY REQ LAB LAB INTERP PHYSICIAN VAGINAL 27968 [place] [facility] DELIVERY 9 MEDICAL NN, ONLY SERV ADRIAN [place] FOUNDATIO OTHER 7359 [facility] 9 Y Y [facility] DELIVERY GROUND A0425 [facility] MILEAGE 9 AMBULANCE AMBULANCE PER SERVICE SERVICE STATUTE MILE OBSERVATI 36274 EMY WEISS/INPATI 9 CATHY [facility] CARE 55 MINUTES AMB A0427 [facility] SERVICE 9 AMBULANCE AMBULANCE ALS SERVICE SERVICE EMERGENCY TRANSPORT LEVEL 1 18947 MELQUIADES ARNETT NONSTRESS 9 [place] [address] MELQUIADES ARNETT INFUSION 9 [facility] THERAPY INC [place] [address] MELQUIADES ARNETT INFUSION 9 [facility] THERAPY/P INC INC ROPHYLAXI S /DX 1ST TO 1 HR HOSPITAL G0378 MELQUIADES ARNETT OBSERVATI 9 [facility] ON INC INC SERVICE PER HOUR GLUCOSE 47345 [facility], POST 9 HEALTH ERIK J GLUCOSE CLINIC OF DOSE [facility] GLUCOSE 19641 [facility], TOLERANCE [facility] 3 SPECIMENS [facility] SPCL STN 35549 PATHOLOGY PATHOLOGY 2 I&R 9 & & EXCPT CYTOLOGY CYTOLOGY MICROORG/ LAB LAB ENZYME/IM CYT EGD 06314 MELQUIADES ARNETT TRANSORAL 9 [facility] BIOPSY [place] INC SINGLE/[place] [address] MELQUIADES MELQUIADES INFUSION 9 [facility] THERAPY/P INC INC ROPHYLAXI S /DX 1ST TO 1 HR ANES 87649 [facility] JUDGE, UPPER GI 9 ANESTH CINDY L ENDOSCOPY OF THE [place]AL [place] [address] PATHOLOGY PATHOLOGY SURG 9 & & PATHOLOGY CYTOLOGY CYTOLOGY LAB LAB GROSS&CHUY ROSCOPIC EXAM ESOPHAGOG 4516 MELQUIADES ARNETT ASTRODUOD 9 [facility] ENOSCOPY INC INC WITH CLOSED BIOPSY BLOOD 14604 MELQUIADES ARNETT OCCULT 9 [facility] PEROXIDAS INC INC E ACTV QUAL FECES 1-3 SPEC BLOOD 29122 MELQUIADES ARNETT COUNT 9 [facility] COMPLETE INC INC AUTO&AUTO DIFRNTL WBC BASIC 04299 MELQUIADES ARNETT METABOLIC 9 [facility] PANEL INC INC CALCIUM TOTAL URNLS DIP 95059 MELQUIADES ARNETT 9 [facility] STICK/TAB INC INC LET REAGENT AUTO MICROSCOP [place] PREG 34282 [facility], UTERUS 9 HEALTH ERIK J AFTER 1ST CLINIC OF TRIMEST [place] GESTATION PLL BLOOD 70949 MELQUIADES ARNETT COUNT 9 [facility] COMPLETE INC INC AUTO&AUTO DIFRNTL WBC URNLS DIP 77123 MELQUIADES ARNETT 9 [facility] STICK/TAB INC INC LET REAGENT AUTO MICROSCOP Y CULTURE 88899 MELQUIADES ARNETT BACTERIAL 9 [facility] INC INC QUANTTATI VE COLONY COUNT URINE BASIC 99402 MELQUIADES ARNETT METABOLIC 9 [facility] PANEL INC INC CALCIUM TOTAL GONADOTRO 27696 MELQUIADES ARNETT PIN 9 [facility] CHORIONIC [place] [address] MELQUIADES ARNETT ESTRIOL 9 [facility] INC ALPHA-FET 65502 MELQUIADES [facility] OPROTEIN 9 [facility] SERUM INC INC [place] PREG 95328 [facility] [place], UTERUS 9 [facility] W/IMAGE DCMTN [place] [facility] CYTP 27810 PATHOLOGY PATHOLOGY CERVICAL/ 9 & & VAGINAL CYTOLOGY CYTOLOGY REQ LAB LAB INTERP PHYSICIAN CYTP C/V 47837 PATHOLOGY PATHOLOGY AUTO THIN 9 & & LYR CYTOLOGY CYTOLOGY PREPJ SCR LAB LAB MNL RESCR PHYS MOLECULAR 80199 MOLECULAR MOLECULAR 9 DIAGNOSTI PATHOLOGY PATHOLOGY CS LAB LAB INTERPRET NETWORK NETWORK ATION & INC INC REPORT MUTATION 56273 MOLECULAR MOLECULAR ID 9 ENZYMATIC PATHOLOGY PATHOLOGY LAB LAB LIG/PRIME NETWORK NETWORK R XTN 1 INC INC SGM EA MOLECULAR 08950 MOLECULAR MOLECULAR DX AMP 9 TARGET PATHOLOGY PATHOLOGY MULTIPLEX LAB LAB 1ST 2 NETWORK NETWORK SEQ INC INC IADNA 53675 PATHOLOGY PATHOLOGY CHLAMYDIA 9 & & CYTOLOGY CYTOLOGY TRACHOMAT LAB LAB IS AMPLIFIED PROBE TQ MOLEC 90307 MOLECULAR MOLECULAR ISOL/XTRJ 9 HP PATHOLOGY PATHOLOGY NUCLEIC LAB LAB ACID EA NETWORK NETWORK TYPE INC INC IADNA 66613 PATHOLOGY PATHOLOGY NEISSERIA 9 & & CYTOLOGY CYTOLOGY GONORRHOE LAB LAB AE AMPLIFIED PROBE TQ MOLEC 34189 MOLECULAR MOLECULAR SEP&ID HI 9 RESOLU PATHOLOGY PATHOLOGY TQ EACH LAB LAB NUCLEIC NETWORK NETWORK ACID PREP INC INC MOLECULAR 51968 MOLECULAR MOLECULAR DX AMP 9 TARGET PATHOLOGY PATHOLOGY MULTIPLEX LAB LAB EA ADDL NETWORK NETWORK SEQ INC INC URINE 70289 DHS/CO M[facility]QUIADES [facility] VISUAL BANK ACCT COLOR CMPRSN METHS REMOVAL 91468 HARPEL, HARPEL, IMPLANTAB 8 ZURDO R ZURDO R LE CONTRACEP TIVE CAPSULES URNLS DIP 45437 [facility] STICK/TAB INC INC LET REAGENT AUTO MICROSCOP Y BLOOD 47246 MELQUIADES ARNETT COUNT 8 [facility] COMPLETE INC INC AUTO&AUTO DIFRNTL WBC CULTURE 18686 MELQUIADES ARNETT BACTERIAL 8 [facility] INC INC [place] [address] MELQUIADES [facility]T THER 8 [facility] PROPH/DX INC INC 1ST >1 HR URINE 49279 MELQUIADES [facility]NET[facility] 8 [facility] TEST INC INC VISUAL COLOR CMPRSN METHS COMPREHEN 66348 MELQUIADES ARNETT SIVE 8 [facility] METABOLIC INC INC PANEL URINE 94706 ZURDO MORGAN, 8 CATHY [place] TEST VISUAL COLOR CMPRSN METHS RADEX 98405 [place], WRIST 8 MEDICAL [facility] P COMPLETE IMAGING MINIMUM 3 ASSOCIATE VIEWS S URINE 74648 MELQUIADES ARNETT 8 [facility] TEST INC INC VISUAL COLOR CMPRSN METHS CT PELVIS 87832 MELQUIADES ARNETT W/O 8 [facility] [place] [address] MELQUIADES ARNETT ABDOMEN 8 [facility] W/O INC INC CONTRAST MATERIAL CULTURE 62285 MELQUIADES ARNETT BCT 8 [facility] ISOL&PRSM INC INC PTV ID ISOLATE EA URINE CULTURE 09555 MELQUIADES ARNETT BACTERIAL 8 [facility] INC INC QUANTTATI VE COLONY COUNT URINE 3D 74486 MELQUIADES ARNETT RENDERING 8 [facility] INC INC W/INTERP& POSTPROC DIFF WORK STATION URNLS DIP 76527 MELQUIADES [facility]NETT 8 [facility] STICK/TAB INC INC LET REAGENT AUTO MICROSCOP Y SUSCEPTIB 56385 MELQUIADES ARNETT LTY STDY 8 [facility] ANTIMICRB INC INC IAL MICRO/AG[place] R DILUTJ URINE 10028 ZURDO MORGAN, 8 CATHY [place] TEST VISUAL COLOR CMPRSN METHS INSERTION 98344 ZURDO MORGAN, Bridget [place]ward IMPLANTAB LE CONTRACEP TIVE CAPSULES IADNA 76813 [facility] FR[facility], NEISSERIA 8 [place] INC VIRAJ E GONORRHOE AE AMPLIFIED PROBE TQ CYTP 96830 [facility], CERV/VAG 8 [place] VIRAJ Pang AUTO THIN LAYER PREP MNL SCREEN BLOOD 68063 ZURDO MORGAN, COUNT 8 CAHTY [place] HEMOGLOBI N IADNA 53714 [facility], CHLAMYDIA 8 [place] VIRAJ [place] TRACHOM[place] [address] MELQUIADES ARNETT STREPTOCO 8 [facility] INC GROUP A Encounters Encounter Start End Date Code Location Performer Type Date EMERGENCY 67606 TG CARDONA 7 7 PHYSICIAN [facility] T VISIT HIGH/URGE NT SEVERITY OFFICE 67713 [facility] SP ESTEVEZEN 6 6 PHYSICIAN TJ T VISIT S GROUP 25 MINUTES EMERGENCY 22710 TG BRAUN 6 6 PHYSICIAN [place] [facility]IS[facility] HIGH/URGE NT SEVERITY EMERGENCY 60317 TG BRAUN DEPT 6 6 PHYSICIAN [place] [facility] HIGH SEVERITY& THREAT FUNCJ EMERGENCY 57101 MELQUIADES 6 6 [facility] INC T VISIT LOW/MODER SEVERITY EMERGENCY 50869 TG RIZZO 6 6 PHYSICIAN [facility] T VISIT HIGH/URGE NT SEVERITY HOSPITAL MELQUIADES - 6 6 [facility] OFFICE 03514 [facility] SP ESTEVEZEN 6 6 PHYSICIAN TJ T VISIT S GROUP 15 MINUTES OFFICE 17998 NAHED MURRIETAPATIEN 6 6 PHYSICIAN JONY T NEW 30 PRACTICE MINUTES HOSPITAL [facility] - 6 6 [facility] OUTPATIEN [facility] EMERGENCY 78482 MELQUIADES [address] [facility] T VISIT LOW/MODER SEVERITY EMERGENCY 14289 TG DEL RIO 6 6 PHYSICIAN CHUY [facility] T VISIT MODERATE SEVERITY [facility] - 6 6 [facility] INC HOSPITAL [facility] 6 6 [facility] OUTPATIEN [facility] T OFFICE 16000 [facility] SP OUTPATIEN 6 6 PHYSICIAN TJ T VISIT S GROUP 15 MINUTES OFFICE 69752 [facility] PHYSICIAN CHUY T VISIT S GROUP 15 MINUTES OFFICE 19265 [facility] 6 6 PHYSICIAN CHUY T VISIT S GROUP 15 MINUTES HOSPITAL [facility] - 6 6 [facility] OUTPATIEN INC T HOSPITAL [facility] - 6 6 N OUTPATIEN COMMUNTIY T HOSPITA EMERGENCY 08985 [facility] 6 6 N DEPARTMEN COMMUNTIY T VISIT HOSPITA HIGH/URGE NT SEVERITY EMERGENCY 00276 [facility] CELLAR[facility] DEPT 6 6 [place] - YORBA VISIT EMERGENCY PAT HIGH PHYS SEVERITY& THREAT [facility] EMERGENCY 55608 [facility] 6 6 N DEPARTMEN COMMUNTIY T VISIT HOSPITA HIGH/URGE NT SEVERITY [facility] - 6 6 N OUTPATIEN COMMUNTIY T HOSPITA EMERGENCY 93391 [facility] DEPT 6 6 [place] YANELIS VISIT EMERGENCY HIGH PHYS SEVERITY& THREAT [facility] MELQUIADES - 5 5 [facility] OUTPATIEN INC T EMERGENCY 97547 [facility] 5 5 [facility] DEPARTMEN INC T VISIT MODERATE SEVERITY EMERGENCY 64935 TG Ramos 5 5 PHYSICIAN DEPARTMEN S, [facility] T VISIT HIGH/URGE NT SEVERITY [facility]ICE 21485 [facility] CHUY T VISIT S GROUP 15 MINUTES HOSPITAL [facility] - 5 5 [facility] OUTPAT[facility]EN INC T EMERGENCY 42121 [facility] 4 4 [place] IMT DEPARTMEN EMERGENCY T VISIT PHYS MODERATE SEVERITY [facility] - 4 4 [facility] OUTPATIEN INC T EMERGENCY 58593 [facility] 4 4 [facility] DEPARTMEN INC T VISIT LIMITED/M INOR PROB OFFICE 51743 [facility] OUTPATIEN 4 4 HEALTH TJ T VISIT CLINIC OF 15 DANITA MINUTES OFFICE 67721 [facility] OUT[facility] 4 4 HEALTH TJ T VISIT CLINIC OF 25 DANITA MINUTES EMERGENCY 93[address] [facility] 4 4 [place] CHUY DEPARTMEN EMERGENCY T VISIT PHYS HIGH/URGE NT SEVERITY EMERGENCY 65985 [facility] 4 4 [facility] DEPARTMEN INC T VISIT LOW/MODER SEVERITY [facility] - 4 4 [facility] OUTPATIEN [facility] HOSPITAL MELQUIADES - 3 3 [facility] HOSPITAL MELQUIADES - 3 3 [facility] HOSPITAL MELQUIADES - 3 3 [facility] INPATIENT INC OFFICE 98232 SP MORRISE OUTPATIEN 3 3 TJ TJ T VISIT 15 MINUTES OFFICE 58031 [facility] 3 3 TJ TJ T VISIT 15 MINUTES HOSPITAL [facility] - 3 3 [facility] OUTPATIEN INC T OFFICE 78372 HARPEL HARPEL OUTPATIEN 3 3 DAVID DAVID T VISIT 15 MINUTES OFFICE 12180 [facility] 3 3 TJ TJ T VISIT 15 MINUTES OFFICE 60687 [facility] OUT[facility] 3 3 TJ TJ T VISIT 15 MINUTES OFFICE 19018 [facility] OUT[facility] 3 3 TJ TJ T VISIT 15 MINUTES OFFICE 37851 [facility] OUT[facility] 3 3 TJ TJ T VISIT 15 MINUTES OFFICE 17939 [facility] OUT[facility] 3 3 TJ TJ T VISIT 15 MINUTES OFFICE 35509 [facility] OUT[facility] 3 3 TJ TJ T VISIT 15 MINUTES OFFICE 43525 [facility] OUTPATIEN 3 3 TJ TJ T VISIT 15 MINUTES OFFICE 50011 [facility] OUTPATI[facility] 3 3 TJ TJ T VISIT 5 MINUTES OFFICE 53215 [facility] OUTPATIEN 3 3 TJ TJ T VISIT 15 MINUTES HOSPITAL UNIVERSIT - 3 3 Y [facility] MELQUIAD[facility] - 3 3 [facility] OUTPATIEN INC T OFFICE 02695 [facility] OUTPATI[facility] 3 3 TJ TJ T VISIT 15 MINUTES HOSPITAL M[facility] - 3 3 [facility] OUTPATIEN INC T OFFICE 87137 [facility] OUTPATI[facility] 3 3 TJ TJ T VISIT 15 MINUTES EMERGENCY 19596 [facility]AD[facility] 3 3 [facility] DEPARTMEN INC T VISIT HIGH/URGE NT SEVERITY [facility]OSPITAL [facility] - 3 3 [facility] OUTPATIEN INC T EMERGENCY 62066 QUANG DEL RIO DEPT 3 3 CHUY CHUY VISIT HIGH SEVERITY& THREAT FUN OFFICE 39130 [facility] OUT[facility] 3 3 TJ TJ T VISIT 15 MINUTES EMERGENCY 78326 [facility]ADES 3 3 [facility] DEPARTMEN INC T VISIT HIGH/URGE NT SEVERITY EMERGENCY 72803 EUGENE VAUGHAN DEPT 3 3 EMERGENCY VISIT SERVICES HIGH SEVERITY& THREAT [facility] MELQUIADES - 3 3 [facility] OUTPATIEN INC T OFFICE 17707 [facility] OUTPATIEN 3 3 TJ TJ T VISIT 15 MINUTES HOSPITAL M[facility]IADES - 3 3 [facility] OUTPATIEN INC T EMERGENCY 44787 [facility]AD[facility] 3 3 [facility] DEPARTMEN INC T VISIT HIGH/URGE NT SEVERITY EMERGENCY 54267 CHRISTIAN GONZALES DEPT 3 3 III MITCHEL III MITCHEL VISIT HIGH SEVERITY& THREAT [facility] MELQUIADES - 3 3 [facility] INC T OFFICE 54569 [facility] OUT[facility] 3 3 TJ TJ T VISIT 15 MINUTES EMERGENCY 11980 MELQUIADES 2 2 [facility] DEPARTMEN INC T VISIT LIMITED/M INOR PROB HOSPITAL MELQUIADES - 2 2 [facility] OUTPATIEN INC T EMERGENCY 68897 QUANG DEL RIO 2 2 [facility] T VISIT HIGH/URGE NT SEVERITY OFFICE 64376 [facility] OUT[facility] 2 2 TJ TJ T VISIT 15 MINUTES EMERGENCY 45977 EUGENE MCCALLUM DEPT 2 2 EMERGENCY MITCHEL VISIT SERVICES HIGH SEVERITY& THREAT [facility] MELQUIADES - 2 2 [facility] INC T EMERGENCY 96745 MELQUIADES 2 2 [facility] DEPARTMEN INC T VISIT LOW/MODER SEVERITY OFFICE 64322 [facility] OUT[facility] 2 2 TJ TJ T VISIT 15 MINUTES EMERGENCY 94872 CHRISTIAN GONZALES DEPT 2 2 III MITCHEL III MITCHEL VISIT HIGH SEVERITY& THREAT [facility] EMERGENCY 73184 MELQUIADES 2 2 [facility] DEPARTMEN INC T VISIT HIGH/URGE NT SEVERITY [facility]OSPITAL M[facility]QUIAD[facility] - 2 2 [facility] OUTPATIEN INC T EMERGENCY 06209 MELQUIADES DEPT 2 2 [facility] VISIT INC HIGH SEVERITY& THREAT [facility] MELQUIADES - 2 2 [facility] OUTPATIEN INC T EMERGENCY 37585 EUGENE CASTILLO DEPT 2 2 EMERGENCY VISIT SERVICES HIGH SEVERITY& THREAT [facility] MELQUIADES - 2 2 [facility] OUTPATIEN INC T EMERGENCY 82510 QUANG DEL RIO 2 2 CHUY CHUY DEPARTMEN T VISIT HIGH/URGE NT SEVERITY EMERGENCY 20497 MELQUIADES 2 2 [facility] DEPARTMEN INC T VISIT LIMITED/M INOR PROB OFFICE 95663 MELQUIADES SIMMONS 2 2 [facility] VISIT CENTER CENTER 25 MINUTES EMERGENCY 73232 EUGENE CASTILLO 2 2 EMERGENCY DEPARTMEN SERVICES T VISIT HIGH/URGE NT SEVERITY [facility]OSPITAL [facility] - 2 2 [facility] OUTPATIEN INC T EMERGENCY 17514 MELQUIADES 2 2 [facility] DEPARTMEN INC T VISIT MODERATE SEVERITY HOSPITAL MELQUIADES - 2 2 [facility] OUTPATIEN INC T EMERGENCY 88778 EUGENE CASTILLO DEPT 2 2 EMERGENCY VISIT SERVICES HIGH SEVERITY& THREAT FUNCJ EMERGENCY 67354 MELQUIADES 2 2 [facility] DEPARTMEN INC T VISIT MODERATE SEVERITY OFFICE 78718 SP SIMMONS 2 2 TJ TJ T VISIT 25 MINUTES HOSPITAL MELQUIADES - 2 2 [facility] OUTPATIEN INC T EMERGENCY 60586 MELQUIADES 2 2 [facility] DEPARTMEN INC T VISIT LOW/MODER SEVERITY EMERGENCY 92475 CHRISTIAN GONZALES 2 2 III MITCHEL III MITCHEL DEPARTMEN T VISIT HIGH/URGE NT SEVERITY [facility]OSPITAL M[facility]IAD[facility] - 2 2 [facility] OUTPATIEN INC T EMERGENCY 38358 MELQUIADES 2 2 [facility] DEPARTMEN INC T VISIT LOW/MODER SEVERITY EMERGENCY 10485 EUGENE MCCALLUM 2 2 EMERGENCY [facility] DEPARTMEN SERVICES T VISIT MODERATE SEVERITY EMERGENCY 97290 EUGENE DEL RIO DEPT 2 2 EMERGENCY CHUY VISIT SERVICES HIGH SEVERITY& THREAT [facility] M[facility]QU[facility]AD[facility] - 2 2 [facility] OUT[facility] INC T EMERGENCY 79076 MELQUIADES 2 2 [facility] DEPARTMEN INC T VISIT LOW/MODER SEVERITY OFFICE 84071 [facility] TJ TJ T VISIT 25 MINUTES EMERGENCY 83414 DULCE PEREZ DEPT 2 2 VISIT HIGH SEVERITY& THREAT FUNCJ EMERGENCY 84647 [place] 2 2 [facility] T VISIT LOW/MODER SEVERITY HOSPITAL BOMILDREDON - 2 2 [facility] T HOSPITAL MELQUIADES - 2 2 [facility] OUTPATIEN INC T EMERGENCY 39208 MELQUIADES 2 2 [facility] DEPARTMEN INC T VISIT MODERATE SEVERITY EMERGENCY 62443 CHRISTIAN GONZALES 2 2 III MITCHEL III [facility] DEPARTMEN T VISIT HIGH/URGE NT SEVERITY HOSPITAL MELQUIADES - 2 2 [facility] OUTPATIEN INC T OFFICE 74757 MELQUIADES ARNETT OUTPATIEN 2 2 [facility] T VISIT CENTER CENTER 15 MINUTES HOSPITAL MELQUIADES - 2 2 [facility] INC T EMERGENCY 02600 EUGENE DEL RIO 2 2 [facility] VISIT HIGH/URGE NT SEVERITY EMERGENCY 84527 MELQUIADES 2 2 [facility] DEPARTMEN INC T VISIT MODERATE SEVERITY EMERGENCY 74169 EUGENE DEL RIO 2 2 EMERGENCY [facility] DEPARTMEN SERVICES T VISIT MODERATE SEVERITY HOSPITAL M[facility]QUIAD[facility] - 2 2 [facility] OUT[facility] INC T EMERGENCY 76813 MELQUIADES 2 2 [facility] DEPARTMEN INC T VISIT LOW/MODER SEVERITY EMERGENCY 34970 LAKSHMI RAINS ALL 2 2 MEDICAL DEPARTMEN SERV T VISIT FOUNDATIO MODERATE SEVERITY HOSPITAL UNIVERSIT - 2 2 [facility] 48776 UNIVERS 2 2 Y [facility] HOSPITAL T VISIT HIGH/URGE NT SEVERITY EMERGENCY 17307 MELQUIADES 2 2 [facility] INC T VISIT LIMITED/M INOR PROB EMERGENCY 08539 [place] ECKERLINE DEPT 2 2 MEDICAL C VISIT SERV HIGH FOUNDATIO SEVERITY& THREAT [facility] UNIVERSIT - 2 2 Y INPATIENT HOSPITAL EMERGENCY 52398 CHRISTIAN GONZALES 2 2 III MITCHEL III [facility] T VISIT MODERATE SEVERITY EMERGENCY 32409 MELQUIADES [address] [facility] T VISIT LIMITED/M INOR PROB HOSPITAL MELQUIADES - 2 2 [facility] T EMERGENCY 12522 MELQUIADES 2 2 [facility] INC T VISIT LOW/MODER SEVERITY [facility]OSP[facility] - 2 2 [facility] T EMERGENCY 39818 CHRISTIAN GONZALES 2 2 III MITCHEL III [facility] T VISIT MODERATE SEVERITY EMERGENCY 77058 EUGENE DEL RIO 1 1 EMERGENCY [facility] SERVICES T VISIT MODERATE SEVERITY [facility]OSPITAL [facility]QUIAD[facility] - 1 1 [facility] T EMERGENCY 34832 MELQUIADES 1 1 [facility] INC T VISIT LOW/MODER SEVERITY EMERGENCY [address] T VISIT MODERATE SEVERITY EMERGENCY 37315 [facility] 1 1 [facility] EMERGENCY T VISIT PHYSI HIGH/URGE NT SEVERITY OFFICE 45099 MELQUIADES ARNETT [facility] [address] [place] [address] T VISIT CENTER CENTER 15 MINUTES HOSPITAL [address] OUTPATIEN T EMERGENCY 00905 [facility] CARLEY JAM 1 1 [place] DEPARTMEN EMERGENCY T VISIT PHYSI HIGH/URGE NT SEVERITY EMERGENCY 62525 [facility] RADHA DEPT 1 1 [place] EDW VISIT EMERGENCY HIGH PHYSI SEVERITY& THREAT [facility] MELQUIADES - 1 1 [facility] OUTPATIEN INC T EMERGENCY 88571 MELQUIADES 1 1 [facility] DEPARTMEN INC T VISIT LOW/MODER SEVERITY [facility]OSPITAL M[facility]QUIADES - 0 0 [facility] OUTPATIEN INC T EMERGENCY 94247 M[facility]QUIADES 0 0 [facility] DEPARTMEN INC T VISIT HIGH/URGE NT SEVERITY OFFICE 62363 [facility], OUTPATIEN 0 0 HEALTH ERIK J T VISIT 5 CLINIC OF MINUTES [facility] MELQUIADES - 0 0 [facility] OUTPATIEN INC T OFFICE 23200 [facility], OUTPATIEN 9 9 HEALTH ERIK J T VISIT 5 CLINIC OF MINUTES [facility] MELQUIADES - 9 9 [facility] OUTPATIEN INC T EMERGENCY 31029 EUGENE DEL RIO, 9 9 [facility]ISIT HIGH/URGE ASSOCIATE NT S SEVERITY EMERGENCY 74042 [facility]QUIADES 9 9 [facility] T VISIT LIMITED/M INOR PROB EMERGENCY 71208 EUGENE MARES, [address]ISIT HIGH/URGE ASSOCIATE NT S SEVERITY [facility]OSPITAL M[facility]QUI[facility] - 9 9 [facility] OUTPATIEN INC T EMERGENCY 05270 MELQUIADES 9 9 [facility] DEPARTMEN INC T VISIT LOW/MODER SEVERITY OFFICE 58439 DHS/CO MELQUIADES SIMMONS 9 9 HEALTH CO HEALTH T VISIT [facility] 25 BANK ACCT MINUTES OFFICE 81930 [facility], OUTPATIEN 9 9 HEALTH ERIK Joyce T VISIT CLINIC OF 25 MINUTES [facility] EMERGENCY DEPARTMENT OFFICE 22433 [facility], OUTPATIEN 9 9 HEALTH ERIK J T VISIT CLINIC OF 15 MINUTES [facility] UNIVERSIT - 9 9 Y INPATIENT HOSPITAL OFFICE 27424 [facility], OUTPATIEN 9 9 HEALTH ERIK J T VISIT 5 CLINIC OF MINUTES [facility] EMERGENCY DEPARTMENT OFFICE 33524 [facility], OUTPATIEN 9 9 HEALTH ERIK J T VISIT CLINIC OF 15 MINUTES [facility] EMERGENCY DEPARTMENT OFFICE 88474 [facility] OUTPATIEN 9 9 , ANNIKA ROBLERO T VISIT 10 MINUTES [facility] MELQUIADES - 9 9 [facility] OUTPATIEN INC T OFFICE 97791 [facility] CONSULTAT 9 9 , ANNIKA ROBLERO ION NEW/ESTAB PATIENT 60 MIN HOSPITAL MELQUIADES - 9 9 [facility] OUTPATIEN INC T EMERGENCY 16040 MELQUIADES 9 9 [facility] DEPARTMEN INC T VISIT LOW/MODER SEVERITY EMERGENCY 44047 EUGENE MARES, DEPT 9 9 EMERGENCY ADAN VISIT SERVICES O HIGH SEVERITY& ASSOCIATE THREAT S [facility] OFFICE 47528 [facility], OUTPATIEN 9 9 HEALTH ERIK J T VISIT CLINIC OF 15 MINUTES [facility] EMERGENCY DEPARTMENT OFFICE 60212 [facility] OUTPATIEN 9 9 HEALTH ERIK J T VISIT CLINIC OF 15 MINUTES [facility] EMERGENCY DEPARTMENT EMERGENCY 82159 MELQUIADES 9 9 [facility] DEPARTMEN INC T VISIT MODERATE SEVERITY HOSPITAL MELQUIADES - 9 9 [facility] OUTPATIEN INC T HOSPITAL MELQUIADES - 9 9 [facility] OUTPATIEN INC T OFFICE 76292 [facility] 9 9 HEALTH ERIK Joyce T VISIT CLINIC OF 15 MINUTES [facility] EMERGENCY 36444 EDMUNDO Sohail MARIMAR, 9 9 JENIGIN W [facility] HOSP T VISIT LOW/MODER SEVERITY OFFICE 05566 DHS/CO [facility] 9 9 HEALTH CO HEALTH T VISIT [facility] 25 BANK ACCT MINUTES HOSPITAL ABHISEHKON - 8 8 [facility] T EMERGENCY 91601 [facility], 8 8 [place] KINDRA O [facility] EMERGENCY T VISIT [facility] MODERATE SEVERITY EMERGENCY 83416 NAHED 8 8 [facility] T VISIT LOW/MODER SEVERITY HOSPITAL MELQUIADES - 8 8 [facility] OUTPATIEN INC T EMERGENCY 98031 MELQUIADES 8 8 [facility] T VISIT LIMITED/M INOR PROB HOSPITAL MELQUIADES - 8 8 [facility] OUTPATIEN INC T EMERGENCY 98142 MELQUIADES COOLEY, 8 8 [facility] T VISIT PROF SERV LOW/MODER SEVERITY EMERGENCY 74949 MELQUIADES 8 8 [facility] INC T VISIT MODERATE SEVERITY HOSPITAL MELQUIADES - 8 8 [facility] OUTPATIEN INC T OFFICE 33912 IRIS WEISS 8 8 CATHY Hayward T VISIT 15 MINUTES EMERGENCY 35409 MELQUIADES HERNANDEZ, 8 8 [facility] T VISIT PROF SERV MODERATE SEVERITY EMERGENCY 89615 MELQUIADES 8 8 [facility] INC T VISIT LOW/MODER SEVERITY HOSPITAL MELQUIADES - 8 8 [facility] OUTPATIEN INC T OFFICE 15027 ISAURO PISANO OUTPATIEN 8 8 NORRIS JR, T VISIT INTERNAL PEDRO F 15 MED MINUTES HOSPITAL MELQUIADES - 8 8 [facility] T EMERGENCY 23366 MELQUIADES 8 8 [facility] INC T VISIT MODERATE SEVERITY OFFICE 71170 LICKING VIRAL, OUTPATIEN 8 8 [facility] [place] T VISIT INTERNAL 15 MED MINUTES OFFICE 66332 ZURDO MORGAN, OUTPATIEN 8 8 CATHY Hayward T VISIT 15 MINUTES OFFICE 49033 ZURDO MORGAN [facility] 8 8 CATHY Hayward T VISIT 15 MINUTES EMERGENCY 58524 MELQUIADES 8 8 [facility] T VISIT LOW/MODER SEVERITY HOSPITAL MELQUIADES - 8 8 [facility] T OFFICE 15758 DHS/CO [facility] 8 8 HEALTH CO HEALTH T VISIT [facility] 10 BANK ACCT MINUTES PERIODIC 01376 ZURDO MORGAN, PREVENTIV 8 8 CATHY Hayward E MED EST PATIENT 18-39 YRS EMERGENCY 77253 MELQUIADES SCHEDAHLIA 8 8 [facility] T VISIT PROF SERV LOW/MODER SEVERITY HOSPITAL MELQUIADES - 8 8 [facility] OUTPATIEN INC T
--- OUTSIDE RECORDS SUMMARY | 2016-10-22 14:21 | External Medical Summary Rpt ---
Author Author , Organization [employer] Address Unknown Phone Unavailable Purpose Continuity of Care Document - 09-06-2000 through 2016 Immunization Name Date Route CVX Reacti Commen Provid Is Given on t er Refuse d HPV4 Histor H149 No (Garda 2007 ical bharat) Inform ation - Source Unspec ified HPV4 Histor H149 No (Garda 2006 ical bharat) Inform ation - Source Unspec ified HPV4 Histor H149 No (Garda 2006 ical bharat) Inform ation - Source Unspec ified Td Histor H149 No (adult 2003 ical ), Inform adsorb ation ed - Source Unspec ified Hep B, Histor H149 No 2000 ical ped/ad Inform ol ation - Source Unspec ified Hep B, Histor H149 No 2000 ical ped/ad Inform ol ation - Source Unspec ified Hep B, Histor H149 No 2000 ical ped/ad Inform ol ation - Source Unspec ified MMR Histor H149 No 2000 ical Inform ation - Source Unspec ified
--- OUTSIDE RECORDS SUMMARY | 2016-10-22 14:22 | External Medical Summary Rpt ---
Author Author [facility], [employer] [employer] Organization [employer] [employer] Address Unknown Phone Unavailable Results Lactate [Moles/volume] in Blood Observa Value Referen Units Interpr Notes Date tion ce etation Range Lactate 0.4 - 2.0 mmol/L Normal No Oct 20 [Moles/vo informati 2017 4:05 lume] in on in PM Blood source data Comprehensive metabolic 2000 panel in Serum or Plasma Observa Value Referen Units Interpr Notes Date tion ce etation Range Albumin/G 1.1 - 1.8 No Low No Oct 20 lobulin informati informati 2016 4:00 [Mass on in on in PM ratio] in source source Serum or data data Plasma Albumin 3.4 - 5.0 gm/dL Normal No Oct 20 [Mass/vol informati 2016 4:00 ume] in on in PM Serum or source Plasma data Alkaline 46 - 116 U/L Normal No Oct 20 phosphata informati 2017 4:00 se on in PM [Enzymati source c data activity/ volume] in Serum or Plasma Bilirubin 0.2 - 1.0 mg/dL Normal No Oct 20 .total informati 2016 4:00 [Mass/vol on in PM ume] in source Serum or data Plasma Urea 7 - 18 mg/dL No No Oct 20 nitrogen informati informati 2017 4:00 [Mass/vol on in on in PM ume] in source source Serum or data data Plasma Calcium 8.5 - mg/dL Normal No Oct 20 [Mass/vol 10.1 informati 2017 4:00 ume] in on in PM Serum or source Plasma data Chloride 98 - 107 mmoL/L Normal No Oct 20 [Moles/vo informati 2016 4:00 lume] in on in PM Serum or source Plasma data Carbon 21.0 - mmoL/L Normal No Oct 20 dioxide, 32.0 informati 2017 4:00 total on in PM [Moles/vo source lume] in data Serum or Plasma Creatinin 0.55 - mg/dL High No Walker 17 e 1.02 informati 2017 4:00 [Mass/vol on in PM ume] in source Serum or data Plasma Creatinin 50 - 200 ML/MIN No No Oct 20 e renal informati informati 2016 4:00 clearance on in on in PM source source predicted data data by Cockcroft -Gault formula Estimated 59- ML/MIN No REFERENCE Oct 20 informati RANGE: 2017 4:00 glomerula on in >60 PM r source ML/MIN/1. filtratio data 73 SQUARE n rate METERSIf (GF this patient is -A merican, then multiply theresult by 1.210. Globulin 1.3 - 3.2 gm/dL High No Oct 20 [Mass/vol informati 2016 4:00 ume] in on in PM Serum source data Glucose 74 - 106 mg/dL Normal No Oct 20 [Mass/vol informati 2016 4:00 ume] in on in PM Serum or source Plasma data Potassium 3.5 - 5.1 mmoL/L Low No Oct 202016 4:00 [Moles/vo on in PM lume] in source Serum or data Plasma Sodium 136 - 145 mmoL/L Normal No Oct 20 [Moles/vo informati 2016 4:00 lume] in on in PM Serum or source Plasma data Aspartate 15 - 37 U/L High No Oct 20 inform2016 4:00 aminotran on in PM sferase source [Enzymati data c activity/ volume] in Serum or Plasma Alanine 12 - 78 U/L High No Oct 20 aminotran informati 2016 4:00 sferase on in PM [Enzymati source c data activity/ volume] in Serum or Plasma Protein 6.4 - 8.2 gm/dL High No Oct 20 [Mass/vol informati 2016 4:00 ume] in on in PM Serum or source Plasma data CBC W Auto Differential panel in Blood Observa Value Referen Units Interpr Notes Date tion ce etation Range Basophils 0 - 0.2 K/MM3 Normal No Oct 20 inform2016 4:00 [#/volume on in PM ] in source Blood by data Automated count Basophils 0.1 - 2.0 % Normal No Oct 20 /100 informati 2016 4:00 leukocyte on in PM s in source Blood by data Automated count Eosinophi 0.0 - 0.4 K/mm3 Normal No Oct 20 ls ati 2016 4:00 [#/volume on in PM ] in source Blood by data Automated count Eosinophi 0.1 - % Normal No Oct 20 ls/100 12.0 informati 2016 4:00 leukocyte on in PM s in source Blood by data Automated count Granulocy 1.8 - 7.8 K/mm3 Normal No Oct 17 raina informati 2016 4:00 [#/volume on in PM ] in source Blood by data Automated count Granulocy 37.0 - % Normal No Oct 20 raina/100 80.0 informati 2016 4:00 leukocyte on in PM s in source Blood by data Automated count Hematocri 37.0 - % Normal No Oct 20 t [Volume 47.0 informati 2016 4:00 on in PM Fraction] source of Blood data Hemoglobi 12.2 - g/dL Normal No Oct 20 n 16.2 informati 2016 4:00 [Mass/vol on in PM ume] in source Blood data Lymphocyt 0.7 - 4.5 K/mm3 Normal No Oct 20 es informati 2016 4:00 [#/volume on in PM ] in source Unspecifi data ed specimen by Automated count Lymphocyt 10 - 50.0 % Normal No Oct 20 es informati 2016 4:00 [#/volume on in PM ] in source Unspecifi data ed specimen by Automated count Erythrocy 27 - 31.2 pg Normal No Oct 20 te mean informati 2016 4:00 corpuscul on in PM ar source hemoglobi data n [Entitic mass] Erythrocy 31.8 - g/dl Normal No Oct 20 te mean 35.4 informati 2016 4:00 corpuscul on in PM ar source hemoglobi data n concentra tion [Mass/vol ume] by Automated count Erythrocy 82.2 - fl Normal No Oct 20 te mean 97.8 informati 2016 4:00 corpuscul on in PM ar volume source [Entitic data volume] by Automated count Monocytes 0.1 - 1.0 K/mm3 Normal No Oct 17 informati 2016 4:00 [#/volume on in PM ] in source Blood by data Automated count Monocytes 1.7 - 9.3 % Normal No Oct 17 /100 informati 2017 4:00 leukocyte on in PM s in source Blood by data Automated count Platelet 7.4 - fl Low No Oct 20 mean 10.4 informati 2016 4:00 volume on in PM [Entitic source volume] data in Blood by Automated count Platelets 142 - 424 K/mm3 No No Oct 20 informati informati 2017 4:00 [#/volume on in on in PM ] in source source Blood data data Erythrocy 4.2 - 5.4 M/mm3 Normal No Oct 20 raina informati 2016 4:00 [#/volume on in PM ] in source Amniotic data fluid Erythrocy 11.5 - % Normal No Oct 20 te 17.5 informati 2016 4:00 distribut on in PM ion width source [Entitic data volume] by Automated count Leukocyte 4.8 - K/MM3 Normal No Oct 20 s 10.8 informati 2016 4:00 [#/volume on in PM ] in source Blood data Drugs identified in Urine by Screen method Observa Value Referen Units Interpr Notes Date tion ce etation Range Positive urine drug screen samples are stored for 7 days. Contact the Lab if confirmation of positives is needed. Ampheta POSITIV <1000 ng/mL Abnorma This is Oct 19 mine E l an 2016 [Presen UNCONFI 2:31 AM ce] in RMED Urine result. by This Screen result method is for medical purpose s and/or treatme nt only. Barbitura <200 ng/mL No No Oct 19 raina informati informati 2017 2:31 [Mass/vol on in on in AM ume] in source source Urine by data data Screen method Benzodiaz 200 ng/mL ng/mL No No Oct 19 epines informati informati 2017 2:31 [Mass/vol on in on in AM ume] in source source Serum or data data Plasma by Screen method Cocaine <300 ng/g High This is Oct 19 [Mass/vol an 2017 2:31 ume] in UNCONFIRM AM Unspecifi ED ed result. specimen This result is for medicalpu rposes and/or treatment only. Methadone <300 ng/mL No No Oct 19 informati informati 2017 2:31 [Mass/vol on in on in AM ume] in source source Unspecifi data data ed specimen Opiates <300 ng/mL No No Oct 16 [Mass/vol informati informati 2017 2:31 ume] in on in on in AM Unspecifi source source ed data data specimen Phencycli <25 ng/mL No No Oct 19 dine informati informati 2017 2:31 [Mass/vol on in on in AM ume] in source source Unspecifi data data ed specimen 11-Hydr POSITIV <50 ng/mL Abnorma This is Oct 19 oxy E l an 2017 delta-9 UNCONFI 2:31 AM RMED tetrahy result. drocann This abinol result [Presen is for ce] in medical Unspeci purpose fied s specime and/or n treatme nt only. Choriogonadotropin.beta subunit [Units] in 24 hour Urine Observa Value Referen Units Interpr Notes Date tion ce etation Range Choriogon NEG No No No Oct 19 adotropin informati informati informati 2017 2:31 .beta on in on in on in AM subunit source source source [Units] data data data in 24 hour Urine Ethanol [Mass/volume] in Serum or Plasma Observa Value Referen Units Interpr Notes Date tion ce etation Range Ethanol 0 - 99 mg/dL Normal ANY Oct 19 [Mass/vol ALCOHOL > 2017 2:08 ume] in OR = 80 AM Serum or MG/DL IS Plasma CONSIDERE D LEGALLYIN TOXICATED UNDER [place] [employer]. Acetaminophen [Mass/volume] in Unspecified specimen Observa Value Referen Units Interpr Notes Date tion ce etation Range Acetamino 10 - 30 ug/mL Low No Oct 19 phen informati 2017 2:08 [Mass/vol on in AM ume] in source Unspecifi data ed specimen Comprehensive metabolic 2000 panel in Serum or Plasma Observa Value Referen Units Interpr Notes Date tion ce etation Range Albumin/G 1.1 - 1.8 No Low No Oct 19 lobulin informati informati 2017 2:08 [Mass on in on in AM ratio] in source source Serum or data data Plasma Albumin 3.4 - 5.0 gm/dL Normal No Oct 19 [Mass/vol informati 2017 2:08 ume] in on in AM Serum or source Plasma data Alkaline 46 - 116 U/L Normal No Oct 19 phosphata informati 2017 2:08 se on in AM [Enzymati source c data activity/ volume] in Serum or Plasma Bilirubin 0.2 - 1.0 mg/dL Normal No Oct 19 .total informati 2017 2:08 [Mass/vol on in AM ume] in source Serum or data Plasma Urea 7 - 18 mg/dL Normal No Oct 19 nitrogen informati 2017 2:08 [Mass/vol on in AM ume] in source Serum or data Plasma Calcium 8.5 - mg/dL Normal No Oct 16 [Mass/vol 10.1 informati 2017 2:08 ume] in on in AM Serum or source Plasma data Chloride 98 - 107 mmoL/L Normal No Oct 16 [Moles/vo informati 2017 2:08 lume] in on in AM Serum or source Plasma data Carbon 21.0 - mmoL/L Normal No Oct 19 dioxide, 32.0 informati 2017 2:08 total on in AM [Moles/vo source lume] in data Serum or Plasma Creatinin 0.55 - mg/dL High No Oct 16 e 1.02 informati 2017 2:08 [Mass/vol on in AM ume] in source Serum or data Plasma Creatinin 50 - 200 ML/MIN Low No Oct 19 e renal informati 2017 2:08 clearance on in AM source predicted data by Cockcroft -Gault formula Estimated 59- ML/MIN Low REFERENCE Oct 19 RANGE: 2017 2:08 glomerula >60 AM r ML/MIN/1. filtratio 73 SQUARE n rate METERSIf (GF this patient is -A merican, then multiply theresult by 1.210. Globulin 1.3 - 3.2 gm/dL High No Oct 16 [Mass/vol informati 2016 2:08 ume] in on in AM Serum source data Glucose 74 - 106 mg/dL High No Oct 16 [Mass/vol informati 2016 2:08 ume] in on in AM Serum or source Plasma data Potassium 3.5 - 5.1 mmoL/L Low No Oct 19 informati 2016 2:08 [Moles/vo on in AM lume] in source Serum or data Plasma Sodium 136 - 145 mmoL/L Normal No Oct 16 [Moles/vo informati 2017 2:08 lume] in on in AM Serum or source Plasma data Aspartate 15 - 37 U/L High No Oct 19 informati 2017 2:08 aminotran on in AM sferase source [Enzymati data c activity/ volume] in Serum or Plasma Alanine 12 - 78 U/L High No Oct 19 aminotran informati 2017 2:08 sferase on in AM [Enzymati source c data activity/ volume] in Serum or Plasma Protein 6.4 - 8.2 gm/dL High No Oct 16 [Mass/vol informati 2017 2:08 ume] in on in AM Serum or source Plasma data Salicylates [Mass/volume] in Serum or Plasma Observa Value Referen Units Interpr Notes Date tion ce etation Range Salicylat 2.8 - mg/dL Low No Oct 16 es 20.0 informati 2016 2:08 [Mass/vol on in AM ume] in source Serum or data Plasma CBC W Auto Differential panel in Blood Observa Value Referen Units Interpr Notes Date tion ce etation Range Granulocy 1.8 - 7.8 K/mm3 Normal No Oct 16 raina informati 2016 2:08 [#/volume on in AM ] in source Blood by data Automated count Granulocy 37.0 - % Normal No Oct 16 raina/100 80.0 informati 2016 2:08 leukocyte on in AM s in source Blood by data Automated count Hematocri 37.0 - % Normal No Oct 19 t [Volume 47.0 informati 2016 2:08 on in AM Fraction] source of Blood data Hemoglobi 12.2 - g/dL Normal No Oct 19 n 16.2 informati 2016 2:08 [Mass/vol on in AM ume] in source Blood data Lymphocyt 0.7 - 4.5 K/mm3 Normal No Oct 16 es informati 2016 2:08 [#/volume on in AM ] in source Unspecifi data ed specimen by Automated count Lymphocyt 10 - 50.0 % Normal No Oct 19 es informati 2016 2:08 [#/volume on in AM ] in source Unspecifi data ed specimen by Automated count Erythrocy 27 - 31.2 pg Normal No Oct 19 te mean informati 2016 2:08 corpuscul on in AM ar source hemoglobi data n [Entitic mass] Erythrocy 31.8 - g/dl Normal No Oct 19 te mean 35.4 informati 2016 2:08 corpuscul on in AM ar source hemoglobi data n concentra tion [Mass/vol ume] by Automated count Erythrocy 82.2 - fL Normal No Oct 19 te mean 97.8 informati 2016 2:08 corpuscul on in AM ar volume source [Entitic data volume] by Automated count Monocytes 0.1 - 1.0 K/mm3 Normal No Oct 16 informati 2016 2:08 [#/volume on in AM ] in source Blood by data Automated count Monocytes 1.7 - 9.3 % Normal No Oct 16 /100 informati 2017 2:08 leukocyte on in AM s in source Blood by data Automated count Platelets 142 - 424 K/mm3 Normal No Oct 16 informati 2017 2:08 [#/volume on in AM ] in source Blood data Erythrocy 4.2 - 5.4 M/mm3 Normal No Oct 16 raina informati 2017 2:08 [#/volume on in AM ] in source Amniotic data fluid Erythrocy 11.5 - % Normal No Oct 19 te 17.5 informati 2017 2:08 distribut on in AM ion width source [Entitic data volume] by Automated count Leukocyte 4.8 - K/mm3 Normal No Oct 16 s 10.8 informati 2017 2:08 [#/volume on in AM ] in source Blood data
--- OUTSIDE RECORDS SUMMARY | 2016-10-22 14:22 | External Medical Summary Rpt ---
[...] IS Plasma CONSIDERE D LEGALLYIN TOXICATED UNDER [place] [employer]. Acetaminophen [Mass/volume] in Unspecified specimen Observa [...]
[2016-10-22 14:23] LABS: URINE BILIRUBIN - DIPSTICK NEGATIVE (NEG); URINE BLOOD 3+ (NEG)
[2016-10-22 14:55] VITALS: BP 164/84
[2016-10-27] MEDS ORDERED: AMOXICILLI400 MG/52 PO (17:51)
[2016-10-27] MEDS ORDERED: AMOXICOT500 MG PO (17:52)
== END 2016-10-22 14:56 | disposition home or self-care (01) ==
LOC: ER 13:52
PROVIDERS: Emergency Medicine
DX: R31.9 Hematuria, unspecified (principal)

== ENCOUNTER 2016-11-10 00:19 | Emergency (ER) | payer MEDICAID ==
[~2016-11-10] VITALS: Ht 147.3 cm; Wt 52.2 kg
[~2016-11-10 00:19] MED LIST changes: +AMOXICILLI400 MG/52 PO; +AMOXICOT500 MG PO; +MINOCYCLINE 10100 MG PO
--- OUTSIDE RECORDS SUMMARY | 2016-11-10 00:52 | External Medical Summary Rpt ---
Author Author , LANE SHERMAN Address Unknown Phone [email or web address] Care Team Providers Care Client Care Specialist Name Role Phone JONATHAN CASTILLO Unavailable Unavailable OMAR L, OMAR L Unavailable Unavailable CARLEY JAM, CARLEY JAM Unavailable Unavailable LEWIS, LEWIS Unavailable Unavailable LEWIS ALL, LEWIS ALL Unavailable Unavailable [facility] Unavailable Unavailable HOSPITAL, [facility] Unavailable Unavailable PRACTICE L, [facility] Unavailable Unavailable SERVICE, [facility] Unavailable Unavailable SERVICE, [facility] FARAH, FARAH Unavailable Unavailable CELLAROSI - YORBA Unavailable Unavailable PAT, CELLAROSI - YORBA PAT CHEESEMAN MICHELLE, Unavailable Unavailable CHEESEMAN MICHELLE SNOWDEN TJ, SNOWDEN Unavailable Unavailable TJ SNOWDEN TJ, SNOWDEN Unavailable Unavailable TJ ERIK SNOWDEN J, Unavailable Unavailable ERIK [facility], Unavailable Unavailable [facility] Un[facility] Unavailable [place], [facility] Unavailable Unavailable [facility] DAVON JONY, DAVON Unavailable Unavailable JONY KRISTAL, KRISTAL Unavailable Unavailable KRISTAL KIERA, Unavailable Unavailable KRISTAL KIERA KRISTAL KIERA, Unavailable Unavailable KRISTAL KIERA KRISTAL, GALA, Unavailable Unavailable KRISTAL, GALA LIRA PAULA, LIRA Unavailable Unavailable PAUL[facility] Un[place] Unavailable Unavailable [facility] Unavailable Unavailable ECKERLINE C, Unavailable Unavailable ECKERLINE C FARAGASSO DEV, Unavailable Unavailable FARAGASSO DEV EPPS YANELIS, EPPS Unavailable Unavailable YANELIS QUANG CHUY, QUANG Unavailable Unavailable CHUY QUANG CHUY, QUANG Unavailable Unavailable CHUY CATARINA DEL RIO, Unavailable Unavailable CATARINA DEL RIO [facility] Unavailable Unavailable HOSPITA, [facility] Unavailable Unavailable EMS, [facility] Unavailable [facility]available EMS, [facility] Unavailable Unavailable EMS, [facility] HARPEL DAVID, HARPEL Unavailable Unavailable DAVID HARPEL DAVID, HARPEL Unavailable Unavailable DAVID HARPEL, ZURDO R, Unavailable Unavailable HARPEL, ZURDO R DOMÍNGUEZ KYLE, DOMÍNGUEZ Unavailable Unavailable KYLE [facility] Unavailable Unavailable CENTER, [facility] Unavailable Unavailable CENTER, [facility] Unavailable Unavailable INC, [facility] Unavailable [facility]available [facility], [facility] Unavailable [facility]available HOSPITAL P, [facility] REMI STRATTON HARVEY, Unavailable Unavailable REMI [facility], Unavailable Unavailable [facility] CRADONA, CARDONA Unavailable Unavailable CARDONA CHRIS, CARDONA CHRIS Unavailable Unavailable CARDONA CHRIS, CARDONA CHRIS Unavailable Unavailable ROBY IMT, ROBY Unavailable Unavailable IMT JAHANSHAHI FEE, Unavailable Unavailable JAHANSHAHI FEE JAHANSHAHI FEE, Unavailable Unavailable JAHANSHAHI FEE [facility] Unavailable Unavailable IMAGING [facility], [facility] ANNA DAYTON, ANNA DAYTON [...] Unavailable [facility] Unavailable Unavailable SERVICES, [facility] MAST ANN, MAST ANN Unavailable Unavailable MAST ANN, MAST ANN Unavailable Unavailable PEDRO PISANO JR Unavailable Unavailable F, PEDRO PISANO JR, PAMELA Unavailable Unavailable R, CARLOTA, ADRIAN R ASHOK ANDREWS, Unavailable Unavailable ASHOK ANDREWS [facility] Unavailable [facility] SUAZO MITCHEL, SUAZO MITCHEL Unavailable Unavailable SUAZO MITCHEL, SUAZO MITCHEL Unavailable Unavailable RADHA EDW, RADHA Unavailable Unavailable EDW O'OMAIRA ANASTACIO, O'OMAIRA Unavailable Unavailable ANASTACIO O'OMAIRA ANASTACIO, O'OMAIRA Unavailable Unavailable ANASTACIO [facility] Unavailable [facility]available [facility], [facility] Unavailable Unavailable LAB, [facility] KINDRA MEJIA, Unavailable Unavailable KINDRA MEJIA PICKLESIMER JR GARRETT, Unavailable Unavailable PICKLESIMER JR GARRETT PICKLESIMER JR GARRETT, Unavailable Unavailable PICKLESIMER JR GARRETT [facility], Unavailable Unavailable [facility], Unavailable Unavailable [facility] RENUSCH YULIANA, RENUSCH Unavailable Unavailable YULIANA [id number], Unavailable Unavailable [id number] Unavailable Unavailable [id number] [id number], [facility] [id number] [address] [id number] BLAKE KERMIT, BLAKE KERMIT Unavailable Unavailable BLAKE KERMIT, BLAKE KERMIT Unavailable Unavailable HONEY HERNANDEZ H, Unavailable Unavailable MARY MOHAMED H ALESSIO MITCHEL, ALESSIO Unavailable Unavailable MITCHEL SCALF SANTIAGO, SCALF SANTIAGO Unavailable Unavailable SCHEURICH, ADRIAN, Unavailable Unavailable SCHEKATERINA, ADRIAN VINITA ANNIKA, Unavailable Unavailable SCHULSTJAREN ANNIKA ZAVALA SHA, ZAVALA SHA Unavailable Unavailable ZAVALA SHA, ZAVALA SHA Unavailable Unavailable SOKAN BAB, SOKAN BAB Unavailable Unavailable SOKAN, ADAN O, Unavailable Unavailable SOKAN, ADAN O SOTINGEANU MEDINA, Unavailable Unavailable [facility], [facility] Unavailable Unavailable [facility], [facility] ROSY SHE, Unavailable Unavailable ROSY SHE VIRAJ HU E, Unavailable Unavailable VIRAJ HU [facility], Unavailable Unavailable [facility], Unavailable Unavailable [facility] WEHRMAN III MITCHEL, Unavailable Unavailable WEHRMAN III [...] [facility] R079 CHEST PAIN 07-07-2016 [facility]- UNSPECIFIED [facility] R1013 EPIGASTRIC 07-07-2016 [facility] PAIN [facility] EMS [id number] PAIN IN 06-08-2016 [facility] I28869 PAIN IN 06-08-2016 [place] UNSPECIFIED [facility] HIP IMAGING ASS L52602 PAIN IN 06-08-2016 [place] RIGHT MEDICAL FOREARM IMAGING ASS Q60173 PAIN IN 06-08-2016 [place] [facility] THIGH [facility] [id number] UNSPECIFIED 06-08-2016 [place] INJURY MEDICAL RIGHT ELBOW IMAGING ASS INITIAL ENCOUNTER Z7689 PERSONS 06-08-2016 [facility] ENCOUNTER [facility] HEALTH SRVC SERVICE OTH CIRCUMSTANC ES Z452 ENCOUNTER 05-23-2016 [place] ADJUSTMENT& MEDICAL MGMT IMAGING ASS VASCULAR ACCESS DEVICE R600 LOCALIZED 05-21-2016 [place] EDEMA [facility] Z8701 PERSONAL 05-19-2016 [place] HISTORY OF MEDICAL PNEUMONIA IMAGING ASS RECURRENT J209 ACUTE 05-11-2016 [facility] BRONCHITIS PHYSICIANS, UNSPECIFIED PLLC N926 IRREGULAR 03-19-2016 [facility] MENSTRUATIO PHYSICIANS N GROUP UNSPECIFIED R102 PELVIC AND 03-19-2016 [facility] PERINEAL PHYSICIANS PAIN GROUP R1084 GENERALIZED 03-17-2016 [facility] ABDOMINAL PHYSICIANS, PAIN PLLC R109 UNSPECIFIED 03-13-2016 [place] ABDOMINAL [facility]ICAL PAIN IMAGING ASS R112 NAUSEA WITH 03-13-2016 [facility] VOMITING [facility]ANCE UNSPECIFIED SERVICE F749LCK FOREIGN 03-13-2016 [facility] BODY IN PHYSICIANS, VULVA & PLLC VAGINA INITIAL ENCOUNTER M545 LOW BACK 02-09-2016 [facility] PAIN PHYSICIANS, PLLC N200 CALCULUS OF 02-09-2016 [facility] R1031 RIGHT LOWER 02-09-2016 [facility] IMAGING ASS R1032 LEFT LOWER 02-09-2016 [facility] A83642 ENCOUNTER 12-23-2015 [facility] ROUTINE PHYSICIANS CHECKING IU GROUP CONTRACEPT DEVICE T35785 MIGRAINE 12-05-2015 [place] W/AURA NOT PHYSICIAN INTRACT W/O PRACTICE L STAT MIGRAINOSUS S73472 PERSONAL 11-25-2015 [facility] HISTORY OF [facility] NICOTINE INC DEPENDENCE D15121 ENCOUNTER 11-08-2015 [facility] INITIAL PHYSICIANS PRESCRIPTIO GROUP N IU CONTRACEPT DEV Z7251 HIGH RISK 11-08-2015 [facility] HETEROSEXUA [facility] L BEHAVIOR INC N6011 DIFFUSE 10-05-2015 [facility] CYSTIC [facility] MASTOPATHY INC OF RIGHT BREAST N6489 OTHER 10-05-2015 [facility] SPECIFIED MEDICAL DISORDERS IMAGING ASS OF BREAST N644 MASTODYNIA 09-27-2015 [facility] PHYSICIANS GROUP J40 BRONCHITIS 08-23-2015 [facility] NOT PHYSICIANS SPECIFIED GROUP ACUTE OR CHRONIC K219 GASTRO-ESOP 08-10-2015 [facility] H REFLUX PHYSICIANS DISEASE GROUP WITHOUT ESOPHAGITIS B1920 UNS VIRAL 07-27-2015 [facility] HEPATITIS C [facility]OS[facility] WITHOUT INC HEPATIC COMA R071 CHEST PAIN 05-24-2015 [facility] N EMERGENCY BREATHING PHYS R0789 OTHER CHEST 05-24-2015 [facility] PAIN COMMUNTIY HOSPITA R5381 OTHER 05-24-2015 [facility] MALAISE SCOT T CO EMS M940 CHONDROCOST 05-16-2015 [facility] AL JUNCTION N EMERGENCY SYNDROME PHYS TIETZE R072 PRECORDIAL 05-16-2015 [facility] PAIN N EMERGENCY PHYS R509 FEVER 05-16-2015 [facility] UNSPECIFIED SCOT T CO EMS R52 PAIN 05-16-2015 [facility] UNSPECIFIED SCOT T CO EMS [id number] POISONING 02-24-2015 [facility] HEROIN [facility] UNDETERMINE INC D INITIAL ENCOUNTER 72157 COMA 01-09-2015 [facility] 71959 POISONING 01-09-2015 [facility] BY [facility] P 9779 POISONING 01-09-2015 [facility] UNSPECIFIED AMBULANCE SERVICE DRUG/MEDICI NAL SUBSTANCE 6824 CELLULITIS& 09-23-2014 [facility] OF ANESTH OF HAND EXCEPT THE BLUE FINGERS&FERN MB 6823 CELLULITIS 09-22-2014 [facility] AND [facility]SCESS PHYSICIANS, OF UPPER PLLC ARM AND FOREARM 7245 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[facility] BACKACHE PHYSICIANS GROUP 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[facility] 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 36628 PHLEBITIS&T 03-14-2014 [facility] HROMBOPHLEB MEM HOSP SUP VEINS INC UPPER EXTREM 87413 PHLEBITIS 03-14-2014 [facility] AND N EMERGENCY THROMBOPHLE PHYS BITIS OF OTHER SITE 5758 OTHER 03-14-2014 [facility] SPECIFIED [facility]OS[facility] DISORDER OF INC GALLBLADDER V148 PERSONAL 03-14-2014 [facility] HISTORY [facility] ALLERGY OTH INC SPEC MEDICINAL AGTS 70346 UNSPECIFIED 03-02-2014 [facility] CONSTIP[facility]IO CLINIC OF DANITA 2989 UNSPEC 03-02-2014 [facility] SYMPTOM HEALTH ASSOC CLINIC OF W/FEMALE [place] GENITAL ORGANS 6264 IRREGULAR 03-02-2014 WOMEN'S MENSTRUAL HEALTH CYCLE CLINIC OF DANITA 65568 ABDOMINAL 03-02-2014 WOMEN'S PAIN, LEFT HEALTH LOWER CLINIC OF QUADRANT DANITA 60304 UNSPECIFIED 02-02-2014 [facility] VAGINITIS HE[facility] AND CLINIC OF VULVOVAGINI DANITA TIS 22579 HEMATURIA 12-24-2013 [facility] UNSPECIFIED N EMERGENCY PHYS 16240 ABDOMINAL 12-24-2013 [place] [facility] OTHER MEDICAL SPECIFIED IMAGING ASS SITE 09360 CHLAMYDTRAC 01-02-2013 [facility] HOMATIS GARRETT INFECTION LOWER SITES V242 ROUTINE 01-02-2013 [facility] GARRETT FOLLOW-UP 6146 PELVIC 11-21-2012 [facility] PERITONEAL [facility] ADHESIONS, INC FEMALE V252 STERILIZATI 11-21-2012 [place] ON V2509 OT GENERAL 11-20-2012 [facility] CNSL&ADVICE INC CONTRACEPT MANAGEMENT 650 NORMAL 10-22-2012 ZAVALA SHA DELIVERY 93833 FIRST-DEGRE 10-22-2012 [facility] E PERINEAL [facility] LACERATION INC WITH DELIVERY V270 OUTCOME OF 10-22-2012 [facility] DELIVERY [facility] SINGLE INC LIVEBORN 58690 THREATENED 10-20-2012 [facility] TJ PREMATURE LABOR ANTEPARTUM V221 SUPERVISION 10-20-2012 SN[facility] TJ OF OTHER NORMAL 22478 OTHER 10-11-2012 HARPEL DAVID THREATENED LABOR, ANTEPARTUM 62229 ABNORMAL 08-08-2012 SP TJ MATERNAL GLUCOSE TOLERANCE ANTEPARTUM 85593 DELAY DELIV 07-30-2012 O'OMAIRA ANASTACIO AFTER SPONT/UNSPE C RUP MEMB ANTPRTM 56784 CHEST PAIN 07-27-2012 BLAKE KERMIT UNSPECIFIED 18360 CERVICAL 07-21-2012 O'OMAIRA ANASTACIO SHORTENING ANTEPARTUM CONDITION OR COMP 53599 PREMATURE 07-18-2012 [facility] RUPTURE [facility] ANTEPARTUM 7802 SYNCOPE AND 07-18-2012 [facility] COLLAPSE V2341 SUPERVISION 07-18-2012 [facility] W/HISTORY PRE-TERM LABOR V2389 SUPERVISION 07-18-2012 [facility] OF OTHER [facility] HIGH-RISK 62603 LATE 07-17-2012 [facility] ANTEPARTUM 08222 OT 07-17-2012 [facility] VENEREAL DISEASE ANTPRTM COND/COMPL 95575 OT CURRENT 07-17-2012 [facility] CLASSIFIABL E ELSW ANTPRTM 34299 CERVICAL 07-17-2012 O'OMAIRAANNAMARIA KASPER DELIVERED W/WO ANTPRTM COND V230 07-17-2012 [facility]ST ANN WITH HISTORY OF INFERTILITY 22308 NAUSEA WITH 06-30-2012 [facility] VOMITING [facility] INC 10689 ABDOMINAL 06-30-2012 [facility] PAIN, [facility]OS[facility] GENERALIZED INC V220 SUPERVISION 06-30-2012 SP SPENCER OF NORMAL FIRST V283 ENCOUNTER 06-19-2012 SP SPENCER ROUTINE SCREEN MALFORMATIO N ULTRASONIC 55099 DEHYDRATION 06-12-2012 [facility] 53572 HYPEREMESIS 06-12-2012 [facility] W/METAB INC DISTURBANCE ANTPRTM 7880 RENAL COLIC 06-12-2012 [facility] 97460 MILD 06-11-2012 QUANG CHUY HYPEREMESIS GRAVIDARUM UNSPEC EPIS CARE 591 HYDRONEPHRO 06-04-2012 KRISTAL SIS KIERA 16775 OTHER 06-04-2012 KRISTAL SPECIFIED KIERA DISORDER OF KIDNEY AND URETER 97963 THREATENED 06-03-2012 [facility] SERVICES UNSPEC EPIS CARE 02178 OTHER 06-03-2012 KRISTAL SPECIFED KIERA COMPLICATIO N ANTEPARTUM 56117 OT CURRENT 05-29-2012 WE[facility] III MATERNAL MITCHEL CCE-COMPL PG CB/PP-UNS EOC 4660 ACUTE 04-30-2012 [facility] BRONCHITIS [facility] INC V222 04-30-2012 [facility] INCIDENTAL INC 7910 PROTEINURIA 04-25-2012 [facility] TJ 7916 ACETONURIA 04-25-2012 [facility] TJ 5920 CALCULUS OF 04-24-2012 [facility] 5990 URINARY 04-24-2012 [facility] TRACT [facility]ERGENCY INFECTION SERVICES SITE NOT SPECIFIED 36422 INFS 04-24-2012 [facility] TRACT [facility] SERVICES UNSPEC EPIS CARE 63520 MILD 04-14-2012 [facility] HYPEREMESIS [facility]OS[facility] GRAVIDARUM INC ANTEPARTUM 22451 ABDOMINAL 04-14-2012 WEHRMAN III PAIN, MITCHEL UNSPECIFIED SITE 2768 HYPOPOTASSE 04-07-2012 [facility] DUYEN [facility] 5589 OTH&UNSPEC 04-07-2012 [facility] NONINFECTIO EMERGENCY US SERVICES GASTROENTER ITIS&COLITI S V745 SCREENING 03-19-2012 [facility] [place] EXAMINATION VALENTE FOR VENEREAL DISEASE 72378 INFECTIONS 03-06-2012 [facility] GENITOURINA INC RY TRACT ANTEPARTUM V7242 03-03-2012 [facility] EXAM[facility] OR TEST CENTER POSITIVE RESULT 31730 PAIN IN 02-13-2012 [place] JOINT, MEDICAL ANKLE AND IMAGING ASS FOOT 7295 PAIN IN 02-13-2012 [facility] [place] SOFT EMERGENCY TISSUES OF SERVICES LIMB 98825 UNSPECIFIED 02-13-2012 [facility] OF ANKLE SPRAIN AND STRAIN 57700 CONTUSION 02-13-2012 [facility] OF FOOT [facility]OS[facility] INC 9599 INJURY 02-13-2012 [place] OTHER AND MEDICAL UNSPECIFIED IMAGING ASS UNSPECIFIED SITE 24627 ACUT 01-29-2012 [facility] PYELONEPHRI [facility] TIS W/O LES INC RENAL MEDULRY NECROS 13188 UNSPECIFIED 01-29-2012 [facility] PYELONEPHRI SERVICES TIS 6201 CORPUS 01-10-2012 [facility] T[facility] LUTEUM CYST OR HEMATOMA 46581 ABDOMINAL 01-10-2012 [facility] TJ PAIN RIGHT LOWER QUADRANT 02714 UNSPECIFIED 11-10-2011 [facility] DENTAL [facility] CARIES INC 5259 UNSPECIFIED 11-10-2011 WEHR[facility] III DISORDER MITCHEL TEETH&SUPPO RTING STRUCTURES 23419 PAIN IN 09-26-2011 [place] JOINT, HAND MEDICAL IMAGING ASS 46481 CONTUSION 09-26-2011 [place] [place] OF HAND EMERGENCY SERVICES E9179 OTHER 09-26-2011 [place] STRIKING MEDICAL AGAINST IMAGING ASS W/WO SUBSEQUENT FALL 7804 DIZZINESS 08-23-2011 [facility] GIDDINESS SERVICES V692 PROBLEMS 08-21-2011 [facility] TJ RELATED TO HIGH-RISK SEXUAL BEHAVIOR 7231 CERVICALGIA 08-20-2011 [facility] 05026 SPASM OF 08-20-2011 [facility] CHRIS MUSCLE 6202 OTHER AND 08-15-2011 [place] UNSPECIFIED MEDICAL OVARIAN IMAGING ASS CYST 01883 OTHER 08-15-2011 [place] ASCITES [facility]ING ASS 2662 OTHER 07-26-2011 [facility] B-COMPLEX HEALTH DEFICIENCIE CENTER S V7241 07-26-2011 [facility] EXAM[facility]ATION HEALTH OR TEST CENTER NEGATIVE RESULT 7840 HEADACHE 07-19-2011 [facility] 6827 CELLULITIS 07-05-2011 [facility] [place] AND ABSCESS EMERGENCY OF FOOT SERVICES EXCEPT TOES 47979 UNSPECIFIED 05-31-2011 [facility] III ACUTE MITCHEL CONJUNCTIVI TIS 62193 UNSPECIFIED 05-31-2011 [facility] CONJUNCTIVI TIS 05968 LEUKOCYTOSI 05-28-2011 TAMIA S FEE UNSPECIFIED 90496 ABSCESS OF 05-28-2011 [facility] EYELID FEE 23694 ONE EYE: 05-27-2011 [facility] ANSARIN EMERGENCY IMPAIR; OTH SERVICES EYE: NR-NL VISN 29863 ORBITAL 05-27-2011 [facility] 06688 PAIN IN OR 05-27-2011 [place] [facility] SERV FOUNDATIO 32642 SWELLING OR 05-27-2011 [place] [facility]ASS OF SERV EYE FOUNDATIO 6820 CELLULITIS 05-27-2011 [place] [facility] AND ABSCESS SERV OF FACE FOUNDATIO 462 ACUTE 05-05-2011 [facility] PHARYNGITIS EMERGENCY SERVICES 61579 MIGRAINE 04-04-2011 [facility] W/O [facility] INTRACT W/O STATUS MIGRAINOSUS 6829 CELLULITIS 04-04-2011 [facility] CO AND ABSCESS HEALTH OF [place] [place] UNSPECIFIED SITE V5889 ENCOUNTER 04-01-2011 [facility] FOR OTHER N EMERGENCY SPECIFIED PHYSI AFTERCARE 9134 ELB 03-30-2011 [facility] FORARM&WRST MEM HOS[facility] INSECT INC BITE NONVENOMOUS W/O INF 47277 SPRAIN AND 07-31-2009 [place] STRAIN OF MEDICAL UNSPECIFIED IMAGING SITE OF ASSOCIATES WRIST E8493 PLACE OF 07-31-2009 [place] OCCURRENCE MEDICAL INDUSTRIAL IMAGING PLACES&PUSHPA ASSOCIATES ISES E918 CAUGHT 07-31-2009 [place] ACCIDENTALL MEDICAL Y IN OR IMAGING BETWEEN ASSOCIATES OBJECTS V2549 SURVEILLANC 06-16-2009 [facility]OM[facility] E OTH PREV HEALTH PRSC CLINIC OF CONTRACEPT [place] [facility] 9104 FCE 03-29-2009 [facility] NCK&SCLP NO EMERGENCY EYE INSECT SERVICES BITE ASSOCIATES NONVNOM W/O INF 9895 TOXIC 03-29-2009 [facility] EFFECT OF MEM HOSP VENOM INC 6160 CERVICITIS 03-07-2009 PATHOLOGY & AND CYTOLOGY ENDOCERVICI LAB TIS 20262 DYSPLASIA 03-07-2009 PATHOLOGY & OF CERVIX CYTOLOGY UNSPECIFIED LAB 81897 PAP SMER 03-04-2009 WOMEN'S CERV W/LW HEALTH GRADE CLINIC OF SQUAMOUS [place] [facility] [address] CERV HIGH 03-04-2009 WOMEN'S RISK HUMAN HEALTH PAPILLOMAVI CLINIC OF JENNIFER DNA [place] TEST POS PLLC 44452 PAP SMER 02-25-2009 [facility] CERV HEALTH W/ATYPICAL CENTRAL SQUAMOUS BANK ACCT CELLS UNDET V7231 ROUTINE 01-24-2009 WOMEN'S GYNECOLOGIC HEALTH AL CLINIC OF EXAMINATION [facility] 2331 CARCINOMA 12-12-2008 [facility] IN [facility] CERVIX UTERI 87528 ERLY ONSET 12-12-2008 [facility] W/WO MENTION ANTPRTM COND 85706 OTH 12-12-2008 [facility] CONGENITAL/ HOSPITAL ACQUIRED ABNORM CERVIX W/DELIVERY 32163 OTHER AND 12-12-2008 [facility] UTERINE INERTIA W/DELIVERY 63616 ULCER OF 11-25-2008 [facility], ESOPHAGUS ANNIKA WITHOUT BLEEDING 5780 HEMATEMESIS 11-25-2008 VINITA, ANNIKA 55029 VOMITING 11-25-2008 [facility] ALONE ANNIKA 45843 ACUTE 11-18-2008 PATHOLOGY & ESOPHAGITIS CYTOLOGY LAB 5533 DIAPHRAGMAT 11-18-2008 [facility] ANIVAL W/O MEM HOSP MENTION INC OBSTRUCTION /GANGREN 73399 OTH CURRENT 11-18-2008 [facility] MATERNAL [facility] CCE INC W/DELIVERY 5789 UNSPECIFIED 11-10-2008 [facility] HEMORRHAGE EMERGENCY OF SERVICES GASTROINTES ASSOCIATES TINAL TRACT 9309 FOREIGN 09-01-2008 EDMUNDO Sauceda BODY IN [facility] UNSPECIFIED HOSP SITE ON EXTERNAL EYE E914 FOREIGN 09-01-2008 EDMUNDO B BODY [facility] ACCIDENTALL HOSP Y ENTERING EYE&ADNEXA V8271 SCREENING 08-16-2008 [facility] FOR GENETIC PATHOLOGY DISEASE LAB NETWORK CARRIER INC STATUS V2543 SURVEILLANC 10-09-2007 Poly MAE PREV PRSC ZURDO [place]ward IMPL SUBDERMAL CONTRACEPT 6268 OTH D/O 08-29-2007 ZURDO Hayward MENSTRUATIO CATHY ARCINIEGA N&OTH ABN BLEED FE GNT TRACT 1110 PITYRIASIS 08-15-2007 [facility] VERSICOLOR [facility] 83728 ANAL OR 08-15-2007 [facility] RECTAL PAIN [facility] 9212 CONTUSION 08-01-2007 [facility] GILLETTE ORBITAL [facility]OS[facility] TISSUES INC E8494 PLACE OF 08-01-2007 [facility] IMAGING RECREATION ASSOCIATES AND SPORT E8851 FALL FROM 08-01-2007 [facility] 5781 BLOOD IN 07-31-2007 [facility] STOOL [facility] INTERNAL MED 7238 OTH SPEC 07-21-2007 ZURDO MAE MD ASSOC [...] CATHY ARCINIEGA DEFICIENCY ANEMIA 6918 OTHER 06-02-2007 [facility] AND RELATED PROF SERV CONDITIONS [id number] Excessive [place] vomiting in [facility] ER Allergies, Adverse Reactions, Alerts Type Drug Allergy [...] 16 WN ZA 11 17 17 28 IA 0 13 PH IN AR E MA [...] 10 6- 3- 00 06 TO ve IA 00 20 20 07 WN ED 50 [...] Ac MG ti /M ve L AL HI 59 06 0 No SO 76 -1 IA 25 9- Lo OS 00 20 ng [...] .0 TE 74 IN ti OF 11 23 EY ve EN 78 20 20 AI AC 90 10 10 D HI 1 PH CH SO AR AE D [...] E 15 0 MG /M L ME 59 08 12 01 1. 1 [address] 76 -2 -0 00 IN 94 AR ti OX 24 4- 3- 0 IC 00 KE ve YP 53 20 20 RO 70 09 09 PH DE GE [address] RENET[facility] K ER CY J ON E 15 0 MG /M L BU 00 11 12 00 12 3 EA 15 GA Ac TA 59 -2 -[address] 31 IN ti LB 13 5- 3- 00 SI 25 EY ve -A 36 20 20 DE CE 90 09 09 HI TA 5 PH CH HI AR AE N- MA L CA CY S FF OF 50 CY -3 NT 25 HI -4 AN 0 A ME 00 11 12 00 21 6 RI 81 SO Ac TH 60 -2 -0 .0 TE 02 KA ti YL 34 4- 3- 00 91 N ve IA 59 20 20 AI BA ED 31 09 09 D BA NI 5 PH TU SO AR ND LO M E NE #3 O 4 93 8 MG DO SE PK ANGULO 00 11 12 00 28 14 RI 81 SO Ac LF 60 -2 -0 .0 TE 02 KA ti AM 35 4- 3- 00 90 N ve ET 78 20 20 AI BA HO 12 09 09 D BA XA 8 PH TU ZO AR ND LE M E -T #3 O MP 93 8 DS TA BL ET TR 00 11 12 00 10 2 [...] bl AR e M #3 93 8 TR 00 08 08 00 28 28 RI 79 No Ac I- 55 -1 -2 .0 TE 53 t ti SP 59 2- 7- 00 40 Av ve RI 01 20 20 AI ai NT 85 09 09 D la EC 8 PH bl AR e TA M BL #3 ET 93 8 DO 00 08 08 00 60 30 RI 79 No Ac CU 53 -1 -2 .0 TE 53 t ti SA 63 1- 7- 00 41 Av ve TE 75 20 20 AI ai 70 09 09 D la SO 1 PH bl DI AR e UM M #3 25 93 0 8 MG CA PS UL E IB 53 08 08 00 60 15 RI 79 No Ac UP 74 -1 -2 .0 TE 53 t ti RO 60 1- 7- 00 38 Av ve FE 46 20 20 AI ai N 50 09 09 D la 60 5 PH bl 0 AR e MG M #3 TA 93 BL 8 ET RA 00 07 07 00 60 30 RI 79 CL Ac NI 17 -2 -3 .0 TE 31 AR ti TI 24 4- 0- 00 42 KE ve DI 35 20 20 AI NE 74 09 09 D DE 9 PH RE 15 AR K 0 M J MG #3 93 TA 8 BL ET IA 37 07 07 00 56 28 RI 79 SC Ac IL 00 -1 -3 .0 TE 21 HU ti OS 00 6- 0- 00 15 LS ve EC 45 20 20 AI TA 50 09 09 D D OT 3 PH CA C AR MP 20 M BE .6 #3 LL 93 K MG 8 TA BL ET ME 63 07 07 00 10 2 RI 79 SO Ac TO 30 -0 -1 .0 TE 10 KA ti CL 40 8- 6- 00 23 N ve OP 84 20 20 AI BA RA 60 09 09 D BA HI 5 PH TU DE AR ND M [...] 09 D BA TA 1 PH TU HI AR ND N- M E CA #3 [...] AR K M J #3 93 8 00 05 05 00 10 2 RI [...] ai RA 40 08 08 D la HI 1 PH bl DE AR e 5 M #3 MG 93 8 TA BL ET NI 00 05 05 00 20 10 [...] NT TA HI BL AN ET A GR 00 04 04 00 30 30 [...] CY OF CY NT HI AN A IA 00 03 04 00 20 5 EA 97 No Ac OC 09 -0 -[address] 10 t ti HL 39 6- 7- 00 SI 79 Av ve OR 65 20 20 DE ai PE 20 08 08 la RA 1 PH bl ZI AR e NE MA CY 10 OF MG CY NT TA HI B AN A 00 03 04 00 30 [...] Order Detail nces retati t Range on Urinalysis dipstick W Reflex Microscopic panel in Urine (10-20-2016 17:20) Appeara SL CLEAR complet nce of 017 CLOUDY ed Urine 17:20 Bacteri 2+ O complet a 017 ed [Presen 17:20 ce] in Urine sedimen t by Light microsc opy Bilirub NEGATIV NEG complet in 017 E ed [Presen 17:20 ce] in Urine by Test strip Erythro 1+ NEG Abnorma complet cytes 017 l ed [Presen 17:20 ce] in Urine Color DK YELLOW complet of 017 YELLOW ed Urine 17:20 Ketones NEGATIV NEG complet 017 E ed [Presen 17:20 ce] in Urine by Automat ed test strip Mucus TRACE NEG Abnorma complet [Presen 017 l ed ce] in 17:20 Urine sedimen t by Light microsc opy Mucus 3+ OCC complet [Presen 017 ed ce] in 17:20 Urine sedimen t by Light microsc opy Nitrite NEGATIV NEG complet 017 E ed [Presen 17:20 ce] in Urine by Test strip Erythro 3-5 0 complet cytes 017 ed [Presen 17:20 ce] in Urine sedimen t by Light microsc opy Urobili 1.0 NEG complet nogen 017 ed [Presen 17:20 ce] in Urine by Test strip Leukocy 10-20 O complet raina 017 wbc/hpf ed [#/volu 17:20 me] in Urine Drugs identified in Urine by Screen method (10-19-2016 02:31) Ampheta POSITIV <1000 Abnorma complet mine 017 E l ed [Presen 02:31 ce] in Urine by Screen method 11-Hydr POSITIV <50 Abnorma complet oxy 017 E l ed delta-9 02:31 tetrahy drocann abinol [Presen ce] in Unspeci fied specime n pH BldCo (10-22-2012 12:48) pH 7.13 7.35-7. complet BldCo 013 UNK 45 ed 12:48 CBC with AUTO DIFF (10-22-2012 03:05) WBC # 10-22- 10.6 4.8-10. complet Bld 013 K/MM3 8 ed Auto 03:05 RBC # 4.21 4.2-5.4 complet Bld 013 M/mm3 ed Auto 03:05 Hgb 06-19-2 11.5 12.2-16 complet Bld-mCn 013 g/dL .2 ed c 03:05 Hct Fr 19-2 33.9 % 37.0-47 complet Bld 013 .0 ed 03:05 MCV RBC 19-2 80.4 fl 82.2-97 complet 013 .8 ed 03:05 MCH RBC 19-2 27.2 pg 27-31.2 complet Qn 013 ed Auto 03:05 MEAN 19-2 33.8 31.8-35 complet CORPUSC 013 g/dl .4 ed ULAR 03:05 HGB CONC RDW RBC 19-2 14.7 % 11.5-17 complet Auto 013 .5 ed 03:05 Platele -19-2 229 142-424 complet t Bld 013 K/mm3 ed Ql 03:05 Manual MEAN 10-22-2 9.2 fl 7.4-10. complet PLATELE 013 4 ed T 03:05 VOLUME Granulo -19-2 62.8 % 37.0-80 complet cytes 013 .0 ed Fr Bld 03:05 Auto LYMPH % -19-2 30.6 % 10-50.0 complet 013 ed 03:05 [...] YELLOW complet COLOR 013 ed 02:00 URINE 06-19-2 CLOUDY CLEAR complet APPEARA 013 ed NCE 02:00 URINE 06-19-2 NEGATIV NEG complet GLUCOSE 013 E ed - 02:00 DIPSTIC K URINE 06-19-2 NEGATIV NEG complet BILIRUB 013 E ed IN - 02:00 DIPSTIC K URINE 06-19-2 NEGATIV NEG complet KETONE 013 E mg/dL ed 02:00 URINE 06-19-2 1.015 1.005-1 complet SPECIFI 013 UNK .030 ed C 02:00 GRAVITY URINE 06-19-2 NEGATIV NEG complet BLOOD 013 E ed 02:00 URINE 06-19-2 8.5 UNK 5.0-8.5 complet PH 013 ed 02:00 URINE 06-19-2 NEGATIV NEG complet PROTEIN 013 E mg/dL ed - 02:00 DIPSTIC K URINE 06-19-2 0.2 NEG complet UROBILI 013 E.U./dL ed NOGEN - 02:00 DIPSTIC K URINE 06-19-2 NEGATIV NEG complet NITRATE 013 E ed - 02:00 DIPSTIC K URINE 06-19-2 NEGATIV NEG complet LEUK 013 E ed ESTERAS 02:00 E URINE 06-19-2 5-10 NONE complet RENAL 013 #/HPF ed CELLS 02:00 URINE 06-19-2 4+ NONE complet AMORPH 013 ed SEDIMEN 02:00 T Procedures Procedure [place] [address] [facility] [place] [facility]RA[facility] 7 RADIOLOGY N W/O CONTRAST MATERIAL AMB A0427 [facility] 7 [facility] EMERGENCY TRANSPORT LEVEL 1 GROUND A0425 [facility] STATUTE MILE AMBULANCE A0429 [facility] 7 AMBULANCE AMBULANCE BL SERVICE SERVICE EMERGENCY TRANSPORT GROUND A0425 [facility] 7 AMBULANCE AMBULANCE PER SERVICE SERVICE STATUTE MILE RADIOLOGI 49202 [place] [facility] 7 MEDICAL EXAMINATI IMAGING ON PELVIS ASS 1/2 VIEWS RADIOLOGI 83502 [facility] 7 MEDICAL EXAMINATI IMAGING ON CHEST ASS SINGLE VIEW FRONTAL RADEX 79228 [facility] FOREARM 2 7 MEDICAL VIEWS IMAGING ASS RADEX 76714 [facility] ELBOW 7 MEDICAL COMPLETE IMAGING MINIMUM 3 ASS VIEWS RADIOLOGI 87490 [facility] C 7 MEDICAL EXAMINATI IMAGING ON FEMUR ASS MINIMUM 2 VIEWS RADIOLOGI 70086 [facility] C 7 MEDICAL EXAMINATI IMAGING [place] [address] [facility] HERNANDEZUTCHER EXTREMITY 7 MEDICAL NON-VASC IMAGING ASS REAL-TIME IMG LMTD RADIOLOGI 14144 [facility] CASTILLO C EXAM 7 MEDICAL CHEST 2 IMAGING VIEWS ASS FRONTAL&[place] [address] [facility] [place] [facility] TRANSVAGI 6 RADIOLOGY KYLE NAL RADIOLOGI 89593 [facility] [place] [facility] C 6 RADIOLOGY KYLE EXAMINAT[place] [address] [facility] ALL ABDOMEN & 6 MEDICAL PELVIS IMAGING W/CONTRAS ASS T MATERIAL GROUND A0425 [facility] MILEAGE 6 AMBULANCE AMBULANCE PER SERVICE SERVICE STATUTE MILE AMBULANCE A0429 [facility] SERVICE 6 AMBULANCE AMBULANCE BLS SERVICE SERVICE EMERGENCY TRANSPORT DRUG TST G0477 [facility] PRESUMP;C 6 [facility] PBL BEING INC INC READ DC OPT OBV ONLY THERAPEUT 26948 [facility] IC 6 [facility] PROPHYLAC INC INC TIC/DX INJECTION SUBQ/IM UNCLASSIF J3490 [facility] IED DRUGS 6 [facility] INC INC URINE 79214 [facility] 6 [facility] TEST INC [place] [address] [facility] ABDOMEN & 6 [facility] PELVIS INC INC W/O CONTRAST MATERIAL UNCLASSIF J3490 [facility] IED DRUGS 6 [facility] INC INC THERAPEUT 90780 [facility] IC 6 [facility] PROPHYLAC INC INC TIC/DX INJECTION SUBQ/IM IADNA 53470 [facility] CHLAMYDIA 6 [facility] INC INC TRACHOMAT IS AMPLIFIED PROBE TQ LEVONORGE J7298 [facility] SP STREL-RLS 6 PHYSICIAN TJ S GROUP INTRAUTER INE SHE[facility]BY SYS 52 MG INSERTION 04270 [facility] SP 6 PHYSICIAN TJ INTRAUTER S GROUP INE DEVICE IUD IADNA 27693 [facility] NEISSERIA 6 [facility] INC INC GONORRHOE AE AMPLIFIED PROBE TQ US BREAST 98197 [facility] AR[facility] UNI REAL 6 [facility] TIME INC INC WITH IMAGE COMPLETE US BREAST 61851 [facility] UNI REAL 6 MEDICAL TIME IMAGING WITH ASS IMAGE LIMITED HEPATITIS 66652 [facility] B CORE 6 [facility] ANTIBODY INC INC HBCAB TOTAL HEPATITIS 48481 [facility]ES Sauceda SURF 6 [facility] ANTIBODY INC INC HBSAB HEPATITIS 64191 M[facility] A 6 [facility] ANTIBODY INC INC HAAB COLLECTIO 86438 M[facility] N VENOUS 6 [facility] [place] [address] [facility] HEPATITIS 6 [facility] B INC INC SURFACE ANTIGEN INF AGT G0432 [facility] AB DETECT 6 [facility] EIA TECH INC INC HIV-1&/HI V-2 SCR HEPATITIS 86508 [facility] C 6 [facility] ANTIBODY INC INC RADIOLOGI 71994 [facility] [place] SCALF SANTI[facility] C EXAM 6 RADIOLOGY CHEST 2 VIEWS FRONTAL&L ATERAL AMB A0427 [facility] SERVICE 6 N SCOT T N SCOT T ALS CO EMS CO EMS EMERGENCY TRANSPORT LEVEL 1 ECG 22115 [facility] CELLAROSI ROUTINE 6 [place] - YORBA ECG EMERGENCY PAT W/LEAST PHYS 12 LDS I&[place] [address] [facility] TROPONIN 6 N N QUANTITAT COMMUNTIY COMMUNTIY TANO HOSPITA HOSPITA BLOOD 68585 [facility] COUNT 6 N N COMPLETE COMMUNTIY COMMUNTIY AUTO&AUTO HOSPITA HOSPITA DIFRNTL WBC THER 00146 [facility] PROPH/DX 6 N N NJX IV COMMUNTIY COMMUNTIY PUSH HOSPITA HOSPITA SINGLE/1S T SBST/[place] [address] [facility] INFUSION 6 N N HYDRATION COMMUNTIY COMMUNTIY EACH HOSPITA HOSPITA ADDITIONA L HOUR COLLECTIO 33338 [facility] N VENOUS 6 N N BLOOD COMMUNTIY COMMUNTIY VENIPUNCT HOSPITA HOSPITA URE COMPREHEN 02957 [facility] SIVE 6 N N METABOLIC COMMUNTIY COMMUNTIY PANEL HOSPITA HOSPITA FIBRIN 40470 [facility] DGRADJ 6 N N PRODUCTS COMMUNTIY COMMUNTIY D-DIMER HOSPITA HOSPITA QUANTITAT TANO ECG 52490 [facility] ROUTINE 6 N N ECG COMMUNTIY COMMUNTIY W/LEAST HOSPITA HOSPITA 12 [facility] TRCG ONLY W/O I&R GROUND A0425 [facility] 6 N SCOT T N SCOT T PER CO EMS CO EMS STATUTE MILE DRUG TEST G0479 [facility] 6 N N PRESUMP;I COMMUNTIY COMMUNTIY NSTRUMENT HOSPITA HOSPITA ED CHEMISTRY ANLYZER GROUND A0425 [facility] 6 N SCOT T N SCOT T PER CO EMS CO EMS STATUTE MILE ECG 12421 [facility] ROUTINE 6 N N ECG COMMUNTIY COMMUNTIY W/LEAST HOSPITA HOSPITA 12 [facility] TRCG ONLY W/O I&R COLLECTIO 33126 [facility] N VENOUS 6 N N BLOOD COMMUNTIY COMMUNTIY VENIPUNCT HOSPITA HOSPITA URE THER 33489 [facility] PROPH/DX 6 N N NJX IV COMMUNTIY COMMUNTIY PUSH HOSPITA HOSPITA SINGLE/1S T SBST/[place] [address] [facility] TROPONIN 6 N N QUANTITAT COMMUNTIY COMMUNTIY TANO HOSPITA HOSPITA RADIOLOGI 13313 [facility] C EXAM 6 N N CHEST 2 COMMUNTIY COMMUNTIY VIEWS HOSPITA HOSPITA FRONTAL&L ATERAL ECG 86826 [facility] ROUTINE 6 [place] YANELIS ECG EMERGENCY W/LEAST PHYS 12 LDS I&R ONLY AMB A0427 [facility] SERVICE 6 N SCOT T N SCOT T ALS CO EMS CO EMS EMERGENCY TRANSPORT LEVEL 1 ECG 12897 [facility] SHEN JR ROUTINE 5 [facility] W/LEAST P 12 LDS I&R ONLY AMB A0427 [facility] SERVICE 5 AMBULANCE AMBULANCE ALS SERVICE SERVICE EMERGENCY TRANSPORT LEVEL 1 GROUND A0425 [facility] PER SERVICE SERVICE STATUTE MILE ANES 00806 [facility] INTE 5 ANESTH SHE EXTREMITI OF THE ANT BLUE TRUNK & PERINEUM NOS INCISION 79362 TG NELSON L & 5 PHYSICIAN DRAINAGE S, PLLC ABSCESS COMPLICAT ED/MULTIP LE SUSCEPTIB 94170 [facility] LTY STDY 5 [facility] ANTIMICRB INC INC IAL MICRO/AGA R DILUTJ CULTURE 48614 [facility] BCT 5 [facility] ISOL&PRSM INC INC PTV ID ISOLATE EA URINE CULTURE 42225 [facility] BACTERIAL 5 [facility] INC INC QUANTTATI VE COLONY COUNT URINE URNLS DIP 68000 [facility] QUANG 5 PHYSICIAN CHUY STICK/TAB S GROUP LET RGNT NON-AUTO W/O MICRSCP UNCLASSIF J3490 [facility] IED DRUGS 4 [facility] INC INC 70453 [facility] TRANSVAGI 4 [facility] URNLS DIP 48320 [facility] 4 HEALTH JT STICK/TAB CLINIC OF LET RGNT [place] NON-AUTO W/O MICRSCP HANDLG&/O 89045 [facility] R CONVEY 4 HEALTH TJ OF SPEC CLINIC OF FOR TR DANITA OFFICE TO LAB SMR PRIM 69844 [facility] SRC WET 4 HEALTH TJ [facility] AGT DANITA CULTURE 48788 [facility] BACTERIAL 4 [facility] INC INC QUANTTATI VE COLONY COUNT URINE UNCLASSIF J3490 [facility] IED DRUGS 4 [facility] INC INC URINE 18739 [facility] ARNETT 4 [facility] TEST INC INC VISUAL COLOR CMPRSN METHS URNLS DIP 67512 [facility] AR[facility]T 4 [facility] STICK/TAB INC [place] [address] M[facility]QUI[facility]ES ARNETT ABDOMEN & 4 [facility] PELVIS INC INC W/O CONTRAST MATERIAL IADNA 72702 PICKLESIM PICKLESIM NEISSERIA 3 ER JR GARRETT ER JR GARRETT GONORRHOE AE AMPLIFIED PROBE TQ CYTP C/V 76353 P[facility]LES[facility] PICKLESIM AUTO THIN 3 ER JR GARRETT ER JR GARRETT LYR PREPJ SCR MNL RESCR PHYS IADNA 84929 PICKLESIM PICKLESIM CHLAMYDIA 3 ER JR GARRETT ER JR GARRETT [place] [address] [facility] INFUSION 3 [facility] THERAPY INC INC PROPHYLAX IS/DX EA HOUR LAPAROSCO 78431 [facility] PY W/PLMT 3 [facility] INC INC OCCLUSION DEVICE OVIDUCTS ANES IPER 46276 SUAZO MITCHEL SUAZO MITCHEL LWR ABD 3 W/LAPS TUBAL LIGATION/ TRANSECT BASIC 12940 [facility] METABOLIC 3 [facility] PANEL INC INC CALCIUM TOTAL GONADOTRO 61565 [facility] PIN 3 [facility] CHORIONIC INC INC QUALITATI VE BLOOD 65866 [facility] COUNT 3 [facility] COMPLETE INC INC AUTO&AUTO DIFRNTL WBC VAGINAL 94314 [facility] DELIVERY 3 TJ TJ ONLY W/POSTPAR LAUREN CARE NEURAXIAL 56979 SALLY ZAVALA SHA LABOR 3 ANALG/ANE S PLND VAGINAL DELIVERY REPAIR OF 1071 [facility] OTHER 3 [facility] CURRENT INC INC OBSTETRIC LACERATIO N 86318 [facility] NONSTRESS 3 TJ TJ TEST 17463 [facility] NONSTRESS 3 TJ TJ TEST 11168 HARPEL HARPEL NONSTRESS 3 DAVID DAVID TEST CULTURE 04041 [facility] BACTERIAL 3 [facility] INC INC QUANTTATI VE COLONY COUNT URINE URNLS DIP 67481 [facility] ARNETT 3 [facility] STICK/TAB INC INC LET REAGENT AUTO MICROSCOP Y 26765 [facility] NONSTRESS 3 TJ TJ TEST 22778 [facility] NONSTRESS 3 TJ TJ TEST CUL BACT 74220 COMBINED COMBINED XCPT 3 PHYSICIAN PHYSICIAN URINE S LA S LA BLOOD/STO OL AEROBIC ISOL 52652 [facility] NONSTRESS 3 TJ TJ TEST 10514 [facility] NONSTRESS 3 TJ TJ TEST 54492 [facility] NONSTRESS 3 TJ TJ TEST 68422 [facility] NONSTRESS 3 TJ TJ TEST US PREG 73812 [facility] UTERUS 3 TJ TJ REAL TIME W/IMAGE DCMTN TRANSVAG DOPPLER 78246 [facility] VELOCIMET 3 TJ TJ RY UMBILICAL ARTERY 25672 [facility] BIOPHYSIC 3 TJ TJ AL PROFILE NON-STRES S TESTING 15567 [facility] NONSTRESS 3 TJ TJ TEST 97351 [facility] NONSTRESS 3 TJ TJ TEST GLUCOSE 82247 [facility] TOLERANCE 3 TJ TJ TEST GTT 3 SPECIMENS 64413 [facility] NONSTRESS 3 [place] [address] O'OMAIRA O'OMAIRA 3 ANASTACIO ANASTACIO UTERUS LIMITED 1/> FETUSES ECG 26852 [facility] ROUTINE 3 ECG W/LEAST 12 LDS [place] [address] [facility]ENN GLENN UTERUS LIMITED 1/> FETUSES [place] PREG 23270 O'OMAIRA O'OMAIRA UTERUS 3 ANASTACIO CHAVES REAL TIME W/IMAGE DCMTN TRANSVAG SBSQ 28306 [facility] 3 GLENN ELIZABETH CARE/DAY 25 MINUTES ECG 37829 DAKOTA SINGHO CHI ROUTINE 3 ECG W/LEAST 12 LDS I&R ONLY SBSQ 50539 [facility] 3 [facility]ENN ELIZABETH CARE/DAY 25 MINUTES US PREG 80993 [facility] UTERUS 3 GLENN ELIZ[facility]ETH [place] [address] [facility] 3 GLENN ELIZABETH UTERUS LIMITED 1/> FETUSES US PREG 28566 [facility] UTERUS 3 Y Y REAL TIME HOSPITAL HOSPITAL W/IMAGE DCMTN TRANSVAG ECG 23842 [facility] ECG W/LEAST 12 LDS I&R ONLY SBSQ 16951 [facility] 3 CARE/DAY 25 MINUTES US PREG 31185 [facility] UTERUS 3 Y Y W/DETAIL HOSPITAL HOSPITAL ARNOLD 1ST GESTATION THERAPEUT 01243 [facility] IC 3 [facility] PROPHYLAC INC INC TIC/DX INJECTION SUBQ/IM [place] PREG 89233 [facility] UTERUS 3 TJ TJ REAL TIME W/IMAGE DCMTN TRANSVA [facility] G0378 [facility]QUI[facility] AR[facility] OBSERVATI 3 MEM [...] ON HCL PER 1 MG US PREG 67418 [facility] UTERUS 3 TJ TJ AFTER 1ST TRIMEST 1/1ST GESTATION INJECTION J2405 [facility] 3 [facility] ONDANSETR INC INC ON HCL PER 1 MG BASIC 31343 [facility]QU[facility] AR[facility]T METABOLIC 3 [facility] PANEL INC INC [facility] G0378 [facility] OBSERVATI 3 [facility] ON INC INC SERVICE PER HOUR BLOOD 62776 [facility] COUNT 3 [facility] COMPLETE INC INC AUTO&AUTO DIFRNTL WBC BLOOD 94187 [facility] COUNT 3 [facility] COMPLETE INC INC AUTO&AUTO DIFRNTL WBC URNLS DIP 87593 [facility] ARNETT 3 [facility] STICK/TAB INC INC LET REAGENT AUTO MICROSCOP Y HOSPITAL G0378 [facility] AR[facility]T OBSERVATI 3 [facility] ON INC INC SERVICE PER HOUR CULTURE 40161 [facility] AR[facility]T BACTERIAL 3 [facility] INC INC QUANTTATI VE COLONY COUNT URINE INJECTION J2405 [facility]QUI[facility] ARNETT 3 [facility] ONDANSETR INC INC ON HCL PER 1 MG COMPREHEN 90567 M[facility]QU[facility] AR[facility] SIVE 3 [facility] METABOLIC INC INC PANEL THERAPEUT 61364 M[facility]QU[facility] ARNETT IC 3 [facility] INJECTION [place] [address] MELQUIADES ARNETT INFUSION 3 [facility] THERAPY/P INC INC ROPHYLAXI S /DX 1ST TO 1 HR BLOOD 81147 [facility] COUNT 3 [facility] COMPLETE INC INC AUTO&AUTO DIFRNTL WBC INITIAL 34491 [facility] OBSERVATI 3 TJ TJ ON CARE/DAY 50 MINUTES RADEX 95503 [facility] ABDOMEN 3 [facility] COMPL INC INC W/DCBTS&/ ERC VIEWS INJECTION J2405 [facility] ARNETT 3 [facility] ONDANSETR INC INC ON HCL PER 1 MG UROGRAPHY 12946 KRISTAL KRISTAL IV W/WO 3 KIERA KIERA KUB W/WO TOMOGRAPH Y BASIC 27933 [facility]QUI[facility] AR[facility]T METABOLIC 3 [facility] PANEL INC INC [facility] G0378 [facility] OBSERVATI 3 [facility] ON INC INC SERVICE PER HOUR LOCM Q9967 M[facility]QUI[facility] ARNETT 300-399 3 [facility] MG/ML INC INC IODINE CONCENTRA TION PER ML HOSPITAL G0378 [facility] AR[facility] OBSERVATI 3 [facility] ON INC INC SERVICE PER HOUR URNLS DIP 25888 MELQUIAEDSEMY ARNETT 3 [facility] STICK/TAB INC INC LET REAGENT AUTO MICROSCOP Y BLOOD 51402 [facility]QUI[facility] COUNT 3 [facility] COMPLETE INC INC AUTO&AUTO DIFRNTL WBC INJECTION J2405 MELQUIADES MELQUIADES 3 [facility] ONDANSETR INC INC ON HCL PER 1 MG COMPREHEN 04290 M[facility]QUI[facility] AR[facility]T SIVE 3 [facility] [place] [address] MELQUIADES ARNETT 3 [facility] UTERUS INC INC LIMITED 1/> [place] [address] MELQUIADES ARNETT INFUSION 3 [facility] THERAPY/P INC INC ROPHYLAXI S /DX 1ST TO 1 HR INITIAL 27723 [facility] OBSERVATI 3 TJ TJ ON CARE/DAY 30 MINUTES ALPHA-FET 87320 [facility] OPROTEIN 3 [facility] [place] [address] MELQUIADES ARNETT ESTRIOL 3 [facility] INC INC GONADOTRO 54485 MELQUIADES ARNETT PIN 3 [facility] CHORIONIC INC INC QUANTITAT TANO GONADOTRO 84089 MELQUIADES ARNETT PIN 3 [facility] CHORIONIC INC INC QUANTITAT TANO URINE 20917 MELQUIADES ARNETT 3 [facility] TEST INC INC VISUAL COLOR CMPRSN METHS BLOOD 25051 [facility]QUI[facility] AR[facility]T COUNT 3 [facility] COMPLETE INC INC AUTO&AUTO DIFRNTL WBC [place] PREG 93416 KRISTAL KRISTAL UTERUS 3 KIERA KIERA REAL TIME F/U TRNSABDL PER FETUS URNLS DIP 26435 MELQUIADES MELQUIADES 3 [facility] STICK/TAB INC [place] [address] MELQUIADES ARNETT 3 [facility] UTERUS INC INC LIMITED 1/> FETUSES COMPREHEN 62268 MELQUIADES ARNETT SIVE 3 [facility] METABOLIC INC [place] P[place] 01078 [facility] AR[facility]T UTERUS 3 [facility] REAL TIME INC [place] [address] M[facility]QUIAD[facility] ARNETT STREPTOCO 2 [facility] CCUS INC INC GROUP A IAADI 41969 MELQUIADES ARNETT INFLUENZA 2 [facility] B VIRUS INC INC IAADI 59949 M[facility]QUI[facility] AR[facility] INFFLUENZ 2 [facility] A A VIRUS INC INC URNLS DIP 81296 [facility] 2 TJ TJ STICK/TAB LET RGNT NON-AUTO W/O MICRSCP CULTURE 92420 [facility]QUI[facility] AR[facility] BACTERIAL 2 [facility] INC INC QUANTTATI VE COLONY COUNT URINE US PREG 43485 M[facility]QUIAD[facility] ARNETT UTERUS 2 [facility] REAL TIME INC INC W/[place] [address] MELQUIADES ARNETT RETROPERI 2 [facility] TONEAL INC INC REAL TIME W/IMAGE COMPLETE URNLS DIP 94040 MELQUIADES ARNETT 2 [facility] STICK/TAB INC INC LET REAGENT AUTO MICROSCOP Y URNLS DIP 70665 SP [facility] 2 TJ TJ STICK/TAB LET RGNT NON-AUTO W/O MICRSCP US PREG 02213 [facility] AR[facility]T UTERUS 2 [facility] REAL TIME INC INC W/IMAGE DCMTN TRANSVAG COMPREHEN 42627 MELQUIADES ARNETT SIVE 2 [facility] METABOLIC INC INC PANEL INJECTION J2405 MELQUIADES ARNETT 2 [facility] ONDANSETR INC INC ON HCL PER 1 MG URNLS DIP 99131 MELQUIADES ARNETT 2 [facility] STICK/TAB INC INC LET REAGENT AUTO MICROSCOP Y BLOOD 16681 MELQUIADESEMY ARNETT COUNT 2 [facility] COMPLETE INC INC AUTO&[place] [address] MELQUIADES MELQUIADES INFUSION 2 [facility] THERAPY/P INC INC ROPHYLAXI S /DX 1ST TO 1 HR THERAPEUT 29043 MELQUIADES ARNETT IC 2 [facility] INJECTION INC INC IV PUSH EACH NEW DRUG THERAPEUT 31925 MELQUI[facility]ES ARNETT IC 2 [facility] INJECTION [place] [address] MELQUIADES ARNETT INFUSION 2 [facility] THERAPY/P INC INC ROPHYLAXI S /DX 1ST TO 1 HR BLOOD 15014 MELQUIADES ARNETT COUNT 2 [facility] COMPLETE INC INC AUTO&AUTO DIFRNTL WBC URNLS DIP 08662 MELQUIADES ARNETT 2 [facility] STICK/TAB INC INC LET REAGENT AUTO MICROSCOP Y URINE 00699 MELQUIADES ARNETT 2 [facility] TEST INC INC VISUAL COLOR CMPRSN METHS THER 60008 MELQUIADES ARNETT PROPH/DX 2 [facility] NJX EA INC INC SEQL [place] P[place] SBST/[place] [address] MELQUIADES ARNETT INFUSION 2 [facility] THERAPY INC INC PROPHYLAX IS/DX EA HOUR OBSERVATI 01854 SP SNOWDEN ON CARE 2 [place] [address] MELQUIADES ARNETT INFUSION 2 [facility] THER INC INC PROPH ADDL SEQUENTIA L TO 1 HR [facility] [id number] MELQUIADES MELQUIADES OBSERVATI 2 [facility] ON INC INC SERVICE PER HOUR INJECTION J2405 MELQUIADES MELQUIADES 2 [facility] ONDANSETR INC INC ON HCL PER 1 MG BASIC 73922 MELQUIADES ARNETT METABOLIC 2 [facility] PANEL INC INC CALCIUM TOTAL CULTURE 56424 MELQUIADES ARNETT BACTERIAL 2 [facility] INC INC QUANTTATI VE COLONY COUNT URINE INITIAL 33912 SP SNOWDEN OBSERVATI 2 TJ TJ ON CARE/DAY 50 MINUTES CYTP 37467 [facility] KNIGHT CERVICAL/ 2 [facility] VAGINAL REQ INTERP PHYSICIAN CYTP C/V 88117 [facility] KNIGHT AUTO THIN 2 [facility] LYR PREPJ SCR MNL RESCR PHYS IADNA 24751 [facility]IGHT NEISSERIA 2 [facility] GONORRHOE AE AMPLIFIED PROBE TQ IADNA 02980 [facility] CHLAMYDIA 2 [facility] TRACHOMAT IS AMPLIFIED PROBE TQ US PREG 90714 SP SNOWDEN UTERUS 2 TJ TJ REAL TIME W/IMAGE DCMTN TRANSVAG URINE 07808 [facility]IADES ARNETT 2 [facility] TEST INC INC VISUAL COLOR CMPRSN METHS URNLS DIP 81277 M[facility]QUIADES ARNETT 2 [facility] STICK/TAB INC INC LET REAGENT AUTO MICROSCOP Y URINE 33995 MELQUIADES ARNETT 2 [facility] CENTER VISUAL COLOR CMPRSN METHS CRTCHS E0114 [facility] UNDARM 2 OTH THAN WOOD PAIR PAD TIP&HNDGR IP RADEX 50638 MELQUIADES ARNETT FOOT 2 [facility] COMPLETE INC INC MINIMUM 3 VIEWS CULTURE 23367 MELQUIADES ARNETT BACTERIAL 2 [facility] INC INC QUANTTATI VE COLONY COUNT URINE SUSCEPTIB 62623 MELQUIADES ARNETT LTY STDY 2 [facility] ANTIMICRB INC INC IAL MICRO/AGA R DILUTJ URNLS DIP 33558 [facility]ES ARNETT 2 [facility] STICK/TAB INC INC LET REAGENT AUTO MICROSCOP Y URINE 64421 [facility]QUIADES ARNETT 2 [facility] TEST INC INC VISUAL COLOR CMPRSN METHS THERAPEUT 11576 MELQUIADES ARNETT IC 2 [facility] PROPHYLAC INC INC TIC/DX INJECTION SUBQ/[place] [address] SP SNOWDEN TRANSVAGI 2 TJ TJ NAL URINE 26388 SP SNOWDEN 2 TJ TJ [place] [address] SP SNOWDEN TRANSVAGI 2 TJ TJ NAL RADEX 44229 [facility] 2 [facility] MINIMUM 3 IMAGING VIEWS ASS URINE 94669 MELQUIADES ARNETT 2 [facility] TEST INC INC VISUAL COLOR CMPRSN METHS URNLS DIP 44100 MELQUIADES ARNETT 2 [facility] STICK/TAB INC [place] [address] BECKY GIRALDO TRANSVAGI 2 MEDICAL [facility] NAL IMAGING ASS COMPREHEN 87759 MELQUIADES ARNETT SIVE 2 [facility] [place] [address] MELQUIADES ARNETT LIPASE 2 [facility] INC INC URNLS DIP 67558 MELQUIADES ARNETT 2 [facility] STICK/TAB INC INC LET REAGENT AUTO MICROSCOP Y BLOOD 70106 MELQUIADES ARNETT COUNT 2 [facility] COMPLETE INC INC AUTO&AUTO DIFRNTL WBC URINE 75831 MELQUIADES ARNETT 2 [facility] TEST INC INC V[place] [address] MELQUIADES ARNETT AMYLASE 2 [facility] INC INC URINE 60394 MELQUIADES ARNETT 2 [facility] CENTER VISUAL COLOR CMPRSN METHS THERAPEUT 53725 MELQUIADES VASQUEZON IC 2 [facility] PROPHYLAC INC INC TIC/DX INJECTION SUBQ/IM INJECTION J0595 MELQUIADES MELQUIADES 2 [facility] BUTORPHAN INC INC OL TARTRATE 1 MG INJECTION J2405 MELQUIADES ARNETT 2 [facility] ONDANSETR INC INC ON HCL PER 1 [facility] [address] [facility] 2 I FEE I FEE DAY MANAGEMEN T 30 MIN/< SBSQ 09062 [facility] 2 I FEE I FEE CARE/DAY 25 MINUTES INITIAL 21171 [facility] 2 EMERGENCY PAULA CARE/DAY SERVICES [address] ORBIT 21762 LAKSHMI BURRIS SELLA/POS 2 MEDICAL T SERV FOSSA/EAR FOUNDATIO W/[place] [address] MELQUIADES ARNETT STREPTOCO 1 [facility] CCUS INC INC GROUP A INJECTION [id number] [address] KETOROLAC TROMETHAM INE PER 15 MG THERAPEUT 02099 [facility] IC 1 [facility] PROPHYLAC TIC/DX INJECTION SUBQ/IM ONDANSETR Q0179 [facility] ON HCL 8 1 [facility] MG ORL NOT >48 HR DOSE REGIMEN RADEX 08954 BECKY KRISTAL, WRIST 0 MEDICAL GALA COMPLETE IMAGING MINIMUM 3 ASSOCIATE VIEWS S RADEX 19852 BECKY KRISTAL, FOREARM 2 0 MEDICAL GALA VIEWS IMAGING ASSOCIATE S THERAPEUT 47021 [facility], IC 0 [facility] E[facility] J PROPHYLAC CLINIC OF TIC/DX INJECTION [place] SUBQ/IM PLLC THERAPEUT 76049 [facility], IC 9 [facility] ERIK J PROPHYLAC CLINIC OF TIC/DX INJECTION [place] SUBQ/[place] [address] PATHOLOGY PATHOLOGY SURG 9 & & PATHOLOGY CYTOLOGY CYTOLOGY LAB LAB GROSS&CHUY ROSCOPIC EXAM COLPOSCOP 99012 [facility] SP, Y CERVIX 9 HEALTH ERIK J BX CERVIX CLINIC OF & ENDOCRV [place] CURRETAGE PLLC CYTP C/V 79528 PATHOLOGY PATHOLOGY AUTO THIN 9 & & LYR CYTOLOGY CYTOLOGY PREPJ SCR LAB LAB MNL RESCR PHYS IADNA 82716 PATHOLOGY PATHOLOGY PAPILLOMA 9 & & VIRUS CYTOLOGY CYTOLOGY HUMAN LAB LAB AMPLIFIED PROBE TQ CYTP 89942 PATHOLOGY PATHOLOGY CERVICAL/ 9 & & VAGINAL CYTOLOGY CYTOLOGY REQ LAB LAB INTERP PHYSICIAN VAGINAL 34084 [place] [facility] DELIVERY 9 MEDICAL NN, ONLY SERV ADRIAN R FOUNDATIO OTHER 7359 UNIVERSIT UNIVERS MANUALLY 9 Y Y ASSISTED HOSPITAL HOSPITAL DELIVERY GROUND A0425 [facility] MILEAGE 9 AMBULANCE AMBULANCE PER SERVICE SERVICE STATUTE MILE 64476 [facility]ES AR[facility]T NONSTRESS 9 [facility] TEST INC INC OBSERVATI 88526 ZURDO MAE, ON/INPATI 9 CATHY Hayward [facility] HOSPITAL CARE 55 MINUTES AMB [id number] [facility] SERVICE 9 AMBULANCE AMBULANCE ALS SERVICE SERVICE EMERGENCY TRANSPORT LEVEL 1 [place] [address] M[facility]QUIADES ARNETT INFUSION 9 [facility] THERAPY/P INC INC ROPHYLAXI S /DX 1ST TO 1 HR HOSPITAL G0378 [facility]QUIADES AR[facility]T OBSERVATI 9 [facility] [place] [address] M[facility]QUIADES [facility] INFUSION 9 [facility] THERAPY INC INC PROPHYLAX IS/DX EA HOUR GLUCOSE 19965 [facility], POST 9 HEALTH ERIK GLUCOSE CLINIC OF DOSE [facility] GLUCOSE 89093 [facility], TOLERANCE 9 [facility] CL[facility] OF 3 SPECIMENS [facility] SPCL STN 81865 PATHOLOGY PATHOLOGY 2 I&R 9 & & EXCPT CYTOLOGY CYTOLOGY MICROORG/ LAB LAB ENZYME/IM CYT ANES 94719 [facility] UPPER GI 9 ANESTH CINDY L ENDOSCOPY OF THE [place] [address] PATHOLOGY PATHOLOGY SURG 9 & & PATHOLOGY CYTOLOGY CYTOLOGY LAB LAB GROSS&[place] [address] MELQUIADES ARNETT INFUSION 9 [facility] THERAPY/P INC INC ROPHYLAXI S /DX 1ST TO 1 HR EGD 09062 SCHULSTAD SCHULSTAD TRANSORAL 9 , ANNIKA , ANNIKA BIOPSY SINGLE/MU LTIPLE ESOPHAGOG 4516 M[facility]QUIADES AR[facility] ASTRODUOD 9 [facility] ENOSCOPY INC INC WITH CLOSED BIOPSY URNLS DIP 63698 M[facility]QUIADES ARNETT 9 [facility] STICK/TAB INC INC LET REAGENT AUTO MICROSCOP Y BLOOD 14828 MELQUIADES ARNETT COUNT 9 [facility] COMPLETE INC INC AUTO&AUTO DIFRNTL WBC BLOOD 57523 MELQUIADES ARNETT OCCULT 9 MEM HOSP [facility] PEROXIDAS INC INC E ACTV QUAL FECES 1-3 SPEC BASIC 98731 MELQUIADES ARNETT METABOLIC 9 [facility] PANEL INC INC CALCIUM TOTAL US PREG 40107 [facility], UTERUS 9 HEALTH ERIK J AFTER 1ST CLINIC OF TRIMEST [place] [facility] BASIC 26920 MELQUIADES ARNETT METABOLIC 9 [facility] PANEL INC INC CALCIUM TOTAL CULTURE 29780 MELQUIADES ARNETT BACTERIAL 9 [facility] INC INC QUANTTATI VE COLONY COUNT URINE URNLS DIP 48463 MELQUIADES ARNETT 9 [facility] STICK/TAB INC INC LET REAGENT AUTO MICROSCOP Y BLOOD 46964 MELQUIADES ARNETT COUNT 9 [facility] COMPLETE INC INC AUTO&[place] [address] MELQUIADES ARNETT ESTRIOL 9 [facility] INC INC GONADOTRO 56122 MELQUIADES ARNETT PIN 9 [facility] CHORIONIC INC INC QUANTITAT TANO ALPHA-FET 46919 MELQUIADES RANETT OPROTEIN 9 [facility] SERUM INC [place] PREG 33749 [facility], UTERUS 9 HEALTH ERIK J REAL TIME CLINIC OF W/IMAGE DCMTN CYNNUPUR TRANSVAG [facility] IADNA 24984 PATHOLOGY PATHOLOGY NEISSERIA 9 & & CYTOLOGY CYTOLOGY GONORRHOE LAB LAB AE AMPLIFIED PROBE TQ MOLECULAR 31287 MOLECULAR MOLECULAR DX AMP 9 TARGET PATHOLOGY PATHOLOGY MULTIPLEX LAB LAB 1ST 2 NETWORK NETWORK SEQ INC INC MOLECULAR 62783 MOLECULAR MOLECULAR 9 DIAGNOSTI PATHOLOGY PATHOLOGY CS LAB LAB INTERPRET NETWORK NETWORK ATION & INC INC REPORT MUTATION 57363 MOLECULAR MOLECULAR ID 9 ENZYMATIC PATHOLOGY PATHOLOGY LAB LAB LIG/PRIME NETWORK NETWORK R XTN 1 INC INC SGM EA CYTP 69935 PATHOLOGY PATHOLOGY CERVICAL/ 9 & & VAGINAL CYTOLOGY CYTOLOGY REQ LAB LAB INTERP PHYSICIAN CYTP C/V 16943 PATHOLOGY PATHOLOGY AUTO THIN 9 & & LYR CYTOLOGY CYTOLOGY PREPJ SCR LAB LAB MNL RESCR PHYS MOLECULAR 69828 MOLECULAR MOLECULAR DX AMP 9 TARGET PATHOLOGY PATHOLOGY MULTIPLEX LAB LAB EA ADDL NETWORK NETWORK SEQ INC INC MOLEC 91894 MOLECULAR MOLECULAR SEP&ID HI 9 RESOLU PATHOLOGY PATHOLOGY TQ EACH LAB LAB NUCLEIC NETWORK NETWORK ACID PREP INC INC IADNA 21727 PATHOLOGY PATHOLOGY CHLAMYDIA 9 & & CYTOLOGY CYTOLOGY TRACHOMAT LAB LAB IS AMPLIFIED PROBE TQ MOLEC 86561 MOLECULAR MOLECULAR ISOL/XTRJ 9 HP PATHOLOGY PATHOLOGY NUCLEIC LAB LAB ACID EA NETWORK NETWORK TYPE INC INC URINE 54595 DHS/CO MELQUIADES 9 [facility] VISUAL BANK ACCT COLOR CMPRSN METHS REMOVAL 30821 CATHY MAE, IMPLANTAB 8 ZURDO Hayward LE CONTRACEP TIVE CAPSULES BLOOD 29265 MELQUIADES ARNETT COUNT 8 [facility] COMPLETE INC INC AUTO&AUTO DIFRNTL WBC URNLS DIP 07618 MELQUIADES ARNETT 8 [facility] STICK/TAB INC INC LET REAGENT AUTO MICROSCOP Y URINE 45141 MELQUIADES ARNETT 8 [facility] TEST INC [place] V[place] [address] MELQUIADES MELQUIADES THER 8 [facility] PROPH/DX INC INC 1ST >1 HR CULTURE 81042 MELQUIADES ARNETT BACTERIAL 8 [facility] INC INC QUANTTATI VE COLONY COUNT URINE COMPREHEN 25535 MELQUIADES ARNETT SIVE 8 [facility] METABOLIC INC INC PANEL URINE 39672 ZURDO MAE, 8 CATHY Hayward TEST VISUAL COLOR CMPRSN METHS RADEX 89332 MELQUIADES ARNETT WRIST 8 [facility] COMPLETE INC INC MINIMUM 3 VIEWS 3D 29637 BECKY GIRALDO, RENDERING 8 MEDICAL GALA IMAGING W/INTERP& [place]OCI[place] [address] MELQUIADES ARNETT ABDOMEN 8 [facility] W/O INC INC CONTRAST MATERIAL CULTURE 04383 MELQUIADES ARNETT BACTERIAL 8 [facility] INC INC QUANTTATI VE COLONY COUNT URINE CT PELVIS 04665 BECKY GIRALDO, W/O 8 MEDICAL GALA CONTRAST IMAGING MATERIAL ASSOCIATE S URINE 96556 MELQUIADES ARNETT 8 [facility] TEST INC INC VISUAL COLOR CMPRSN METHS CULTURE 11543 MELQUIADES ARNETT BCT 8 [facility] ISOL&PRSM INC INC PTV ID ISOLATE EA URINE URNLS DIP 86972 MELQUIADES ARNETT 8 [facility] STICK/TAB INC INC LET REAGENT AUTO MICROSCOP Y SUSCEPTIB 50487 MELQUIADES ARNETT LTY STDY 8 [facility] ANTIMICRB INC INC IAL MICRO/AGA R DILUTJ URINE 89026 ZURDO MAE, 8 CATHY Hayward TEST VISUAL COLOR CMPRSN METHS INSERTION 72563 ZURDO MAE, 8 CATHY Hayward IMPLANTAB LE CONTRACEP TIVE CAPSULES IADNA 15500 [facility] FRITZ, NEISSERIA 8 [place] INC VIRAJ E GONORRHOE AE AMPLIFIED PROBE TQ IADNA 21949 [employer] FRITZ, CHLAMYDIA 8 [place] INC VIRAJ E TRACHOMAT IS AMPLIFIED PROBE TQ CYTP 82817 [employer] FR[facility]Z, CERV/VAG 8 [place] INC VIRAJ E AUTO THIN LAYER PREP MNL SCREEN BLOOD 27001 ZURDO MAE, COUNT 8 [place] [address] MELQUIADES ARNETT STREPTOCO 8 [facility] CCUS INC INC GROUP A Encounters Encounter Start End Date Code Location Performer Type Date EMERGENCY 11343 TG CARDONA 7 7 PHYSICIAN DEPARTMEN S, [facility] T VISIT HIGH/URGE NT SEVERITY OFFICE 70044 [facility] PS SIMMONS 6 6 PHYSICIAN TJ T VISIT S GROUP 25 MINUTES EMERGENCY 33410 TG BURTONH 6 6 PHYSICIAN [place] [facility] S, [facility] T VISIT HIGH/URGE NT SEVERITY EMERGENCY 52833 TG RENUSCH DEPT 6 6 PHYSICIAN [place] VISIT S, [facility] HIGH SEVERITY& THREAT FUNCJ EMERGENCY 00494 TG RIZZO 6 6 PHYSICIAN U MEDINA [facility] S, [facility] T VISIT HIGH/URGE NT SEVERITY EMERGENCY 24106 MELQUIADES 6 6 [facility] T VISIT LOW/MODER SEVERITY HOSPITAL MELQUIADES - 6 6 [facility] OFF[facility] 16506 [facility] SP SIMMONS 6 6 PHYSICIAN TJ T VISIT S GROUP 15 MINUTES OFFICE 56552 TWINRACHEL DAVON OUTPATIEN 6 6 PHYSICIAN JONY T NEW 30 PRACTICE MINUTES HOSPITAL MELQUIADES - 6 6 [facility] OUTPATIEN INC T EMERGENCY 10674 TG DEL RIO 6 6 PHYSICIAN CHUY DEPARTMEN S, [facility] T VISIT MODERATE SEVERITY EMERGENCY 02757 MELQUIADES 6 6 [facility] DEPARTMEN INC T VISIT LOW/MODER SEVERITY HOSPITAL MELQUIADES - 6 6 [facility] OUTPATIEN INC [facility] MELQUIADES - 6 6 [facility] OUTPATIEN INC T OFFICE 06017 [facility] [place] OUTPATIEN 6 6 PHYSICIAN TJ T VISIT S GROUP 15 MINUTES OFFICE 78501 [facility] QUANG OUTPATIEN 6 6 PHYSICIAN CHUY T VISIT S GROUP 15 MINUTES OFFICE 72742 [facility] QUANG OUTPATIEN 6 6 PHYSICIAN CHUY T VISIT S GROUP 15 MINUTES HOSPITAL MELQUIADES - 6 6 [facility] OUTPATIEN [facility] - 6 6 N OUTPATIEN COMMUNTIY T HOSPITA EMERGENCY 17565 [facility] 6 6 N DEPARTMEN COMMUNTIY T VISIT HOSPITA HIGH/URGE NT SEVERITY EMERGENCY 80162 [facility] CELLARO DEPT 6 6 BENJAMIN - YORBA VISIT EMERGENCY PAT HIGH PHYS SEVERITY& THREAT FUN EMERGENCY 75266 [facility] 6 6 N DEPARTMEN COMMUNTIY T VISIT HOSPITA HIGH/URGE NT SEVERITY EMERGENCY 12705 [facility] DEPT 6 6 BENJAMIN YANELIS VISIT EMERGENCY HIGH PHYS SEVERITY& THREAT [facility] CEE[facility] - 6 6 N OUTPATIEN COMMUNTIY T HOSPITA EMERGENCY 65887 MELQUIADES 5 5 [facility] DEPARTMEN INC T VISIT MODERATE SEVERITY HOSPITAL MELQUIADES - 5 5 [facility] OUTPATIEN INC T EMERGENCY 58063 TG Ramos 5 5 PHYSICIAN DEPARTMEN S, [facility] T VISIT HIGH/URGE NT SEVERITY HOSPITAL MELQUIADES - 5 5 [facility] OUTPATIEN INC T OFFICE 45246 [facility] QUANG MURRIETAPATIEN 5 5 PHYSICIAN CHUY T VISIT S GROUP 15 MINUTES EMERGENCY 56449 MELQUIADES 4 4 [facility] DEPARTMEN INC T VISIT LIMITED/M INOR PROB EMERGENCY 88400 [facility] 4 4 BENJAMIN IMT DEPARTMEN EMERGENCY T VISIT PHYS MODERATE SEVERITY HOSPITAL MELQUIADES - 4 4 [facility] OUTPATIEN INC T OFFICE 07020 [facility] OUTPATIEN 4 4 HEALTH TJ T VISIT CLINIC OF 15 DANITA MINUTES OFFICE 09173 [facility] OUTPATIEN 4 4 HEALTH TJ T VISIT CLINIC OF 25 DANITA MINUTES HOSPITAL MELQUIADES - 4 4 [facility] OUTPATIEN INC T EMERGENCY 522[address] [facility] 4 4 BENJAMIN CHUY DEPARTMEN EMERGENCY T VISIT PHYS HIGH/URGE NT SEVERITY EMERGENCY 36487 M[facility]QUIADES 4 4 [facility] DEPARTMEN INC T VISIT LOW/MODER SEVERITY HOSPITAL MELQUIADES - 3 3 [facility] OUTPATIEN INC T HOSPITAL MELQUIADES - 3 3 [facility] OUTPATIEN INC T Inpatient IMP Melquiades Mae MD (IN) 3 00:40 3 14:10 [facility] MELQUIADES - 3 3 [facility] INPATIENT INC OFFICE 41732 SP MURRIETAPATIEN 3 3 TJ TJ T VISIT 15 MINUTES OFFICE 57823 [facility] OUTPATIEN 3 3 TJ TJ T VISIT 15 MINUTES HOSPITAL MELQUIADES - 3 3 [facility] OUTPATIEN INC T OFFICE 76532 CATHY BAMANTONYRichard OUTPATIEN 3 3 DAVID DAVID T VISIT 15 MINUTES OFFICE 35847 [facility] OUTPATIEN 3 3 TJ TJ T VISIT 15 MINUTES OFFICE 64233 [facility] [place] OUTPATIEN 3 3 TJ TJ T VISIT 15 MINUTES OFFICE 81156 [facility] OUTPATIEN 3 3 TJ TJ T VISIT 15 MINUTES OFFICE 32811 [facility] OUTPATIEN 3 3 TJ TJ T VISIT 15 MINUTES OFFICE 24118 [facility] [place] OUTPATIEN 3 3 TJ TJ T VISIT 15 MINUTES OFFICE 05834 [facility] OUTPATIEN 3 3 TJ TJ T VISIT 15 MINUTES OFFICE 46594 [facility] [place] OUTPATIEN 3 3 TJ TJ T VISIT 15 MINUTES OFFICE 21895 [facility] [place] OUTPATIEN 3 3 TJ TJ T VISIT 5 MINUTES OFFICE 19322 [facility] [facility] OUTPATIEN 3 3 TJ TJ T VISIT 15 MINUTES HOSPITAL UNIVERSIT - 3 3 [facility] MELQUIADES - 3 3 [facility] OUTPATIEN INC T Inpatient IMP Melquiades Snowden (IN) 3 13:32 3 10:10 [facility] MELQUIADES - 3 3 [facility] OUTPATIEN INC T OFFICE 21981 SP MORR[facility] OUTPATIEN 3 3 TJ TJ T VISIT 15 MINUTES OFFICE 61559 SP [facility] OUTPATIEN 3 3 TJ TJ T VISIT 15 MINUTES [facility] MELQUIADES - 3 3 [facility] OUTPATIEN INC T EMERGENCY 75305 [facility]ADES 3 3 [facility] HIGH/URGE NT SEVERITY EMERGENCY 00129 QUANG DEL RIO DEPT 3 3 CHUY CHUY VISIT HIGH SEVERITY& THREAT [facility] OFFICE 54842 [facility] [place] OUTPATIEN 3 3 TJ TJ T VISIT 15 MINUTES HOSPITAL MELQUIADES - 3 3 [facility] OUT[facility]EN [facility] T EMERGENCY 66268 MELQUIADES 3 3 [facility] T VISIT HIGH/URGE NT SEVERITY EMERGENCY 68354 EUGENE VAUGHAN DEPT 3 3 EMERGENCY VISIT SERVICES HIGH SEVERITY& THREAT [facility] HOSPITAL MELQUIADES - 3 3 [facility] T OFFICE 22585 SP [place] OUTPATIEN 3 3 TJ TJ T VISIT 15 MINUTES EMERGENCY 67270 CHRISTIAN GONZALES DEPT 3 3 III MITCHEL III MITCHEL VISIT HIGH SEVERITY& THREAT [facility] EMERGENCY 36246 MELQUIADES 3 3 [facility] T VISIT HIGH/URGE NT SEVERITY HOSPITAL MELQUIADES - 3 3 [facility] T OFFICE 83863 SP [place] OUTPATIEN 3 3 TJ TJ T VISIT 15 MINUTES EMERGENCY 95435 MELQUIADES 2 2 [facility] T VISIT LIMITED/M INOR PROB EMERGENCY 83969 QUANG DEL RIO 2 2 [facility] HIGH/URGE NT SEVERITY HOSPITAL MELQUIADES - 2 2 [facility] T OFFICE 89624 [facility] [place] OUTPATIEN 2 2 TJ TJ T VISIT 15 MINUTES EMERGENCY 57419 MELQUIADES 2 2 [facility] T VISIT LOW/MODER SEVERITY HOSPITAL MELQUIADES - 2 2 [facility] OUTPATIEN INC T EMERGENCY 75982 EUGENE MCCALLUM DEPT 2 2 EMERGENCY MITCHEL VISIT SERVICES HIGH SEVERITY& THREAT FUNCJ OFFICE 02912 [facility] [place] OUTPATIEN 2 2 TJ TJ T VISIT 15 MINUTES HOSPITAL MELQUIADES - 2 2 [facility] OUTPATIEN INC T EMERGENCY 51839 CHRISTIAN GONZALES DEPT 2 2 III MITCHEL III MITCHEL VISIT HIGH SEVERITY& THREAT FUNCJ EMERGENCY 95310 MELQUIADES 2 2 [facility] DEPARTMEN INC T VISIT HIGH/URGE NT SEVERITY HOSPITAL MELQUIADES - 2 2 [facility] OUTPATIEN INC T EMERGENCY 91638 MELQUIADES DEPT 2 2 [facility] VISIT INC HIGH SEVERITY& THREAT FUNCJ EMERGENCY 55909 EUGENE CASTILLO DEPT 2 2 EMERGENCY VISIT SERVICES HIGH SEVERITY& THREAT FUNCJ EMERGENCY 09304 MELQUIADES 2 2 [facility] DEPARTMEN INC T VISIT LIMITED/M INOR PROB HOSPITAL MELQUIADES - 2 2 [facility] OUTPATIEN INC T EMERGENCY 92320 QUANG DEL RIO 2 2 [facility] CHUY DEPARTMEN T VISIT HIGH/URGE NT SEVERITY OFFICE 28044 MELQUIADES SIMMONS 2 2 [facility] T VISIT CENTER CENTER 25 MINUTES EMERGENCY 55719 MELQUIADES 2 2 [facility] DEPARTMEN INC T VISIT MODERATE SEVERITY HOSPITAL MELQUIADES - 2 2 [facility] OUTPATIEN INC T EMERGENCY 37223 EUGENE CASTILLO 2 2 EMERGENCY DEPARTMEN SERVICES T VISIT HIGH/URGE NT SEVERITY EMERGENCY 77471 MELQUIADES 2 2 [facility] DEPARTMEN INC T VISIT MODERATE SEVERITY HOSPITAL MELQUIADES - 2 2 [facility] OUTPATIEN INC T EMERGENCY 37689 EUGENE CASTILLO DEPT 2 2 EMERGENCY VISIT SERVICES HIGH SEVERITY& THREAT FUNCJ OFFICE 82647 SP SIMMONS 2 2 TJ TJ T VISIT 25 MINUTES EMERGENCY 35578 MELQUIADES 2 2 [facility] T VISIT LOW/MODER SEVERITY HOSPITAL MELQUIADES - 2 2 [facility] OUTPATIEN [facility] T EMERGENCY 84557 CHRISTIAN GONZALES 2 2 III MITCHEL III [facility] T VISIT HIGH/URGE NT SEVERITY EMERGENCY 97361 EUGENE MCCALLUM 2 2 EMERGENCY [facility] T VISIT MODERATE SEVERITY HOSPITAL MELQUIADES - 2 2 [facility] T EMERGENCY 20053 MELQUIADES 2 2 [facility] T VISIT LOW/MODER SEVERITY HOSPITAL MELQUIADES - 2 2 [facility] T EMERGENCY 55295 MELQUIADES 2 2 [facility] T VISIT LOW/MODER SEVERITY EMERGENCY 19897 EUGENE DEL RIO DEPT 2 2 EMERGENCY CHUY VISIT SERVICES HIGH SEVERITY& THREAT FUNCJ OFFICE 52177 [facility] OUTPATIEN 2 2 TJ TJ T VISIT 25 MINUTES HOSPITAL NAHED - 2 2 [facility] T EMERGENCY 04046 DULCE PEREZ DEPT 2 2 VISIT HIGH SEVERITY& THREAT FUNCJ EMERGENCY 18056 [place]HIS[place] 2 2 [facility] T VISIT LOW/MODER SEVERITY HOSPITAL MELQUIADES - 2 2 [facility] T EMERGENCY 50331 CHRISTIAN GONZALES 2 2 III MITCHEL III [facility] T VISIT HIGH/URGE NT SEVERITY HOSPITAL MELQUIADES - 2 2 [facility] OUTPATIEN INC T EMERGENCY 20378 MELQUIADES 2 2 [facility] DEPARTMEN INC T VISIT MODERATE SEVERITY OFFICE 32083 MELQUIADES ARNETT OUTPATIEN 2 2 [facility] VISIT C[facility] CENTER 15 MINUTES HOSPITAL MELQUIADES - 2 2 [facility] OUTPATIEN INC T EMERGENCY 76810 MELQUIADES 2 2 [facility] DEPARTMEN INC T VISIT MODERATE SEVERITY EMERGENCY 56314 EUGENE DEL RIO 2 2 EMERGENCY [facility] DEPARTMEN SERVICES T VISIT HIGH/URGE NT SEVERITY EMERGENCY 17160 MELQUIADES 2 2 [facility] DEPARTMEN INC T VISIT LOW/MODER SEVERITY HOSPITAL MELQUIADES - 2 2 [facility] OUTPATIEN INC T EMERGENCY 67335 EUGENE DEL RIO 2 2 EMERGENCY [facility] SERVICES T VISIT MODERATE SEVERITY EMERGENCY 84082 [facility] 2 [facility] HIGH/URGE NT SEVERITY EMERGENCY 15955 CHRISTIAN GONZALES 2 2 III [facility] MODERATE SEVERITY EMERGENCY 98710 MELQUIADES 2 2 [facility] DEPARTMEN [facility] T VISIT LIMITED/M INOR PROB HOSPITAL UNIVERSIT - 2 2 [facility] T EMERGENC[facility] 40561 [place] ECKERLINE DEPT 2 2 MEDICAL C VISIT SERV HIGH FOUNDATIO SEVERITY& THREAT [facility] HOSPITAL UNIVERSIT - 2 2 Y INPATIENT HOSPITAL EMERGENCY 26091 MELQUIADES 2 2 [facility] DEPARTMEN INC T VISIT LIMITED/M INOR PROB EMERGENCY 51351 LAKSHMI CAMACHO 2 2 MEDICAL DEV DEPARTMEN SERV T VISIT FOUNDATIO MODERATE SEVERITY HOSPITAL MELQUIADES - 2 2 [facility] OUTPATIEN [facility] HOSP[facility] MELQUIADES - 2 2 [facility] OUTPATIEN INC T EMERGENCY 84541 MELQUIADES 2 2 [facility] INC T VISIT LOW/MODER SEVERITY EMERGENCY 15441 MILABIB CHRISTIAN 2 2 III MITCHEL III [facility] T VISIT MODERATE SEVERITY EMERGENCY 02778 MELQUIADES 1 1 [facility] T VISIT LOW/MODER SEVERITY EMERGENCY 79728 EUGENE DEL RIO 1 1 EMERGENCY [facility] SERVICES T VISIT MODERATE SEVERITY HOSPITAL M[facility]QUIADES - 1 1 [facility] OUTPATIEN [facility]PITAL [facility] 80231 [facility] 1 1 [facility] T VISIT MODERATE SEVERITY OFFICE 82666 M[facility]QUIADES [facility] OUTPATIEN 1 1 [facility] 15 MINUTES EMERGENCY 10609 [facility] 1 1 [facility] EMERGENCY T VISIT PHYSI HIGH/URGE NT SEVERITY EMERGENCY 97075 [facility] CARLEY JAM 1 1 [facility] EMERGENCY T VISIT PHYSI HIGH/URGE NT SEVERITY EMERGENCY 36900 [facility] RADHA DEPT 1 1 [facility] VISIT EMERGENCY HIGH PHYSI SEVERITY& THREAT [facility] MELQUIADES [facility] 1 1 [facility] OUTPATIEN [facility] EMERGENCY 09673 MELQUIADES 1 1 [facility] T VISIT LOW/MODER SEVERITY HOSPITAL M[facility]QUIADES [facility] 0 0 [facility] EMERGENCY 18431 MELQUIADES 0 0 [facility] T VISIT HIGH/URGE NT SEVERITY OFFICE 63355 [facility] OUTPATIEN 0 0 [facility] T VISIT 5 CLINIC OF MINUTES [facility] MELQUIADES - 0 0 [facility] OUTPATIEN [facility] HOSPITAL MELQUIADES - 9 9 [facility] OUTPATIEN INC T EMERGENCY 56154 EUGENE QUANG, 9 9 EMERGENCY CATARINA S DEPARTMEN SERVICES T VISIT HIGH/URGE ASSOCIATE NT S SEVERITY OFFICE 85369 [facility], OUTPATIEN 9 9 [facility]ALTH [facility] J T VISIT 5 CLINIC OF MINUTES [facility] EMERGENCY 17785 [facility]QUIADES 9 9 [facility] DEPARTMEN INC T VISIT LIMITED/M INOR PROB EMERGENCY 02861 EUGENE JAMILPARVEEN, 9 9 EMERGENCY ADAN DEPARTMEN SERVICES O T VISIT HIGH/URGE ASSOCIATE NT S SEVERITY EMERGENCY 15708 M[place]QUIADES 9 9 [facility] DEPARTMEN INC T VISIT LOW/MODER SEVERITY HOSPITAL MELQUIADES - 9 9 [facility] OUTPATIEN INC T OFFICE 32120 [facility] OUTPATIEN 9 9 HEALTH CO HEALTH T VISIT [facility] 25 BANK ACCT MINUTES OFFICE 86309 [facility], OUTPATIEN 9 9 [facility]ALTH [facility] J T VISIT CLINIC OF 25 MINUTES [facility] OFFICE 78905 [facility], OUTPATIEN 9 9 [facility]ALTH [facility] J T VISIT CLINIC OF 15 MINUTES [facility] UNIVERSIT - 9 9 Y INPATIENT HOSPITAL OFFICE 03040 [facility], OUTPATIEN 9 9 [facility] J T VISIT 5 CLINIC OF MINUTES [facility] OFFICE 66328 [facility], OUTPATIEN 9 9 [facility] J T VISIT CLINIC OF 15 MINUTES [facility] OFFICE 85008 [facility] OUTPATIEN 9 9 , ANNIKA ROBLERO T VISIT 10 MINUTES HOSPITAL MELQUIADES - 9 9 [facility] OUTPATIEN INC T OFFICE 56416 [facility] CONSULTAT 9 9 , ANNIKA ROBLERO ION NEW/ESTAB PATIENT 60 MIN HOSPITAL MELQUIADES - 9 9 [facility]PATIEN [facility] T EMERG[facility] 64075 MELQUIADES 9 9 [facility] INC T VISIT LOW/MODER SEVERITY EMERGENCY 21090 EUGENE MARES, DEPT 9 9 EMERGENCY ADAN VISIT SERVICES O HIGH SEVERITY& ASSOCIATE THREAT S FUNCJ OFFICE 96552 [facility], OUTPATIEN 9 9 [facility] J T VISIT CLINIC OF 15 MINUTES [facility] OFFICE 20224 [facility], OUTPATIEN 9 9 [facility]ALTH [facility] J T VISIT CLINIC OF 15 MINUTES [facility] EMERGENCY 66943 MELQUIADES 9 9 [facility] T VISIT MODERATE SEVERITY HOSPITAL MELQUIADES - 9 9 [facility] OFF[facility] 59804 [facility], OUTPATIEN 9 9 HEALTH [facility]K J T VISIT CLINIC OF 15 MINUTES [facility] MELQUIADES - 9 9 [facility] [facility] EMERGENCY 36443 EDMUNDO MINAYA, 9 9 HAGGIN W [facility] H[facility] T VISIT LOW/MODER SEVERITY OFFICE 08753 DHS/CO [facility] 9 9 HEALTH CO HEALTH T VISIT [facility] 25 BANK ACCT MINUTES EMERGENCY 05359 [facility], 8 8 [facility] EMERGENCY T VISIT [facility] MODERATE SEVERITY EMERGENCY 87600 NAHED 8 8 [facility] T VISIT LOW/MODER SEVERITY HOSPITAL NAHED - 8 8 [facility] MELQUIADES - 8 8 [facility] EMERGENC[facility] 47267 MELQUIADES 8 8 [facility] T VISIT LIMITED/M INOR PROB EMERGENCY 93724 MELQUIADES 8 8 [facility] T VISIT LOW/MODER SEVERITY HOSPITAL MELQUIADES - 8 8 [facility]PAT[facility] T HOSPITAL MELQUIADES [facility] 8 8 [facility] EMERGENCY 61161 MELQUIADES COOLEY, 8 8 [facility] T VISIT PROF SERV MODERATE SEVERITY OFFICE 61288 [facility]URDO [facility]E [facility] 8 CATHY Hayward T VISIT 15 MINUTES EMERGENCY 40489 MELQUIADES 8 8 [facility] T VISIT LOW/MODER SEVERITY EMERGENCY 21691 MELQUIADES HERNANDEZ, 8 8 [facility] T VISIT PROF SERV MODERATE SEVERITY HOSPITAL MELQUIADES - 8 8 [facility] OFF[facility] 16547 [place] ALIYA [facility] 8 8 NORRIS MARTINEZ, T VISIT INTERNAL PDERO F 15 MED MINUTES EMERGENCY 76347 MELQUIADES 8 8 [facility] T VISIT MODERATE SEVERITY HOSPITAL MELQUIADES - 8 8 [facility] 95136 [place] VIRAL [facility] 8 8 NORRIS Trejo VISIT INTERNAL 15 MED MINUTES OFFICE 47583 IRIS WEISS 8 8 CATHY Hayward T VISIT 15 MINUTES OFFICE 93568 IRIS WEISS 8 8 CAHTY Hayward T VISIT 15 MINUTES EMERGENCY 62142 MELQUIADES 8 8 [facility] T VISIT LOW/MODER SEVERITY HOSPITAL MELQUIADES - 8 8 [facility] OFF[facility] 78430 DHS/CO MELQUIADES SIMMONS 8 8 HEALTH CO HEALTH T VISIT [facility] 10 BANK ACCT MINUTES PERIODIC 79983 ZURDO MAE, PREVENTIV 8 8 CATHY Hayward E MED EST PATIENT 18-39 YRS EMERGENCY 59909 MELQUIADES 8 8 [facility] T VISIT LOW/MODER SEVERITY HOSPITAL MELQUIADES - 8 8 [facility] OUTPATIEN INC T
--- OUTSIDE RECORDS SUMMARY | 2016-11-10 00:52 | External Medical Summary Rpt ---
Author Author , LANE SHERMAN Address Unknown Phone [email or web address] Care Team Providers Care Felt Hat Flanging Operator Name Role Phone JONATHAN CASTILLO Unavailable Unavailable OMAR L, OMAR L Unavailable Unavailable CARLEY JAM, CARLEY JAM Unavailable Unavailable LEWIS, LEWIS Unavailable Unavailable LEWIS ALL, LEWIS ALL Unavailable Unavailable [facility] Unavailable Unavailable [facility], [facility] Un[facility] Unavailable PRACTICE L, [facility]available Unavailable SERVICE, [facility] Unavailable Unavailable SERVICE, [facility] FARAH, FARAH Unavailable Unavailable CELLAROSI - YORBA Unavailable Unavailable PAT, CELLAROSI - YORBA PAT CHEESEMAN MICHELLE, Unavailable Unavailable CHEESEMAN MICHELLE SNOWDEN TJ, SNOWDNE Unavailable Unavailable TJ SNOWDEN TJ, SNOWDEN Unavailable Unavailable TJ ERIK SNOWDEN J, Unavailable Unavailable [facility]K [facility] Un[facility], Unavailable Unavailable [facility] Unavailable Unavailable [place], [facility] Unavailable Unavailable [facility] DAVON JONY, DAVON Unavailable Unavailable JONY KRISTAL, KRISTAL Unavailable Unavailable KRISTAL KIERA, Unavailable Unavailable KRISTAL KIERA KRISTAL KIERA, Unavailable Unavailable KRISTAL KIERA KRISTAL, GALA, Unavailable Unavailable KRISTAL, GALA LIRA PAULA, LIRA Unavailable Unavailable PAULA [facility] Unavailable [place] [facility] [place] [facility] Unavailable Unavailable [facility] Unavailable Unavailable ECKERLINE C, Unavailable Unavailable ECKERLINE C FARAGASSO DEV, Unavailable Unavailable FARAGASSO DEV EPPS YANELIS, EPPS Unavailable Unavailable YANELIS QUANG CHUY, QUANG Unavailable Unavailable CHUY QUANG CHUY, QUANG Unavailable Unavailable CHUY CATARINA DEL [facility], Unavailable Unavailable CAT[facility], [facility] Unavailable Unavailable EMS, [facility] HARPEL DAVID, HARPEL Unavailable Unavailable DAVID HARPEL DAVID, HARPEL Unavailable Unavailable DAVID HARPEL, ZURDO R, Unavailable Unavailable HARPEL, ZURDO R DOMÍNGUEZ KYLE, DOMÍNGUEZ Unavailable Unavailable KYLE [facility] Unavailable Unavailable CENTER, [facility] Unavailable Unavailable [facility]ENTER, [facility] Unavailable Unavailable INC, [facility] Unavailable Unavailable Hospital[facility] Unavailable Unavailable HOSPITAL P, [facility] REMI STRATTON HARVEY, Unavailable Unavailable REMI [facility], Unavailable Unavailable [facility] CARDONA, CARDONA Unavailable Unavailable CARDONA CHRIS, CARDONA CHRIS Unavailable Unavailable CARDONA CHRIS, CARDONA CHRIS Unavailable Unavailable ROBY IMT, ROBY Unavailable Unavailable IMT JAHANSHAHI FEE, Unavailable Unavailable JAHANSHAHI FEE JAHANSHAHI FEE, Unavailable Unavailable JAHANSHAHI FEE [facility] Unavailable Unavailable IMAGING [facility], [facility] ANNA DAYTON, ANNA DAYTON [...] Unavailable [facility] Unavailable Unavailable SERVICES, [facility] MAST ANN, MAST ANN Unavailable [...] PHARM #[id number] [facility] Unavailable Unavailable [id number] # [id number], [facility] [id number] # [id number] BLAKE KERMIT, BLAKE KERMIT Unavailable [...] [facility] Un[facility] Un[facility], [facility] Unavailable Unavailable [facility]GENCY [facility], [facility] ROSY SHE, Unavailable Unavailable ROSY SHE VIRAJ HU E, Unavailable Unavailable VIRAJ HU [facility], Unavailable Unavailable [facility], Unavailable Unavailable [facility] WEHRMAN III MITCHEL, Unavailable Unavailable WEHRMAN III [...] [facility] R079 CHEST PAIN 07-07-2016 [place]- UNSPECIFIED [facility] R1013 EPIGASTRIC 07-07-2016 [place]- PAIN [facility] [id number] PAIN IN 06-08-2016 [facility] C76327 PAIN IN 06-08-2016 [facility] UNSPECIFIED MEDICAL HIP IMAGING ASS K87118 PAIN IN 06-08-2016 [place] RIGHT MEDICAL FOREARM IMAGING ASS Z72175 PAIN IN 06-08-2016 [facility] RIGHT THIGH [facility]ICAL IM[facility]ING ASS [id number] UNSPECIFIED 06-08-2016 [facility] INJURY MEDICAL RIGHT ELBOW IMAGING ASS INITIAL ENCOUNTER Z7689 PERSONS 06-08-2016 [facility] ENCOUNTER [facility] SRVC SERVICE OTH CIRCUMSTANC ES Z452 ENCOUNTER 05-23-2016 [facility] ADJUSTMENT& MEDICAL MGMT IMAGING ASS VASCULAR ACCESS DEVICE R600 LOCALIZED 05-21-2016 [facility] EDEMA [facility] ASS Z8701 PERSONAL 05-19-2016 [place] HISTORY OF MEDICAL PNEUMONIA IMAGING ASS RECURRENT J209 ACUTE 05-11-2016 [facility] BRONCHITIS PHYSICIANS, UNSPECIFIED PLLC N926 IRREGULAR 03-19-2016 [facility] MENSTRUATIO PHYSICIANS N GROUP UNSPECIFIED R102 PELVIC AND 03-19-2016 [facility] PERINEAL PHYSICIANS PAIN GROUP R1084 GENERALIZED 03-17-2016 [facility] ABDOMINAL PHYSICIANS, PAIN PLLC R109 UNSPECIFIED 03-13-2016 [place] ABDOMINAL [facility]ICAL PAIN IMAGING ASS R112 NAUSEA WITH 03-13-2016 [facility] UNSPECIFIED SERVICE [id number] FOREIGN 03-13-2016 [facility] BODY IN PHYSICIANS, VULVA & PLLC VAGINA INITIAL ENCOUNTER M545 LOW BACK 02-09-2016 [facility] PAIN PHYSICIANS, PLLC N200 CALCULUS OF 02-09-2016 [facility] R1031 RIGHT LOWER 02-09-2016 [facility] QU[facility]ANT [facility] PAIN IMAGING ASS R1032 LEFT LOWER 02-09-2016 [facility] PAIN IMAGING ASS M37471 ENCOUNTER 12-23-2015 [facility] ROUTINE PHYSICIANS CHECKING IU GROUP CONTRACEPT DEVICE M65392 MIGRAINE 12-05-2015 [place] W/AURA NOT PHYSICIAN INTRACT W/O PRACTICE L STAT MIGRAINOSUS B95366 PERSONAL 11-25-2015 [facility] HISTORY OF [facility] NICOTINE INC DEPENDENCE C98710 ENCOUNTER 11-08-2015 [facility] INITIAL PHYSICIANS PRESCRIPTIO GROUP N IU CONTRACEPT DEV Z7251 HIGH RISK 11-08-2015 [facility]ETEROSEXUA [facility] L BEHAVIOR INC N6011 DIFFUSE 10-05-2015 [facility] CYSTIC [facility] MASTOPATHY INC OF RIGHT BREAST N6489 OTHER 10-05-2015 [facility] [place]IFIED MEDICAL DISORDERS IMAGING ASS OF BREAST N644 MASTODYNIA 09-27-2015 [facility] PHYSICIANS GROUP J40 BRONCHITIS 08-23-2015 [facility] NOT PHYSICIANS SPECIFIED GROUP ACUTE OR CHRONIC K219 GASTRO-ESOP 08-10-2015 [facility] H REFLUX PHYSICIANS DISEASE GROUP WITHOUT ESOPHAGITIS B1920 UNS VIRAL 07-27-2015 [facility] HEPATITIS C [facility] WITHOUT INC HEPATIC COMA R071 CHEST PAIN 05-24-2015 [facility] N EMERGENCY BREATHING PHYS R0789 OTHER CHEST 05-24-2015 [facility] PAIN COMMUNTIY HOSPITA R5381 OTHER 05-24-2015 [facility] MALAISE [facility] EMS M940 CHONDROCOST 05-16-2015 [facility] AL JUNCTION N EMERGENCY SYNDROME PHYS TIETZE R072 PRECORDIAL 05-16-2015 [facility] PAIN N EMERGENCY PHYS R509 FEVER 05-16-2015 [facility] UNSPECIFIED [facility] EMS R52 PAIN 05-16-2015 [facility] UNSPECIFIED [facility] EMS [id number] POISONING 02-24-2015 [facility] HEROIN [facility] UNDETERMINE INC D INITIAL ENCOUNTER 19006 COMA 01-09-2015 [facility] SERVICE 89634 POISONING 01-09-2015 [facility] BY HER[facility]IN [facility] P 9779 POISONING 01-09-2015 [facility] UNSPECIFIED AMBULANCE SERVICE DRUG/MEDICI NAL SUBSTANCE 6824 CELLULITIS& 09-23-2014 [facility] ABSCESS OF ANESTH OF HAND EXCEPT THE BLUE FINGERS&FERN MB 6823 CELLULITIS 09-22-2014 TG AND ABSCESS PHYSICIANS, OF UPPER PLLC ARM AND FOREARM 7245 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[facility] BACKACHE PHYSICIANS GROUP 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[facility] 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 76336 PHLEBITIS&T 03-14-2014 [facility] HROMBOPHLEB [facility]OS[facility] SUP VEINS INC UPPER EXTREM 15299 PHLEBITIS 03-14-2014 [facility] AND N EMERGENCY THROMBOPHLE PHYS BITIS OF OTHER SITE 5758 OTHER 03-14-2014 [facility] SPECIFIED [facility] DISORDER OF INC GALLBLADDER V148 PERSONAL 03-14-2014 [facility] HISTORY [facility] ALLERGY OTH INC SPEC MEDICINAL AGTS 10934 UNSPECIFIED 03-02-2014 [facility] 7099 UNSPEC 03-02-2014 [facility]MPTOM [facility] CLINIC OF W/FEMALE [place] GENITAL ORGANS 6264 IRREGULAR 03-02-2014 [facility] MENSTRUAL HEALTH CYCLE CLINIC OF DAN[place] 46228 ABDOMINAL 03-02-2014 [facility] PAIN, LEFT HEALTH LOWER CLINIC OF QUADRANT DANITA 24909 UNSPECIFIED 02-02-2014 [facility] VAGINITIS [facility] OF VULVOVAGINI DANITA TIS 90858 HEMATURIA 12-24-2013 [facility] UNSPECIFIED N EMERGENCY PHYS 51940 ABDOMINAL 12-24-2013 [place] PAIN OTHER MEDICAL SPECIFIED IMAGING ASS SITE 54291 CHLAMYDTRAC 01-02-2013 [facility] HOMATIS GARRETT INFECTION LOWER SITES V242 ROUTINE 01-02-2013 [facility] GARRETT FOLLOW-UP 6146 PELVIC 11-21-2012 [facility] PERITONEAL [facility] ADHESIONS, INC FEMALE V252 STERILIZATI 11-21-2012 [place] ON V2509 OT GENERAL 11-20-2012 [facility] CNSL&ADVICE INC CONTRACEPT MANAGEMENT 650 NORMAL 10-22-2012 ZAVALA SHA DELIVERY 47212 FIRST-DEGRE 10-22-2012 [facility] E PERINEAL [facility] LACERATION INC WITH DELIVERY V270 OUTCOME OF 10-22-2012 [facility] DELIVERY [facility] SINGLE INC LIVEBORN 03676 THREATENED 10-20-2012 [facility] TJ PREMATURE LABOR ANTEPARTUM V221 SUPERVISION 10-20-2012 SN[facility] TJ OF OTHER NORMAL 57186 OTHER 10-11-2012 HARPEL DAVID THREATENED LABOR, ANTEPARTUM 54016 ABNORMAL 08-08-2012 SP TJ MATERNAL GLUCOSE TOLERANCE ANTEPARTUM 37835 DELAY DELIV 07-30-2012 [facility] ANASTACIO AFTER SPONT/UNSPE C RUP MEMB ANTPRTM 06420 CHEST PAIN 07-27-2012 BLAKE KERMIT UNSPECIFIED 58334 CERVICAL 07-21-2012 [facility] ANASTACIO SHORTENING ANTEPARTUM CONDITION OR COMP 33558 PREMATURE 07-18-2012 [facility] RU[facility]URE [facility] ANTEPARTUM 7802 SYNCOPE AND 07-18-2012 [facility] COLLAPSE V2341 SUPERVISION 07-18-2012 [facility] W/HISTORY PRE-TERM LABOR V2389 SUPERVISION 07-18-2012 [facility] OF OTHER [facility] HIGH-RISK 86792 LATE 07-17-2012 [facility] ANTEPARTUM 37201 OT 07-17-2012 [facility] VENEREAL DISEASE ANTPRTM COND/COMPL 98555 OT CURRENT 07-17-2012 [facility] CLASSIFI[facility] E ELSW ANTPRTM 45413 CERVICAL 07-17-2012 O'OMAIRAANNAMARIA KASPER DELIVERED W/WO ANTPRTM COND V230 07-17-2012 [facility] WITH HISTORY OF INFERTILITY 83850 NAUSEA WITH 06-30-2012 [facility] VOMITING [facility] INC 87025 ABDOMINAL 06-30-2012 [facility] PAIN, [facility] GENERALIZED INC V220 SUPERVISION 06-30-2012 SP SPENCER OF NORMAL FIRST V283 ENCOUNTER 06-19-2012 SP SPENCER ROUTINE SCREEN MALFORMATIO N ULTRASONIC 75179 DEHYDRATION 06-12-2012 [facility] INC 59398 HYPEREMESIS 06-12-2012 [facility] W/METAB INC DISTURBANCE ANTPRTM 7880 RENAL COLIC 06-12-2012 [facility] 18175 MILD 06-11-2012 QUANG CHUY HYPEREMESIS GRAV[facility]ARUM UNSPEC EPIS CARE 591 HYDRONEPHRO 06-04-2012 KRISTAL SIS KIERA 77537 OTHER 06-04-2012 KRISTAL SPECIFIED KIERA DISORDER OF KIDNEY AND URETER 88297 THREATENED 06-03-2012 [facility] LABOR SERVICES UNSPEC EPIS CARE 44711 OTHER 06-03-2012 KRISTAL SPECIFED KIERA COMPLICATIO N ANTEPARTUM 43810 OT CURRENT 05-29-2012 WEHR[facility] III MATERNAL MITCHEL CCE-COMPL PG CB/PP-UNS EOC 4660 ACUTE 04-30-2012 [facility] BRONCHITIS [facility] INC V222 04-30-2012 [facility] INCIDENTAL INC 7910 PROTEINURIA 04-25-2012 [facility] TJ 7916 ACETONURIA 04-25-2012 [facility] TJ 5920 CALCULUS OF 04-24-2012 [facility] 5990 URINARY 04-24-2012 [facility] TRACT [facility] INFECTION SERVICES SITE NOT SPECIFIED 40649 INFS 04-24-2012 [facility] TRACT [facility] UNSPEC EPIS CARE 36857 MILD 04-14-2012 [facility] HYPEREMESIS [facility] GRAVIDARUM INC ANTEPARTUM 32960 ABDOMINAL 04-14-2012 WEHRMAN III PAIN, MITCHEL UNSPECIFIED SITE 2768 HYPOPOTASSE 04-07-2012 [facility] DUYEN [facility] 5589 OTH&UNSPEC 04-07-2012 [facility] NONINFECTIO EMERGENCY US SERVICES GASTROENTER ITIS&COLITI S V745 SCREENING 03-19-2012 [facility] EXAMINATION [place] FOR VENEREAL DISEASE 26049 INFECTIONS 03-06-2012 [facility] GENITOURINA INC RY TRACT ANTEPARTUM V7242 03-03-2012 [facility] EXAMINATION HEALTH OR TEST CENTER POSITIVE RESULT 47486 PAIN IN 02-13-2012 [place] JOINT, MEDICAL ANKLE AND IMAGING ASS FOOT 7295 PAIN IN 02-13-2012 [facility] SOFT EMERGENCY TISSUES OF SERVICES LIMB 18590 UNSPECIFIED 02-13-2012 [facility] SITE OF ANKLE SPRAIN AND STRAIN 94838 CONTUSION 02-13-2012 [facility] OF FOOT [facility] INC 9599 INJURY 02-13-2012 [facility] OTHER AND MEDICAL UNSPECIFIED IMAGING ASS UNSPECIFIED SITE 29177 ACUT 01-29-2012 [facility] PYELONEPHRI [facility] TIS W/O LES INC RENAL MEDULRY NECROS 13830 UNSPECIFIED 01-29-2012 [facility] PYELONEPHRI SERVICES TIS 6201 CORPUS 01-10-2012 [facility] TJ LUTEUM CYST OR HEMATOMA 19838 ABDOMINAL 01-10-2012 [facility] TJ PAIN RIGHT LOWER QUADRANT 23410 UNSPECIFIED 11-10-2011 [facility] DENTAL [facility] CARIES INC 5259 UNSPECIFIED 11-10-2011 WE[facility] III DISORDER MITCHEL TEETH&SUPPO RTING STRUCTURES 29113 PAIN IN 09-26-2011 [place] JOINT, HAND MEDICAL IMAGING ASS 97974 CONTUSION 09-26-2011 [facility] OF HAND [facility]ERGENCY SERVICES E9179 OTHER 09-26-2011 [place] STRIKING MEDICAL AGAINST IMAGING ASS W/WO SUBSEQUENT FALL 7804 DIZZINESS 08-23-2011 [facility] AND EMERGENCY GIDDINESS SERVICES V692 PROBLEMS 08-21-2011 [facility] TJ RELATED TO HIGH-RISK SEXUAL BEHAVIOR 7231 CERVICALGIA 08-20-2011 [facility] 19931 SPASM OF 08-20-2011 CARDONA CHRIS MUSCLE 6202 OTHER AND 08-15-2011 [place] UNSPECIFIED MEDICAL OVARIAN IMAGING ASS CYST 46274 OTHER 08-15-2011 [place] ASCITES MEDICAL IMAGING ASS 2662 OTHER 07-26-2011 [facility] B-COMPLEX HEALTH DEFICIENCIE CENTER S V7241 07-26-2011 [facility] EXAMINATION HEALTH OR TEST CENTER NEGATIVE RESULT 7840 HEADACHE 07-19-2011 [facility] 6827 CELLULITIS 07-05-2011 [facility] AND ABSCESS EMERGENCY OF FOOT SERVICES EXCEPT TOES 57345 UNSPECIFIED 05-31-2011 WEHR[facility] III ACUTE MITCHEL CONJUNCTIVI TIS 23971 UNSPECIFIED 05-31-2011 [facility] CONJUNCTIVI TIS 36491 LEUKOCYTOSI 05-28-2011 T[facility] S FEE UNSPECIFIED 34694 ABSCESS OF 05-28-2011 [facility] EYELID FEE 99106 ONE EYE: 05-27-2011 [facility] ANSARIN EMERGENCY IMPAIR; OTH SERVICES EYE: NR-NL VISN 56972 ORBITAL 05-27-2011 [facility] 64064 PAIN IN OR 05-27-2011 [place] [facility] SERV FOUNDATIO 17457 SWELLING OR 05-27-2011 [place] [facility] MASS OF SERV EYE FOUNDATIO 6820 CELLULITIS 05-27-2011 [place] [facility] AND ABSCESS SERV OF FACE FOUNDATIO 462 ACUTE 05-05-2011 [facility] PHARYNGITIS [facility]ERGENCY SERVICES 07755 MIGRAINE 04-04-2011 [facility] W/O [facility] INTRACT W/O STATUS MIGRAINOSUS 6829 CELLULITIS 04-04-2011 [facility] CO AND [facility] [place] UNSPECIFIED SITE V5889 ENCOUNTER 04-01-2011 [facility] FOR OTHER N EMERGENCY SPECIFIED PHYSI AFTERCARE 9134 ELB 03-30-2011 [facility] FORARM&WRST [facility] INSECT INC BITE NONVENOMOUS W/O INF 85291 SPRAIN AND 07-31-2009 [place] STRAIN OF MEDICAL UNSPECIFIED IMAGING SITE OF ASSOCIATES WRIST E8493 PLACE OF 07-31-2009 [place] OCCURRENCE MEDICAL INDUSTRIAL IMAGING PLACES&PUSHPA ASSOCIATES ISES E918 CAUGHT 07-31-2009 [place] ACCIDENTALL MEDICAL Y IN OR IMAGING BETWEEN ASSOCIATES OBJECTS V2549 SURVEILLANC 06-16-2009 [facility] E OTH PREV HEALTH PRSC CLINIC OF CONTRACEPT [place] [facility] 9104 FCE 03-29-2009 [facility] NCK&SCLP NO EMERGENCY EYE INSECT SERVICES BITE ASSOCIATES NONVNOM W/O INF 9895 TOXIC 03-29-2009 [facility] EFFECT OF MEM [facility]OS[facility] VENOM INC 6160 CERVICITIS 03-07-2009 PATHOLOGY & AND CYTOLOGY ENDOCERVICI LAB TIS 57895 DYSPLASIA 03-07-2009 PATHOLOGY & OF CERVIX CYTOLOGY UNSPECIFIED LAB 23152 PAP SMER 03-04-2009 [facility] CERV W/LW HEALTH GRADE CLINIC OF SQUAMOUS [place] [facility] LES 77096 CERV HIGH 03-04-2009 [facility] RISK HUMAN HEALTH PAPILLOMAVI CLINIC OF JENNIFER DNA [place] TEST POS PLLC 09319 PAP SMER 02-25-2009 [facility] CERV HEALTH W/ATYPICAL CENTRAL SQUAMOUS BANK ACCT CELLS UNDET V7231 ROUTINE 01-24-2009 [facility] GYNECOLOGIC HEALTH AL CLINIC OF EXAMINATION [facility] 2331 CARCINOMA 12-12-2008 [place] IN [facility] CERVIX UTERI 87289 ERLY ONSET 12-12-2008 [facility] W/WO MENTION ANTPRTM COND 69971 OTH 12-12-2008 [place] CONGENITAL/ HOSPITAL ACQUIRED ABNORM CERVIX W/DELIVERY 06346 OTHER AND 12-12-2008 [place] [facility] UTERINE INERTIA W/DELIVERY 04154 ULCER OF 11-25-2008 [facility], ESOPHAGUS ANNIKA WITHOUT BLEEDING 5780 HEMATEMESIS 11-25-2008 VINITA, ANNIKA 88803 VOMITING 11-25-2008 [facility] ALONE ANNIKA 85242 ACUTE 11-18-2008 PATHOLOGY & ESOPHAGITIS CYTOLOGY LAB 5533 DIAPHRAGMAT 11-18-2008 [facility] ANIVAL W/O MEM HOS[facility] MENTION INC OBSTRUCTION /GANGREN 82182 OTH CURRENT 11-18-2008 [facility] MATERNAL [facility] [...] GNT TRACT 1110 PITYRIASIS 08-15-2007 [facility] VERSICOLOR [facility] INTERNAL [facility] 13020 ANAL OR 08-15-2007 [facility] RECTAL PAIN [facility] INTERNAL MED 9212 CONTUSION 08-01-2007 [facility] GILLETTE ORBITAL [facility] TISSUES INC E8494 PLACE OF 08-01-2007 [facility] IMAGING RECREATION ASSOCIATES AND SPORT E8851 FALL FROM 08-01-2007 [facility] 5781 BLOOD IN 07-31-2007 [facility] STOOL [facility] INTERNAL MED 4867 OTH SPEC 07-21-2007 ZURDO MAE MD ASSOC [...] CATHY ARCINIEGA DEFICIENCY ANEMIA 6918 OTHER 06-02-2007 [facility] PROF SERV CONDITIONS [id number] Excessive [place] vomiting in [facility] Allergies, Adverse Reactions, Alerts Type Drug Allergy [...] 16 WN ZA 11 17 17 28 AK 0 13 PH IN AR E MA [...] 10 6- 3- 00 06 TO ve AK 00 20 20 07 WN ED 50 [...] Ac MG ti /M ve L AL NE 59 06 0 No SO 76 -1 AK 25 9- Lo OS 00 20 ng [...] 20 AI AC 90 10 10 D NE 1 PH CH SO AR AE D [...] 20 20 DE CE 90 09 09 NE TA 5 PH CH NE AR AE N- MA L CA CY S FF OF 50 CY -3 NT 25 HI -4 AN 0 A ME 00 11 12 00 21 6 RI 81 SO Ac TH 60 -2 -0 .0 TE 02 KA ti YL 34 4- 3- 00 91 N ve AK 59 20 20 AI BA ED 31 [...] MG #3 93 TA 8 BL ET AK 37 07 07 00 56 28 RI [...] BA RA 60 09 09 D BA NE 5 PH TU DE AR ND M [...] 09 D BA TA 1 PH TU NE AR ND N- M E CA #3 [...] ai RA 40 08 08 D la NE 1 PH bl DE AR e 5 [...] CY OF CY NT HI AN A AK 00 03 04 00 20 5 EA [...] Procedure [place] [address] [facility] [place] [facility]/BRAI 7 RADIOLOGY N W/O CONTRAST MATERIAL AMB A0427 [facility] 7 EVY RAT[place]FF [facility] [place] [facility] EMERGENCY TRANSPORT LEVEL 1 GROUND A0425 [facility] [place] [facility] STATUTE MILE AMBULANCE A0429 [facility] 7 AMBULANCE AMBULANCE BL SERVICE SERVICE EMERGENCY TRANSPORT GROUND A0425 [facility] 7 AMBULANCE AMBULANCE PER SERVICE SERVICE STATUTE MILE RADIOLOGI 16077 [place] [facility] C 7 MEDICAL EXAMINATI IMAGING ON PELVIS ASS 1/2 VIEWS RADIOLOGI 27351 [facility] C 7 MEDICAL EXAMINATI IMAGING ON CHEST ASS SINGLE VIEW FRONTAL RADEX 76861 [facility] FOREARM 2 7 MEDICAL VIEWS IMAGING ASS RADEX 18096 [facility] ELBOW 7 MEDICAL COMPLETE IMAGING MINIMUM 3 ASS VIEWS RADIOLOGI 19087 [facility] LEWIS C 7 MEDICAL EXAMINATI IMAGING ON FEMUR ASS MINIMUM 2 VIEWS RADIOLOGI 87093 [facility] LEWIS C 7 MEDICAL EXAMINATI IMAGING [place] [address] BEC[facility] HERNANDEZUTCHER EXTREMITY 7 MEDICAL NON-VASC IMAGING ASS REAL-TIME IMG LMTD RADIOLOGI 94829 BECKY CASTILLO C EXAM 7 MEDICAL CHEST 2 IMAGING VIEWS ASS [place]ONTAL&[place] [address] [facility] DOMÍNGUEZ TRANSVAGI 6 RADIOLOGY KYLE NAL RADIOLOGI 40222 [facility] [place] DOMÍNGUEZ C 6 RADIOLOGY KYLE [place]AMINAT[place] [address] BECKY LEWIS ALL ABDOMEN & 6 MEDICAL PELVIS IMAGING W/CONTRAS ASS T MATERIAL GROUND A0425 [facility] MILEAGE 6 AMBULANCE AMBULANCE PER SERVICE SERVICE STATUTE MILE AMBULANCE A0429 [facility] SERVICE 6 AMBULANCE AMBULANCE BLS SERVICE SERVICE EMERGENCY TRANSPORT DRUG TST G0477 [facility] PRESUMP;C 6 MEM HOSP MEM [facility]OS[facility] PBL BEING INC INC READ DC OPT OBV ONLY THERAPEUT 96924 [facility] IC 6 MEM HOSP [facility]OS[facility] PROPHYLAC INC INC TIC/DX INJECTION SUBQ/IM UNCLASSIF J3490 [facility] IED DRUGS 6 MEM HOSP [facility]OS[facility] INC INC URINE 31548 [facility] 6 [facility] TEST INC [place] [address] M[facility] AR[facility] ABDOMEN & 6 [facility] PELVIS INC INC W/O CONTRAST MATERIAL UNCLASSIF J3490 [facility] IED DRUGS 6 [facility] INC INC THERAPEUT 05785 [facility] IC 6 [facility] PROPHYLAC INC INC TIC/DX INJECTION SUBQ/IM IADNA 25916 [facility] CHLAMYDIA 6 [facility] INC TRACHOMAT IS AMPLIFIED PROBE TQ LEVONORGE J7298 [facility] SP STREL-RLS 6 PHYSICIAN TJ S GROUP INTRAUTER INE SHELBY SYS 52 MG INSERTION 53356 [facility] SP 6 PHYSICIAN TJ INTRAUTER S GROUP INE DEVICE IUD IADNA 60160 [facility] NEISSERIA 6 [facility] INC INC GONORRHOE AE AMPLIFIED PROBE TQ US BREAST 98203 [facility] UNI REAL 6 [facility] TIME INC INC WITH IMAGE COMPLETE US BREAST 33183 [place] ALL UNI REAL 6 MEDICAL TIME IMAGING WITH ASS IMAGE LIMITED HEPATITIS 68972 [facility] B CORE 6 [facility] ANTIBODY INC INC HBCAB TOTAL HEPATITIS 10165 [facility] [place] SURF 6 [facility] ANTIBODY INC INC HBSAB HEPATITIS 07712 M[facility] A 6 [facility] ANTIBODY INC INC HAAB COLLECTIO 66538 M[facility] N VENOUS 6 [facility] [place] [address] [facility] AR[facility] HEPATITIS 6 [facility] B INC INC SURFACE ANTIGEN INF AGT G0432 [facility] AB DETECT 6 [facility] EIA TECH INC INC HIV-1&/HI V-2 SCR HEPATITIS 23637 [facility] C 6 [facility] ANTIBODY INC INC RADIOLOGI 15274 [facility] [place] [facility]ALF SANTIAGO C EXAM 6 RADIOLOGY CHEST 2 VIEWS FRONTAL&L ATERAL AMB A0427 [facility] SERVICE 6 N SCOT T N SCOT T ALS CO EMS CO EMS EMERGENCY TRANSPORT LEVEL 1 ECG 15011 [facility] CELLAROSI ROUTINE 6 [place] - [facility] ECG EMERGENCY PAT W/LEAST PHYS 12 LDS I&[place] [address] [facility] TROPONIN 6 N N QUANTITAT COMMUNTIY COMMUNTIY TANO HOSPITA HOSPITA BLOOD 70625 [facility] COUNT 6 N N COMPLETE COMMUNTIY COMMUNTIY AUTO&AUTO HOSPITA HOSPITA DIFRNTL WBC THER 39850 [facility] PROPH/DX 6 N N NJX IV COMMUNTIY COMMUNTIY PUSH HOSPITA HOSPITA SINGLE/1S T SBST/[place] [address] [facility] INFUSION 6 N N HYDRATION COMMUNTIY COMMUNTIY EACH HOSPITA HOSPITA ADDITIONA L HOUR COLLECTIO 52355 [facility] N VENOUS 6 N N BLOOD COMMUNTIY COMMUNTIY VENIPUNCT HOSPITA HOSPITA URE COMPREHEN 46748 [facility] SIVE 6 N N METABOLIC COMMUNTIY COMMUNTIY PANEL HOSPITA HOSPITA FIBRIN 18635 [facility] DGRADJ 6 N N PRODUCTS COMMUNTIY COMMUNTIY D-DIMER HOSPITA HOSPITA QUANTITAT TANO ECG 09052 [facility] ROUTINE 6 N N ECG COMMUNTIY COMMUNTIY W/LEAST HOSPITA HOSPITA 12 [facility] TRCG ONLY W/O I&R GROUND A0425 [facility] 6 N SCOT T N SCOT T PER CO EMS CO EMS STATUTE MILE DRUG TEST G0479 [facility] 6 N N PRESUMP;I COMMUNTIY COMMUNTIY NSTRUMENT HOSPITA HOSPITA ED CHEMISTRY ANLYZER GROUND A0425 [facility] 6 N SCOT T N SCOT T PER CO EMS CO EMS STATUTE MILE ECG 67517 [facility] ROUTINE 6 N N ECG COMMUNTIY COMMUNTIY W/LEAST HOSPITA HOSPITA 12 [facility] TRCG ONLY W/O I&R COLLECTIO 82573 [facility] N VENOUS 6 N N BLOOD COMMUNTIY COMMUNTIY VENIPUNCT HOSPITA HOSPITA URE THER 98398 [facility] PROPH/DX 6 N N NJX IV COMMUNTIY COMMUNTIY PUSH HOSPITA HOSPITA SINGLE/1S T SBST/[place] [address] [facility] TROPONIN 6 N N QUANTITAT COMMUNTIY COMMUNTIY TANO HOSPITA HOSPITA RADIOLOGI 73923 [facility] C EXAM 6 N N CHEST 2 COMMUNTIY COMMUNTIY VIEWS HOSPITA HOSPITA FRONTAL&L ATERAL ECG 20969 [facility] ROUTINE 6 BENJAMIN YANELIS ECG EMERGENCY W/LEAST PHYS 12 LDS I&R ONLY AMB [id number] [facility] SERVICE 6 N SCOT T N SCOT T ALS CO EMS CO EMS EMERGENCY TRANSPORT LEVEL 1 ECG 90189 MELQUIADES SHEN JR ROUTINE 5 [facility] HOSPITAL W/LEAST P 12 LDS I&R ONLY AMB A0427 [facility] SERVICE 5 AMBULANCE AMBULANCE ALS SERVICE SERVICE EMERGENCY TRANSPORT LEVEL 1 [facility]OUND A0425 [facility] PER SERVICE SERVICE STATUTE MILE ANES 40503 [facility] 5 ANESTH SHE EXTREMITI OF THE ANT BLUE TRUNK & PERINEUM NOS INCISION 17469 TG NELSON L & 5 PHYSICIAN DRAINAGE S, PLLC ABSCESS COMPLICAT ED/MULTIP LE SUSCEPTIB 37452 MELQUIADES ARNETT LTY STDY 5 [facility] ANTIMICRB INC INC IAL MICRO/AGA R DILUTJ CULTURE 77217 MELQUIADES ARNETT BCT 5 [facility] ISOL&PRSM INC INC PTV ID ISOLATE EA URINE CULTURE 51076 MELQUIADES ARNETT BACTERIAL 5 [facility] INC INC QUANTTATI VE COLONY COUNT URINE URNLS DIP 27718 [facility] QUANG 5 PHYSICIAN CHUY STICK/TAB S GROUP LET RGNT NON-AUTO W/O MICRSCP UNCLASSIF J3490 MELQUIADES ARNETT IED DRUGS 4 [facility] INC INC 64242 [facility] TRANSVAGI 4 [facility] URNLS DIP 51360 [facility] 4 HEALTH TJ STICK/TAB CLINIC OF LET RGNT DANITA NON-AUTO W/O MICRSCP HANDLG&/O 15741 [facility] R CONVEY 4 HEALTH TJ OF SPEC CLINIC OF FOR TR DANITA OFFICE TO LAB SMR PRIM 52252 [facility] SRC WET 4 HEALTH TJ [facility] AGT DANITA CULTURE 66073 MELQUIADES ARNETT BACTERIAL 4 [facility] INC INC QUANTTATI VE COLONY COUNT URINE UNCLASSIF J3490 MELQUIADSE ARNETT IED DRUGS 4 [facility] INC INC URINE 05331 MELQUIADES ARNETT 4 [facility] TEST INC INC VISUAL COLOR CMPRSN METHS URNLS DIP 25057 MELQUIADES ARNETT 4 [facility] STICK/TAB INC [place] [address] MELQUIADES ARNETT ABDOMEN & 4 [facility] PELVIS INC INC W/O CONTRAST MATERIAL IADNA 35014 PICKLESIM PICKLESIM NEISSERIA 3 ER JR GARRETT ER JR GARRETT GONORRHOE AE AMPLIFIED PROBE TQ CYTP C/V 66957 PICKLESIM PICKLESIM AUTO THIN 3 ER JR GARRETT ER JR GARRETT LYR PREPJ SCR MNL RESCR PHYS IADNA 45523 PICKLESIM PICKLESIM CHLAMYDIA 3 ER JR GARRETT ER JR GARRETT [place] [address] MELQUIADES ARNETT INFUSION 3 [facility] THERAPY INC INC PROPHYLAX IS/DX EA HOUR LAPAROSCO 98870 MELQUIADES ARNETT PY W/PLMT 3 [facility] INC INC OCCLUSION DEVICE OVIDUCTS ANES IPER 56756 SUAZO MITCHEL SUAZO MITCHEL LWR ABD 3 W/LAPS TUBAL LIGATION/ TRANSECT BASIC 47247 MELQUIADES ARNETT METABOLIC 3 [facility] PANEL INC INC CALCIUM TOTAL GONADOTRO 86048 MELQUIADES ARNETT PIN 3 [facility] CHORIONIC INC INC QUALITATI VE BLOOD 82395 MELQUIADES ARNETT COUNT 3 [facility] COMPLETE INC INC AUTO&AUTO DIFRNTL WBC VAGINAL 18255 [facility] DELIVERY 3 TJ TJ ONLY W/POSTPAR LAUREN CARE NEURAXIAL 56722 SALLY ZAVALA SHA LABOR 3 ANALG/ANE S PLND VAGINAL DELIVERY REPAIR OF 6160 MELQUIADES ARNETT OTHER 3 [facility] CURRENT INC INC OBSTETRIC LACERATIO N 34388 [facility] NONSTRESS 3 TJ TJ TEST 94112 [facility] NONSTRESS 3 TJ TJ TEST 96322 HARPEL HARPEL NONSTRESS 3 DAVID DAVID TEST CULTURE 44467 MELQUIADES ARNETT BACTERIAL 3 [facility] INC INC QUANTTATI VE COLONY COUNT URINE URNLS DIP 01101 MELQUIADES ARNETT 3 [facility] STICK/TAB INC INC LET REAGENT [place] MICROSCOP Y 81366 [facility] NONSTRESS 3 TJ TJ TEST 41550 [facility] NONSTRESS 3 TJ TJ TEST CUL BACT 48965 COMBINED COMBINED XCPT 3 PHYSICIAN PHYSICIAN URINE S LA S LA BLOOD/STO OL AEROBIC ISOL 80874 [facility] NONSTRESS 3 TJ TJ TEST 85034 [facility] NONSTRESS 3 TJ TJ TEST 03479 [facility] NONSTRESS 3 TJ TJ TEST 24580 [facility] NONSTRESS 3 TJ TJ TEST US PREG 35645 [facility] UTERUS 3 TJ TJ REAL TIME W/IMAGE DCMTN TRANSVAG DOPPLER 07111 [facility] VELOCIMET 3 TJ TJ RY UMBILICAL ARTERY 88137 [facility] BIOPHYSIC 3 TJ TJ AL PROFILE NON-STRES S TESTING 22359 [facility] NONSTRESS 3 TJ TJ TEST 05697 [facility] NONSTRESS 3 TJ TJ TEST GLUCOSE 55820 [facility] TOLERANCE 3 TJ TJ TEST GTT 3 SPECIMENS 29569 [facility] NONSTRESS 3 [place] [address] O'OMAIRA O'OMAIRA 3 ANASTACIO ANASTACIO UTERUS LIMITED 1/> FETUSES ECG 82034 [facility] ROUTINE 3 ECG W/LEAST 12 LDS [place] [address] [facility] 3 GLENN GLENN UTERUS LIMITED 1/> FETUSES US PREG 11172 O'OMAIRA O'OMAIRA UTERUS 3 ANASTACIO CHAVES REAL TIME W/IMAGE DCMTN TRANSVAG SBSQ 96788 [facility] 3 GLENN ELIZABETH CARE/DAY 25 MINUTES ECG 49811 DAKOTA SINGHO CHI ROUTINE 3 ECG W/LEAST 12 LDS I&R ONLY SBSQ 83437 [facility] 3 GLENN ELIZABETH CARE/DAY 25 MINUTES US PREG 65374 [facility] UTERUS 3 GLENN ELIZ[facility]ETH [place] [address] [facility] 3 GLENN ELIZABETH UTERUS LIMITED 1/> FETUSES US PREG 49942 [facility] UTERUS 3 Y Y REAL TIME HOSPITAL HOSPITAL W/IMAGE DCMTN TRANSVAG ECG 53826 [facility] R[facility] 3 ECG W/LEAST 12 LDS I&R ONLY SBSQ 93169 [facility] 3 CARE/DAY 25 MINUTES US PREG 44277 [facility] UTERUS 3 Y Y W/DETAIL HOSPITAL HOSPITAL ARNOLD 1ST GESTATION THERAPEUT 66905 MELQUIADES ARNETT IC 3 [facility] PROPHYLAC INC INC TIC/DX INJECTION SUBQ/IM US PREG 32947 [facility] UTERUS 3 TJ TJ REAL [...] ON HCL PER 1 MG US PREG 64483 [facility] UTERUS 3 TJ TJ AFTER 1ST TRIMEST 1/1ST GESTATION INJECTION J2405 MELQUIADES ARNETT 3 [facility] ONDANSETR INC INC ON HCL PER 1 MG BASIC 23158 MELQUIADES ARNETT METABOLIC 3 [facility] PANEL INC INC CALCIUM TOTAL [facility] G0378 MELQUIADES ARNETT OBSERVATI 3 [facility] ON INC INC SERVICE PER HOUR BLOOD 55265 MELQUIADES ARNETT COUNT 3 [facility] COMPLETE INC INC AUTO&AUTO DIFRNTL WBC BLOOD 66853 MELQUIADES ARNETT COUNT 3 [facility] COMPLETE INC INC AUTO&AUTO DIFRNTL WBC URNLS DIP 69150 MELQUIADES ARNETT 3 [facility] STICK/TAB INC INC LET REAGENT AUTO MICROSCOP Y HOSPITAL G0378 MELQUIADES ARNETT OBSERVATI 3 [facility] ON INC INC SERVICE PER HOUR CULTURE 89892 MELQUIADES ARNETT BACTERIAL 3 [facility] INC INC QUANTTATI VE COLONY COUNT URINE INJECTION J2405 MELQUIADES ARNETT 3 [facility] ONDANSETR INC INC ON HCL PER 1 MG COMPREHEN 14392 MELQUIADES ARNETT SIVE 3 [facility] METABOLIC INC INC PANEL THERAPEUT 25667 MELQUIADES ARNETT IC 3 [facility] INJECTION [place] [address] MELQUIADES RANETT INFUSION 3 [facility] THERAPY/P INC INC ROPHYLAXI S /DX 1ST TO 1 HR BLOOD 18493 MELQUIADES ARNETT COUNT 3 [facility] COMPLETE INC INC AUTO&AUTO DIFRNTL WBC INITIAL 63500 [facility] OBSERVATI 3 TJ TJ ON CARE/DAY 50 MINUTES RADEX 73023 MELQUIADES ARNETT ABDOMEN 3 [facility] COMPL INC INC W/DCBTS&/ ERC VIEWS INJECTION J2405 MELQUIADES ARNETT 3 [facility] ONDANSETR INC INC ON HCL PER 1 MG UROGRAPHY 42225 KRISTAL KRISTAL IV W/WO 3 KIERA KIERA KUB W/WO TOMOGRAPH Y BASIC 93930 MELQUIADES ARNETT METABOLIC 3 [facility] MEM [...] INC INC SERVICE PER HOUR URNLS DIP 02862 MELQUIADESEMY ARNETT 3 [facility] STICK/TAB INC INC LET REAGENT AUTO MICROSCOP Y BLOOD 16636 MELQUIADES ARNETT COUNT 3 [facility] COMPLETE INC INC AUTO&AUTO DIFRNTL WBC INJECTION J2405 MELQUIADES MELQUIADES 3 [facility] ONDANSETR INC INC ON HCL PER 1 MG COMPREHEN 13847 MELQUIADES ARNETT SIVE 3 [facility] [place] [address] MELQUIADES ARNETT 3 [facility] UTERUS INC INC LIMITED 1/> [place] [address] MELQUIADES ARNETT INFUSION 3 [facility] THERAPY/P INC INC ROPHYLAXI S /DX 1ST TO 1 HR INITIAL 06952 [facility] OBSERVATI 3 TJ TJ ON CARE/DAY 30 MINUTES ALPHA-FET 10422 MELQUIADES ARNETT OPROTEIN 3 [facility] [place] [address] MELQUIADES ARNETT ESTRIOL 3 [facility] INC INC GONADOTRO 95511 MELQUIADES ARNETT PIN 3 [facility] CHORIONIC INC INC QUANTITAT TANO GONADOTRO 06750 MELQUIADES ARNETT PIN 3 [facility] CHORIONIC INC INC QUANTITAT TANO URINE 63251 MELQUIADES ARNETT 3 [facility] TEST INC INC VISUAL COLOR CMPRSN METHS BLOOD 04339 MELQUIADES ARNETT COUNT 3 [facility] COMPLETE INC INC AUTO&[place] 84999 KRISTAL KRISTAL UTERUS 3 KIERA KIERA REAL TIME F/U TRNSABDL PER FETUS URNLS DIP 04260 MELQUIADES MELQUIADES 3 [facility] STICK/TAB INC [place] [address] MELQUIADES ARNETT 3 [facility] UTERUS INC INC LIMITED 1/> FETUSES COMPREHEN 57016 MELQUIADES ARNETT SIVE 3 [facility] METABOLIC [place] P[place] 01514 MELQUIADES ARNETT UTERUS 3 [facility] REAL TIME INC [place] [address] MELQUAIDES ARNETT STREPTOCO 2 [facility] CCUS INC INC GROUP A IAADI 28299 MELQUIADES ARNETT INFLUENZA 2 [facility] B VIRUS INC INC IAADI 71180 MELQUIADES ARNETT INFFLUENZ 2 [facility] A A VIRUS INC INC URNLS DIP 82799 [facility] 2 TJ TJ STICK/TAB LET RGNT NON-AUTO W/O MICRSCP CULTURE 27615 MELQUIADES ARNETT BACTERIAL 2 [facility] INC INC QUANTTATI VE COLONY COUNT URINE US PREG 76751 MELQUIADES ARNETT UTERUS 2 [facility] REAL TIME INC INC W/[place] [address] MELQUIADES ARNETT RETROPERI 2 [facility] TONEAL INC INC REAL TIME W/IMAGE COMPLETE URNLS DIP 62307 MELQUIADES ARNETT 2 [facility] STICK/TAB INC INC LET REAGENT AUTO MICROSCOP Y URNLS DIP 20541 SP [facility] 2 TJ TJ STICK/TAB LET RGNT NON-AUTO W/O MICRSCP US PREG 92749 MELQUIADES ARNETT UTERUS 2 [facility] REAL TIME INC INC W/IMAGE DCMTN TRANSVAG COMPREHEN 18765 MELQUIADES ARNETT SIVE 2 [facility] METABOLIC INC INC PANEL INJECTION J2405 MELQUIADES ARNETT 2 [facility] ONDANSETR INC INC ON HCL PER 1 MG URNLS DIP 50739 MELQUIADES ARNETT 2 [facility] STICK/TAB INC INC LET REAGENT AUTO MICROSCOP Y BLOOD 54383 MELQUIADESEMY ARNETT COUNT 2 [facility] COMPLETE INC INC AUTO&[place] [address] MELQUIADES MELQUIADES INFUSION 2 [facility] THERAPY/P INC INC ROPHYLAXI S /DX 1ST TO 1 HR THERAPEUT 04980 MELQUIADES ARNETT IC 2 [facility] INJECTION INC INC IV PUSH EACH NEW DRUG THERAPEUT 30116 MELQUIADES ARNETT IC 2 [facility] INJECTION [place] [address] MELQUIADES ARNETT INFUSION 2 [facility] THERAPY/P INC INC ROPHYLAXI S /DX 1ST TO 1 HR BLOOD 78067 MELQUIADES ARNETT COUNT 2 [facility] COMPLETE INC INC AUTO&AUTO DIFRNTL WBC URNLS DIP 83502 MELQUIADES ARNETT 2 [facility] STICK/TAB INC INC LET REAGENT AUTO MICROSCOP Y URINE 86476 MELQUIADES ARNETT 2 [facility] TEST INC INC VISUAL COLOR CMPRSN METHS THER 55598 MELQUIADES ARNETT PROPH/DX 2 [facility] NJX EA INC INC SEQL [place] P[place] SBST/[place] [address] MELQUIADES ARNETT INFUSION 2 [facility] THERAPY INC INC PROPHYLAX IS/DX EA HOUR OBSERVATI 80506 [facility] ON CARE 2 [place] [address] MELQUIADES ARNETT INFUSION 2 [facility] THER INC INC PROPH ADDL SEQUENTIA L TO 1 HR HOSPITAL G0378 MELQUIADES MELQUIADES OBSERVATI 2 [facility] ON INC INC SERVICE PER HOUR INJECTION J2405 MELQUIADES MELQUIADES 2 [facility] ONDANSETR INC INC ON HCL PER 1 MG BASIC 88327 MELQUIADES ARNETT METABOLIC 2 [facility] PANEL INC INC CALCIUM TOTAL CULTURE 58626 MELQUIADES ARNETT BACTERIAL 2 [facility] INC INC QUANTTATI VE COLONY COUNT URINE INITIAL 94457 [facility] OBSERVATI 2 TJ TJ ON CARE/DAY 50 MINUTES CYTP 89363 [facility] KNIGHT CERVICAL/ 2 [facility] VAL[facility] VAGINAL REQ INTERP PHYSICIAN CYTP C/V 65988 [facility] AUTO THIN 2 [facility] VALENTE LYR PREPJ SCR MNL RESCR PHYS IADNA 48518 EU[facility] KNIGHT NEISSERIA 2 [facility] GONORRHOE AE AMPLIFIED PROBE TQ IADNA 94156 EU[facility] KNIGHT CHLAMYDIA 2 [facility] VALENTE TRACHOMAT IS AMPLIFIED [place] T[place] PREG 28868 [facility] UTERUS 2 TJ TJ REAL TIME W/IMAGE DCMTN TRANSVAG URINE 82662 MELQUIADES ARNETT 2 [facility] TEST INC INC VISUAL COLOR CMPRSN METHS URNLS DIP 04528 MELQUIADES ARNETT 2 [facility] STICK/TAB INC INC LET REAGENT AUTO MICROSCOP Y URINE 79392 MELQUIADES ARNETT 2 [facility] TEST C[facility] CENTER VISUAL COLOR CMPRSN METHS CRTCHS E0114 [facility] UNDARM 2 OTH THAN WOOD PAIR PAD TIP&HNDGR IP RADEX 57161 MELQUIADES ARNETT FOOT 2 [facility] COMPLETE INC INC MINIMUM 3 VIEWS CULTURE 16854 MELQUIADES ARNETT BACTERIAL 2 [facility] INC INC QUANTTATI VE COLONY COUNT URINE SUSCEPTIB 18325 MELQUIADES ARNETT LTY STDY 2 [facility] ANTIMICRB INC INC IAL MICRO/AGA R DILUTJ URNLS DIP 23945 MELQUIADES ARNETT 2 [facility] STICK/TAB INC INC LET REAGENT AUTO MICROSCOP Y URINE 51733 MELQUIADES ARNETT 2 [facility] TEST INC INC VISUAL COLOR CMPRSN METHS THERAPEUT 44655 MELQUIADES ARNETT IC 2 [facility] PROPHYLAC INC INC TIC/[place] INJECTION SUBQ/[place] [address] [facility] TRANSVAGI 2 TJ TJ NAL URINE 82841 [facility] 2 TJ TJ TEST [place] [address] [facility] TRANSVAGI 2 TJ TJ NAL RADEX 23733 [place] KRISTAL HAND 2 MEDICAL KIERA MINIMUM 3 IMAGING VIEWS ASS URINE 15407 MELQUIADES ARNETT 2 [facility] TEST INC INC VISUAL COLOR CMPRSN METHS URNLS DIP 76711 MELQUIADES ARNETT 2 [facility] STICK/TAB INC [place] [address] BECKY GIRALDO TRANSVAGI 2 MEDICAL KIERA NAL IMAGING ASS COMPREHEN 27806 MELQUIADES ARNETT SIVE 2 [facility] [place] [address] MELQUIADES ARNETT LIPASE 2 [facility] INC INC URNLS DIP 14299 MELQUIADES ARNETT 2 [facility] STICK/TAB INC INC LET REAGENT AUTO MICROSCOP Y BLOOD 46115 MELQUIADES ARNETT COUNT 2 [facility] COMPLETE INC INC AUTO&AUTO DIFRNTL WBC URINE 11311 MELQUIADES ARNETT 2 [facility] TEST INC INC [place] [address] MELQUIADES ARNETT AMYLASE 2 [facility] INC INC URINE 30456 MELQUIADES ARNETT 2 [facility] CENTER VISUAL COLOR CMPRSN METHS THERAPEUT 19045 MELQUIADES VASQUEZON IC 2 [facility] PROPHYLAC INC INC TIC/DX INJECTION SUBQ/IM INJECTION J0595 MELQUIADES MELQUIADES 2 [facility] BUTORPHAN INC INC OL TARTRATE 1 MG INJECTION J2405 MELQUIADES ARNETT 2 [facility] ONDANSETR INC INC ON HCL PER 1 MG HOSPITAL 00575 [facility] 2 I FEE I FEE DAY MANAGEMEN T 30 MIN/< SBSQ 04259 [facility] 2 I FEE I FEE CARE/DAY 25 MINUTES INITIAL 34547 [facility] 2 EMERGENCY PAULA CARE/DAY SERVICES [address] ORBIT 61170 LAKSHMI BURRIS SELLA/POS 2 MEDICAL T SERV FOSSA/EAR FOUNDATIO W/[place] [address] MELQUIADES ARNETT STREPTOCO 1 [facility] CCUS INC INC GROUP A INJECTION J1885 [address] KETOROLAC TROMETHAM INE PER 15 MG THERAPEUT 07946 [facility] IC 1 [facility] PROPHYLAC TIC/DX INJECTION SUBQ/IM ONDANSETR Q0179 [facility] ON HCL 8 1 [facility] MG ORL NOT >48 HR DOSE REGIMEN RADEX 97192 BECKY KRISTAL, WRIST 0 MEDICAL GALA COMPLETE IMAGING MINIMUM 3 ASSOCIATE VIEWS S RADEX 74466 BECKY KRISTAL, FOREARM 2 0 MEDICAL GALA VIEWS IMAGING ASSOCIATE S THERAPEUT 77622 [facility], IC 0 HEALTH ERIK J PROPHYLAC CLINIC OF TIC/DX INJECTION [place] SUBQ/IM PLLC THERAPEUT 61913 [facility], IC 9 HEALTH ERIK J PROPHYLAC CLINIC OF TIC/DX INJECTION [place] SUBQ/[place] [address] PATHOLOGY PATHOLOGY SURG 9 & & PATHOLOGY CYTOLOGY CYTOLOGY LAB LAB GROSS&CHUY ROSCOPIC EXAM COLPOSCOP 17894 [facility] SP, Y CERVIX 9 HEALTH ERIK J BX CERVIX CLINIC OF & ENDOCRV [place] CURRETAGE PLLC CYTP C/V 04572 PATHOLOGY PATHOLOGY AUTO THIN 9 & & LYR CYTOLOGY CYTOLOGY PREPJ SCR LAB LAB MNL RESCR PHYS IADNA 70891 PATHOLOGY PATHOLOGY PAPILLOMA 9 & & VIRUS CYTOLOGY CYTOLOGY HUMAN LAB LAB AMPLIFIED PROBE TQ CYTP 69036 PATHOLOGY PATHOLOGY CERVICAL/ 9 & & VAGINAL CYTOLOGY CYTOLOGY REQ LAB LAB INTERP PHYSICIAN VAGINAL 46359 [place] [facility] DELIVERY 9 MEDICAL NN, ONLY SERV ADRIAN R FOUNDATIO OTHER 7359 [facility] 9 Y Y [facility] HOSPITAL DELIVERY GROUND A0425 [facility] MILEAGE 9 AMBULANCE AMBULANCE PER SERVICE SERVICE STATUTE MILE 65420 MELQUIADES ARNETT NONSTRESS 9 [facility] TEST INC INC OBSERVATI 29181 ZURDO MAE, ON/INPATI 9 CATHY [place] [facility] HOSPITAL CARE [address] [facility] SERVICE 9 AMBULANCE AMBULANCE ALS SERVICE SERVICE EMERGENCY TRANSPORT LEVEL 1 IV [address] MELQUIADES ARNETT INFUSION 9 [facility] THERAPY/P INC INC ROPHYLAXI S /DX 1ST TO 1 HR HOSPITAL G0378 MELQUIADES ARNETT OBSERVATI 9 [facility] [place] [place] [address] MELQUIADES ARNETT INFUSION 9 [facility] THERAPY INC INC PROPHYLAX IS/DX EA HOUR GLUCOSE 42788 [facility] POST 9 HEALTH ERIK GLUCOSE CLINIC OF [facility] GLUCOSE 21875 [facility], TOLERANCE 9 [facility] CLIN[facility] OF 3 SPECIMENS [facility] SPCL STN 74001 PATHOLOGY PATHOLOGY 2 I&R 9 & & EXCPT CYTOLOGY CYTOLOGY MICROORG/ LAB LAB ENZYME/IM CYT ANES 69065 [facility] UPPER GI 9 ANESTH CINDY L ENDOSCOPY OF THE [place] [address] PATHOLOGY PATHOLOGY SURG 9 & & PATHOLOGY CYTOLOGY CYTOLOGY LAB LAB GROSS&[place] [address] MELQUIADES ARNETT INFUSION 9 [facility] THERAPY/P INC INC ROPHYLAXI S /DX 1ST TO 1 HR EGD 12714 SCHULSTAD SCHULSTAD TRANSORAL 9 , ANNIKA , ANNIKA BIOPSY SINGLE/MU LTIPLE ESOPHAGOG 4516 MELQUI[facility] ASTRODUOD 9 [facility] ENOSCOPY INC INC WITH CLOSED BIOPSY URNLS DIP 41381 [facility] 9 [facility] STICK/TAB INC INC LET REAGENT AUTO MICROSCOP Y BLOOD 71484 [facility] COUNT 9 [facility] COMPLETE INC INC AUTO&AUTO DIFRNTL WBC BLOOD 00321 [facility] OCCULT 9 [facility] PEROXIDAS INC INC E ACTV QUAL FECES 1-3 SPEC BASIC 15883 [facility] METABOLIC 9 [facility] PANEL INC INC CALCIUM TOTAL [place] PREG 87811 [facility] UTERUS 9 [facility] ERIK J AFTER [facility] [place] [facility] BASIC 83562 [facility] METABOLIC 9 [facility] PANEL INC INC CALCIUM TOTAL CULTURE 57519 [facility] BACTERIAL 9 [facility] INC INC QUANTTATI VE COLONY COUNT URINE URNLS DIP 43156 [facility] 9 [facility] STICK/TAB INC INC LET REAGENT AUTO MICROSCOP Y BLOOD 67211 [facility] COUNT 9 [facility] COMPLETE INC INC AUTO&[place] [address] [facility] ESTRIOL 9 [facility] INC INC GONADOTRO 17964 M[facility] PIN 9 [facility] CHORIONIC INC INC QUANTITAT TANO ALPHA-FET 35148 [facility] OPROTEIN 9 [facility] SERUM INC INC [place] PREG 18643 [facility], UTERUS 9 HEALTH ERIK J REAL TIME CLIN[facility] OF W/IMAGE DCMTN [facility] IADNA [address]28 PATHOLOGY PATHOLOGY NEISSERIA 9 & & CYTOLOGY CYTOLOGY GONORRHOE LAB LAB AE AMPLIFIED PROBE TQ MOLECULAR 77720 MOLECULAR MOLECULAR DX AMP 9 TARGET PATHOLOGY PATHOLOGY MULTIPLEX LAB LAB 1ST 2 NETWORK NETWORK SEQ INC INC MOLECULAR 94018 MOLECULAR MOLECULAR 9 DIAGNOSTI PATHOLOGY PATHOLOGY CS LAB LAB INTERPRET NETWORK NETWORK ATION & INC INC REPORT MUTATION 67516 MOLECULAR MOLECULAR ID 9 ENZYMATIC PATHOLOGY PATHOLOGY LAB LAB LIG/PRIME NETWORK NETWORK R XTN 1 INC INC SGM EA CYTP 56205 PATHOLOGY PATHOLOGY CERVICAL/ 9 & & VAGINAL CYTOLOGY CYTOLOGY REQ LAB LAB INTERP PHYSICIAN CYTP C/V 14397 PATHOLOGY PATHOLOGY AUTO THIN 9 & & LYR CYTOLOGY CYTOLOGY PREPJ SCR LAB LAB MNL RESCR PHYS MOLECULAR 25991 MOLECULAR MOLECULAR DX AMP 9 TARGET PATHOLOGY PATHOLOGY MULTIPLEX LAB LAB EA ADDL NETWORK NETWORK SEQ INC INC MOLEC 73137 MOLECULAR MOLECULAR SEP&ID HI 9 RESOLU PATHOLOGY PATHOLOGY TQ EACH LAB LAB NUCLEIC NETWORK NETWORK ACID PREP INC INC IADNA 59621 PATHOLOGY PATHOLOGY CHLAMYDIA 9 & & CYTOLOGY CYTOLOGY TRACHOMAT LAB LAB IS AMPLIFIED PROBE TQ MOLEC 57839 MOLECULAR MOLECULAR ISOL/XTRJ 9 HP PATHOLOGY PATHOLOGY NUCLEIC LAB LAB ACID EA NETWORK NETWORK TYPE INC INC URINE 94872 DHS/CO [facility] 9 [facility] VISUAL BANK ACCT COLOR CMPRSN METHS REMOVAL 55318 CATHY MAE, IMPLANTAB 8 ZURDO [place] LE CONTRACEP TIVE CAPSULES BLOOD 28698 [facility] COUNT 8 [facility] COMPLETE INC INC AUTO&AUTO DIFRNTL WBC URNLS DIP 48757 [facility] 8 [facility] STICK/TAB INC INC LET REAGENT AUTO MICROSCOP Y URINE 36935 [facility] 8 [facility] TEST INC [place] V[place] [address] MELQUIADES MELQUIADES THER 8 [facility] PROPH/DX INC INC 1ST >1 HR CULTURE 19060 M[facility] BACTERIAL 8 [facility] INC INC QUANTTATI VE COLONY COUNT URINE COMPREHEN 44193 [facility] SIVE 8 [facility] METABOLIC INC INC PANEL URINE 34421 ZURDO MAE, 8 CATHY [place] TEST VISUAL COLOR CMPRSN METHS RADEX 56106 [facility] WRIST 8 [facility] COMPLETE INC INC MINIMUM 3 VIEWS 3D 95736 BECKY GIRALDO, RENDERING 8 MEDICAL GALA IMAGING W/INTERP& ASSOCI[place] [address] [facility] ABDOMEN 8 [facility] W/O INC INC CONTRAST MATERIAL CULTURE 89638 [facility] BACTERIAL 8 [facility] INC INC QUANTTATI VE COLONY COUNT URINE CT PELVIS 83771 BECKY GIRALDO, W/O 8 MEDICAL GALA CONTRAST IMAGING MATERIAL ASSOCIATE S URINE 86532 [facility] AR[facility] 8 [facility] TEST INC INC VISUAL COLOR CMPRSN METHS CULTURE 99230 [facility] AR[facility] BCT 8 [facility] ISOL&PRSM INC INC PTV ID ISOLATE EA URINE URNLS DIP 37762 [facility] 8 [facility] STICK/TAB INC INC LET REAGENT AUTO MICROSCOP Y SUSCEPTIB 38949 [facility]QUIAD[facility] LTY STDY 8 [facility] ANTIMICRB INC INC IAL MICRO/AGA R DILUTJ URINE 63769 ZURDO MAE, 8 CATHY [place] TEST VISUAL COLOR CMPRSN METHS INSERTION 00854 ZURDO MAE, 8 CATHY [place] IMPLANTAB LE CONTRACEP TIVE CAPSULES IADNA 88540 [employer] FRITZ, NEISSERIA 8 [place] INC VIRAJ E GONORRHOE AE AMPLIFIED PROBE TQ IADNA 01685 [employer] FRITZ, CHLAMYDIA 8 [place] VIR[place] E TRACHOMAT IS AMPLIFIED PROBE TQ CYTP 85247 AMERIPATH FRITZ, CERV/VAG 8 [place] [facility] AUTO THIN LAYER PREP MNL SCREEN BLOOD 61641 ZURDO MAE, COUNT 8 C[place] [address] MELQUIADES ARNETT STREPTOCO 8 [facility] CCUS INC INC GROUP A Encounters Encounter Start End Date Code Location Performer Type Date EMERGENCY 90630 TG CARDONA 7 7 PHYSICIAN DEPARTMEN S, [facility] T VISIT HIGH/URGE NT SEVERITY OFFICE 87566 [facility] SP SIMMONS 6 6 PHYSICIAN TJ T VISIT S GROUP 25 MINUTES EMERGENCY 89020 TG BURTONH 6 6 PHYSICIAN [place] [facility] S, [facility] T VISIT HIGH/URGE NT SEVERITY EMERGENCY 86671 TG RENUSCH DEPT 6 6 PHYSICIAN [place] VISIT S, [facility] HIGH SEVERITY& THREAT FUNCJ EMERGENCY 35222 TG RIZZO 6 6 PHYSICIAN U [facility] S, [facility] T VISIT HIGH/URGE NT SEVERITY EMERGENCY 38288 MELQUIADES [address] [facility] T VISIT LOW/MODER SEVERITY HOSPITAL MELQUIADES - 6 6 [facility] 37005 [facility] SP SIMMONS 6 6 PHYSICIAN TJ T VISIT S GROUP 15 MINUTES OFFICE 15958 TWINRACHEL DAVON OUTPATIEN 6 6 PHYSICIAN JONY T NEW 30 PRACTICE MINUTES HOSPITAL MELQUIADES - 6 6 [facility] OUTPATIEN INC T EMERGENCY 31314 TG DEL RIO 6 6 PHYSICIAN CHUY DEPARTMEN S, [facility] T VISIT MODERATE SEVERITY EMERGENCY 65010 MELQUIADES 6 6 [facility] DEPARTMEN INC T VISIT LOW/MODER SEVERITY HOSPITAL MELQUIADES - 6 6 [facility] OUTPATIEN INC [facility] MELQUIADES - 6 6 [facility] OUTPATIEN INC T OFFICE 54849 [facility] SNOWDEN OUTPATIEN 6 6 PHYSICIAN TJ T VISIT S GROUP 15 MINUTES OFFICE 01617 [facility] QUANG OUTPATIEN 6 6 PHYSICIAN CHUY T VISIT S GROUP 15 MINUTES OFFICE 19819 [facility] QUANG OUTPATIEN 6 6 PHYSICIAN CHUY T VISIT S GROUP 15 MINUTES HOSPITAL MELQUIADES - 6 6 [facility] OUTPATIEN [facility] - 6 6 N OUTPATIEN COMMUNTIY T HOSPITA EMERGENCY 47438 [facility] 6 6 N DEPARTMEN COMMUNTIY T VISIT HOSPITA HIGH/URGE NT SEVERITY EMERGENCY 13075 [facility] CELLARO DEPT 6 6 B[place]JAMIN - YORBA VISIT EMERGENCY PAT HIGH PHYS SEVERITY& THREAT FUN EMERGENCY 53599 [facility] 6 6 N DEPARTMEN COMMUNTIY T VISIT HOSPITA HIGH/URGE NT SEVERITY EMERGENCY 74676 [facility] DEPT 6 6 [place] YANELIS VISIT EMERGENCY HIGH PHYS SEVERITY& THREAT [facility] CE[facility] - 6 6 N OUTPATIEN COMMUNTIY T HOSPITA EMERGENCY 32359 MELQUIADES 5 5 [facility] DEPARTMEN INC T VISIT MODERATE SEVERITY HOSPITAL MELQUIADES - 5 5 [facility] OUTPATIEN INC T EMERGENCY 18663 TG Ramos 5 5 PHYSICIAN DEPARTMEN S, [facility] T VISIT HIGH/URGE NT SEVERITY HOSPITAL MELQUIADES - 5 5 [facility] OUTPATIEN INC T OFFICE 57704 [facility] QUANG MURRIETAPATIEN 5 5 PHYSICIAN CHUY T VISIT S GROUP 15 MINUTES EMERGENCY 77712 MELQUIADES 4 4 [facility] DEPARTMEN INC T VISIT LIMITED/M INOR PROB EMERGENCY 69372 [facility] 4 4 [place] IMT DEPARTMEN EMERGENCY T VISIT PHYS MODERATE SEVERITY HOSPITAL MELQUIADES - 4 4 [facility] OUTPATIEN INC T OFFICE 82083 [facility] 4 4 HEALTH TJ T VISIT CLINIC OF 15 DANITA MINUTES OFFICE 52236 [facility] 4 4 HEALTH TJ T VISIT CLINIC OF 25 DANITA MINUTES HOSPITAL MELQUIADES - 4 4 [facility] OUTPATIEN INC T EMERGENCY 77965 [facility] 4 4 [place] CHUY DEPARTMEN EMERGENCY T VISIT PHYS HIGH/URGE NT SEVERITY EMERGENCY 47048 MELQUIADES 4 4 [facility] DEPARTMEN INC T VISIT LOW/MODER SEVERITY HOSPITAL MELQUIADES - 3 3 [facility] OUTPATIEN INC T HOSPITAL MELQUIADES - 3 3 [facility] OUTPATIEN INC T Inpatient IMP Melquiades Mae MD (IN) 3 00:40 3 14:10 [facility] MELQUIADES - 3 3 [facility] INPATIENT INC OFFICE 20776 SP MURRIETAPATIEN 3 3 TJ TJ T VISIT 15 MINUTES OFFICE 46959 SP [facility] OUTPATIEN 3 3 TJ TJ T VISIT 15 MINUTES HOSPITAL MELQUIADES - 3 3 [facility] OUTPATIEN INC T OFFICE 02472 CATHY BAMANTONYRichard OUTPATIEN 3 3 DAVID DAVID T VISIT 15 MINUTES OFFICE 26772 [facility] OUTPATIEN 3 3 TJ TJ T VISIT 15 MINUTES OFFICE 50983 [facility] OUTPATIEN 3 3 TJ TJ T VISIT 15 MINUTES OFFICE 85180 [facility] OUTPATIEN 3 3 TJ TJ T VISIT 15 MINUTES OFFICE 36908 [facility] OUTPATIEN 3 3 TJ TJ T VISIT 15 MINUTES OFFICE 78219 [facility] OUTPATIEN 3 3 TJ TJ T VISIT 15 MINUTES OFFICE 03123 [facility] OUTPATIEN 3 3 TJ TJ T VISIT 15 MINUTES OFFICE 50635 [facility] OUTPATIEN 3 3 TJ TJ T VISIT 15 MINUTES OFFICE 83101 [facility] OUTPATIEN 3 3 TJ TJ T VISIT 5 MINUTES OFFICE 81383 [facility] OUTPATIEN 3 3 TJ TJ T VISIT 15 MINUTES HOSPITAL UNIVERSIT - 3 3 [facility] MELQUIADES - 3 3 [facility] OUTPATIEN INC T Inpatient IMP Melquiades Snowden (IN) 3 13:32 3 10:10 [facility] MELQUIADES - 3 3 [facility] OUTPATIEN INC T OFFICE 81451 SP MORRISE OUTPATIEN 3 3 TJ TJ T VISIT 15 MINUTES OFFICE 19057 SP MORRISE OUTPATIEN 3 3 TJ TJ T VISIT 15 MINUTES [facility] MELQUIADES - 3 3 [facility] OUTPATIEN INC T EMERGENCY 23510 MELQUIADES 3 3 [facility]IS[facility] HIGH/URGE NT SEVERITY EMERGENCY 28889 QUANG DEL RIO DEPT 3 3 CHUY CHUY VISIT HIGH SEVERITY& THREAT [facility] OFFICE 37591 SP [facility] OUTPATIEN 3 3 TJ TJ T VISIT 15 MINUTES HOSPITAL MELQUIADES - 3 3 [facility] OUTPATIEN [facility] T EMERGENCY 01128 MELQUIADES 3 3 [facility] T VISIT HIGH/URGE NT SEVERITY EMERGENCY 26644 EUGENE VAUGHAN DEPT 3 3 EMERGENCY VISIT SERVICES HIGH SEVERITY& THREAT [facility] HOSPITAL MELQUIADES - 3 3 [facility] T OFFICE 00792 SP [facility] OUTPATIEN 3 3 TJ TJ T VISIT 15 MINUTES EMERGENCY 09927 CHRISTIAN GONZALES DEPT 3 3 III MITCHEL III MITCHEL VISIT HIGH SEVERITY& THREAT [facility] EMERGENCY 04036 MELQUIADES [address] [facility] T VISIT HIGH/URGE NT SEVERITY HOSPITAL MELQUIADES - 3 3 [facility] T OFFICE 30841 SP [facility] OUTPATIEN 3 3 TJ TJ T VISIT 15 MINUTES EMERGENCY 48617 MELQUIADES [address] [facility] T VISIT LIMITED/M INOR PROB EMERGENCY 03411 QUANG DEL RIO 2 2 [facility] H[facility]URGE NT SEVERITY HOSPITAL MELQUIADES - 2 2 [facility] T OFFICE 29279 SP [facility] OUTPATIEN 2 2 TJ TJ T VISIT 15 MINUTES EMERGENCY 00188 MELQUIADES 2 2 [facility] T VISIT LOW/MODER SEVERITY HOSPITAL MELQUIADES - 2 2 [facility] OUTPATIEN INC T EMERGENCY 12131 EUGENE MCCALLUM DEPT 2 2 EMERGENCY MITCHEL VISIT SERVICES HIGH SEVERITY& THREAT FUNCJ OFFICE 36803 SP [facility] OUTPATIEN 2 2 TJ TJ T VISIT 15 MINUTES HOSPITAL MELQUIADES - 2 2 [facility] OUTPATIEN INC T EMERGENCY 72415 CHRISTIAN GONZALES DEPT 2 2 III MITCHEL III MITCHEL VISIT HIGH SEVERITY& THREAT FUNCJ EMERGENCY 46678 MELQUIADES 2 2 [facility] DEPARTMEN INC T VISIT HIGH/URGE NT SEVERITY HOSPITAL MELQUIADES - 2 2 [facility] OUTPATIEN INC T EMERGENCY 18020 MELQUIADES DEPT 2 2 [facility] VISIT INC HIGH SEVERITY& THREAT FUNCJ EMERGENCY 61982 EUGENE CASTILLO DEPT 2 2 EMERGENCY VISIT SERVICES HIGH SEVERITY& THREAT FUNCJ EMERGENCY 18832 MELQUIADES 2 2 [facility] DEPARTMEN INC T VISIT LIMITED/M INOR PROB HOSPITAL MELQUIADES - 2 2 [facility] OUTPATIEN INC T EMERGENCY 10648 QUANG DEL RIO 2 2 [facility] CHUY DEPARTMEN T VISIT HIGH/URGE NT SEVERITY OFFICE 70923 MELQUIADES SIMMONS 2 2 [facility] HEALTH T VISIT CENTER CENTER 25 MINUTES EMERGENCY 25428 MELQUIADES 2 2 [facility] DEPARTMEN INC T VISIT MODERATE SEVERITY HOSPITAL MELQUIADES - 2 2 [facility] OUTPATIEN INC T EMERGENCY 13006 EUGENE CASTILLO 2 2 EMERGENCY DEPARTMEN SERVICES T VISIT HIGH/URGE NT SEVERITY EMERGENCY 74356 MELQUIADES 2 2 [facility] DEPARTMEN INC T VISIT MODERATE SEVERITY HOSPITAL MELQUIADES - 2 2 [facility] OUTPATIEN INC T EMERGENCY 09279 EUGENE CASTILLO DEPT 2 2 EMERGENCY VISIT SERVICES HIGH SEVERITY& THREAT FUNCJ OFFICE 93552 SP SIMMONS 2 2 TJ TJ T VISIT 25 MINUTES EMERGENCY 39121 MELQUIADES 2 2 [facility] T VISIT LOW/MODER SEVERITY HOSPITAL MELQUIADES - 2 2 [facility] OUTPATIEN [facility] T EMERGENCY 07156 CHRISTIAN GONZALES 2 2 III MITCHEL III [facility] T VISIT HIGH/URGE NT SEVERITY EMERGENCY 83785 EUGENE MCCALLUM 2 2 EMERGENCY [facility] T VISIT MODERATE SEVERITY HOSPITAL MELQUIADES - 2 2 [facility] T EMERGENCY 21287 MELQUIADES [address] [facility] T VISIT LOW/MODER SEVERITY HOSPITAL MELQUIADES - 2 2 [facility] T EMERGENCY 46609 MELQUIADES [address] [facility] T VISIT LOW/MODER SEVERITY EMERGENCY 77358 EUGENE DEL RIO DEPT 2 2 EMERGENCY CHUY VISIT SERVICES HIGH SEVERITY& THREAT FUNCJ OFFICE 53305 [facility] OUTPATIEN 2 2 TJ TJ T VISIT 25 MINUTES HOSPITAL NAHED - 2 2 [facility] T EMERGENCY 27416 DULCE PEREZ DEPT 2 2 VISIT HIGH SEVERITY& THREAT FUNCJ EMERGENCY 48120 ABHISHEKON 2 2 [facility] T VISIT LOW/MODER SEVERITY HOSPITAL MELQUIADES - 2 2 [facility] T EMERGENCY 64345 CHRISTIAN GONZALES 2 2 III MITCHEL III [facility] T VISIT HIGH/URGE NT SEVERITY HOSPITAL MELQUIADES - 2 2 [facility] OUTPATIEN INC T EMERGENCY 94765 MELQUIADES 2 2 [facility] DEPARTMEN INC T VISIT MODERATE SEVERITY OFFICE 98590 MELQUIADES ARNETT OUTPATIEN 2 2 [facility] T VISIT CENTER CENTER 15 MINUTES HOSPITAL MELQUIADES - 2 2 [facility] OUTPATIEN INC T EMERGENCY 05958 MELQUIADES 2 2 [facility] DEPARTMEN INC T VISIT MODERATE SEVERITY EMERGENCY 18203 EUGENE DEL RIO 2 2 EMERGENCY [facility] DEPARTMEN SERVICES T VISIT HIGH/URGE NT SEVERITY EMERGENCY 26577 MELQUIADES 2 2 [facility] DEPARTMEN INC T VISIT LOW/MODER SEVERITY HOSPITAL MELQUIADES - 2 2 [facility] OUTPATIEN INC T EMERGENCY 58386 EUGENE DEL RIO 2 2 EMERGENCY [facility] SERVICES T VISIT MODERATE SEVERITY EMERGENCY 18101 UNIVERSIT 2 2 [facility] T VISIT HIGH/URGE NT SEVERITY EMERGENCY 86709 CHRISTIAN GONZALES 2 2 III MITCHEL III [facility] T VISIT MODERATE SEVERITY EMERGENCY 13763 MELQUIADES 2 2 [facility] DEPARTMEN [facility] T VISIT LIMITED/M INOR PROB HOSPITAL UNIVERSIT - 2 2 [facility] T EMERGENCY 22659 LAKSHMI ECKERLINE DEPT 2 2 MEDICAL C VISIT SERV HIGH FOUNDATIO SEVERITY& THREAT [facility] HOSPITAL UNIVERSIT - 2 2 Y INPATIENT HOSPITAL EMERGENCY 80993 MELQUIADES 2 2 [facility] DEPARTMEN INC T VISIT LIMITED/M INOR PROB EMERGENCY 77297 LAKSHMI CAMACHO 2 2 MEDICAL DEV DEPARTMEN SERV T VISIT FOUNDATIO MODERATE SEVERITY HOSPITAL MELQUIADES - 2 2 [facility] OUTPATIEN [facility] HOSPITAL MELQUIADES - 2 2 [facility] OUTPATIEN INC T EMERGENCY 43029 MELQUIADES 2 2 [facility] INC T VISIT LOW/MODER SEVERITY EMERGENCY 64463 MILABIB CHRISTIAN 2 2 III MITCHEL III [facility] T VISIT MODERATE SEVERITY EMERGENCY 04959 MELQUIADES [address] [facility] T VISIT LOW/MODER SEVERITY EMERGENCY 29356 EUGENE DEL RIO 1 1 EMERGENCY [facility] SERVICES T VISIT MODERATE SEVERITY HOSPITAL MELQUIADES - 1 1 [facility] OUTPATIEN [facility] HOSPITAL [facility]5789 [facility] 1 1 [facility] T VISIT MODERATE SEVERITY OFFICE 94843 MELQUIADES ARNETT OUTPATIEN 1 1 [facility] T VISIT CENTER CENTER 15 MINUTES EMERGENCY 24915 [facility] 1 1 [facility] [facility] EMERGENCY T VISIT PHYSI HIGH/URGE NT SEVERITY EMERGENCY 09286 [facility] CARLEY JAM 1 1 [facility] [facility] EMERGENCY T VISIT PHYSI HIGH/URGE NT SEVERITY EMERGENCY 14247 [facility] RADHA DEPT 1 1 [place] EDW VISIT EMERGENCY HIGH PHYSI SEVERITY& THREAT [facility] MELQUIADES - 1 1 [facility] OUTPATIEN [facility] EMERGENCY 98072 MELQUIADES [address] [facility] T VISIT LOW/MODER SEVERITY HOSPITAL MELQUIADES - 0 0 [facility] EMERGENCY 64604 MELQUIADES [address] [facility] T VISIT HIGH/URGE NT SEVERITY OFFICE 50973 [facility], OUTPATIEN 0 0 [facility]ALTH [facility] T VISIT 5 CLINIC OF MINUTES [facility] MELQUIADES - 0 0 [facility] OUTPATIEN [facility] HOSPITAL MELQUIADES - 9 9 [facility] OUTPATIEN INC T EMERGENCY 24991 EUGENE QUANG, 9 9 EMERGENCY CATARINA S DEPARTMEN SERVICES T VISIT HIGH/URGE ASSOCIATE NT S SEVERITY OFFICE 81286 [facility], OUTPATIEN 9 9 HEALTH ERIK J T VISIT 5 CLINIC OF MINUTES [facility] EMERGENCY 48966 MELQUIADES 9 9 [facility] DEPARTMEN INC T VISIT LIMITED/M INOR PROB EMERGENCY 28790 EUGENE JAMILPARVEEN, 9 9 EMERGENCY ADAN DEPARTMEN SERVICES O T VISIT HIGH/URGE ASSOCIATE NT S SEVERITY EMERGENCY 62950 MELQUIADES 9 9 [facility] DEPARTMEN INC T VISIT LOW/MODER SEVERITY HOSPITAL MELQUIADES - 9 9 [facility] OUTPATIEN INC T OFFICE 64530 DHS/CO MELQUIADES OUTPATIEN 9 9 HEALTH CO HEALTH T VISIT [facility] 25 BANK ACCT MINUTES OFFICE 46724 [facility], OUTPATIEN 9 9 HEALTH ERIK J T VISIT CLINIC OF 25 MINUTES [facility] OFFICE 64013 [facility], OUTPATIEN 9 9 HEALTH ERIK J T VISIT CLINIC OF 15 MINUTES [facility] UNIVERSIT - 9 9 Y INPATIENT HOSPITAL OFFICE 80062 [facility], OUTPATIEN 9 9 HEALTH ERIK J T VISIT 5 CLINIC OF MINUTES [facility] OFFICE 90810 [facility], OUTPATIEN 9 9 HEALTH ERIK J T VISIT CLINIC OF 15 MINUTES [facility] OFFICE 65167 [facility] TALAMANT[facility] OUTPATIEN 9 9 , ANNIKA ROBLERO T VISIT 10 MINUTES HOSPITAL MELQUIADES - 9 9 [facility] OUTPATIEN INC T OFFICE 88175 [facility] CONSULTAT 9 9 , ANNIKA ROBLERO ION NEW/ESTAB PATIENT 60 MIN HOSPITAL MELQUIADES - 9 9 [facility] OUTPATIEN [facility] T EMERGENCY 26984 MELQUIADES 9 9 [facility] INC T VISIT LOW/MODER SEVERITY EMERGENCY 20775 EUGENE MARES, DEPT 9 9 EMERGENCY ADAN VISIT SERVICES O HIGH SEVERITY& ASSOCIATE THREAT S FUNCJ OFFICE 66236 [facility], OUTPATIEN 9 9 HEALTH ERIK J T VISIT CLINIC OF 15 MINUTES [facility] OFFICE 46133 [facility], OUTPATIEN 9 9 HEALTH ERIK J T VISIT CLINIC OF 15 MINUTES [facility] EMERGENCY 73185 MELQUIADES [address] [facility] T VISIT MODERATE SEVERITY HOSPITAL MELQUIADES - 9 9 [facility] 11371 [facility], OUT[facility]EN 9 9 HEALTH ERIK J T VISIT CLINIC OF 15 MINUTES [facility] MELQUIADES - 9 9 [facility] 46649 EDMUNDO MINAYA, 9 9 [facility] HOSP T VISIT LOW/MODER SEVERITY OFFICE 80932 DHS/CO [facility] 9 9 HEALTH CO HEALTH T VISIT [facility] 25 BANK ACCT MINUTES EMERGENCY 60728 [facility], 8 8 [place] [facility] EMERGENCY T VISIT [facility] INC MODERATE SEVERITY EMERGENCY 04135 NAHED 8 8 [facility] T VISIT LOW/MODER SEVERITY HOSPITAL NAHED - [address] [facility] HOSPITAL MELQUIADES - 8 8 [facility] OUTPATIEN [facility] T EMERGENCY 96098 MELQUIADES [address] [facility] T VISIT LIMITED/M INOR PROB EMERGENCY 66488 MELQUIADES 8 8 [facility] T VISIT LOW/MODER SEVERITY HOSPITAL MELQUIADES - 8 8 [facility] OUTPATIEN [facility] T HOSPITAL MELQUIADES - 8 8 [facility] T EMERGENCY 93217 MELQUIADES COOLEY, 8 8 [facility] T VISIT PROF SERV MODERATE SEVERITY OFFICE 76256 [facility]DO [facility] CATHY Hayward T VISIT 15 MINUTES EMERGENCY 71268 MELQUIADES [address] [facility] T VISIT LOW/MODER SEVERITY EMERGENCY 55340 MELQUIADES HERNANDEZ, 8 8 [facility] T VISIT PROF SERV MODERATE SEVERITY HOSPITAL MELQUIADES - 8 8 [facility] 23518 [place] ALIYA [facility] 8 8 NORRIS MARTINEZ, T VISIT INTERNAL PEDRO F 15 MED MINUTES EMERGENCY 73945 MELQUIADES [address] [facility] T VISIT MODERATE SEVERITY HOSPITAL MELQUIADES - 8 8 [facility] 04587 [facility] [facility] 8 NORRIS Trejo VISIT INTERNAL 15 MED MINUTES OFFICE 46431 IRIS WEISS 8 8 CATHY Hayward T VISIT 15 MINUTES OFFICE 62342 IRIS WEISS 8 8 CATHY Hayward T VISIT 15 MINUTES EMERGENCY 82106 MELQUIADES 8 8 [facility] T VISIT LOW/MODER SEVERITY HOSPITAL MELQUIADES - 8 8 [facility] T OFFICE 82582 DHS/CO MELQUIADES SIMMONS 8 8 HEALTH CO HEALTH T VISIT [facility] 10 BANK ACCT MINUTES PERIODIC 55493 ZURDO MAE, PREVENTIV 8 8 CATHY Hayward E MED EST PATIENT 18-39 YRS EMERGENCY 84067 MELQUIADES 8 8 [facility] DEPARTMEN INC T VISIT LOW/MODER SEVERITY HOSPITAL MELQUIADES - 8 8 [facility] OUTPATIEN INC T
[2016-11-10 00:55] LABS: HEMOGLOBIN 14.5 g/dL (12.2-16.2); LYMPH # 2.2 K/mm3 (0.7-4.5); LYMPH % 27.5 % (10-50.0)
--- OUTSIDE RECORDS SUMMARY | 2016-11-10 01:02 | External Medical Summary Rpt ---
Author Author , LANE SHERMAN Address Unknown Phone [email or web address] Care Team Providers Care Rivet Maker Name Role Phone JONATHAN CASTILLO Unavailable Unavailable OMAR PAYAN Unavailable Unavailable CARLEY JAM, CARLEY JAM Unavailable Unavailable LEWIS, LEWIS Unavailable Unavailable LEWIS ALL, LEWIS ALL Unavailable Unavailable [facility] Unavailable Unavailable [facility], [facility] PH[facility]IAN Unavailable Unavailable PRACTICE L, [facility]available Unavailable SERVICE, [facility] Unavailable Unavailable SERVICE, [facility] FARAH, FARAH Unavailable Unavailable CELLAROSI - YORBA Unavailable Unavailable PAT, CELLAROSI - YORBA PAT CHEESEMAN MICHELLE, Unavailable Unavailable CHEESEMAN MICHELLE SNOWDEN TJ, SNOWDEN Unavailable Unavailable TJ SNOWDEN TJ, SNOWDEN Unavailable Unavailable TJ [facility], Unavailable Unavailable [facility], Unavailable Unavailable [facility] Unavailable Unavailable [place], [facility] Unavailable Unavailable [facility] JONY, DAVON Unavailable Unavailable JONY KRISTAL, KRISTAL Unavailable Unavailable KRISTAL KIERA, Unavailable Unavailable KRISTAL KIERA KRISTAL KIERA, Unavailable Unavailable KRISTAL KIERA KRISTAL, GALA, Unavailable Unavailable KRISTAL, GALA LIRA PAULA, LIRA Unavailable Unavailable PAULA [facility] Un[place]available Unavailable [facility] Unavailable Unavailable [facility], Unavailable Unavailable [facility] C MICH WHEAT Unavailable Unavailable YANELIS QUANG CHUY, QUANG Unavailable Unavailable CHUY QUANG CHUY, QUANG Unavailable Unavailable CHUY CATARINA DEL RIO, Unavailable Unavailable CATARINA DEL RIO [facility] Un[facility] Un[facility], [facility] Unavailable Unavailable EMS, [facility] Unavailable Unavailable EMS[facility] Unavailable Unavailable EMS, [facility] HARPEL DAVID, HARPEL Unavailable Unavailable DAVID HARPEL DAVID, HARPEL Unavailable Unavailable DAVID HARPEL, ZURDO R, Unavailable Unavailable HARPEL, ZURDO R DOMÍNGUEZ KYLE, DOMÍNGUEZ Unavailable Unavailable KYLE [facility] Unavailable Unavailable [place] Unavailable Unavailable [facility]ENTER, [facility] Unavailable Unavailable INC, [facility] Unavailable Unavailable HOSPITAL P, [facility] P VIRAL, REMI, VIRAL, Unavailable Unavailable REMI [facility], Unavailable Unavailable [facility] CARDONA, CARDONA Unavailable Unavailable CARDONA CHRIS, CARDONA CHRIS Unavailable Unavailable CARDONA CHRIS, CARDONA CHRIS Unavailable Unavailable ROBY IMT, ROBY Unavailable Unavailable IMT JAHANSHAHI FEE, Unavailable Unavailable JAHANSHAHI FEE JAHANSHAHI FEE, Unavailable Unavailable JAHANSHAHI FEE [facility] Unavailable Unavailable [facility], [facility] ANNA DAYTON, ANNA DAYTON Unavailable Unavailable [facility] Unavailable Unavailable [facility] JUDGE, CINDY L, Unavailable Unavailable JUDGE, CINDY L AC MARTINEZ DWI, AC Unavailable Unavailable JR DWI MARIMAR, W F, Unavailable Unavailable MARIMAR, W F EUGENE VICTOR, Unavailable Unavailable EUGENER[facility]HA[facility] KNIGHT VAELNTE, Unavailable Unavailable [facility] Unavailable Unavailable SERVICES, [facility] MAST ANN, MAST ANN Unavailable Unavailable MAST ANN, MAST ANN Unavailable Unavailable PEDRO PISANO JR Unavailable Unavailable F, PEDRO PISANO JR-ADRIAN PERSAUD Unavailable Unavailable R, DMITRIYBOPoly-CORI, ADRIAN R ASHOK ANDREWS, Unavailable Unavailable ASHOK ANDREWS [facility] Unavailable [facility] GABRIELE NICOLE Unavailable Unavailable GABRIELE NICOLE Unavailable Unavailable RADHA EDW, RADHA Unavailable Unavailable EDW O'OMAIRA ANASTACIO, O'OMAIRA Unavailable Unavailable ANASTACIO O'OMAIRA ANASTACIO, O'OMAIRA Unavailable Unavailable ANASTACIO [facility], [facility]available Unavailable [facility] Unavailable Unavailable LAB, [...] PHARM #[id number] [facility] Unavailable Unavailable [id number] [id number], [facility] [id number] [id number] BLAKE KERMIT, BLAKE KERMIT Unavailable Unavailable BLAKE KERMIT, BLAKE KERMIT Unavailable Unavailable SADEK, MOHAMED H, Unavailable Unavailable SADEK, MOHAMED H ALESSIO GRULLON, ALESSIO Unavailable Unavailable MITCHEL ADRIAN WEISS, Unavailable Unavailable ADRIAN WEISS KARL, Unavailable Unavailable ANNIKA TALAMANTES ZAVALA SHA, ZAVALA SHA Unavailable Unavailable ZAVALA SHA, ZAVALA SHA Unavailable Unavailable SOKAN BAB, SOKAN BAB Unavailable Unavailable SOKAN, ADAN O, Unavailable Unavailable SOKAN, ADNA O SOTINGEANU MEDINA, Unavailable Unavailable SOTINGEANU EMDINA [facility] Unavailable Unavailable EMERGENCY PHYS, [facility] Unavailable Unavailable EMERGENCY PHYSI, [facility] ROSY SHE, Unavailable Unavailable ROSY SHE VIRAJ HU, Unavailable Unavailable VIRAJ HU [facility], Unavailable Unavailable [facility], Unavailable Unavailable [facility] WEHRMAN III MITCHEL, Unavailable Unavailable [...] [facility] R079 CHEST PAIN 07-07-2016 [facility]- UNSPECIFIED [facility] R1013 EPIGASTRIC 07-07-2016 [facility] PAIN [facility] [place] [facility] [id number] PAIN IN 06-08-2016 [facility] V67267 PAIN IN 06-08-2016 [facility] UNSPECIFIED [facility]ICAL HIP IMAGING ASS D84448 PAIN IN 06-08-2016 [facility] RIGHT MEDICAL FOREARM IMAGING ASS X27608 PAIN IN 06-08-2016 [facility] RIGHT THIGH [facility]ICAL IM[facility]ING ASS A59333P UNSPECIFIED 06-08-2016 [facility] INJURY MEDICAL RIGHT ELBOW IMAGING ASS INITIAL ENCOUNTER Z7689 PERSONS 06-08-2016 [facility] SRVC SERVICE OTH CIRCUMSTANC ES Z452 ENCOUNTER 05-23-2016 [facility] ADJUSTMENT& MEDICAL MGMT IMAGING ASS VASCULAR ACCESS DEVICE R600 LOCALIZED 05-21-2016 [facility] EDEMA [facility] Z8701 PERSONAL 05-19-2016 [facility] HISTORY OF MEDICAL PNEUMONIA IMAGING ASS RECURRENT J209 ACUTE 05-11-2016 [facility] BRONCHITIS PHYSICIANS, UNSPECIFIED PLLC N926 IRREGULAR 03-19-2016 [facility] MENSTRUATIO PHYSICIANS N GROUP UNSPECIFIED R102 PELVIC AND 03-19-2016 [facility] PERINEAL PHYSICIANS PAIN GROUP R1084 GENERALIZED 03-17-2016 [facility] ABDOMINAL PHYSICIANS, PAIN PLLC R109 UNSPECIFIED 03-13-2016 [facility] ABDOMINAL [facility] PAIN IMAGING ASS R112 NAUSEA WITH 03-13-2016 [facility] VOMITING AMBULANCE UNSPECIFIED SERVICE X781EMG FOREIGN 03-13-2016 [facility] BODY IN PHYSICIANS, VULVA & PLLC VAGINA INITIAL ENCOUNTER M545 LOW BACK 02-09-2016 [facility] PAIN PHYSICIANS, PLLC N200 CALCULUS OF 02-09-2016 [facility] R1031 RIGHT LOWER 02-09-2016 [facility] QU[facility]ANT [facility] PAIN IMAGING ASS R1032 LEFT LOWER 02-09-2016 [facility] IM[facility] ASS U82855 ENCOUNTER 12-23-2015 [facility] ROUTINE PHYSICIANS CHECKING IU GROUP CONTRACEPT DEVICE M92080 MIGRAINE 12-05-2015 [facility] W/AURA NOT PHYSICIAN INTRACT W/O PRACTICE L STAT MIGRAINOSUS E64633 PERSONAL 11-25-2015 [facility] HISTORY OF [facility] NICOTINE INC DEPENDENCE T75598 ENCOUNTER 11-08-2015 [facility] INITIAL PHYSICIANS PRESCRIPTIO GROUP N IU CONTRACEPT DEV Z7251 HIGH RISK 11-08-2015 [facility] HETEROSEXUA [facility] L BEHAVIOR INC N6011 DIFFUSE 10-05-2015 [facility] CYSTIC [facility] MASTOPATHY INC OF RIGHT BREAST N6489 OTHER 10-05-2015 [facility] SPECIFIED MEDICAL DISORDERS IMAGING ASS OF BREAST N644 MASTODYNIA 09-27-2015 [facility] PHYSIC[facility]ANS GROUP J40 BRONCHITIS 08-23-2015 [facility] NOT PHYSICIANS SPECIFIED GROUP ACUTE OR CHRONIC K219 GASTRO-ESOP 08-10-2015 [facility] H REFLUX PHYSICIANS DISEASE GROUP WITHOUT ESOPHAGITIS B1920 UNS VIRAL 07-27-2015 [facility] HEPATITIS C [facility] WITHOUT INC HEPATIC COMA R071 CHEST PAIN 05-24-2015 [facility] N EMERGENCY BREATHING PHYS R0789 OTHER CHEST 05-24-2015 [facility] PAIN COMMUNTIY HOSPITA R5381 OTHER 05-24-2015 [facility] MALAISE SCOT T CO EMS M940 CHONDROCOST 05-16-2015 [facility] JUNCTION N EMERGENCY SYNDROME PHYS TIETZE R072 PRECORDIAL 05-16-2015 [facility] PAIN N EMERGENCY PHYS R509 FEVER 05-16-2015 [facility] UNSPECIFIED SCOT T CO EMS R52 PAIN 05-16-2015 [facility] UNSPECIFIED SCOT T CO EMS [id number] POISONING 02-24-2015 [facility] HEROIN [facility] UNDETERMINE INC D INITIAL ENCOUNTER 90111 COMA 01-09-2015 [facility] AMBULANCE SERVICE 99682 POISONING 01-09-2015 [facility] BY HEROIN [facility] P 9779 POISONING 01-09-2015 [facility] UNSPECIFIED AMBULANCE SERVICE DRUG/MEDICI NAL SUBSTANCE 6824 CELLULITIS& 09-23-2014 [facility] OF ANESTH OF HAND EXCEPT THE BLUE FINGERS&FERN MB 6823 CELLULITIS 09-22-2014 TG AND [facility]SCESS PHYSICIANS, OF UPPER PLLC ARM AND FOREARM 7245 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[facility] BACKACHE PHYSICIANS GROUP 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[facility] 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 44960 PHLEBITIS&T 03-14-2014 [facility] HROMBOPHLEB MEM HOSP SUP VEINS INC UPPER EXTREM 33075 PHLEBITIS 03-14-2014 [facility] AND N EMERGENCY THROMBOPHLE PHYS BITIS OF OTHER SITE 5758 OTHER 03-14-2014 [facility] SPECIFIED [facility] DISORDER OF INC GALLBLADDER V148 PERSONAL 03-14-2014 [facility] HISTORY [facility] ALLERGY OTH INC SPEC MEDICINAL AGTS 45877 UNSPECIFIED 03-02-2014 [facility] CON[facility] CLINIC OF N DANITA 6715 UNSPEC 03-02-2014 [facility] SYMPTOM HEALTH ASSOC CLINIC OF W/FEMALE DANITA GENITAL ORGANS 6264 IRREGULAR 03-02-2014 [facility] MENSTRUAL HEALTH CYCLE CLINIC OF DANITA 04761 ABDOMINAL 03-02-2014 WOMEN'S PAIN, LEFT HEALTH LOWER CLINIC OF QUADRANT DANITA 84558 UNSPECIFIED 02-02-2014 [facility] VAGINITIS [facility] AND CLIN[facility] OF VULVOVAGINI DANITA TIS 85804 HEMATURIA 12-24-2013 [facility] UNSPECIFIED N EMERGENCY PHYS 49562 ABDOMINAL 12-24-2013 [place] PA[place] OTHER MEDICAL SPECIFIED IMAGING ASS SITE 03588 CHLAMYDTRAC 01-02-2013 [facility] H[facility] JR GARRETT INFECTION LOWER SITES V242 ROUTINE 01-02-2013 [facility] GARRETT FOLLOW-UP 6146 PELVIC 11-21-2012 [facility] PERITONEAL [facility] ADHESIONS, INC FEMALE V252 STERILIZATI 11-21-2012 [place] GRULLON ON V2509 OT GENERAL 11-20-2012 [facility] CNSL&ADVICE INC CONTRACEPT MANAGEMENT 650 NORMAL 10-22-2012 ZAVALA SHA DELIVERY 30683 FIRST-DEGRE 10-22-2012 [facility] E PERINEAL [facility] LACERATION INC WITH DELIVERY V270 OUTCOME OF 10-22-2012 [facility] DELIVERY [facility] SINGLE INC LIVEBORN 39309 THREATENED 10-20-2012 SP [facility] PREMATURE LABOR ANTEPARTUM V221 SUPERVISION 10-20-2012 SP TJ OF OTHER NORMAL 33459 OTHER 10-11-2012 HARPEL DAVID THREATENED LABOR, ANTEPARTUM 22990 ABNORMAL 08-08-2012 SP TJ MATERNAL GLUCOSE TOLERANCE ANTEPARTUM 16644 DELAY DELIV 07-30-2012 O'OMAIRAANNAMARIA CHAVES AFTER SPONT/UNSPE C RUP MEMB ANTPRTM 78368 CHEST PAIN 07-27-2012 BLAKE KERMIT UNSPECIFIED 72034 CERVICAL 07-21-2012 O'OMAIRA ANASTACIO SHORTENING ANTEPARTUM CONDITION OR COMP 82066 PREMATURE 07-18-2012 [facility] ANTEPARTUM 7802 SYNCOPE AND 07-18-2012 [facility] COLLAPSE V2341 SUPERVISION 07-18-2012 [facility] W/HISTORY PRE-TERM LABOR V2389 SUPERVISION 07-18-2012 [facility] OF OTHER [facility] HIGH-RISK 94837 LATE 07-17-2012 [facility] ANTEPARTUM 52808 OTH 07-17-2012 [facility] VENEREAL DISEASE ANTPRTM COND/COMPL 08996 OTH CURRENT 07-17-2012 [facility] CLASSIFIABL E ELSW ANTPRTM 08987 CERVICAL 07-17-2012 O'OMAIRAANNAMARIA CHAVES SHORTENING DELIVERED W/WO ANTPRTM COND V230 07-17-2012 [facility]ST ANN WITH HISTORY OF INFERTILITY 30046 NAUSEA WITH 06-30-2012 [facility] VOMITING [facility] INC 14866 ABDOMINAL 06-30-2012 D LO PAIN, MEM HOS[facility] GENERALIZED INC V220 SUPERVISION 06-30-2012 SP SPENCER OF NORMAL FIRST V283 ENCOUNTER 06-19-2012 SP [facility] ROUTINE SCREEN MALFORMATIO N ULTRASONIC 52550 DEHYDRATION 06-12-2012 [facility]OS[facility] INC 09506 HYPEREMESIS 06-12-2012 D [facility] W/METAB INC DISTURBANCE ANTPRTM 7880 RENAL COLIC 06-12-2012 [facility] HOS[facility] INC 75743 MILD 06-11-2012 [facility] HYPEREMESIS GRAVIDARUM UNSPEC EPIS CARE 591 HYDRONEPHRO 06-04-2012 KRISTAL SIS KIERA 18118 OTHER 06-04-2012 KRISTAL SPECIFIED KIERA DISORDER OF KIDNEY AND URETER 45186 THREATENED 06-03-2012 [facility] SERVICES UNSPEC EPIS CARE 91727 OTHER 06-03-2012 KRISTAL SPECIFED KIERA COMPLICATIO N ANTEPARTUM 26410 OTH CURRENT 05-29-2012 WEHR[facility] III MATERNAL MITCHEL CCE-COMPL PG CB/PP-UNS EOC 4660 ACUTE 04-30-2012 [facility] INC V222 04-30-2012 [facility] INCIDENTAL INC 7910 PROTEINURIA 04-25-2012 [facility] TJ 7916 ACETONURIA 04-25-2012 [facility] TJ 5920 CALCULUS OF 04-24-2012 [facility] 5990 URINARY 04-24-2012 [facility] TRACT [facility] INFECTION SERVICES SITE NOT SPECIFIED 24196 INFS 04-24-2012 [facility] TRACT [facility] UNSPEC EPIS CARE 57845 MILD 04-14-2012 D LO HYPEREMESIS [facility] GRAVIDARUM INC ANTEPARTUM 69495 ABDOMINAL 04-14-2012 WEHRMAN III PAIN, MITCHEL UNSPECIFIED SITE 2768 HYPOPOTASSE 04-07-2012 [facility]EN [facility] 5589 OTH&UNSPEC 04-07-2012 [facility] NONINFECTIO EMERGENCY US SERVICES GASTROENTER ITIS&COLITI S V745 SCREENING 03-19-2012 [facility] EXAMINATION VALENTE FOR VENEREAL DISEASE 95371 INFECTIONS 03-06-2012 [facility] GENITOURINA INC RY TRACT ANTEPARTUM V7242 03-03-2012 [facility] EXAMINATION HEALTH OR TEST CENTER POSITIVE RESULT 92291 PAIN IN 02-13-2012 [facility] JOINT, MEDICAL ANKLE AND IMAGING ASS FOOT 7295 PAIN IN 02-13-2012 [facility] SOFT EMERG[facility]Y TISSUES OF SERVICES LIMB 60626 UNSPECIFIED 02-13-2012 [facility] SITE OF ANKLE SPRAIN AND STRAIN 42657 CONTUSION 02-13-2012 D LO OF FOOT MEM [facility]OS[facility] INC 9599 INJURY 02-13-2012 [facility] OTHER AND MEDICAL UNSPECIFIED IMAGING ASS UNSPECIFIED SITE 08419 ACUT 01-29-2012 [facility] PYELONEPHRI [facility]OS[facility] TIS W/O LES INC RENAL MEDULRY NECROS 66721 UNSPECIFIED 01-29-2012 [facility] PYELONEPHRI SERVICES TIS 6201 CORPUS 01-10-2012 [facility] TJ LUTEUM CYST OR HEMATOMA 35377 ABDOMINAL 01-10-2012 [facility] TJ PAIN RIGHT LOWER QUADRANT 83457 UNSPECIFIED 11-10-2011 D LO DENTAL [facility] CARIES INC 5259 UNSPECIFIED 11-10-2011 WEHR[facility] III DISORDER MITCHEL TEETH&SUPPO RTING STRUCTURES 69020 PAIN IN 09-26-2011 [facility] JOINT, HAND MEDICAL IMAGING ASS 57201 CONTUSION 09-26-2011 [facility] OF HAND EMERGENCY SERVICES E9179 OTHER 09-26-2011 [facility] STRIKING MEDICAL AGAINST IMAGING ASS W/WO SUBSEQUENT FALL 7804 DIZZINESS 08-23-2011 [facility] AND EMERGENCY GIDDINESS SERVICES V692 PROBLEMS 08-21-2011 [facility] TJ RELATED TO HIGH-RISK SEXUAL BEHAVIOR 7231 CERVICALGIA 08-20-2011 [facility] 70560 SPASM OF 08-20-2011 [facility] CH[facility]IS MUSCLE 6202 OTHER AND 08-15-2011 [facility] UNSPECIFIED MEDICAL OVARIAN IMAGING ASS CYST 59820 OTHER 08-15-2011 [facility] ASCITES [facility]ICAL IMAGING ASS 2662 OTHER 07-26-2011 [facility] B-COMPLEX HEALTH DEFICIENCIE CENTER S V7241 07-26-2011 [facility] EXAMINATION HEALTH OR TEST CENTER NEGATIVE RESULT 7840 HEADACHE 07-19-2011 [facility] 6827 CELLULITIS 07-05-2011 [facility] AND ABSCESS EMERGENCY OF FOOT SERVICES EXCEPT TOES 42667 UNSPECIFIED 05-31-2011 WEHRMAN III ACUTE MITCHEL CONJUNCTIVI TIS 32901 UNSPECIFIED 05-31-2011 [facility] CONJUNCTIVI TIS 26583 LEUKOCYTOSI 05-28-2011 JUDITHHAHI S FEE UNSPECIFIED 65213 ABSCESS OF 05-28-2011 T[facility] EYELID FEE 93862 ONE EYE: 05-27-2011 [facility] TOT VISN EMERGENCY IMPAIR; OTH SERVICES EYE: NR-NL VISN 51110 ORBITAL 05-27-2011 [facility] 19933 PAIN IN OR 05-27-2011 [facility] SERV FOUNDATIO 65027 SWELLING OR 05-27-2011 [facility] OF SERV EYE FOUNDATIO 6820 CELLULITIS 05-27-2011 [place] [facility] ABSCESS SERV OF FACE FOUNDATIO 462 ACUTE 05-05-2011 [facility] PHARYNGITIS EMERGENCY SERVICES 96658 MIGRAINE 04-04-2011 [facility] W/O HOSPITAL INTRACT W/O STATUS MIGRAINOSUS 6829 CELLULITIS 04-04-2011 [facility] CO AND ABSCESS [facility] [place] UNSPECIFIED SITE V5889 ENCOUNTER 04-01-2011 [facility] FOR OTHER N EMERGENCY SPECIFIED PHYSI AFTERCARE 9134 ELB 03-30-2011 [facility] FORARM&WRST MEM [facility] INSECT INC BITE NONVENOMOUS W/O INF 20635 SPRAIN AND 07-31-2009 [facility] STRAIN OF MEDICAL UNSPECIFIED IMAGING SITE OF ASSOCIATES WRIST E8493 PLACE OF 07-31-2009 [facility] OCCURRENCE MEDICAL INDUSTRIAL IMAGING PLACES&PUSHPA ASSOCIATES ISES E918 CAUGHT 07-31-2009 [facility] ACCIDENTALL MEDICAL Y IN OR IMAGING BETWEEN ASSOCIATES OBJECTS V2549 SURVEILLANC 06-16-2009 [facility] E OTH PREV HEALTH PRSC CLINIC OF CONTRACEPT [place] METHOD PLLC 9104 FCE 03-29-2009 [facility] NCK&SCLP NO EMERGENCY EYE INSECT SERVICES BITE ASSOCIATES NONVNOM W/O INF 9895 TOXIC 03-29-2009 [facility] EFFECT OF MEM HOSP VENOM INC 6160 CERVICITIS 03-07-2009 PATHOLOGY & AND CYTOLOGY ENDOCERVICI LAB TIS 56829 DYSPLASIA 03-07-2009 PATHOLOGY & OF CERVIX CYTOLOGY UNSPECIFIED LAB 92021 PAP SMER 03-04-2009 WOMEN'S CERV W/LW HEALTH GRADE CLINIC OF SQUAMOUS [place] INTRAEPITH PLLC LES 93276 CERV HIGH 03-04-2009 WOMEN'S RISK HUMAN HEALTH PAPILLOMAVI CLINIC OF JENNIFER DNA [place] TEST POS PLLC 76208 PAP SMER 02-25-2009 [facility] CERV HEALTH W/ATYPICAL CENTRAL SQUAMOUS BANK ACCT CELLS UNDET V7231 ROUTINE 01-24-2009 [facility] GYNECOLOGIC HEALTH AL CLINIC OF EXAMINATION [place] PLL 2331 CARCINOMA 12-12-2008 [facility] IN [facility] CERVIX UTERI 75438 ERLY ONSET 12-12-2008 [facility] W/WO MENTION ANTPRTM COND 61504 OTH 12-12-2008 [facility] CONGENITAL/ HOSPITAL ACQUIRED ABNORM CERV[place] W/DELIVERY 72790 OTHER AND 12-12-[address] [facility]ERT[facility] W/DELIVERY 36096 ULCER OF 11-25-2008 [facility], ESOPHAGUS ANNIKA WITHOUT BLEEDING 5780 HEMATEMESIS 11-25-2008 [facility] ANNIKA 48672 VOMITING 11-25-2008 [facility] ALONE ANNIKA 78087 ACUTE 11-18-2008 PATHOLOGY & ESOPHAGITIS CYTOLOGY LAB 5533 DIAPHRAGMAT 11-18-2008 [facility] ANIVAL W/O MEM HOS[facility] MENTION INC OBSTRUCTION /GANGREN 21200 OTH CURRENT 11-18-2008 [facility] MATERNAL [facility] CCE INC W/DELIVERY 5789 UNSPECIFIED 11-10-2008 [facility] HEMORRHAGE EMERGENCY OF SERVICES GASTROINTES ASSOCIATES TINAL [...] GNT TRACT 1110 PITYRIASIS 08-15-2007 [facility] VERSICOLOR [place] INTERNAL MED 02027 ANAL OR 08-15-2007 [facility] RECTAL PAIN [place] INTERNAL MED 9212 CONTUSION 08-01-2007 [facility] OF ORBITAL [facility] TISSUES INC E8494 PLACE OF 08-01-2007 [facility] IMAGING RECREATION ASSOCIATES AND SPORT E8851 FALL FROM 08-01-2007 [facility] Awareness Card AT[facility] IMAGING ASSOC[facility]ATES 5781 BLOOD IN 07-31-2007 [facility] STOOL [place] INTERNAL MED 6258 OT SPEC 07-21-2007 [facility] [place] SYMPTOM CATHY ARCINIEGA ASSOC W/FEMALE GENITAL ORGANS 5950 ACUTE 07-10-2007 [facility] CYSTITIS CATHY ARCINIEGA V069 NEED PROPH 06-23-2007 [facility] VACCINATION HEALTH W/UNSPEC CENTRAL COMB BANK ACCT VACCINE V255 INSERTION 06-19-2007 [facility] BOSS MD IMPLANTABLE SUBDERMAL CONTRACEPTI VE V7388 SPECIAL SCR 06-13-2007 [facility] [place] INC EXAMINATION OTH SPEC CHLAMYDIAL DZ V762 SCREENING 06-13-2007 [facility] FOR [place] INC MALIGNANT NEOPLASM OF THE CERVIX V780 SCREENING 06-13-2007 [facility] CRAWFORD IRON CATHY ARCINIEGA DEFICIENCY ANEMIA 6918 OTHER 06-02-2007 [facility] REL[facility] PROF SERV CONDITIONS Medications Na [...] 16 WN ZA 11 17 17 28 NH 0 13 PH IN AR E MA [...] 10 6- 3- 00 06 TO ve NH 00 20 20 07 WN ED 50 [...] 20 AI AC 90 10 10 D ME 1 PH CH SO AR AE D [...] 20 20 DE CE 90 09 09 ME TA 5 PH CH ME AR AE N- MA L CA CY S FF OF 50 CY -3 NT 25 HI -4 AN 0 A ME 00 11 12 00 21 6 RI 81 SO Ac TH 60 -2 -0 .0 TE 02 KA ti YL 34 4- 3- 00 91 N ve NH 59 20 20 AI BA ED 31 [...] 8 TA BL ET ME 59 08 12 01 1. 1 CL [address] 76 -2 -0 00 IN 94 AR ti OX 24 4- 3- 0 IC 00 KE ve YP 53 20 20 RO 70 09 09 PH DE GE [address] [facility] K ER CY J ON E 15 0 MG /M L ME 59 08 09 00 1. 1 CL [address] 76 -2 -1 00 IN 94 AR ti OX 24 4- 0- 0 IC 00 KE ve YP 53 20 20 RO 70 09 09 PH DE GE [address] [facility] K ER CY J ON E 15 0 MG /M L DO 00 08 08 00 60 30 RI 79 No Ac CU 53 -1 -2 .0 TE 53 t ti SA 63 1- 7- 00 41 Av ve TE 75 20 20 AI ai 70 09 09 D la SO 1 PH bl DI AR e UM M #3 25 93 0 8 MG CA PS UL E 59 08 08 00 30 30 RI [...] M #3 TA 93 BL 8 ET TR 00 08 08 00 28 28 RI 79 No Ac I- 55 -1 -2 .0 TE 53 t ti SP 59 2- 7- 00 40 Av ve RI 01 20 20 AI ai NT 85 09 09 D la EC 8 PH bl AR e TA M BL #3 ET 93 8 RA 00 07 07 00 60 30 RI 79 CL Ac NI 17 -2 -3 .0 TE 31 AR ti TI 24 4- 0- 00 42 KE ve DI 35 20 20 AI NE 74 09 09 D DE 9 PH RE 15 AR K 0 M J MG #3 93 TA 8 BL ET NH 37 07 07 00 56 28 RI [...] BA RA 60 09 09 D BA ME 5 PH TU DE AR ND M [...] 5 93 MG 8 TA BL ET ON 00 05 05 00 12 30 RI 78 CL Ac DA 37 -0 -2 .0 TE 33 AR ti NS 80 8- 1- 00 87 KE ve ET 34 20 20 AI RO 49 09 09 D DE N 3 PH RE HC AR K L M J 8 #3 MG 93 8 TA BL ET BU 00 05 05 00 6. 1 RI 78 SO Ac TA 60 -1 -2 00 TE 42 KA ti LB 32 4- 1- 0 26 N ve -A 54 20 20 AI BA CE 42 09 09 D BA TA 1 PH TU ME AR ND N- M E CA #3 O FF 93 8 50 -3 25 -4 0 59 04 04 00 30 30 RI 77 CL Ac 63 -0 -0 .0 TE 82 AR ti 00 2- 9- 00 02 KE ve 41 20 20 AI 43 09 09 D DE 5 PH RE AR K M J #3 93 8 ANGULO 53 05 05 [...] ai RA 40 08 08 D la ME 1 PH bl DE AR e 5 [...] CY OF CY NT HI AN A NH 00 03 04 00 20 5 EA [...] Procedure [place] [address] [facility] HEAD/BRAI 7 RADIOLOGY N W/O CONTRAST MATERIAL AMB A0427 [facility] SERVICE 7 EVY [facility]AT[facility] EMS EMERGENCY TRANSPORT LEVEL 1 [facility] A0425 [facility] CO EMS STATUTE MILE AMBULANCE A0429 [facility] 7 AMBULANCE AMBULANCE BLS SERVICE SERVICE EMERGENCY TRANSPORT GROUND A0425 [facility] 7 AMBULANCE AMBULANCE PER SERVICE SERVICE STATUTE MILE RADEX 79495 [facility] 7 MEDICAL COMPLETE IMAGING MINIMUM 3 ASS VIEWS RADIOLOGI 93418 [facility] 7 MEDICAL EXAMINATI IMAGING ON FEMUR ASS MINIMUM 2 VIEWS RADIOLOGI 60220 [facility] 7 MEDICAL EXAMINATI IMAGING ON PELVIS ASS 1/2 VIEWS RADIOLOGI 84194 [facility] 7 MEDICAL EXAMINATI IMAGING ON CHEST ASS SINGLE VIEW FRONTAL RADEX 47892 [facility] FOREARM 2 7 MEDICAL VIEWS IMAGING ASS RADIOLOGI 78362 [facility] 7 MEDICAL EXAMINATI IMAGING [place] [address] [facility] EXTREMITY 7 MEDICAL NON-VASC IMAGING ASS REAL-TIME IMG LMTD RADIOLOGI 58958 [facility] EXAM 7 MEDICAL CHEST 2 IMAGING VIEWS ASS FRONTAL&L ATERAL RADIOLOGI 92599 [facility] [place] [facility] 6 RADIOLOGY KYLE [place]AMINAT[place] [address] [facility] [place] [facility] TRANSVAGI 6 RADIOLOGY KYLE NAL AMBULANCE A0429 [facility] SERVICE 6 AMBULANCE AMBULANCE BLS SERVICE SERVICE EMERGENCY TRANSPORT GROUND A0425 [facility] MILEAGE 6 AMBULANCE AMBULANCE PER SERVICE SERVICE STATUTE MILE CT [address] [facility] ALL ABDOMEN & 6 MEDICAL PELVIS IMAGING W/CONTRAS ASS T MATERIAL DRUG TST G0477 MELQUIADES ARNETT PRESUMP;C 6 [facility] PBL BEING INC INC READ DC OPT OBV ONLY UNCLASSIF J3490 MELQUIADES ARNETT IED DRUGS 6 [place] [address] [facility]BD[facility] & 6 MEDICAL PELVIS IMAGING W/O ASS CONTRAST MATERIAL THERAPEUT 82194 MELQUIADES ARNETT IC 6 [facility] PROPHYLAC INC INC TIC/DX INJECTION SUBQ/IM URINE 01974 [facility]AD[facility] ARNETT 6 [facility] TEST INC INC VISUAL COLOR CMPRSN METHS UNCLASSIF J3490 MELQUIADES ARNETT IED DRUGS 6 [facility] INC INC THERAPEUT 15302 MELQUIADES ARNETT IC 6 [facility] PROPHYLAC INC INC TIC/DX INJECTION SUBQ/IM IADNA 38953 MELQUIADES ARNETT CHLAMYDIA 6 [facility] INC INC TRACHOMAT IS AMPLIFIED PROBE TQ LEVONORGE J7298 [facility] SP STREL-RLS 6 PHYSICIAN TJ S GROUP INTRAUTER INE SHELBY SYS 52 MG IADNA 40230 MELQUIADES ARNETT NEISSERIA 6 [facility] INC INC GONORRHOE AE AMPLIFIED PROBE TQ INSERTION 65278 [facility] SP 6 PHYSICIAN TJ INTRAUTER S GROUP INE DEVICE IUD US BREAST 38793 MELQUIADES ARNETT UNI REAL 6 [facility] TIME INC INC WITH IMAGE COMPLETE US BREAST 32932 [facility] UNI REAL 6 MEDICAL TIME IMAGING WITH ASS IMAGE LIMITED HEPATITIS 51029 MELQUIADES ARNETT C 6 [facility] ANTIBODY INC INC HEPATITIS 35843 MELQUIADES ARNETT A 6 [facility] ANTIBODY INC INC HAAB HEPATITIS 26505 MELQUIADES ARNETT B CORE 6 [facility] ANTIBODY INC INC HBCAB TOTAL HEPATITIS 32167 MELQUIADES [place] SURF 6 [facility] [address] MELQUIADES ARNETT HEPATITIS 6 [facility] B INC INC SURFACE ANTIGEN INF AGT G0432 MELQUIADES ARNETT AB DETECT 6 [facility] EIA TECH INC INC HIV-1&/HI V-2 SCR COLLECTIO 17984 MELQUIADES ARNETT N VENOUS 6 [facility] BLOOD INC INC VENIPUNCT URE COLLECTIO 27070 [facility] N VENOUS 6 N N BLOOD COMMUNTIY COMMUNTIY VENIPUNCT HOSPITA HOSPITA URE COMPREHEN 47387 [facility] SIVE 6 N N METABOLIC COMMUNTIY COMMUNTIY PANEL HOSPITA HOSPITA GROUND A0425 [facility] MILEAGE 6 N SCOT T N SCOT T PER CO EMS CO EMS STATUTE MILE DRUG TEST G0479 [facility] 6 N N PRESUMP;I COMMUNTIY COMMUNTIY NSTRUMENT HOSPITA HOSPITA ED CHEMISTRY ANLYZER ECG 17900 [facility] 6 [facility] ECG EMERGENCY PAT W/LEAST PHYS 12 LDS I&R ONLY ECG 48317 [facility] ROUTINE 6 N N ECG COMMUNTIY COMMUNTIY W/LEAST HOSPITA HOSPITA 12 [facility] TRCG ONLY W/[place] [address] [facility] INFUSION 6 N N HYDRATION COMMUNTIY COMMUNTIY EACH HOSPITA HOSPITA ADDITIONA L HOUR FIBRIN 98835 [facility] DGRADJ 6 N N PRODUCTS COMMUNTIY COMMUNTIY D-DIMER HOSPITA HOSPITA QUANTITAT TANO THER 78436 [facility] PROPH/DX 6 N N NJX IV COMMUNTIY COMMUNTIY PUSH HOSPITA HOSPITA SINGLE/1S T SBST/DRUG AMB A0427 [facility] SERVICE 6 N SCOT T N SCOT T ALS CO EMS CO EMS EMERGENCY TRANSPORT LEVEL 1 RADIOLOGI 96940 [facility] C EXAM 6 N N CHEST 2 COMMUNTIY COMMUNTIY VIEWS HOSPITA HOSPITA [place]ONT[place] [address] [facility] TROPONIN 6 N N QUANTITAT COMMUNTIY COMMUNTIY TANO HOSPITA HOSPITA BLOOD 79891 [facility] COUNT 6 N N COMPLETE COMMUNTIY COMMUNTIY AUTO&AUTO HOSP[place] [address] [facility] TROPONIN 6 N N QUANTITAT COMMUNTIY COMMUNTIY TANO HOSPITA HOSPITA ECG 94978 [facility] ROUTINE 6 BENJAM[place] YANELIS ECG EMERGENCY W/LEAST PHYS 12 LDS I&R ONLY AMB A0427 [facility] SERVICE 6 N SCOT T N SCOT T ALS CO EMS CO EMS EMERGENCY TRANSPORT LEVEL 1 THER 98739 [facility] PROPH/DX 6 N N NJX IV COMMUNTIY COMMUNTIY PUSH HOSPITA HOSPITA SINGLE/1S T SBST/DRUG RADIOLOGI 18820 [facility] C EXAM 6 N N CHEST 2 COMMUNTIY COMMUNTIY VIEWS HOSPITA HOSPITA FRONTAL&L ATERAL ECG 57041 [facility] ROUTINE 6 N N ECG COMMUNTIY COMMUNTIY W/LEAST HOSPITA HOSPITA 12 LDS TRCG ONLY W/O I&R GROUND A0425 [facility] MILEAGE 6 N SCOT T N SCOT T PER CO EMS CO EMS STATUTE MILE COLLECTIO 38116 [facility] N VENOUS 6 N N BLOOD COMMUNTIY COMMUNTIY VENIPUNCT HOSPITA HOSPITA URE GROUND A0425 [facility] MILEAGE 5 AMBULANCE AMBULANCE PER SERVICE SERVICE STATUTE MILE ECG 21041 MELQUIADES SHEN JR ROUTINE 5 [facility] W/LEAST P 12 LDS I&R ONLY AMB A0427 [facility] SERVICE 5 AMBULANCE AMBULANCE ALS SERVICE SERVICE EMERGENCY TRANSPORT LEVEL 1 ANES 83980 [facility] INTEG 5 ANESTH SHE EXTREMITI OF THE ES ANT BLUE TRUNK & PERINEUM NOS INCISION 91180 [facility] ERWINOMAR L & 5 PHYSICIAN DRAINAGE S, PLLC ABSCESS COMPLICAT ED/MULTIP LE URNLS DIP 75396 [facility] QUANG 5 PHYSICIAN CHUY STICK/TAB S GROUP LET RGNT NON-AUTO W/O MICRSCP SUSCEPTIB 53836 MELQUIADES ARNETT LTY STDY 5 [facility] ANTIMICRB INC INC IAL MICRO/AGA R DILUTJ CULTURE 74869 MELQUIADES ARNETT BCT 5 [facility] ISOL&PRSM INC INC PTV ID ISOLATE EA URINE CULTURE 65350 MELQUIADES ARNETT BACTERIAL 5 [facility] INC INC QUANTTATI VE COLONY COUNT URINE UNCLASSIF J3490 MELQUIADES ARNETT IED DRUGS 4 [place] [address] [facility] TRANSVAGI 4 [facility] URNLS DIP 30151 [facility] 4 HEALTH TJ STICK/TAB CLINIC OF LET RGNT [place] NON-AUTO W/O MICRSCP SMR PRIM 48368 [facility] SRC WET 4 HEALTH TJ [facility] CLINIC OF NFCT AGT [place] HANDLG&/O 70603 [facility] R CONVEY 4 HEALTH TJ SPEC CLINIC OF FOR TR [place] OFFICE TO LAB CULTURE 28364 MELQUIADES ARNETT BACTERIAL 4 [facility] INC INC QUANTTATI VE COLONY COUNT URINE UNCLASSIF J3490 MELQUIADES ARNETT IED DRUGS 4 [place] [address] MELQUIADES ARNETT ABDOMEN & 4 [facility] PELVIS INC INC W/O CONTRAST MATERIAL URINE 04707 MELQUIADES ARNETT 4 [facility] TEST INC INC VISUAL COLOR CMPRSN METHS URNLS DIP 86521 MELQUIADES ARNETT 4 [facility] STICK/TAB INC INC LET REAGENT AUTO MICROSCOP Y CYTP C/V 27043 PICKLESIM PICKLESIM AUTO THIN 3 ER JR GARRETT ER JR GARRETT LYR PREPJ SCR MNL RESCR PHYS IADNA 59039 PICKLESIM PICKLESIM CHLAMYDIA 3 ER JR GARRETT ER JR GARRETT TRACHOMAT IS AMPLIFIED PROBE TQ IADNA 35981 PICKLESIM PICKLESIM NEISSERIA 3 ER JR GARRETT ER JR GARRETT GONORRHOE AE AMPLIFIED PROBE TQ ANES IPER 34680 GABRIELE GRULLON SUAZO MITCHEL LWR ABD 3 W/LAPS TUBAL LIGATION/ [place] [address] MELQUIADES ARNETT INFUSION 3 [facility] THERAPY INC INC PROPHYLAX IS/DX EA HOUR LAPAROSCO 32134 MELQUIADES ARNETT PY W/PLMT 3 [facility] INC INC OCCLUSION DEVICE OVIDUCTS BASIC 89810 MELQUIADES ARNETT METABOLIC 3 [facility] PANEL INC INC CALCIUM TOTAL GONADOTRO 24267 MELQUIADES ARNETT PIN 3 [facility] CHORIONIC INC INC QUALITATI VE BLOOD 03539 MELQUIADES ARNETT COUNT 3 [facility] COMPLETE INC INC AUTO&AUTO DIFRNTL WBC REPAIR OF 7569 MELQUIADES ARNETT OTHER 3 [facility] CURRENT INC INC OBSTETRIC LACERATIO N VAGINAL 04241 [facility] DELIVERY 3 TJ TJ ONLY W/POSTPAR LAUREN CARE NEURAXIAL 12147 SALLY DOUGHERTY LABOR 3 ANALG/ANE S PLND VAGINAL DELIVERY 13044 [facility] NONSTRESS 3 TJ TJ TEST 18245 [facility] NONSTRESS 3 TJ TJ TEST 28615 HARPEL HARPEL NONSTRESS 3 DAVID DAVID TEST CULTURE 78668 MELQUIADES ARNETT BACTERIAL 3 [facility] INC INC QUANTTATI VE COLONY COUNT URINE URNLS DIP 16353 MELQUIADES ARNETT 3 [facility] STICK/TAB INC INC LET REAGENT AUTO MICROSCOP Y 18586 SP [facility] NONSTRESS 3 TJ TJ TEST 69259 SP [facility] NONSTRESS 3 TJ TJ TEST CUL BACT 61697 COMBINED COMBINED XCPT 3 PHYSICIAN PHYSICIAN URINE S LA S LA BLOOD/STO OL AEROBIC ISOL 61046 [facility] NONSTRESS 3 TJ TJ TEST 12725 [facility] NONSTRESS 3 TJ TJ TEST 12403 [facility] NONSTRESS 3 TJ TJ TEST 99380 [facility] NONSTRESS 3 TJ TJ TEST 81665 [facility] BIOPHYSIC 3 TJ TJ AL PROFILE NON-STRES [place] TESTING [place] PREG 58070 [facility] UTERUS 3 TJ TJ REAL TIME W/IMAGE DCMTN TRANSVAG DOPPLER 22235 [facility] VELOCIMET 3 TJ TJ RY UMBILICAL ARTERY 96115 [facility] NONSTRESS 3 TJ TJ TEST 92405 [facility] NONSTRESS 3 TJ TJ TEST GLUCOSE 95060 [facility] TOLERANCE 3 TJ TJ TEST GTT 3 SPECIMENS 55191 [facility] NONSTRESS 3 [place] [address] [facility]'OMAIRA O'OMAIRA 3 ANASTACIO ANASTACIO UTERUS LIMITED 1/> FETUSES ECG 12549 [facility] ROUTINE 3 ECG W/LEAST 12 LDS [place] [address] [facility] UTERUS LIMITED 1/> FETUSES [place] PREG 54755 O'OMAIR[facility] O'OMA[facility] UTERUS 3 ANASTACIO ANASTACIO REAL TIME W/IMAGE DCMTN TRANSVAG SBSQ 42046 [facility] 3 [facility] CARE/DAY 25 MINUTES SBSQ 54385 [facility] 3 [facility] CARE/DAY 25 MINUTES US PREG 47682 [facility] UTERUS 3 [facility] REAL TIME W/[place] [address] [facility] 3 [facility] UTERUS LIMITED 1/> FETUSES ECG 56235 [facility] CHI ROUTINE 3 ECG W/LEAST 12 LDS I&R ONLY ECG 74534 [facility] CHI [facility] CHI ROUTINE 3 ECG W/LEAST 12 LDS I&R ONLY US PREG 09013 [facility] UTERUS 3 Y Y W/DETAIL HOSPITAL HOSPITAL [place] 1ST GESTATION [place] PREG 73226 [facility] UTERUS 3 Y Y REAL TIME HOSPITAL HOSPITAL W/IMAGE DCMTN TRANSVAG SBSQ 91600 [facility] 3 CARE/DAY 25 MINUTES US PREG 77640 [facility] UTERUS 3 TJ TJ REAL TIME W/IMAGE DCMTN TRANSVAG THERAPEUT 56918 MELQUIADES ARNETT IC 3 [facility] PROPHYLAC INC INC TIC/DX INJECTION SUBQ/IM HOSPITAL G0378 MELQUIADES ARNETT OBSERVATI 3 MEM [...] INC OL TARTRATE 1 [place] PREG 24098 [facility] UTERUS 3 TJ TJ AFTER 1ST TRIMEST 1/ GESTATION INJECTION J2405 MELQUIADES ARNETT 3 [facility] ONDANSETR INC INC ON HCL PER 1 MG HOSPITAL G0378 MELQUIADES ARNETT OBSERVATI 3 [facility] ON INC INC SERVICE PER HOUR BASIC 63828 MELQUIADES ARNETT METABOLIC 3 [facility] PANEL INC INC CALCIUM TOTAL BLOOD 59218 MELQUIADES ARNETT COUNT 3 [facility] COMPLETE INC INC AUTO&AUTO DIFRNTL WBC URNLS DIP 14670 MELQUIADES ARNETT 3 [facility] STICK/TAB INC INC LET REAGENT AUTO MICROSCOP Y BLOOD 00103 MELQUIADES ARNETT COUNT 3 [facility] COMPLETE INC INC AUTO&AUTO DIFRNTL WBC HOSPITAL G0378 MELQUIADES ARNETT OBSERVATI 3 [facility] ON INC INC SERVICE PER HOUR INJECTION J2405 MELQUIADES ARNETT 3 [facility] ONDANSETR INC INC ON HCL PER 1 MG COMPREHEN 32831 MELQUIADES ARNETT SIVE 3 [facility] METABOLIC INC INC PANEL THERAPEUT 17751 MELQUIADES ARNETT IC 3 [facility] INJECTION [place] [address] MELQUIADES ARNETT INFUSION 3 [facility] THERAPY/P INC INC ROPHYLAXI S /DX 1ST TO 1 HR CULTURE 29434 MELQUIADES ARNETT BACTERIAL 3 [facility] INC INC QUANTTATI VE COLONY COUNT URINE UROGRAPHY 66741 KRISTAL KRISTAL IV W/WO 3 KIERA KIERA KUB W/WO TOMOGRAPH Y RADEX 57874 MELQUIADES ARNETT ABDOMEN 3 [facility] COMPL INC INC W/DCBTS&/ ERC VIEWS INITIAL 58287 [facility] OBSERVATI 3 TJ TJ ON CARE/DAY 50 MINUTES LOCM Q9967 MELQUIADES ARNETT 300-399 3 [facility] MG/ML INC INC IODINE CONCENTRA TION PER ML INJECTION J2405 MELQUIADES ARNETT 3 [facility] ONDANSETR INC INC ON HCL PER 1 MG [facility]OSP[facility] G0378 MELQUIADES ARNETT OBSERVATI 3 [facility] ON INC INC SERVICE PER HOUR BASIC 20721 MELQUIADES ARNETT METABOLIC 3 [facility] PANEL INC INC CALCIUM TOTAL BLOOD 58079 MELQUIADES ARNETT COUNT 3 [facility] COMPLETE INC INC AUTO&AUTO DIFRNTL WBC BLOOD 18316 MELQUIADES ARNETT COUNT 3 [facility] COMPLETE INC INC AUTO&AUTO DIFRNTL WBC URNLS DIP 00145 MELQUIADES ARNETT 3 [facility] STICK/TAB INC INC LET REAGENT AUTO MICROSCOP Y INJECTION J2405 MELQUIADES ARNETT 3 [facility] ONDANSETR INC INC ON HCL PER 1 MG [address]184 MELQUIADES ARNETT 3 [facility] UTERUS INC INC LIMITED 1/> [facility]ETUSES [facility] G0378 MELQUIADES ARNETT OBSERVATI 3 [facility] ON INC INC SERVICE PER HOUR COMPREHEN 69554 MELQUIADES ARNETT SIVE 3 [facility] METABOLIC INC INC PANEL INITIAL 99777 [facility] OBSERVATI 3 TJ TJ ON CARE/DAY 30 [place] [address] MELQUIADES ARNETT INFUSION 3 [facility] THERAPY/P INC INC ROPHYLAXI S /DX 1ST TO 1 HR ALPHA-FET 37272 MELQUIADES ARNETT OPROTEIN 3 [facility] SERUM INC INC GONADOTRO 09844 MELQUIADES ARNETT PIN 3 [facility] CHORIONIC [place] [address] MELQUIADES ARNETT ESTRIOL 3 [facility] INC INC URNLS DIP 86719 MELQUIADES ARNETT 3 [facility] STICK/TAB INC INC LET REAGENT AUTO MICROSCOP Y BLOOD 58497 MELQUIADES ARNETT COUNT 3 [facility] COMPLETE INC INC AUTO&AUTO DIFRNTL WBC GONADOTRO 62263 MELQUIADES ARNETT PIN 3 [facility] CHORIONIC INC INC QUANTITAT TANO URINE 81039 MELQUIADES ARNETT 3 [facility] TEST INC [place] [address] MELQUIADES ARNETT 3 [facility] UTERUS INC INC LIMITED 1/> FETUSES COMPREHEN 45427 MELQUIADES ARNETT SIVE 3 [facility] METABOLIC INC [place] 05334 KRISTAL KRISTAL UTERUS 3 KIERA KIERA REAL TIME F/U TRNSABDL PER FETUS US PREG 19238 MELQUIADES ARNETT UTERUS 3 [facility] REAL TIME INC INC W/[place] [address] MELQUIADES ARNETT STREPTOCO 2 [facility] CCUS INC INC GROUP A IAADI 56102 MELQUIADES ARNETT INFLUENZA 2 [facility] B VIRUS INC INC IAADI 46503 MELQUIADES ARNETT INFFLUENZ 2 [facility] A A VIRUS INC INC URNLS DIP 96507 SP [facility] 2 TJ TJ STICK/TAB LET RGNT [place] [address] [facility]ST[facility] RETROPERI 2 MEDICAL KIERA TONEAL IMAGING REAL TIME ASS W/IMAGE COMPLETE CULTURE 47727 MELQUIADES ARNETT BACTERIAL 2 [facility] INC INC QUANTTATI VE COLONY COUNT URINE US PREG 11371 MELQUIADES ARNETT UTERUS 2 [facility] REAL TIME INC INC W/IMAGE DCMTN TRANSVAG URNLS DIP 09782 MELQUIADES MELQUIADES 2 [facility] STICK/TAB INC INC LET REAGENT AUTO MICROSCOP Y URNLS DIP 89665 SP [facility] 2 TJ TJ STICK/TAB LET RGNT NON-AUTO W/O MICRSCP COMPREHEN 57008 MELQUIADES VASQUEZON SIVE 2 [facility] METABOLIC INC INC PANEL INJECTION J2405 MELQUIADES MELQUIADES 2 [facility] ONDANSETR INC INC ON HCL PER 1 MG US PREG 54264 [facility] KRISTAL UTERUS 2 MEDICAL KIERA REAL TIME IMAGING W/IMAGE ASS DCMTN TRANSVAG THERAPEUT 48427 MELQUIADES ARNETT IC 2 [facility] INJECTION [place] [address] MELQUIADES ARNETT INFUSION 2 [facility] THERAPY/P INC INC ROPHYLAXI S /DX 1ST TO 1 HR URNLS DIP 84042 MELQUIADES ARNETT 2 [facility] STICK/TAB INC INC LET REAGENT AUTO MICROSCOP Y BLOOD 58402 MELQUIADES ARNETT COUNT 2 [facility] COMPLETE INC INC AUTO&AUTO DIFRNTL WBC BLOOD 35251 MELQUIADES ARNETT COUNT 2 [facility] COMPLETE INC INC AUTO&AUTO DIFRNTL WBC URNLS DIP 98413 MELQUIADES ARNETT 2 [facility] STICK/TAB INC [place] [address] MELQUIADES ARNETT INFUSION 2 [facility] THERAPY/P INC INC ROPHYLAXI S /DX 1ST TO 1 HR OBSERVATI 93557 SP [facility] ON CARE 2 TJ TJ DISCHARGE MANAGEMEN T CULTURE 58763 MELQUIADES ARNETT BACTERIAL 2 [facility] INC INC QUANTTATI VE COLONY COUNT URINE THER 20774 MELQUIADES ARNETT PROPH/DX 2 [facility] NJX EA INC INC SEQL IV PUSH SBST/[place] [address] MELQUIADES ARNETT INFUSION 2 [facility] THERAPY INC INC PROPHYLAX IS/DX EA HOUR INJECTION J2405 MELQUIADES ARNETT 2 [facility] ONDANSETR INC [place] ON HCL [place] 1 [place] [address] MELQUIADES ARNETT INFUSION 2 [facility] THER INC INC PROPH ADDL SEQUENTIA L TO 1 HR URINE 30272 MELQUIADES ARNETT 2 [facility] TEST INC INC VISUAL COLOR CMPRSN METHS BASIC 36371 MELQUIADES ARNETT METABOLIC 2 [facility] PANEL INC INC CALCIUM TOTAL HOSPITAL G0378 MELQUIADES ARNETT OBSERVATI 2 [facility] ON INC INC SERVICE PER HOUR THERAPEUT 24181 MELQUIADES ARNETT IC 2 [facility] INJECTION INC INC IV PUSH EACH NEW DRUG INITIAL 07171 SP [facility] OBSERVATI 2 TJ TJ ON CARE/DAY 50 MINUTES IADNA 13661 [facility]GEN[facility] KNIGHT CHLAMYDIA 2 [facility] TRACHOMAT IS AMPLIFIED PROBE TQ CYTP 81203 [facility] K[facility]IGHT CERVICAL/ 2 [facility] VAGINAL REQ INTERP PHYSICIAN CYTP C/V 72798 EU[facility] KNIGHT AUTO THIN 2 [facility] LYR PREPJ SCR MNL RESCR PHYS IADNA 92290 EUGEN[facility] KNIGHT NEISSERIA 2 [facility] GONORRHOE [place] T[place] 72077 SP [facility] UTERUS 2 TJ JT REAL TIME W/IMAGE DCMTN TRANSVAG URINE 10060 MELQUIADES ARNETT 2 [facility] TEST INC INC VISUAL COLOR CMPRSN METHS URNLS DIP 74844 MELQUIADES ARNETT 2 [facility] STICK/TAB INC INC LET REAGENT AUTO MICROSCOP Y URINE 16577 MELQUIADES ARNETT 2 [facility] CENTER VISUAL COLOR CMPRSN METHS CRTCHS E0114 [facility] UNDARM 2 OTH THAN WOOD PAIR PAD TIP&HNDGR IP RADEX 06303 BECKY HERNANDEZUTCHER FOOT 2 MEDICAL KIERA COMPLETE IMAGING MINIMUM 3 ASS VIEWS SUSCEPTIB 37478 MELQUIADES ARNETT LTY STDY 2 [facility] ANTIMICRB INC INC IAL MICRO/AGA R DILUTJ THERAPEUT 54257 MELQUIADES ARNETT IC 2 [facility] PROPHYLAC INC INC TIC/DX INJECTION SUBQ/IM CULTURE 00716 MELQUIADES ARNETT BACTERIAL 2 [facility] INC INC QUANTTATI VE COLONY COUNT URINE URINE 09962 MELQUIADES ARNETT 2 [facility] TEST INC INC VISUAL COLOR CMPRSN METHS URNLS DIP 05350 MELQUIADES ARNETT 2 [facility] STICK/TAB INC [place] [address] [facility] TRANSVAGI 2 TJ TJ NAL URINE 66908 SP [facility] 2 TJ TJ [place] [address] [facility] TRANSVAGI 2 TJ TJ NAL RADEX 37860 MELQUIADES ARNETT HAND 2 [facility] MINIMUM 3 INC INC VIEWS URINE 10736 MELQUIADES ARNETT 2 [facility] TEST INC INC VISUAL COLOR CMPRSN METHS URNLS DIP 60690 MELQUIADES ARNETT 2 [facility] STICK/TAB INC [place] [address] MELQUIADES ARNETT TRANSVAGI 2 [facility] [place] [address] MELQUIADES ARNETT LIPASE 2 [facility] INC INC URINE 77001 MELQUIADES ARNETT 2 [facility] TEST INC INC VISUAL COLOR CMPRSN METHS COMPREHEN 01598 MELQUIADES ARNETT SIVE 2 [facility] [address] MELQUIADES ARNETT AMYLASE 2 [facility] INC INC URNLS DIP 19449 MELQUIADES ARNETT 2 [facility] STICK/TAB INC INC LET REAGENT AUTO MICROSCOP Y BLOOD 48627 MELQUIADES ARNETT COUNT 2 [facility] COMPLETE INC INC AUTO&AUTO DIFRNTL WBC URINE 62313 MELQUIADES ARNETT 2 [facility] CENTER VISUAL COLOR CMPRSN METHS INJECTION J2405 MELQUIADES MELQUIADES 2 [facility] ONDANSETR INC INC ON HCL PER 1 MG INJECTION J0595 MELQUIADESEMY ARNETT 2 [facility] BUTORPHAN INC INC OL TARTRATE 1 MG THERAPEUT 66745 MELQUIADES ARNETT IC 2 [facility] PROPHYLAC INC INC TIC/DX INJECTION SUBQ/IM HOSP[facility] [address] [facility] 2 I FEE I FEE DAY MANAGEMEN T 30 MIN/< SBSQ 51647 [facility] 2 I FEE I FEE CARE/DAY 25 MINUTES INITIAL 52001 [facility] 2 EMERGENCY PAULA CARE/DAY SERVICES [address] ORBIT [address] LAKSHMI CASTILLO [place] SELLA/POS 2 MEDICAL T SERV FOSSA/EAR FOUNDATIO W/[place] [address] MELQUIADES ARNETT STREPTOCO 1 [facility] CCUS INC INC GROUP A THERAPEUT [id number] PROPHYLAC TIC/DX INJECTION SUBQ/IM INJECTION [id number] [address] KETOROLAC TROMETHAM INE PER [address] [facility] ON HCL [address] [place] [address] MG ORL NOT >48 HR DOSE REGIMEN RADEX 57187 MELQUIADES ARNETT FOREARM 2 0 [facility] VIEWS INC INC RADEX 52956 M[facility]QUIADES AR[facility] WRIST 0 [facility] COMPLETE INC INC MINIMUM 3 VIEWS THERAPEUT 39299 [facility], IC 0 HEALTH ERIK J PROPHYLAC CLINIC OF TIC/DX INJECTION [place] SUBQ/IM PLLC THERAPEUT 07147 [facility], IC 9 HEALTH ERIK J PROPHYLAC CLINIC OF TIC/DX INJECTION [place] SUBQ/[place] [address] PATHOLOGY PATHOLOGY SURG 9 & & PATHOLOGY CYTOLOGY CYTOLOGY LAB LAB GROSS&CHUY ROSCOPIC EXAM COLPOSCOP 46501 [facility], Y CERVIX 9 HEALTH ERIK J BX CERVIX CLINIC OF & ENDOCRV [facility] CYTP 77919 PATHOLOGY PATHOLOGY CERVICAL/ 9 & & VAGINAL CYTOLOGY CYTOLOGY REQ LAB LAB INTERP PHYSICIAN CYTP C/V 56628 PATHOLOGY PATHOLOGY AUTO THIN 9 & & LYR CYTOLOGY CYTOLOGY PREPJ SCR LAB LAB MNL RESCR PHYS IADNA 75580 PATHOLOGY PATHOLOGY PAPILLOMA 9 & & VIRUS CYTOLOGY CYTOLOGY HUMAN LAB LAB AMPLIFIED PROBE TQ VAGINAL 77201 [place] [facility] DELIVERY 9 MEDICAL NN, ONLY SERV [facility] [place] FOUNDATIO OTHER 7359 [facility] 9 Y Y ASSISTED [facility] DELIVERY OBSERVATI 97281 ZURDO MORGAN, ON/INPATI 9 SMITHAL MD [facility] CARE 55 MINUTES AMB A0427 [facility] SERVICE 9 AMBULANCE AMBULANCE ALS SERVICE SERVICE EMERGENCY TRANSPORT LEVEL 1 [place] [address] M[facility]QUIADES AR[facility]T INFUSION 9 [facility] THERAPY/P INC INC ROPHYLAXI S /DX 1ST TO 1 HR [address]003 MELQUIADES AR[facility] NONSTRESS 9 [place] [address] MELQUIADES AR[facility] INFUSION 9 [facility] THERAPY INC INC PROPHYLAX IS/DX EA HOUR GROUND A0425 [facility] 9 AMBULANCE AMBULANCE PER SERVICE SERVICE [facility] G0378 MELQUIADES ARNETT OBSERVATI 9 [facility] ON INC INC SERVICE PER HOUR GLUCOSE 11642 [facility], POST 9 HEALTH ERIK J GLUCOSE CLINIC OF DOSE [facility] GLUCOSE 59375 [facility], TOLERANCE 9 HEALTH ERIK J TEST GTT CLINIC OF 3 [facility] [place] [address] PATHOLOGY PATHOLOGY SURG 9 & & PATHOLOGY CYTOLOGY CYTOLOGY LAB LAB GROSS&CHUY ROSCOPIC EXAM ANES 15480 [facility], UPPER GI 9 ANESTH CINDY L ENDOSCOPY OF THE PROXIMAL BLUEGRASS TO DUODENUM EGD 26315 MELQUIADES AR[facility] TRANSORAL 9 [facility] BIOPSY INC INC SINGLE/MU LTIPLE SPCL STN 05261 PATHOLOGY PATHOLOGY 2 I&R 9 & & EXCPT CYTOLOGY CYTOLOGY MICROORG/ LAB LAB ENZYME/[place] [address] M[facility]QUIADES AR[facility] INFUSION 9 [facility] THERAPY/P INC INC ROPHYLAXI S /DX 1ST TO 1 HR ESOPHAGOG 4516 MELQUIADES AR[facility]T ASTRODUOD 9 [facility] ENOSCOPY INC INC WITH CLOSED BIOPSY BLOOD 25442 MELQUIADES AR[facility] COUNT 9 [facility] COMPLETE INC INC AUTO&AUTO DIFRNTL WBC URNLS DIP 74410 M[facility]QUIADES MELQUIADES 9 [facility] STICK/TAB INC INC LET REAGENT AUTO MICROSCOP Y BLOOD 53135 M[facility]QUIADES AR[facility] OCCULT 9 [facility] PEROXIDAS INC INC E ACTV QUAL FECES 1-3 SPEC BASIC 42859 MELQUIADES ARNETT METABOLIC 9 [facility] PANEL INC INC CALCIUM TOTAL US PREG 50971 [facility], UTERUS 9 HEALTH ERIK J AFTER 1ST CLINIC OF TRIMEST [place] GESTATION PLLC URNLS DIP 46929 MELQUIADES MELQUIADES 9 [facility] STICK/TAB INC INC LET REAGENT AUTO MICROSCOP Y BASIC 09415 MELQUIADES AR[facility] METABOLIC 9 [facility] PANEL INC INC CALCIUM TOTAL CULTURE 62805 M[facility]QUIAD[facility] AR[facility] BACTERIAL 9 [facility] INC INC QUANTTATI VE COLONY COUNT URINE BLOOD 67561 M[facility]ES [facility] COUNT 9 [facility] COMPLETE INC INC AUTO&[place] [address] MELQUIADES ARNETT ESTRIOL 9 [facility] INC INC GONADOTRO 58029 MELQUIADES ARNETT PIN 9 [facility] CHORIONIC INC INC QUANTITAT TANO ALPHA-FET 77823 MELQUIADES ARNETT OPROTEIN 9 [facility] SERUM INC INC [place] PREG 51608 [facility], UTERUS 9 HEALTH ERIK J REAL TIME CLINIC OF W/IMAGE DCMTN [place] TRANSVAG PLLC IADNA 83173 PATHOLOGY PATHOLOGY NEISSERIA 9 & & CYTOLOGY CYTOLOGY GONORRHOE LAB LAB AE AMPLIFIED PROBE TQ IADNA 05071 PATHOLOGY PATHOLOGY CHLAMYDIA 9 & & CYTOLOGY CYTOLOGY TRACHOMAT LAB LAB IS AMPLIFIED PROBE TQ CYTP 92574 PATHOLOGY PATHOLOGY CERVICAL/ 9 & & VAGINAL CYTOLOGY CYTOLOGY [facility] INTERP PHYSICIAN CYTP C/V 21119 PATHOLOGY PATHOLOGY AUTO THIN 9 & & LYR CYTOLOGY CYTOLOGY PREPJ SCR LAB LAB MNL RESCR PHYS MOLECULAR 24010 MOLECULAR MOLECULAR DX AMP 9 TARGET PATHOLOGY PATHOLOGY MULTIPLEX LAB LAB EA ADDL NETWORK NETWORK SEQ INC INC MOLEC 25436 MOLECULAR MOLECULAR SEP&ID HI 9 RESOLU PATHOLOGY PATHOLOGY TQ EACH LAB LAB NUCLEIC NETWORK NETWORK ACID PREP INC INC MOLEC 02381 MOLECULAR MOLECULAR ISOL/XTRJ 9 HP PATHOLOGY PATHOLOGY NUCLEIC LAB LAB ACID EA NETWORK NETWORK TYPE INC INC MOLECULAR 73055 MOLECULAR MOLECULAR DX AMP 9 TARGET PATHOLOGY PATHOLOGY MULTIPLEX LAB LAB 1ST 2 NETWORK NETWORK SEQ INC INC MOLECULAR 05718 MOLECULAR MOLECULAR 9 DIAGNOSTI PATHOLOGY PATHOLOGY CS LAB LAB INTERPRET NETWORK NETWORK ATION & INC INC REPORT MUTATION 11331 MOLECULAR MOLECULAR ID 9 ENZYMATIC PATHOLOGY PATHOLOGY LAB LAB LIG/PRIME NETWORK NETWORK R XTN 1 INC INC SGM EA URINE 75191 DHS/CO MELQUIADES 9 [facility] VISUAL BANK ACCT COLOR CMPRSN METHS REMOVAL 12586 HARPEL, HARPEL, IMPLANTAB 8 ZURDO R ZURDO R LE CONTRACEP TIVE CAPSULES COMPREHEN 73328 MELQUIADES [facility]NETT SIVE 8 [facility] [place] [address] MELQUIADES ARNETT THER 8 [facility] PROPH/DX INC INC 1ST >1 HR URINE 09086 MELQUIADES ARNETT 8 [facility] TEST INC INC VISUAL COLOR CMPRSN METHS CULTURE 95922 MELQUIADES ARNETT BACTERIAL 8 [facility] INC INC QUANTTATI VE COLONY COUNT URINE URNLS DIP 85306 MELQUIADES ARNETT 8 [facility] STICK/TAB INC INC LET REAGENT AUTO MICROSCOP Y BLOOD 27146 MELQUIADES ARNETT COUNT 8 [facility] COMPLETE INC INC AUTO&AUTO DIFRNTL WBC URINE 65223 ZURDO MORGAN, 8 CATHY Hayward TEST VISUAL COLOR CMPRSN METHS RADEX 61057 [place] JULIANA, WRIST 8 MEDICAL [facility] P COMPLETE IMAGING MINIMUM 3 ASSOCIATE VIEWS S CULTURE 29065 MELQUIADES ARNETT BCT 8 [facility] ISOL&PRSM INC INC PTV ID ISOLATE EA URINE CULTURE 71148 MELQUIADES VASQUEZON BACTERIAL 8 [facility] INC INC QUANTTATI VE COLONY COUNT URINE CT PELVIS 72794 MELQUIADES ARNETT W/O 8 [facility] [place] [address] MELQUIADES ARNETT ABDOMEN 8 [facility] W/O INC INC CONTRAST MATERIAL SUSCEPTIB 60666 MELQUIADES ARNETT LTY STDY 8 [facility] ANTIMICRB INC INC IAL MICRO/AGA R DILUTJ URINE 09573 MELQUIADES MELQUIADES 8 [facility] TEST INC INC VISUAL COLOR CMPRSN METHS 3D 06714 MELQUIADES MELQUIADES RENDERING 8 [facility] INC INC W/INTERP& POSTPROC DIFF WORK STATION URNLS DIP 28933 MELQUIADES VASQUEZON 8 [facility] STICK/TAB INC INC LET REAGENT AUTO MICROSCOP Y URINE 88474 ZURDO MORGAN, 8 CATHY Hayward TEST VISUAL COLOR CMPRSN METHS INSERTION 48301 ZURDO MORGAN, Bridget Hayward IMPLANTAB LE CONTRACEP TIVE CAPSULES IADNA 26797 [facility] FRITZ, NEISSERIA 8 [place] INC VIRAJ E GONORRHOE AE AMPLIFIED PROBE TQ IADNA 90785 [facility] FRITZ, CHLAMYDIA 8 [place] INC VIRAJ E TRACHOMAT IS AMPLIFIED PROBE TQ CYTP 60331 [facility] FRITZ, CERV/VAG 8 [place] INC VIRAJ E AUTO THIN LAYER PREP MNL SCREEN BLOOD 16096 ZURDO MORGAN COUNT 8 [place] [address] MELQUIADES ARNETT STREPTOCO 8 [facility] CCUS INC INC GROUP A Encounters Encounter Start End Date Code Location Performer Type Date EMERGENCY 02056 TG CARDONA 7 7 PHYSICIAN DEPARTMEN S, [facility] T VISIT HIGH/URGE NT SEVERITY OFFICE 23169 [facility] PS MURRIETAPATIEN 6 6 PHYSICIAN TJ T VISIT S GROUP 25 MINUTES EMERGENCY 54665 TG BRAUN [address] [facility] S, [facility] T VISIT HIGH/URGE NT SEVERITY EMERGENCY 87689 TG TRACYUSC DEPT 6 6 PHYSICIAN YULIANA VISIT S, [facility] HIGH SEVERITY& THREAT FUNCJ EMERGENCY 54752 MELQUIADES 6 6 [facility] T VISIT LOW/MODER SEVERITY HOSPITAL MELQUIADES - 6 6 [facility]IEN [facility] EMERGENCY 69050 TG RIZZO [address] [facility] S, [facility] T VISIT HIGH/URGE NT SEVERITY OFFICE 65706 [facility] SP ESTEVEZEN 6 6 PHYSICIAN TJ T VISIT S GROUP 15 MINUTES OFFICE 80408 NAHED MAYS OUTPATIEN 6 6 PHYSICIAN JONY T NEW 30 PRACTICE MINUTES L EMERGENCY 58027 MELQUIADES 6 6 [facility] LOW/MODER SEVERITY [facility]OSPITAL MELQUIADES - 6 6 [facility] OUTPATIEN INC T EMERGENCY 66866 TG DEL RIO [address] [facility] S, [facility] T VISIT MODERATE SEVERITY HOSPITAL MELQUIADES - 6 6 [facility] OUTPATIEN INC T HOSPITAL MELQUIADES - 6 6 [facility] OUTPATIEN INC T OFFICE 77015 [facility] SP OUTPATIEN 6 6 PHYSICIAN TJ T VISIT S GROUP 15 MINUTES OFFICE 39720 [facility] OUT[facility] 6 6 PHYSICIAN CHUY T VISIT S GROUP 15 MINUTES OFFICE 72714 [facility] OUTPATIEN 6 6 PHYSICIAN CHUY T VISIT S GROUP 15 MINUTES HOSPITAL MELQUIADES - 6 6 [facility] - 6 6 N OUTPATIEN COMMUNTIY [facility] EMERGENCY 98031 [facility] CELLARO DEPT 6 6 [place] - YORBA VISIT EMERGENCY PAT HIGH PHYS SEVERITY& THREAT FUNCJ EMERGENCY 65221 [facility] 6 6 N DEPARTMEN COMMUNTIY T VISIT HOSPITA HIGH/URGE NT SEVERITY EMERGENCY 50599 [facility] 6 6 N DEPARTMEN COMMUNTIY T VISIT HOSPITA HIGH/URGE NT SEVERITY EMERGENCY 20423 [facility] 6 [place] YANELIS VISIT EMERGENCY HIGH PHYS SEVERITY& THREAT [facility] 6 6 N [facility] - 5 5 [facility]PATIEN [facility] EMERGENCY 97401 M[facility]QUIADES 5 5 [facility] T VISIT MODERATE SEVERITY EMERGENCY 23260 TG Ramos 5 5 PHYSICIAN DEPARTMEN S, [facility] T VISIT HIGH/URGE NT SEVERITY HOSPITAL MELQUIADES - 5 5 [facility] OUTPATIEN [facility] OFFICE 29326 [facility] OUTPATIEN 5 5 PHYSICIAN CHUY T VISIT S GROUP 15 MINUTES EMERGENCY 33190 MELQUIADES 4 4 MEM [facility] T VISIT LIMITED/M INOR PROB EMERGENCY 71361 [facility] 4 4 [place] IMT DEPARTMEN EMERGENCY T VISIT PHYS MODERATE SEVERITY HOSPITAL MELQUIADES - 4 4 [facility] T OFFICE 72560 [facility] OUTPATIEN 4 4 HEALTH TJ T VISIT CLINIC OF 15 DANITA MINUTES OFFICE 22904 [facility] OUTPATIEN 4 4 HEALTH TJ T VISIT CLINIC OF 25 DANITA MINUTES EMERGENCY 56625 MELQUIADES 4 4 [facility] DEPARTMEN INC T VISIT LOW/MODER SEVERITY EMERGENCY 77536 [facility] 4 4 [facility] [facility] DEPARTMEN EMERGENCY T VISIT PHYS HIGH/URGE NT SEVERITY HOSPITAL MELQUIADES - 4 4 [facility] M[facility] - 3 3 [facility] - 3 3 [facility] MELQUIADES - 3 3 [facility] INPATIENT [facility] OFFICE 34494 [facility] OUTPATIEN 3 3 TJ TJ T VISIT 15 MINUTES OFFICE 38220 SP MORRISE OUTPATIEN 3 3 TJ TJ T VISIT 15 MINUTES OFFICE 41409 HARPEL HARPEL OUTPATIEN 3 3 DAVID DAVID T VISIT 15 MINUTES HOSPITAL MELQUIADES - 3 3 [facility] OUTPATIEN [facility] T OFFICE 92469 SP MORRISE OUTPATIEN 3 3 TJ TJ T VISIT 15 MINUTES OFFICE 37365 [facility] OUT[facility] 3 3 TJ TJ T VISIT 15 MINUTES OFFICE 33474 [facility] OUT[facility] 3 3 TJ TJ T VISIT 15 MINUTES OFFICE 80609 [facility] OUT[facility] 3 3 TJ TJ T VISIT 15 MINUTES OFFICE 95767 [facility] OUT[facility]IEN 3 3 TJ TJ T VISIT 15 MINUTES OFFICE 24322 [facility] OUTPATIEN 3 3 TJ TJ T VISIT 15 MINUTES OFFICE 05830 [facility] OUTPATIEN 3 3 TJ TJ T VISIT 15 MINUTES OFFICE 82608 [facility] OUTPATIEN 3 3 TJ TJ T VISIT 5 MINUTES OFFICE 73213 [facility] OUTPATIEN 3 3 TJ TJ T VISIT 15 MINUTES HOSPITAL UNIVERSIT - 3 3 Y [facility] MELQUIADES - 3 3 [facility] OUTPATIEN INC T OFFICE 15904 [facility] OUTPATIEN 3 3 TJ TJ T VISIT 15 MINUTES HOSPITAL MELQUIADES - 3 3 [facility] OUTPATIEN INC T OFFICE 34284 [facility] OUTPATIEN 3 3 TJ TJ T VISIT 15 MINUTES EMERGENCY 10689 MELQUIADES 3 3 [facility] DEPARTMEN INC T VISIT HIGH/URGE NT SEVERITY HOSPITAL MELQUIADES - 3 3 [facility] OUTPATIEN INC T EMERGENCY 30677 QUANG DEL RIO DEPT 3 3 CHUY CHUY VISIT HIGH SEVERITY& THREAT FUN OFFICE 10591 [facility] OUTPATIEN 3 3 TJ TJ T VISIT 15 MINUTES EMERGENCY 04501 EUGENE VAUGHAN DEPT 3 3 EMERGENCY VISIT SERVICES HIGH SEVERITY& THREAT [facility] MELQUIADES - 3 3 [facility] OUTPATIEN INC T EMERGENCY 67749 MELQUIADES 3 3 [facility] DEPARTMEN INC T VISIT HIGH/URGE NT SEVERITY OFFICE 06518 [facility] OUTPATIEN 3 3 TJ TJ T VISIT 15 MINUTES HOSPITAL MELQUIADES - 3 3 [facility] OUTPATIEN INC T EMERGENCY 83119 MELQUIADES 3 3 [facility] DEPARTMEN INC T VISIT HIGH/URGE NT SEVERITY HOSPITAL MELQUIADES - 3 3 [facility] OUTPATIEN INC T EMERGENCY 90124 CHRISTIAN GONZALES DEPT 3 3 III MITCHEL III MITCHEL VISIT HIGH SEVERITY& THREAT FUNJ OFFICE 20240 [facility] OUTPATIEN 3 3 TJ TJ T VISIT 15 MINUTES EMERGENCY 15513 MELQUIADES 2 2 [facility] DEPARTMEN INC T VISIT LIMITED/M INOR PROB HOSPITAL MELQUIADES - 2 2 [facility] OUTPATIEN INC T EMERGENCY 20751 QUANG DEL RIO 2 2 [facility] DEPARTMEN T VISIT HIGH/URGE NT SEVERITY OFFICE 71539 [facility] OUTPATIEN 2 2 TJ TJ T VISIT 15 MINUTES HOSPITAL MELQUIADES - 2 2 [facility] INC T EMERGENCY 52576 MELQUIADES 2 2 [facility] DEPARTMEN INC T VISIT LOW/MODER SEVERITY EMERGENCY 64446 EUGENE MCCALLUM DEPT 2 2 EMERGENCY MITCHEL VISIT SERVICES HIGH SEVERITY& THREAT [facility] OFFICE 38474 [facility] OUTPATIEN 2 2 TJ TJ T VISIT 15 MINUTES EMERGENCY 20334 CHRISTIAN GONZALES DEPT 2 2 III MITCHEL III MITCHEL VISIT HIGH SEVERITY& THREAT [facility] MELQUIADES - 2 2 [facility] OUTPATIEN INC T EMERGENCY 38828 MELQUIADES 2 2 [facility] DEPARTMEN INC T VISIT HIGH/URGE NT SEVERITY EMERGENCY 60560 MELQUIADES KELLEYT 2 2 [facility] VISIT INC HIGH SEVERITY& THREAT [facility] MELQUIADES - 2 2 [facility] OUTPATIEN INC T EMERGENCY 17377 EUGENE CASTILLO DEPT 2 2 EMERGENCY VISIT SERVICES HIGH SEVERITY& THREAT FUNJ EMERGENCY 01693 QUANG DEL RIO 2 2 [facility] DEPARTMEN T VISIT HIGH/URGE NT SEVERITY EMERGENCY 88437 MELQUIADES 2 2 [facility] DEPARTMEN INC T VISIT LIMITED/M INOR PROB HOSPITAL MELQUIADES - 2 2 [facility] OUTPATIEN INC T OFFICE 34693 MELQUIADES ARNETT OUTANAHIEN 2 2 [facility]IS[facility] CENTER 25 MINUTES EMERGENCY 50383 MELQUIADES 2 2 [facility] DEPARTMEN INC T VISIT MODERATE SEVERITY HOSPITAL MELQUIADES - 2 2 [facility] OUTPATIEN [facility] T EMERGENCY 27610 EUGENE CASTILLO 2 2 EMERGENCY DEPARTMEN SERVICES T VISIT HIGH/URGE NT SEVERITY EMERGENCY 15799 MELQUIADES 2 2 [facility]IS[facility] MODERATE SEVERITY EMERGENCY 07920 EUGENE CASTILLO DEPT 2 2 EMERGENCY VISIT SERVICES HIGH SEVERITY& THREAT [facility] MELQUIADES - 2 2 [facility] OUTPATIEN [facility] T OFFICE 51629 [facility] TJ TJ T VISIT 25 MINUTES EMERGENCY 66889 MELQUIADES 2 2 [facility] T VISIT LOW/MODER SEVERITY EMERGENCY 25624 CHRISTIAN GONZALES 2 2 III MITCHEL III [facility] T VISIT HIGH/URGE NT SEVERITY HOSPITAL MELQUIADES - 2 2 [facility] OUTPATIEN [facility] T HOSPITAL MELQUIADES - 2 2 [facility] OUTPATIEN INC T EMERGENCY 32627 EUGENE MCCALLUM 2 2 EMERGENCY [facility] SERVICES T VISIT MODERATE SEVERITY EMERGENCY 57953 MELQUIADES 2 2 [facility] DEPARTMEN INC T VISIT LOW/MODER SEVERITY HOSPITAL MELQUIADES - 2 2 [facility] OUTPATIEN INC T EMERGENCY 92861 EUGENE DEL RIO DEPT 2 2 EMERGENCY CHUY VISIT SERVICES HIGH SEVERITY& THREAT FUNCJ EMERGENCY 76125 MELQUIADES 2 2 [facility] T VISIT LOW/MODER SEVERITY OFFICE 87904 SP SNOW[facility] 2 2 TJ TJ T VISIT 25 MINUTES EMERGENCY 05033 BOMILDREDON 2 2 [facility] T VISIT LOW/MODER SEVERITY EMERGENCY 58699 DULCE PEREZ DEPT 2 2 VISIT HIGH SEVERITY& THREAT [facility] - 2 2 [facility] HOSPITAL MELQUIADES - 2 2 [facility] OUTPATIEN [facility] EMERGENCY 38908 MELQUIADES 2 2 [facility] T VISIT MODERATE SEVERITY EMERGENCY 13746 CHRISTIAN GONZALES 2 2 III MITCHEL III [facility] T VISIT HIGH/URGE NT SEVERITY HOSPITAL MELQUIADES - 2 2 [facility] OFF[facility] 29418 MELQUIADES ARNETT [facility] 2 2 [facility] T VISIT C[facility] CENTER 15 MINUTES EMERGENCY 24489 MELQUIADES 2 2 [facility] T VISIT MODERATE SEVERITY EMERGENCY 09175 EUGENE DEL RIO 2 2 [facility] T VISIT HIGH/URGE NT SEVERITY HOSPITAL MELQUIADES - 2 2 [facility] MELQUIAD[facility] - 2 2 [facility] OUTPATIEN [facility] T EMERGENCY 08903 MELQUIADES 2 2 [facility] T VISIT LOW/MODER SEVERITY EMERGENCY 24288 EUGENE DEL RIO 2 2 [facility]ER[facility] T VISIT MODERATE SEVERITY HOSPITAL UNIVERSIT - 2 2 [facility] EMERGENCY 70528 MELQUIADES 2 2 [facility] DEPARTMEN INC T VISIT LIMITED/M INOR PROB EMERGENCY 05856 CHRISTIAN GONZALES 2 2 III MITCHEL III [facility] T VISIT MODERATE SEVERITY EMERGENCY 02785 UNIVERSIT 2 2 [facility] T VISIT HIGH/URGE NT SEVERITY EMERGENCY 46662 [place] [facility] DEPT 2 2 MEDICAL C VISIT SERV HIGH FOUNDATIO SEVERITY& THREAT [facility] UNIVERS[facility] - 2 2 [facility] MELQUIADES - 2 2 [facility] OUTPATIEN INC T EMERGENCY 49585 MELQUIADES 2 2 [facility] T VISIT LIMITED/M INOR PROB EMERGENCY 27933 CHRISTIAN GONZALES 2 2 III MITCHEL III [facility] T VISIT MODERATE SEVERITY HOSPITAL MELQUIADES - 2 2 [facility] T EMERGENCY 28308 MELQUIADES 2 2 [facility] T VISIT LOW/MODER SEVERITY EMERGENCY 83675 CHRISTIAN GONZALES 2 2 III MITCHEL III [facility] T VISIT MODERATE SEVERITY EMERGENCY 86981 EUGENE DEL RIO [address] [facility] SERVICES T VISIT MODERATE SEVERITY HOSPITAL MELQUIADES - 1 1 [facility] T EMERGENCY 28160 MELQUIADES 1 1 [facility] INC T VISIT LOW/MODER SEVERITY HOSPITAL [address] OUTPATIEN T EMERGENCY [address] T VISIT MODERATE SEVERITY EMERGENCY 40214 [facility] 1 1 [facility] EMERGENCY T VISIT PHYSI HIGH/URGE NT SEVERITY OFFICE 93206 MELQUIADES SIMMONS 1 1 [facility] T VISIT CENTER CENTER 15 MINUTES EMERGENCY 31468 [facility] CARLEY JAM 1 1 [place] DEPARTMEN EMERGENCY T VISIT PHYSI HIGH/URGE NT SEVERITY EMERGENCY 41189 [facility] RADHA DEPT 1 1 [place] EDW VISIT EMERGENCY HIGH PHYSI SEVERITY& THREAT FUNCJ EMERGENCY 87340 MELQUIADES 1 1 [facility] DEPARTMEN INC T VISIT LOW/MODER SEVERITY HOSPITAL MELQUIADES - 1 1 [facility] OUTPATIEN INC T EMERGENCY 76313 MELQUIADES 0 0 [facility] DEPARTMEN INC T VISIT HIGH/URGE NT SEVERITY HOSPITAL MELQUIADES - 0 0 [facility] OUTPATIEN INC T OFFICE 67920 [facility] OUT[facility]IEN 0 0 HEALTH ERIK J T VISIT 5 CLINIC OF MINUTES [facility] HOSPITAL MELQUIADES - 0 0 [facility] OUTPATIEN INC T OFFICE 60046 [facility], OUTPATIEN 9 9 HEALTH ERIK J T VISIT 5 CLINIC OF MINUTES [facility] EMERGENCY 74828 MELQUIADES 9 9 [facility] DEPARTMEN INC T VISIT LIMITED/M INOR PROB HOSPITAL MELQUIADES - 9 9 [facility] OUTPATIEN INC T EMERGENCY 36782 EUGENE DEL RIO, 9 9 EMERGENCY CATARINA S DEPARTMEN SERVICES T VISIT HIGH/URGE ASSOCIATE NT S SEVERITY EMERGENCY 17674 EUGENE MARES, 9 9 [facility]IS[facility] HIGH/URGE ASSOCIATE NT S SEVERITY HOSPITAL MELQUIADES - 9 9 [facility] OUTPATIEN INC T EMERGENCY 37030 MELQUIADES 9 9 [facility] DEPARTMEN INC T VISIT LOW/MODER SEVERITY OFFICE 21325 DHS/CO MELQUIADES SIMMONS 9 9 HEALTH CO HEALTH T VISIT [facility] 25 BANK ACCT MINUTES OFFICE 67445 [facility], OUTPATIEN 9 9 HEALTH ERIK J T VISIT CLINIC OF 25 MINUTES [facility] OFFICE 75690 [facility], OUTPATIEN 9 9 HEALTH ERIK J T VISIT CLINIC OF 15 MINUTES [facility] UNIVERSIT - 9 9 Y INPATIENT HOSPITAL OFFICE 09419 [facility], OUTPATIEN 9 9 HEALTH ERIK J T VISIT 5 CLINIC OF MINUTES [facility] OFFICE 92629 [facility], OUTPATIEN 9 9 HEALTH ERIK J T VISIT CLINIC OF 15 MINUTES [facility] OFFICE 61289 [facility] MURRIETAPATIEN 9 9 , ANNIKA ROBLERO T VISIT 10 MINUTES [facility] MELQUIADES - 9 9 [facility] OUTPATIEN INC T OFFICE 99995 [facility] TALAMANTES CONSULTAT 9 9 , ANNIKA ROBLERO ION NEW/ESTAB PATIENT 60 MIN [facility] MELQUIADES - 9 9 [facility] OUTPATIEN INC T EMERGENCY 59956 EUGENE MARES, ALLIET 9 9 EMERGENCY ADAN VISIT SERVICES O HIGH SEVERITY& ASSOCIATE THREAT S FUNJ EMERGENCY 65798 MELQUIADES 9 9 [facility] DEPARTMEN INC T VISIT LOW/MODER SEVERITY OFFICE 79136 [facility] OUTPATIEN 9 9 HEALTH ERIK J T VISIT CLINIC OF 15 MINUTES [facility] OFFICE 04095 [facility] SP OUTPATIEN 9 9 HEALTH ERIK J T VISIT CLINIC OF 15 MINUTES [facility] MELQUIADES - 9 9 [facility] OUTPATIEN INC T EMERGENCY 48782 MELQUIADES 9 9 [facility] DEPARTMEN INC T VISIT MODERATE SEVERITY OFFICE 72551 [facility] OUTPATIEN 9 9 HEALTH ERIK J T VISIT CLINIC OF 15 MINUTES [facility] HOSPITAL MELQUIADES - 9 9 [facility] OUTPATIEN INC T EMERGENCY 33069 EDMUNDO MINAYA, [address] [facility] T VISIT LOW/MODER SEVERITY OFFICE 47182 [facility] 9 9 HEALTH CO HEALTH T VISIT [facility] 25 BANK ACCT MINUTES EMERGENCY 75224 JUSTICE MEJIA, 8 8 [facility] T VISIT [facility] INC MODERATE SEVERITY HOSPITAL NAHED - 8 8 [facility] T EMERGENCY 99288 NAHED 8 8 [facility] T VISIT LOW/MODER SEVERITY HOSPITAL MELQUIADES - 8 8 [facility] OUTPATIEN INC T EMERGENCY 43507 MELQUIADES 8 8 [facility] T VISIT LIMITED/M INOR PROB HOSPITAL MELQUIADES - 8 8 [facility] T EMERGENCY 03009 MELQUIADES COOLEY, 8 8 [facility] T VISIT PROF SERV LOW/MODER SEVERITY EMERGENCY 73743 MELQUIADES 8 8 [facility] T VISIT MODERATE SEVERITY HOSPITAL MELQUIADES - 8 8 [facility] T OFFICE 55815 ZURDO MORGAN [facility] 8 8 CATHY Hayward T VISIT 15 MINUTES HOSPITAL MELQUIADES - 8 8 [facility] T EMERGENCY 00368 MELQUIADES HERNANDEZ, [address] [facility] T VISIT PROF SERV MODERATE SEVERITY EMERGENCY 02555 MELQUIADES 8 8 [facility] T VISIT LOW/MODER SEVERITY OFFICE 51663 ISAURO PISANO OUTPATIEN 8 8 [place] JR, T VISIT INTERNAL PEDRO F 15 MED MINUTES EMERGENCY 55738 MELQUIADES 8 8 [facility]PART[facility] T VISIT MODERATE SEVERITY [facility]OSPITAL M[facility]QUIADES - 8 8 [facility] OUT[facility] T OFFICE 36647 [place] VIRAL, OUTPATIEN 8 8 [place] REMI T VISIT INTERNAL 15 MED MINUTES OFFICE [id number] ZURDO MORGAN, OUTPATIEN 8 8 CATHY Haywadr T VISIT 15 MINUTES OFFICE 67442 [facility] 8 8 CATHY Hayward T VISIT 15 MINUTES HOSPITAL MELQUIADES - 8 8 [facility] OUT[facility] T EMERGENCY 16981 MELQUIADES 8 8 [facility] DEPART[facility] INC T VISIT LOW/MODER SEVERITY OFFICE 89516 [facility] 8 8 [facility] T VISIT [facility] 10 BANK ACCT MINUTES PERIODIC 42043 ZURDO MORGAN, PREVENTIV 8 8 CATHY Hayward E MED EST PATIENT 18-39 YRS HOSPITAL MELQUIADES - 8 8 [facility] T EMERGENCY 96653 MELQUIADES LONG 8 8 [facility] T VISIT PROF SERV LOW/MODER SEVERITY
--- OUTSIDE RECORDS SUMMARY | 2016-11-10 01:02 | External Medical Summary Rpt ---
Author Author , LANE SHERMAN Address Unknown Phone [email or web address] Care Team Providers Care Optical Manufacturing Technician Name Role Phone JONATHAN CASTILLO Unavailable Unavailable OMAR PAYAN Unavailable Unavailable CARLEY JAM, CARLEY JAM Unavailable Unavailable LEWIS, LEWIS Unavailable Unavailable LEWIS ALL, LEWIS ALL Unavailable Unavailable [facility] Unavailable Unavailable [facility] PHYSICIAN Unavailable Unavailable PRACTICE L, [facility]available Unavailable SERVICE, [facility] Unavailable Unavailable SERVICE, [facility] FARAH, FARAH Unavailable [...] PHYSICIANS Unavailable Unavailable [place], [facility] ANESTH Unavailable Unavailable [facility] JONY, DAVON Unavailable Unavailable JONY KRISTAL, KRISTAL Unavailable Unavailable KRISTAL KIERA, Unavailable Unavailable KRISTAL KIERA KRISTAL KIERA, Unavailable Unavailable RKISTAL KIERA KRISTAL, GALA, Unavailable Unavailable KRISTAL, GALA LIRA PAULA, LIRA Unavailable Unavailable PAULA [facility] Un[place] [facility] Unavailable [facility]available [facility] Unavailable Unavailable ECKERLINE C, Unavailable Unavailable ECKERLINE C MICH WHEAT Unavailable Unavailable YANELIS QUANG CHUY, QUANG Unavailable Unavailable CHUY QUANG CHUY, QUANG Unavailable Unavailable CHUY [facility], Unavailable Unavailable [facility] Unavailable Unavailable EMS, [facility] Unavailable Unavailable EMS, [facility] Unavailable Unavailable EMS, [facility] HARPEL DAVID, HARPEL Unavailable Unavailable DAVID HARPEL DAVID, HARPEL Unavailable Unavailable DAVID HARPEL, ZURDO R, Unavailable Unavailable HARPEL, ZURDO R DOMÍNGUEZ KYLE, DOMÍNGUEZ Unavailable Unavailable KYLE [facility] Unavailable Unavailable HEMET, [facility] Unavailable Unavailable CENTER, [facility] Unavailable Unavailable INC, [facility] Unavailable Unavailable HOSPITAL P, [facility] P VIRAL, REMI, VIRAL, Unavailable Unavailable REMI [facility], Unavailable Unavailable [facility] CARDONA, CARDONA Unavailable Unavailable CARDONA CHRIS, CARDONA CHRIS Unavailable Unavailable CARDONA CHRIS, CARDONA CHRIS Unavailable Unavailable ROBY IMT, ROBY Unavailable Unavailable IMT JAHANSHAHI FEE, Unavailable Unavailable JAHANSHAHI FEE JAHANSHAHI FEE, Unavailable Unavailable JAHANSHAHI FEE [facility] Unavailable Unavailable IMAGING [facility], [facility] [...] Unavailable Unavailable EUGENER[facility]HAWN [facility], Unavailable Unavailable [facility] Unavailable Unavailable SERVICES, [facility] MAST ANN, MAST ANN Unavailable [...] ANASTACIO O'OMAIRA ANASTACIO, O'OMAIRA Unavailable Unavailable ANASTACIO [facility], Unavailable Unavailable [facility] [...] PHARM #[id number] [facility] Unavailable Unavailable [id number] [address] [id number], [facility] [id number] # [id number] BLAKE KERMIT, BLAKE KERMIT Unavailable [...] O SOTINGEANU MEDINA, Unavailable Unavailable SOTINGEANU MEDINA [facility] Unavailable Unavailable EMERGENCY PHYS, [facility] Unavailable Unavailable EMERGENCY PHYSI, [facility] ROSY SHE, Unavailable Unavailable ROSY SHE VIRAJ HU, Unavailable Unavailable VIRAJ HU [facility], Unavailable Unavailable [facility], Unavailable Unavailable [facility] WEHRMAN III MITCHEL, Unavailable Unavailable WEHRMAN [...] [facility] [place] [facility] R079 CHEST PAIN 07-07-2016 [place] UNSPECIFIED [facility] EMS R1013 EPIGASTRIC 07-07-2016 [place] PAIN [facility] ID EMS [id number] PAIN IN 06-08-2016 [facility] L89013 PAIN IN 06-08-2016 [place] UNSPECIFIED MEDICAL HIP IMAGING ASS O31373 PAIN IN 06-08-2016 [place] RIGHT MEDICAL FOREARM IMAGING ASS N50265 PAIN IN 06-08-2016 [place] RIGHT THIGH [facility]ICAL IMAG[facility] ASS [id number] UNSPECIFIED 06-08-2016 [place] INJURY MEDICAL RIGHT ELBOW [...] BRONCHITIS PHYSICIANS, UNSPECIFIED PLLC N926 IRREGULAR 03-19-2016 [facility] MENSTRUATIO PHYSICIANS N GROUP UNSPECIFIED R102 PELVIC AND 03-19-2016 [facility] PERINEAL PHYSICIANS PAIN GROUP R1084 GENERALIZED 03-17-2016 [facility] ABDOMINAL PHYSICIANS, PAIN PLLC R109 UNSPECIFIED 03-13-2016 [place] ABDOMINAL MEDICAL PAIN IMAGING ASS R112 NAUSEA WITH 03-13-2016 [facility] VOMITING AMBULANCE UNSPECIFIED SERVICE [id number] FOREIGN 03-13-2016 [facility] BODY IN PHYSICIANS, VULVA & PLLC VAGINA INITIAL ENCOUNTER M545 LOW BACK 02-09-2016 [facility] PAIN PHYSICIANS, PLLC N200 CALCULUS OF 02-09-2016 [facility] R1031 RIGHT LOWER 02-09-2016 [place] [facility] R1032 LEFT LOWER 02-09-2016 [place] [facility] D66787 ENCOUNTER 12-23-2015 [facility] ROUTINE PHYSICIANS CHECKING IU GROUP CONTRACEPT DEVICE C08258 MIGRAINE 12-05-2015 [place] W/AURA NOT PHYSICIAN INTRACT W/O PRACTICE L STAT MIGRAINOSUS Y74114 PERSONAL 11-25-2015 [facility] HISTORY OF [facility] NICOTINE INC DEPENDENCE M79242 ENCOUNTER 11-08-2015 [facility] INITIAL PHYSICIANS PRESCRIPTIO GROUP N IU CONTRACEPT DEV Z7251 HIGH RISK 11-08-2015 [facility] HETEROSEXUA [facility] L BEHAVIOR INC N6011 DIFFUSE 10-05-2015 [facility] CYSTIC [facility] MASTOPATHY INC OF RIGHT BREAST N6489 OTHER 10-05-2015 [place] SPECIFIED MEDICAL DISORDERS IMAGING ASS OF BREAST N644 MASTODYNIA 09-27-2015 [facility] PHYSICIANS GROUP J40 BRONCHITIS 08-23-2015 [facility] NOT PHYSICIANS SPECIFIED GROUP ACUTE OR CHRONIC K219 GASTRO-ESOP 08-10-2015 [facility] H REFLUX PHYSICIANS DISEASE GROUP WITHOUT ESOPHAGITIS B1920 UNS VIRAL 07-27-2015 [facility] HEPATITIS C [facility] WITHOUT INC HEPATIC COMA R071 CHEST PAIN 05-24-2015 [facility] N EMERGENCY BREATHING PHYS R0789 OTHER CHEST 05-24-2015 [place] PAIN COMMUNTIY HOSPITA R5381 OTHER 05-24-2015 [place] MALAISE SCOT T CO EMS M940 CHONDROCOST 05-16-2015 [facility] JUNCTION N EMERGENCY SYNDROME PHYS TIETZE R072 PRECORDIAL 05-16-2015 [facility] PAIN N EMERGENCY PHYS R509 FEVER 05-16-2015 [place] UNSPECIFIED SCOT T CO EMS R52 PAIN 05-16-2015 [place] UNSPECIFIED SCOT T CO EMS [id number] POISONING 02-24-2015 [facility] HEROIN [facility] UNDETERMINE INC D INITIAL ENCOUNTER 07088 COMA 01-09-2015 [facility] AMBULANCE SERVICE 86064 POISONING 01-09-2015 [facility] BY HEROIN [facility] P 9779 POISONING 01-09-2015 [facility] UNSPECIFIED AMBULANCE SERVICE DRUG/MEDICI NAL SUBSTANCE 6824 CELLULITIS& 09-23-2014 [facility]ESS OF ANESTH OF HAND EXCEPT THE BLUE FINGERS&FERN MB 6823 CELLULITIS 09-22-2014 TG AND ABSCESS PHYSICIANS, OF UPPER PLLC ARM AND FOREARM 7245 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[facility] BACKACHE PHYSICIANS GROUP 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[facility] 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 85684 PHLEBITIS&T 03-14-2014 [facility] HROMBOPHLEB [facility] HOS[facility] SUP VEINS INC UPPER EXTREM 69314 PHLEBITIS 03-14-2014 [facility] AND N EMERGENCY THROMBOPHLE PHYS BITIS OF OTHER SITE 5758 OTHER 03-14-2014 [facility] SPECIFIED [facility] DISORDER OF INC GALLBLADDER V148 PERSONAL 03-14-2014 [facility] HISTORY [facility] ALLERGY OTH INC SPEC MEDICINAL AGTS 64918 UNSPECIFIED 03-02-2014 [facility] N DAN[facility] 8705 UNSPEC 03-02-2014 [facility]MP[facility]OM [facility] CLINIC OF W/FEMALE [place]AN[place] GENITAL ORGANS 6264 IRREGULAR 03-02-2014 [facility] MENSTRUAL HEALTH CYCLE CLINIC OF DANITA 30791 ABDOMINAL 03-02-2014 [facility]OMEN'[facility] PAIN, LEFT HEALTH LOWER CLINIC OF QUADRANT DANITA 41040 UNSPECIFIED 02-02-2014 [facility] VAGINITIS [facility] CLIN[facility] OF VULVOVAGINI DANITA TIS 64768 HEMATURIA 12-24-2013 [facility] UNSPECIFIED N EMERGENCY PHYS 71707 ABDOMINAL 12-24-2013 [place] PAIN OTHER MEDICAL SPECIFIED IMAGING ASS SITE 84272 CHLAMYDTRAC 01-02-2013 [facility] HOMATIS JR GARRETT INFECTION LOWER SITES V242 ROUTINE 01-02-2013 [facility] GARRETT FOLLOW-UP 6146 PELVIC 11-21-2012 [facility] PERITONEAL [facility] ADHESIONS, INC FEMALE V252 STERILIZATI 11-21-2012 [place] ON V2509 OT GENERAL 11-20-2012 [facility] CNSL&ADVICE INC CONTRACEPT MANAGEMENT 650 NORMAL 10-22-2012 ZAVALA SHA DELIVERY 83662 FIRST-DEGRE 10-22-2012 [facility] E PERINEAL [facility] LACERATION INC WITH DELIVERY V270 OUTCOME OF 10-22-2012 [facility] DELIVERY [facility] SINGLE INC LIVEBORN 70240 THREATENED 10-20-2012 SP [facility] PREMATURE LABOR ANTEPARTUM V221 SUPERVISION 10-20-2012 SP TJ OF OTHER NORMAL 92896 OTHER 10-11-2012 HARPEL DAVID THREATENED LABOR, ANTEPARTUM 55694 ABNORMAL 08-08-2012 SP TJ MATERNAL GLUCOSE TOLERANCE ANTEPARTUM 83516 DELAY DELIV 07-30-2012 O'OMAIRAANNAMARIA CHAVES AFTER SPONT/UNSPE C RUP MEMB ANTPRTM 56305 CHEST PAIN 07-27-2012 BLAKE KERMIT UNSPECIFIED 46284 CERVICAL 07-21-2012 O'OMAIRA ANASTACIO SHORTENING ANTEPARTUM CONDITION OR COMP 01210 PREMATURE 07-18-2012 [facility] ANTEPARTUM 7802 SYNCOPE AND 07-18-2012 [place] COLLAPSE V2341 SUPERVISION 07-18-2012 [facility] W/HISTORY PRE-TERM LABOR V2389 SUPERVISION 07-18-2012 [facility] OF OTHER [facility] HIGH-RISK 99334 LATE 07-17-2012 [facility] ANTEPARTUM 74563 OTH 07-17-2012 [facility] VENEREAL DISEASE ANTPRTM COND/COMPL 49182 OTH CURRENT 07-17-2012 [facility] CLASSIFIABL E ELSW ANTPRTM 70626 CERVICAL 07-17-2012 O'OMAIRAANNAMARIA CHAVES SHORTENING DELIVERED W/WO ANTPRTM COND V230 07-17-2012 [facility]ST ANN WITH HISTORY OF INFERTILITY 86264 NAUSEA WITH 06-30-2012 [facility] VOMITING [facility] INC 11389 ABDOMINAL 06-30-2012 [facility] PAIN, [facility] GENERALIZED INC V220 SUPERVISION 06-30-2012 SP SP[facility]ER OF NORMAL FIRST V283 ENCOUNTER 06-19-2012 SP SP[facility] ROUTINE SCREEN MALFORMATIO N ULTRASONIC 65141 DEHYDRATION 06-12-2012 [facility] 11012 HYPEREMESIS 06-12-2012 [facility] W/METAB INC DISTURBANCE ANTPRTM 7880 RENAL COLIC 06-12-2012 [facility] 20827 MILD 06-11-2012 [facility] HYPEREMESIS GRAVIDARUM UNSPEC EPIS CARE 591 HYDRONEPHRO 06-04-2012 KRISTAL SIS KIERA 94825 OTHER 06-04-2012 KRISTAL SPECIFIED KIERA DISORDER OF KIDNEY AND URETER 85475 THREATENED 06-03-2012 [facility] SERVICES UNSPEC EPIS CARE 62995 OTHER 06-03-2012 KRISTAL SPECIFED KIERA COMPLICATIO N ANTEPARTUM 96458 OTH CURRENT 05-29-2012 WEHR[facility] III MATERNAL MITCHEL CCE-COMPL PG CB/PP-UNS EOC 4660 ACUTE 04-30-2012 [facility] HOS[facility] INC V222 04-30-2012 [facility] INCIDENTAL INC 7910 PROTEINURIA 04-25-2012 [place] TJ 7916 ACETONURIA 04-25-2012 [place] TJ 5920 CALCULUS OF 04-24-2012 [facility]IDNEY [facility] 5990 URINARY 04-24-2012 [facility] TRACT [facility] INFECTION SERVICES SITE NOT SPECIFIED 62994 INFS 04-24-2012 [facility] TRACT [facility] UNSPEC EPIS CARE 88681 MILD 04-14-2012 [facility] HYPEREMESIS [facility] GRAVIDARUM INC ANTEPARTUM 62025 ABDOMINAL 04-14-2012 WEHRMAN III PAIN, MITCHEL UNSPECIFIED SITE 2768 HYPOPOTASSE 04-07-2012 [facility] DUYEN [facility] 5589 OTH&UNSPEC 04-07-2012 [place] NONINFECTIO EMERGENCY US SERVICES GASTROENTER ITIS&COLITI S V745 SCREENING 03-19-2012 [place] EXAMINATION VALENTE FOR VENEREAL DISEASE 96402 INFECTIONS 03-06-2012 [facility] GENITOURINA INC RY TRACT ANTEPARTUM V7242 03-03-2012 [facility] EXAM[facility]ATION HEALTH OR TEST CENTER POSITIVE RESULT 74229 PAIN IN 02-13-2012 [place] JOINT, MEDICAL ANKLE AND IMAGING ASS FOOT 7295 PAIN IN 02-13-2012 [facility] SOFT EMERGENCY TISSUES OF SERVICES LIMB 30194 UNSPECIFIED 02-13-2012 [facility] SITE OF ANKLE SPRAIN AND STRAIN 22060 CONTUSION 02-13-2012 [facility] OF FOOT [facility] INC 9599 INJURY 02-13-2012 [place] OTHER AND MEDICAL UNSPECIFIED IMAGING ASS UNSPECIFIED SITE 38869 ACUT 01-29-2012 [facility] PYELONEPHRI [facility] TIS W/O LES INC RENAL MEDULRY NECROS 09232 UNSPECIFIED 01-29-2012 [facility] PYELONEPHRI SERVICES TIS 6201 CORPUS 01-10-2012 [place] TJ LUTEUM CYST OR HEMATOMA 04973 ABDOMINAL 01-10-2012 [place] TJ PAIN RIGHT LOWER QUADRANT 50885 UNSPECIFIED 11-10-2011 [facility] DENTAL [facility] CARIES INC 5259 UNSPECIFIED 11-10-2011 WEHR[facility] III DISORDER MITCHEL TEETH&SUPPO RTING STRUCTURES 37942 PAIN IN 09-26-2011 [place] JOINT, HAND MEDICAL IMAGING ASS 34946 CONTUSION 09-26-2011 [place] OF HAND EMERGENCY SERVICES E9179 OTHER 09-26-2011 [place] STRIKING MEDICAL AGAINST IMAGING ASS W/WO SUBSEQUENT FALL 7804 DIZZINESS 08-23-2011 [place] AND EMERGENCY GIDDINESS SERVICES V692 PROBLEMS 08-21-2011 [place] TJ RELATED TO HIGH-RISK SEXUAL BEHAVIOR 7231 CERVICALGIA 08-20-2011 [facility] 28608 SPASM OF 08-20-2011 [facility] CH[facility]IS MUSCLE 6202 OTHER AND 08-15-2011 [place] UNSPECIFIED MEDICAL OVARIAN IMAGING ASS CYST 82218 OTHER 08-15-2011 [place] ASCITES [facility]ICAL IMAG[facility] ASS 2662 OTHER 07-26-2011 [facility] B-COMPLEX HEALTH DEFICIENCIE CENTER S V7241 07-26-2011 [facility] EXAMINATION HEALTH OR TEST CENTER NEGATIVE RESULT 7840 HEADACHE 07-19-2011 [facility] 6827 CELLULITIS 07-05-2011 [place] AND ABSCESS EMERGENCY OF FOOT SERVICES EXCEPT TOES 05984 UNSPECIFIED 05-31-2011 WEHRMAN III ACUTE MITCHEL CONJUNCTIVI TIS 05828 UNSPECIFIED 05-31-2011 [facility] CONJUNCTIVI TIS 93994 LEUKOCYTOSI 05-28-2011 JUDITHHAHI S FEE UNSPECIFIED 79134 ABSCESS OF 05-28-2011 [facility] EYELID FEE 26594 ONE EYE: 05-27-2011 [facility] TOT VISN EMERGENCY IMPAIR; OTH SERVICES EYE: NR-NL VISN 04037 ORBITAL 05-27-2011 [facility] [place] 83476 PAIN IN OR 05-27-2011 [facility] SERV FOUNDATIO 14223 SWELLING OR 05-27-2011 [place] [facility] OF SERV EYE FOUNDATIO 6820 CELLULITIS 05-27-2011 [place] [facility] AND ABSCESS SERV OF FACE FOUNDATIO 462 ACUTE 05-05-2011 [facility] PHARYNGITIS EMERGENCY SERVICES 72470 MIGRAINE 04-04-2011 [facility] W/O HOSPITAL INTRACT W/O STATUS MIGRAINOSUS 6829 CELLULITIS 04-04-2011 [facility] CO AND ABSCESS HEALTH OF HEMET UNSPECIFIED SITE V5889 ENCOUNTER 04-01-2011 [facility] FOR OTHER N EMERGENCY SPECIFIED PHYSI AFTERC[facility] 9134 ELB 03-30-2011 [facility] FORARM&WRST [facility] INSECT INC BITE NONVENOMOUS W/O INF 68362 SPRAIN AND 07-31-2009 [place] STRAIN OF MEDICAL [...] PATHOLOGY & AND CYTOLOGY ENDOCERVICI LAB TIS 85862 DYSPLASIA 03-07-2009 PATHOLOGY & OF CERVIX CYTOLOGY UNSPECIFIED LAB 55143 PAP SMER 03-04-2009 [facility] CERV W/LW HEALTH GRADE CLINIC OF SQUAMOUS [place] INTRAEPITH PLLC LES 45740 CERV HIGH 03-04-2009 [facility] RISK HUMAN HEALTH PAPILLOMAVI CLINIC OF JENNIFER DNA [place] TEST POS PLLC 62752 PAP SMER 02-25-2009 [facility] CERV HEALTH W/ATYPICAL CENTRAL SQUAMOUS BANK ACCT CELLS UNDET V7231 ROUTINE 01-24-2009 [facility] GYNECOLOGIC HEALTH AL CLINIC OF EXAMINATION [place] PLL 2331 CARCINOMA 12-12-2008 [facility] IN [facility] CERVIX UTERI 86253 ERLY ONSET 12-12-2008 [facility] W/WO MENTION ANTPRTM COND 80791 OTH 12-12-2008 [facility] CONGENITAL/ HOSPITAL ACQUIRED ABNORM CERVIX W/DELIVERY 30244 OTHER AND 12-12-2008 [facility] UTERINE INERTIA W/DELIVERY 94667 ULCER OF 11-25-2008 [facility], ESOPHAGUS ANNIKA WITHOUT BLEEDING 5780 HEMATEMESIS 11-25-2008 [facility] ANNIKA 95346 VOMITING 11-25-2008 [facility] ALONE ANNIKA 97440 ACUTE 11-18-2008 PATHOLOGY & ESOPHAGITIS CYTOLOGY LAB 5533 DIAPHRAGMAT 11-18-2008 [facility] ANIVAL W/O MEM HOS[facility] MENTION INC OBSTRUCTION /GANGREN 20267 OTH CURRENT 11-18-2008 [facility] MATERNAL [facility] CCE INC W/DELIVERY 5789 UNSPECIFIED 11-10-2008 [place] HEMORRHAGE EMERGENCY OF SERVICES GASTROINTES ASSOCIATES TINAL [...] GNT TRACT 1110 PITYRIASIS 08-15-2007 [facility] VERSICOLOR [place] INTERNAL MED 32416 ANAL OR 08-15-2007 [facility] RECTAL PAIN [place] INTERNAL MED 9212 CONTUSION 08-01-2007 [facility] OF ORBITAL [facility] TISSUES INC E8494 PLACE OF 08-01-2007 [facility] IMAGING RECREATION ASSOCIATES AND SPORT E8851 FALL FROM 08-01-2007 [facility] [employer] ATES IMAGING ASSOCIATES 5781 BLOOD IN 07-31-2007 [facility] STOOL [place] INTERNAL MED 6258 OT SPEC 07-21-2007 ZURDO [...] CATHY ARCINIEGA DEFICIENCY ANEMIA 6918 OTHER 06-02-2007 [facility] AND RELATED PROF SERV CONDITIONS Medications [...] 20 AI AC 90 10 10 D VT 1 PH CH SO AR AE D [...] 20 20 DE CE 90 09 09 VT TA 5 PH CH VT AR AE N- MA L CA CY [...] BA RA 60 09 09 D BA VT 5 PH TU DE AR ND M [...] 09 D BA TA 1 PH TU VT AR ND N- M E CA #3 [...] ai RA 40 08 08 D la VT 1 PH bl DE AR e 5 [...] Procedure [place] [address] [facility] HEAD/BRAI 7 RADIOLOGY N W/O CONTRAST MATERIAL AMB A0427 [facility] SERVICE 7 EVY RATLIFF ALS ID EMS CO EMS EMERGENCY TRANSPORT LEVEL 1 GROUND A0425 [facility] PER ID EMS CO EMS STATUTE MILE AMBULANCE A0429 [facility] 7 AMBULANCE AMBULANCE BLS SERVICE SERVICE EMERGENCY TRANSPORT GROUND A0425 [facility] 7 AMBULANCE AMBULANCE PER SERVICE SERVICE STATUTE MILE RADEX 75600 [place] [facility] 7 MEDICAL COMPLETE IMAGING MINIMUM 3 ASS VIEWS RADIOLOGI 45895 [place] [facility]WIS C 7 MEDICAL EXAMINATI IMAGING ON FEMUR ASS MINIMUM 2 VIEWS RADIOLOGI 63440 [place] [facility]IS C 7 MEDICAL EXAMINATI IMAGING ON PELVIS ASS 1/2 VIEWS RADIOLOGI 70989 [place] [facility]IS C 7 MEDICAL EXAMINATI IMAGING ON CHEST ASS SINGLE VIEW FRONTAL RADEX 28609 [place] [facility] FOREARM 2 7 MEDICAL VIEWS IMAGING ASS RADIOLOGI 28828 [place] [facility]IS C 7 MEDICAL EXAMINATI [place] [address] [place] KRISTAL EXTREMITY 7 MEDICAL NON-VASC IMAGING ASS REAL-TIME IMG LMTD RADIOLOGI 86398 [place] BEINEKE C EXAM 7 MEDICAL CHEST 2 IMAGING VIEWS ASS FRONTAL&L ATERAL RADIOLOGI 75666 [facility] [place] DOMÍNGUEZ C 6 RADIOLOGY KYLE [place]AM[place] [address] [facility] [place] DOMÍNGUEZ TRANSVAGI 6 RADIOLOGY KYLE NAL AMBULANCE A0429 [facility] SERVICE 6 AMBULANCE AMBULANCE BLS SERVICE SERVICE EMERGENCY TRANSPORT GROUND A0425 [facility] MILEAGE 6 AMBULANCE AMBULANCE [place] [address] [place] [facility]WIS ALL ABDOMEN & 6 MEDICAL PELVIS IMAGING W/CONTRAS ASS T MATERIAL DRUG TST G0477 [facility] PRESUMP;C 6 MEM HOSP MEM HOS[facility] PBL BEING INC INC READ DC OPT OBV ONLY UNCLASSIF J3490 [facility] IED DRUGS 6 [place] [address] [facility]BD[facility] & 6 MEDICAL PELVIS IMAGING W/O ASS CONTRAST MATERIAL THERAPEUT 46774 [facility] IC 6 MEM HOSP MEM HOS[facility] PROPHYLAC INC INC TIC/DX INJECTION SUBQ/IM URINE 64620 [facility] AR[facility]T 6 MEM HOS[facility]OS[facility] TEST INC INC VISUAL COLOR CMPRSN METHS UNCLASSIF J3490 [facility] IED DRUGS 6 MEM HOSP MEM HOSP INC INC THERAPEUT 04508 [facility] IC 6 MEM HOSP MEM HOSP PROPHYLAC INC INC TIC/DX INJECTION SUBQ/IM IADNA 27016 [facility] CHLAMYDIA 6 MEM HOSP MEM HOSP INC INC TRACHOMAT IS AMPLIFIED PROBE TQ LEVONORGE J7298 [facility] SP STREL-RLS 6 PHYSICIAN TJ S GROUP INTRAUTER INE SHELBY SYS 52 MG IADNA 78837 [facility] NEISSERIA 6 MEM HOSP MEM HOSP INC INC GONORRHOE AE AMPLIFIED PROBE TQ INSERTION 25774 [facility] SP 6 PHYSICIAN TJ INTRAUTER S GROUP INE DEVICE IUD US BREAST 58196 [facility] UNI REAL 6 MEM HOSP MEM [facility]OS[facility] TIME INC INC WITH IMAGE COMPLETE US BREAST 63180 [facility] LEWIS ALL UNI REAL 6 MEDICAL TIME IMAGING WITH ASS IMAGE LIMITED HEPATITIS 37185 [facility] C 6 MEM HOSP MEM HOSP ANTIBODY INC INC HEPATITIS 97175 M[facility] A 6 MEM HOSP MEM [facility]OS[facility] ANTIBODY INC INC HAAB HEPATITIS 96457 [facility] B CORE 6 MEM HOSP MEM HOS[facility] ANTIBODY INC INC HBCAB TOTAL HEPATITIS 80012 [facility] Sauceda SURF 6 MEM HOSP [place] [address] [facility] HEPATITIS 6 MEM HOSP [facility] B INC INC SURFACE ANTIGEN INF AGT G0432 [facility] AB DETECT 6 [facility] EIA TECH INC INC HIV-1&/HI V-2 SCR COLLECTIO 85237 [facility] N VENOUS 6 [facility] BLOOD INC INC VENIPUNCT URE COLLECTIO 77781 [facility] N VENOUS 6 N N BLOOD COMMUNTIY COMMUNTIY VENIPUNCT HOSPITA HOSPITA URE COMPREHEN 61352 [facility] SIVE 6 N N METABOLIC COMMUNTIY COMMUNTIY PANEL HOSPITA HOSPITA GROUND A0425 [facility] MILEAGE 6 N SCOT T N SCOT T PER CO EMS CO EMS STATUTE MILE DRUG TEST [id number] [facility] 6 N N PRESUMP;I COMMUNTIY COMMUNTIY NSTRUMENT HOSPITA HOSPITA ED CHEMISTRY ANLYZER ECG 13504 [facility] ROUT[facility] 6 [place] [facility] ECG EMERGENCY PAT W/LEAST PHYS 12 LDS I&R ONLY ECG 16466 [facility] ROUTINE 6 N N ECG COMMUNTIY COMMUNTIY W/LEAST HOSPITA HOSPITA 12 [facility] TRCG ONLY W/O [place] [address] [facility] INFUSION 6 N N HYDRATION COMMUNTIY COMMUNTIY EACH HOSPITA HOSPITA ADDITIONA L HOUR FIBRIN 09816 [facility] DGRADJ 6 N N PRODUCTS COMMUNTIY COMMUNTIY D-DIMER HOSPITA HOSPITA QUANTITAT TANO THER 93591 [facility] PROPH/DX 6 N N NJX IV COMMUNTIY COMMUNTIY PUSH HOSPITA HOSPITA SINGLE/1S T SBST/DRUG AMB A0427 [facility] SERVICE 6 N SCOT T N SCOT T ALS CO EMS CO EMS EMERGENCY TRANSPORT LEVEL 1 RADIOLOGI 58764 [facility] C EXAM 6 N N CHEST 2 COMMUNTIY COMMUNTIY VIEWS HOSPITA HOSPITA FRONTAL&[place] [address] [facility] TROPONIN 6 N N QUANTITAT COMMUNTIY COMMUNTIY TANO HOSPITA HOSPITA BLOOD 23238 [facility] COUNT 6 N N COMPLETE COMMUNTIY COMMUNTIY AUTO&AUTO HOSP[place] [address] [facility] TROPONIN 6 N N QUANTITAT COMMUNTIY COMMUNTIY TANO HOSPITA HOSPITA ECG 64469 [facility] ROUTINE 6 [place] YANELIS ECG EMERGENCY W/LEAST PHYS 12 LDS I&R ONLY AMB A0427 [facility] SERVICE 6 N SCOT T N SCOT T ALS CO EMS CO EMS EMERGENCY TRANSPORT LEVEL 1 THER 38909 [facility] PROPH/DX 6 N N NJX IV COMMUNTIY COMMUNTIY PUSH HOSPITA HOSPITA SINGLE/1S T SBST/DRUG RADIOLOGI 78463 [facility] C EXAM 6 N N CHEST 2 COMMUNTIY COMMUNTIY VIEWS HOSPITA HOSPITA FRONTAL&L ATERAL ECG 50952 [facility] ROUTINE 6 N N ECG COMMUNTIY COMMUNTIY W/LEAST HOSPITA HOSPITA 12 LDS TRCG ONLY W/O I&R GROUND A0425 [facility] MILEAGE 6 N SCOT T N SCOT T PER CO EMS CO EMS STATUTE MILE COLLECTIO 04399 [facility] N VENOUS 6 N N BLOOD COMMUNTIY COMMUNTIY VENIPUNCT HOSPITA HOSPITA URE GROUND A0425 [facility] MILEAGE 5 AMBULANCE AMBULANCE PER SERVICE SERVICE STATUTE MILE ECG 98408 MELQUIADES SHEN JR ROUTINE 5 [facility] W/LEAST P 12 LDS I&R ONLY AMB [id number] [facility] SERVICE 5 AMBULANCE AMBULANCE ALS SERVICE SERVICE EMERGENCY TRANSPORT LEVEL 1 ANES 07425 [facility] 5 ANESTH SHE EXTREMITI OF THE ES ANT BLUE TRUNK & PERINEUM NOS INCISION 04737 [facility] ERWINOMAR L & 5 PHYSICIAN DRAINAGE S, PLLC ABSCESS COMPLICAT ED/MULTIP LE URNLS DIP 42102 [facility] QUANG 5 PHYSICIAN CHUY STICK/TAB S GROUP LET RGNT NON-AUTO W/O MICRSCP SUSCEPTIB 67058 [facility] LTY STDY 5 [facility] ANTIMICRB INC INC IAL MICRO/AGA R DILUTJ CULTURE 56847 [facility] BCT 5 [facility] ISOL&PRSM INC INC PTV ID ISOLATE EA URINE CULTURE 81807 [facility] BACTERIAL 5 [facility] INC INC QUANTTATI VE COLONY COUNT URINE UNCLASSIF J3490 [facility] IED DRUGS 4 [place] [address] [facility] TRANSVAGI 4 HEALTH TJ [facility] URNLS DIP 27025 [facility] 4 HEALTH TJ STICK/TAB CLINIC OF LET RGNT DANITA NON-AUTO W/O MICRSCP SMR PRIM 23718 [facility] SRC WET 4 HEALTH TJ [facility] CLINIC OF NFCT AGT DANITA HANDLG&/O 06176 [facility] R CONVEY 4 HEALTH TJ SPEC CLINIC OF FOR TR DANITA OFFICE TO LAB CULTURE 01291 [facility] BACTERIAL 4 [facility] INC INC QUANTTATI VE COLONY COUNT URINE UNCLASSIF J3490 [facility] IED DRUGS 4 [place] [address] [facility] ABDOMEN & 4 [facility] PELVIS INC INC W/O CONTRAST MATERIAL URINE 60033 [facility] 4 [facility] TEST INC INC VISUAL COLOR CMPRSN METHS URNLS DIP 20434 [facility] 4 [facility] STICK/TAB INC INC LET REAGENT AUTO MICROSCOP Y CYTP C/V 44910 PICKLESIM PICKLESIM AUTO THIN 3 ER JR GARRETT ER JR GARRETT LYR PREPJ SCR MNL RESCR PHYS IADNA 66905 PICKLESIM PICKLESIM CHLAMYDIA 3 ER JR GARRETT ER JR GARRETT TRACHOMAT IS AMPLIFIED PROBE TQ IADNA 11760 PICKLESIM PICKLESIM NEISSERIA 3 ER JR GARRETT ER JR GARRETT GONORRHOE AE AMPLIFIED PROBE TQ ANES IPER 65943 GABRIELE GRULLON SUAZO MITCHEL LWR ABD 3 W/LAPS TUBAL LIGATION/ [place] [address] [facility] INFUSION 3 [facility] THERAPY INC INC PROPHYLAX IS/DX EA HOUR LAPAROSCO 26687 [facility] PY W/PLMT 3 [facility] INC INC OCCLUSION DEVICE OVIDUCTS BASIC 92455 [facility] METABOLIC 3 [facility] PANEL INC INC CALCIUM TOTAL GONADOTRO 88496 [facility] PIN 3 [facility] CHORIONIC INC INC QUALITATI VE BLOOD 93103 [facility] COUNT 3 [facility] COMPLETE INC INC AUTO&AUTO DIFRNTL WBC REPAIR OF 7569 [facility] OTHER 3 [facility] CURRENT INC INC OBSTETRIC LACERATIO N VAGINAL 88029 [facility] DELIVERY 3 TJ TJ ONLY W/POSTPAR LAUREN CARE NEURAXIAL 24147 SALLY DOUGHERTY LABOR 3 ANALG/ANE S PLND VAGINAL DELIVERY 98518 [facility] NONSTRESS 3 TJ TJ TEST 38560 [facility] NONSTRESS 3 TJ TJ TEST 76451 HARPEL HARPEL NONSTRESS 3 DAVID DAVID TEST CULTURE 58002 [facility] BACTERIAL 3 [facility] INC INC QUANTTATI VE COLONY COUNT URINE URNLS DIP 45450 [facility] ARNETT 3 [facility] STICK/TAB INC INC LET REAGENT AUTO MICROSCOP Y 67170 [facility] NONSTRESS 3 TJ TJ TEST 23190 [facility] NONSTRESS 3 TJ TJ TEST CUL BACT 14402 COMBINED COMBINED XCPT 3 PHYSICIAN PHYSICIAN URINE S LA S LA BLOOD/STO OL AEROBIC ISOL 18009 [facility] NONSTRESS 3 TJ TJ TEST 36967 [facility] NONSTRESS 3 TJ TJ TEST 33908 [facility] NONSTRESS 3 TJ TJ TEST 35405 [facility] NONSTRESS 3 TJ TJ TEST 52484 [facility] BIOPHYSIC 3 TJ TJ AL PROFILE NON-STRES S TESTING US PREG 70302 [facility] UTERUS 3 TJ TJ REAL TIME W/IMAGE DCMTN TRANSVAG DOPPLER 89538 [facility] VELOCIMET 3 TJ TJ RY UMBILICAL ARTERY 43024 [facility] NONSTRESS 3 TJ TJ TEST 86161 [facility] NONSTRESS 3 TJ TJ TEST GLUCOSE 41946 [facility] TOLERANCE 3 TJ TJ TEST GTT 3 SPECIMENS 00436 [facility] [facility] NONSTRESS 3 [place] [address] O'OMAIRA O'OMAIRA 3 ANASTACIO ANASTACIO UTERUS LIMITED 1/> FETUSES ECG 59530 BLAKE KERMIT BLAKE KERMIT ROUTINE 3 ECG W/LEAST 12 LDS [place] [address] [facility] UTERUS LIMITED 1/> FETUSES [place] PREG 87205 O'OMAIRA O'OMAIRA UTERUS 3 ANASTACIO ANASTACIO REAL TIME W/IMAGE DCMTN TRANSVAG SBSQ 42039 [facility] 3 [facility] CARE/DAY 25 MINUTES SBSQ 27124 [facility] CARE/DAY 25 MINUTES US PREG 33612 [facility] UTERUS 3 [facility] GL[facility] REAL TIME W/[place] [address] [facility] 3 [facility] UTERUS LIMITED 1/> FETUSES ECG 67861 DAKOTA SINGHO CHI ROUTINE 3 ECG W/LEAST 12 LDS I&R ONLY ECG 35019 DAKOTA CHI DAKOTA CHI ROUTINE 3 ECG W/LEAST 12 LDS I&R ONLY US PREG 03940 [facility] UTERUS 3 Y Y W/[facility]AIL [facility] [place] 1ST GESTATION [place] PREG 11123 [facility] UTERUS 3 Y Y REAL TIME HOSPITAL HOSPITAL W/IMAGE DCMTN TRANSVAG SBSQ 70477 [facility] 3 CARE/DAY 25 MINUTES US PREG 78694 [facility] UTERUS 3 TJ TJ REAL TIME W/IMAGE DCMTN TRANSVAG THERAPEUT 45396 MELQUIAD[facility] ARNETT IC 3 [facility] MEM [...] INC OL TARTRATE 1 MG [place] PREG 20065 [facility] UTERUS 3 TJ TJ AFTER 1ST TRIMEST 1/ GESTATION INJECTION J2405 [facility]QUIAD[facility] ARNETT 3 [facility] ONDANSETR INC INC ON HCL PER 1 [facility] G0378 [facility]T OBSERVATI 3 [facility] ON INC INC SERVICE PER HOUR BASIC 59302 MELQUIADES ARNETT METABOLIC 3 [facility] PANEL INC INC CALCIUM TOTAL BLOOD 06711 [facility] ARNETT COUNT 3 [facility] COMPLETE INC INC AUTO&AUTO DIFRNTL WBC URNLS DIP 69469 M[facility]QUIAD[facility] ARNETT 3 [facility] STICK/TAB INC INC LET REAGENT AUTO MICROSCOP Y BLOOD 69657 [facility]QUIAD[facility] ARNETT COUNT 3 [facility] COMPLETE INC INC AUTO&AUTO DIFRNTL WBC HOSPITAL G0378 MELQUIAD[facility] ARNETT OBSERVATI 3 [facility] ON INC INC SERVICE PER HOUR INJECTION J2405 MELQUIADES ARNETT 3 [facility] ONDANSETR INC INC ON HCL PER 1 MG COMPREHEN 66155 [facility]QUI[facility] AR[facility]T SIVE 3 [facility] METABOLIC INC INC PANEL THERAPEUT 86127 M[facility] AR[facility]T IC 3 [facility] INJECTION [place] [address] M[facility]QU[facility] AR[facility]T INFUSION 3 [facility] THERAPY/P INC INC ROPHYLAXI S /DX 1ST TO 1 HR CULTURE 08200 M[facility]QUIAD[facility] ARNETT BACTERIAL 3 [facility] INC INC QUANTTATI VE COLONY COUNT URINE UROGRAPHY 70426 KRISTAL KRISTAL IV W/WO 3 KIERA KIERA KUB W/WO TOMOGRAPH Y RADEX 94326 M[facility]QUI[facility]ES AR[facility]T ABDOMEN 3 [facility] COMPL INC INC W/DCBTS&/ ERC VIEWS INITIAL 17505 [facility] OBSERVATI 3 TJ TJ ON CARE/DAY 50 MINUTES LOCM Q9967 [facility] AR[facility]T 300-399 3 [facility] MG/ML INC INC IODINE CONCENTRA TION PER ML INJECTION J2405 M[facility]QUIADES ARNETT 3 [facility] ONDANSETR INC INC ON HCL PER 1 [facility] G0378 M[facility]QUI[facility] AR[facility]T OBSERVATI 3 [facility] ON INC INC SERVICE PER HOUR BASIC 48685 MELQUIAD[facility] ARNETT METABOLIC 3 [facility] PANEL INC INC CALCIUM TOTAL BLOOD 88368 M[facility]QUIADES ARNETT COUNT 3 [facility] COMPLETE INC INC AUTO&AUTO DIFRNTL WBC BLOOD 98261 MELQUIADES ARNETT COUNT 3 [facility] COMPLETE INC INC AUTO&AUTO DIFRNTL WBC URNLS DIP 90812 MELUQIADES ARNETT 3 [facility] STICK/TAB INC INC LET REAGENT AUTO MICROSCOP Y INJECTION J2405 MELQUIADES ARNETT 3 [facility] ONDANSETR INC INC ON HCL PER 1 MG [address] MELQUIADES ARNETT 3 [facility] UTERUS INC INC LIMITED 1/> FETUSES HOSPITAL G0378 MELQUIADES ARNETT OBSERVATI 3 [facility] ON INC INC SERVICE PER HOUR COMPREHEN 05066 M[facility]QUI[facility] ARNETT SIVE 3 [facility] METABOLIC INC INC PANEL INITIAL 17253 [facility] OBSERVATI 3 TJ TJ ON CARE/DAY 30 [place] [address] MELQUIADES ARNETT INFUSION 3 [facility] THERAPY/P INC INC ROPHYLAXI S /DX 1ST TO 1 HR ALPHA-FET 92619 MELQUIADES ARNETT OPROTEIN 3 [facility] SERUM INC INC GONADOTRO 72286 MELQUIADES ARNETT PIN 3 [facility] CHORIONIC [place] [address] MELQUIADES ARNETT ESTRIOL 3 [facility] INC INC URNLS DIP 87036 MELQUIADES ARNETT 3 [facility] STICK/TAB INC INC LET REAGENT AUTO MICROSCOP Y BLOOD 09762 MELQUIADES ARNETT COUNT 3 [facility] COMPLETE INC INC AUTO&AUTO DIFRNTL WBC GONADOTRO 43406 MELQUIADES ARNETT PIN 3 [facility] CHORIONIC INC INC QUANTITAT TANO URINE 55546 MELQUIADES ARNETT 3 [facility] TEST INC [place] [address] MELQUIADES ARNETT 3 [facility] UTERUS INC INC LIMITED 1/> FETUSES COMPREHEN 03489 MELQUIADES ARNETT SIVE 3 [facility] METABOLIC INC [place]REG 41721 KRISTAL KRISTAL UTERUS 3 KIERA KIERA REAL TIME F/U TRNSABDL PER FETUS US PREG 85472 MELQUIADES ARNETT UTERUS 3 [facility] REAL TIME INC INC W/[place] [address] MELQUIADES ARNETT STREPTOCO 2 [facility] CCUS INC INC GROUP A IAADI 86277 MELQUIADES ARNETT INFLUENZA 2 [facility] B VIRUS INC INC IAADI 69689 MELQUIADES ARNETT INFFLUENZ 2 [facility] A A VIRUS INC INC URNLS DIP 34014 [facility] 2 TJ TJ STICK/TAB LET RGNT [place] [address] [facility] RETROPERI 2 MEDICAL KIERA TONEAL IMAGING REAL TIME ASS W/IMAGE COMPLETE CULTURE 38513 MELQUIADES AR[facility] BACTERIAL 2 [facility] INC INC QUANTTATI VE COLONY COUNT URINE US PREG 35096 MELQUIADES ARNETT UTERUS 2 [facility] REAL TIME INC INC W/IMAGE DCMTN TRANSVAG URNLS DIP 74474 MELQUIADES MELQUIADES 2 [facility] STICK/TAB INC INC LET REAGENT AUTO MICROSCOP Y URNLS DIP 77256 SP [facility] 2 TJ TJ STICK/TAB LET RGNT NON-AUTO W/O MICRSCP COMPREHEN 25135 MELQUIADES VASQUEZON SIVE 2 [facility] METABOLIC INC INC PANEL INJECTION J2405 MELQUIADES MELQUIADES 2 [facility] ONDANSETR INC INC ON HCL PER 1 MG US PREG 91480 [facility] KRISTAL UTERUS 2 MEDICAL KIERA REAL TIME IMAGING W/IMAGE ASS DCMTN TRANSVAG THERAPEUT 72010 MELQUIADES ARNETT IC 2 [facility] INJECTION [place] [address] MELQUIADES ARNETT INFUSION 2 [facility] THERAPY/P INC INC ROPHYLAXI S /DX 1ST TO 1 HR URNLS DIP 74783 MELQUIADES ARNETT 2 [facility] STICK/TAB INC INC LET REAGENT AUTO MICROSCOP Y BLOOD 96743 MELQUIADES ARNETT COUNT 2 [facility] COMPLETE INC INC AUTO&AUTO DIFRNTL WBC BLOOD 73554 MELQUIADES ARNETT COUNT 2 [facility] COMPLETE INC INC AUTO&AUTO DIFRNTL WBC URNLS DIP 94400 MELQUIADES ARNETT 2 [facility] STICK/TAB INC [place] [address] MELQUIADES ARNETT INFUSION 2 [facility] THERAPY/P INC INC ROPHYLAXI S /DX 1ST TO 1 HR OBSERVATI 85142 [facility] ON CARE 2 TJ TJ DISCHARGE MANAGEMEN T CULTURE 31947 MELQUIADES ARNETT BACTERIAL 2 [facility] INC INC QUANTTATI VE COLONY COUNT URINE THER 06730 MELQUIADES ARNETT PROPH/DX 2 [facility] NJX EA INC INC SEQL IV PUSH SBST/[place] [address] MELQUIADES ARNETT INFUSION 2 [facility] THERAPY INC INC PROPHYLAX IS/DX EA HOUR INJECTION J2405 MELQUIADES ARNETT 2 [facility] ONDANSETR INC INC ON HCL PER 1 [place] [address] MELQUIADES ARNETT INFUSION 2 [facility] THER INC INC PROPH ADDL SEQUENTIA L TO 1 HR URINE 83437 MELQUIADES ARNETT 2 [facility] TEST INC INC VISUAL COLOR CMPRSN METHS BASIC 63523 MELQUIADES ARNETT METABOLIC 2 [facility] PANEL INC INC CALCIUM [facility] G0378 MELQUIADES ARNETT OBSERVATI 2 [facility] ON INC INC SERVICE PER HOUR THERAPEUT 70346 MELQUIADES ARNETT IC 2 [facility] INJECTION INC INC IV PUSH EACH NEW DRUG INITIAL 64072 [facility] OBSERVATI 2 TJ TJ ON CARE/DAY 50 MINUTES IADNA 05323 EUGEN[facility] KNIGHT CHLAMYDIA 2 VAL[facility]E VALENTE TRACHOMAT IS AMPLIFIED PROBE TQ CYTP 60219 [facility] CERVICAL/ 2 [facility] VALENTE VAGINAL REQ INTERP PHYSICIAN CYTP C/V 09853 EU[facility] K[facility]IGHT AUTO THIN 2 VALENT[facility] VALENTE LYR PREPJ SCR MNL RESCR PHYS IADNA 68913 EUGEN[facility] KNIGHT NEISSERIA 2 VALENTE VAELNTE GONORRHOE AE AMPLIFIED [place] T[place] PREG 19191 [facility] UTERUS 2 TJ TJ REAL TIME W/IMAGE DCMTN TRANSVAG URINE 27209 MELQUIADES ARNETT 2 [facility] TEST INC INC VISUAL COLOR CMPRSN METHS URNLS DIP 60154 MELQUIADES ARNETT 2 [facility] STICK/TAB INC INC LET REAGENT AUTO MICROSCOP Y URINE 36336 MELQUIADES ARNETT 2 [facility] HE[facility] TEST CENTER CENTER VISUAL COLOR CMPRSN METHS CRTCHS E0114 [facility] UNDARM 2 OTH THAN WOOD PAIR PAD TIP&HNDGR IP RADEX 07231 BECKY HERNANDEZUTCHER FOOT 2 MEDICAL KIERA COMPLETE IMAGING MINIMUM 3 ASS VIEWS SUSCEPTIB 50756 MELQUIADES ARNETT LTY STDY 2 [facility] ANTIMICRB INC INC IAL MICRO/AGA R DILUTJ THERAPEUT 13313 MELQUIADES ARNETT IC 2 [facility] PROPHYLAC INC INC TIC/DX INJECTION SUBQ/IM CULTURE 13946 MELQUIADES ARNETT BACTERIAL 2 [facility] INC INC QUANTTATI VE COLONY COUNT URINE URINE 01016 MELQUIADES ARNETT 2 [facility] TEST INC INC VISUAL COLOR CMPRSN METHS URNLS DIP 03925 MELQUIADES ARNETT 2 [facility] STICK/TAB INC [place] [address] [facility] TRANSVAGI 2 TJ TJ NAL URINE 86025 SP [facility] 2 TJ TJ TEST [place] [address] [facility] TRANSVAGI 2 TJ TJ NAL RADEX 85068 MELQUIADES ARNETT HAND 2 [facility] MINIMUM 3 INC INC VIEWS URINE 39506 MELQUIADES ARNETT 2 [facility] TEST INC INC VISUAL COLOR CMPRSN METHS URNLS DIP 14207 MELQUIADES ARNETT 2 [facility] STICK/TAB INC [place] [address] MELQUIADES ARNETT TRANSVAGI 2 [facility] [place] [address] MELQUIADES ARNETT LIPASE 2 [facility] INC INC URINE 59279 MELQUIADES ARNETT 2 [facility] TEST INC INC VISUAL COLOR CMPRSN METHS COMPREHEN 51505 MELQUIADES ARNETT SIVE 2 [facility] [address] MELQUIADES ARNETT AMYLASE 2 [facility] INC INC URNLS DIP 76221 MELQUIADES ARNETT 2 [facility] STICK/TAB INC INC LET REAGENT AUTO MICROSCOP Y BLOOD 86472 MELQUIADES ARNETT COUNT 2 [facility] COMPLETE INC INC AUTO&AUTO DIFRNTL WBC URINE 27496 MELQUIADES ARNETT 2 [facility] TEST [facility] CENTER VISUAL COLOR CMPRSN METHS INJECTION J2405 MELQUIADES MELQUIADES 2 [facility] ONDANSETR INC INC ON HCL PER 1 MG INJECTION J0595 MELQUIADESEMY ARNETT 2 [facility] BUTORPHAN INC INC OL TARTRATE 1 MG THERAPEUT 97843 MELQUIADES ARNETT IC 2 [facility] PROPHYLAC INC INC TIC/DX INJECTION SUBQ/IM [facility]OSP[facility] 22180 [facility] 2 I FEE I FEE DAY MANAGEMEN T 30 MIN/< SBSQ 13710 [facility] 2 I FEE I FEE CARE/DAY 25 MINUTES INITIAL 30885 [facility] 2 EMERGENCY PAULA CARE/DAY SERVICES [address] ORBIT 27440 LAKSHMI CASTILLO [place] SELLA/POS 2 MEDICAL T SERV FOSSA/EAR FOUNDATIO W/[place] [address] MELQUIADES ARNETT STREPTOCO 1 [facility] CCUS INC INC GROUP A THERAPEUT [address] PROPHYLAC TIC/DX INJECTION SUBQ/IM INJECTION J1885 [address] KETOROLAC TROMETHAM INE PER 15 MG ONDANSETR Q0179 [facility] ON HCL [address] [place] [address] MG ORL NOT >48 HR DOSE REGIMEN RADEX 62461 MELQUIADES ARNETT FOREARM 2 0 [facility] VIEWS INC INC RADEX 48711 MELQUIADES ARNETT WRIST 0 [facility] COMPLETE INC INC MINIMUM 3 VIEWS THERAPEUT 77003 [facility], IC 0 HEALTH ERIK J PROPHYLAC CLINIC OF TIC/DX INJECTION [place] SUBQ/IM PLLC THERAPEUT 20065 [facility] SP, IC 9 HEALTH ERIK J PROPHYLAC CLINIC OF TIC/DX INJECTION [place] SUBQ/[place] [address] PATHOLOGY PATHOLOGY SURG 9 & & PATHOLOGY CYTOLOGY CYTOLOGY LAB LAB GROSS&CHUY ROSCOPIC EXAM COLPOSCOP 95881 [facility], Y CERVIX 9 HEALTH ERIK J BX CERVIX CLINIC OF & ENDOCRV [facility] CYTP 11058 PATHOLOGY PATHOLOGY CERVICAL/ 9 & & VAGINAL CYTOLOGY CYTOLOGY REQ LAB LAB INTERP PHYSICIAN CYTP C/V 27326 PATHOLOGY PATHOLOGY AUTO THIN 9 & & LYR CYTOLOGY CYTOLOGY PREPJ SCR LAB LAB MNL RESCR PHYS IADNA 36984 PATHOLOGY PATHOLOGY PAPILLOMA 9 & & VIRUS CYTOLOGY CYTOLOGY HUMAN LAB LAB AMPLIFIED PROBE TQ VAGINAL 83018 [place] [facility] DELIVERY 9 MEDICAL NN, ONLY SERV ADRIAN [place] FOUNDAT[facility] OTHER 7359 [facility] 9 Y Y ASSISTED [facility] DELIVERY OBSERVATI 77745 ZURDO MORGAN, ON/INPATI 9 SMITHAL MD Z[facility] CARE 55 MINUTES AMB A0427 [facility] SERVICE 9 AMBULANCE AMBULANCE ALS SERVICE SERVICE EMERGENCY [place]SPORT LEVEL 1 [place] [address] MELQUIADES ARNETT INFUSION 9 [facility] THERAPY/P INC INC ROPHYLAXI S /DX 1ST TO 1 HR 55497 MELQUIADES ARNETT NONSTRESS 9 [place] [address] MELQUIADES ARNETT INFUSION 9 [facility] THERAPY INC INC PROPHYLAX IS/DX EA HOUR GROUND A0425 ED [facility] 9 AMBULANCE AMBULANCE PER SERVICE SERVICE [facility] G0378 MELQUIADES ARNETT OBSERVATI 9 [facility] ON INC INC SERVICE PER HOUR GLUCOSE 59310 [facility], POST 9 HEALTH ERIK J GLUCOSE CLINIC OF DOSE [facility] GLUCOSE 99660 [facility], TOLERANCE 9 HEALTH ERIK J TEST GTT CLINIC OF 3 [facility]ENS [facility] [place] [address] PATHOLOGY PATHOLOGY SURG 9 & & PATHOLOGY CYTOLOGY CYTOLOGY LAB LAB GROSS&CHUY ROSCOPIC EXAM ANES 53019 COMMUNITY JUDGE, UPPER GI 9 ANESTH CINDY L ENDOSCOPY OF THE PROXIMAL [place]UE[place] TO DUODENUM EGD 67543 MELQUIADES ARNETT TRANSORAL 9 [facility] BIOPSY INC INC SINGLE/MU LTIPLE SPCL STN 32170 PATHOLOGY PATHOLOGY 2 I&R 9 & & EXCPT CYTOLOGY CYTOLOGY MICROORG/ LAB LAB ENZYME/[place] [address] MELQUIADES ARNETT INFUSION 9 [facility] THERAPY/P INC INC ROPHYLAXI S /DX 1ST TO 1 HR ESOPHAGOG 4516 MELQUIADES ARNETT ASTRODUOD 9 [facility] ENOSCOPY INC INC WITH CLOSED BIOPSY BLOOD 67466 MELQUIADES ARNETT COUNT 9 [facility] COMPLETE INC INC AUTO&AUTO DIFRNTL WBC URNLS DIP 02876 MELQUIADES MELQUIADES 9 [facility] STICK/TAB INC INC LET REAGENT AUTO MICROSCOP Y BLOOD 47445 MELQUIADES ARNETT OCCULT 9 [facility] PEROXIDAS INC INC E ACTV QUAL FECES 1-3 SPEC BASIC 66657 MELQUIADES ARNETT METABOLIC 9 [facility] PANEL INC INC CALCIUM TOTAL [place] PREG 10599 [facility], UTERUS 9 HEALTH ERIK J AFTER 1ST CLINIC OF TRIMEST [place] GESTATION PLLC URNLS DIP 47489 MELQUIADES MELQUIADES 9 [facility] STICK/TAB INC INC LET REAGENT AUTO MICROSCOP Y BASIC 22131 MELQUIADES ARNETT METABOLIC 9 [facility] PANEL INC INC CALCIUM TOTAL CULTURE 64711 MELQUIADES ARNETT BACTERIAL 9 [facility] INC INC QUANTTATI VE COLONY COUNT URINE BLOOD 38161 MELQUIADES ARNETT COUNT 9 [facility] COMPLETE INC INC AUTO&[place] [address] MELQUIADES ARNETT ESTRIOL 9 [facility] INC INC GONADOTRO 40366 MELQUIADES ARNETT PIN 9 [facility] CHORIONIC INC INC QUANTITAT TANO ALPHA-FET 97540 MELQUIADES ARNETT OPROTEIN 9 [facility] SERUM INC INC [place] PREG 41353 [facility], UTERUS 9 HEALTH ERIK J REAL TIME CLINIC OF W/IMAGE DCMTN [place] TRANSVAG PLLC IADNA 25977 PATHOLOGY PATHOLOGY NEISSERIA 9 & & CYTOLOGY CYTOLOGY GONORRHOE LAB LAB AE AMPLIFIED PROBE TQ IADNA 51617 PATHOLOGY PATHOLOGY CHLAMYDIA 9 & & CYTOLOGY CYTOLOGY TRACHOMAT LAB LAB IS AMPLIFIED PROBE TQ CYTP 01218 PATHOLOGY PATHOLOGY CERVICAL/ 9 & & VAGINAL CYTOLOGY CYTOLOGY REQ LAB LAB INTERP PHYSICIAN CYTP C/V 63554 PATHOLOGY PATHOLOGY AUTO THIN 9 & & LYR CYTOLOGY CYTOLOGY PREPJ SCR LAB LAB MNL RESCR PHYS MOLECULAR 15582 MOLECULAR MOLECULAR DX AMP 9 TARGET PATHOLOGY PATHOLOGY MULTIPLEX LAB LAB EA ADDL NETWORK NETWORK SEQ INC INC MOLEC 68080 MOLECULAR MOLECULAR SEP&ID HI 9 RESOLU PATHOLOGY PATHOLOGY TQ EACH LAB LAB NUCLEIC NETWORK NETWORK ACID PREP INC INC MOLEC 77321 MOLECULAR MOLECULAR ISOL/XTRJ 9 HP PATHOLOGY PATHOLOGY NUCLEIC LAB LAB ACID EA NETWORK NETWORK TYPE INC INC MOLECULAR 68806 MOLECULAR MOLECULAR DX AMP 9 TARGET PATHOLOGY PATHOLOGY MULTIPLEX LAB LAB 1ST 2 NETWORK NETWORK SEQ INC INC MOLECULAR 08539 MOLECULAR MOLECULAR 9 DIAGNOSTI PATHOLOGY PATHOLOGY CS LAB LAB INTERPRET NETWORK NETWORK ATION & INC INC REPORT MUTATION 97331 MOLECULAR MOLECULAR ID 9 ENZYMATIC PATHOLOGY PATHOLOGY LAB LAB LIG/PRIME NETWORK NETWORK R XTN 1 INC INC SGM EA URINE 04798 [facility] VISUAL BANK ACCT COLOR CMPRSN METHS REMOVAL 55594 HARPEL, HARPEL, IMPLANTAB 8 ZURDO R ZURDO R LE CONTRACEP TIVE CAPSULES COMPREHEN 50985 [facility] SIVE 8 [facility] [place] [address]71 [facility] THER 8 [facility] PROPH/DX INC INC 1ST >1 HR URINE 27182 M[facility] ARNETT 8 [facility] TEST INC INC VISUAL COLOR CMPRSN METHS CULTURE 29997 [facility] BACTERIAL 8 [facility] INC INC QUANTTATI VE COLONY COUNT URINE URNLS DIP 89816 [facility]NETT 8 [facility] STICK/TAB INC INC LET REAGENT AUTO MICROSCOP Y BLOOD 04992 [facility] COUNT 8 [facility] COMPLETE INC INC AUTO&[place]NTL [place]BC URINE 81088 ZURDO MORGAN, 8 CATHY Hay[place] TEST VISUAL COLOR CMPRSN METHS RADEX 91447 [place], WRIST 8 [facility] P COMPLETE IMAGING MINIMUM 3 ASSOCIATE VIEWS S CULTURE 12501 [facility] BCT 8 [facility] ISOL&PRSM INC INC PTV ID ISOLATE EA URINE CULTURE 80040 M[facility]QU[facility]ES VASQUEZON BACTERIAL 8 [facility] INC INC QUANTTATI VE COLONY COUNT URINE CT PELVIS 18007 MELQUIADES ARNET[facility] W/O 8 [facility] [place] [address] M[facility]QU[facility] ABDOMEN 8 [facility] W/O INC INC CONTRAST MATERIAL SUSCEPTIB 00219 [facility] LTY STDY 8 [facility] ANTIMICRB INC INC IAL MICRO/AGA R DILUTJ URINE 19522 MELQUIADES MELQUIADES 8 [facility] TEST INC INC VISUAL COLOR CMPRSN METHS 3D 05440 MELQUIADES MELQUIADES RENDERING 8 [facility] INC INC W/INTERP& POSTPROC DIFF WORK STATION URNLS DIP 45781 MELQUIADES VASQUEZON 8 [facility] STICK/TAB INC INC LET REAGENT AUTO MICROSCOP Y URINE 42778 ZURDO MORGAN, 8 CATHY Hayward TEST VISUAL COLOR CMPRSN METHS INSERTION 16879 ZURDO MORGAN, Bridget Hayward IMPLANTAB LE CONTRACEP TIVE CAPSULES IADNA 63685 [facility], [place] 8 [place] VIRAJ E GONORRHOE AE AMPLIFIED PROBE TQ IADNA 32855 [facility], [place]AMY[place]IA 8 [place] VIRAJ E TRACHOMAT IS AMPLIFIED PROBE TQ CYTP 11595 [facility], CERV/VAG 8 [place] VIRAJ E AUTO THIN LAYER PREP MNL SCREEN BLOOD 62531 ZURDO MORGAN COUNT 8 [place] [address] M[facility]QUIADES ARNETT STREPTOCO 8 [facility] CCUS INC INC GROUP A Encounters Encounter Start End Date Code Location Performer Type Date EMERGENCY 78095 TG CARDONA 7 7 PHYSICIAN DEPARTMEN S, [facility] T VISIT HIGH/URGE NT SEVERITY OFFICE 26903 [facility] SP MURRIETAPATIEN 6 6 PHYSICIAN TJ T VISIT S GROUP 25 MINUTES EMERGENCY 14380 TG BRAUN 6 6 PHYSICIAN [facility] S, [facility] T VISIT HIGH/URGE NT SEVERITY EMERGENCY 92203 TG TRACYUSC DEPT 6 6 PHYSICIAN [place] VISIT S, [facility] HIGH SEVERITY& THREAT FUNCJ EMERGENCY 09932 MELQUIADES 6 6 [facility] T VISIT LOW/MODER SEVERITY HOSPITAL MELQUIADES - 6 6 [facility] OUTPATIEN COUNTS INCLUDE 234 BEDS AT THE [facility] EMERGENCY 26388 TG RIZZO 6 6 PHYSICIAN [facility] S, [facility] T VISIT HIGH/URGE NT SEVERITY OFFICE 48455 [facility] SP ESTEVEZEN 6 6 PHYSICIAN TJ T VISIT S GROUP 15 MINUTES OFFICE 85574 NAHED MAYS OUTPATIEN 6 6 PHYSICIAN JONY T NEW 30 PRACTICE MINUTES L EMERGENCY 14197 MELQUIADES 6 6 [facility] LOW/MODER SEVERITY [facility]OSPITAL [facility]QU[facility] - 6 6 [facility] OUTPATIEN INC T EMERGENCY 09443 TG DEL RIO 6 6 PHYSICIAN [facility] S, [facility] T VISIT MODERATE SEVERITY [facility]OSPITAL [facility] - 6 6 [facility] T [facility]OSPITAL [facility]QU[facility] - 6 6 [facility] INC T OFFICE 41900 [facility] SP OUTPATIEN 6 6 PHYSICIAN TJ T VISIT S GROUP 15 MINUTES OFFICE 52905 [facility] PHYSICIAN CHUY T VISIT S GROUP 15 MINUTES OFFICE 28133 [facility] PHYSICIAN CHUY T VISIT S GROUP 15 MINUTES HOSPITAL [facility] - 6 6 [facility] OUTPATIEN COUNTS INCLUDE 234 BEDS AT [facility] HOSPITAL [facility] - 6 6 N [facility] 58966 [facility] CELLARO DEPT 6 6 [place] - YORBA VISIT EMERGENCY PAT HIGH PHYS SEVERITY& THREAT FUNCJ EMERGENCY 93347 [facility] 6 6 N DEPARTMEN COMMUNTIY T VISIT HOSPITA HIGH/URGE NT SEVERITY EMERGENCY 20830 [facility] 6 6 N DEPARTMEN COMMUNTIY T VISIT HOSPITA HIGH/URGE NT SEVERITY EMERGENCY 66135 [facility] 6 [place] YANELIS VISIT EMERGENCY HIGH PHYS SEVERITY& THREAT [facility] - 6 6 N [facility] 5 5 [facility] OUTPATIEN COUNTS INCLUDE 234 BEDS AT THE [facility] EMERGENCY 73904 [facility] [address] T VISIT MODERATE SEVERITY EMERGENCY 40668 TG Ramos 5 5 PHYSICIAN DEPARTMEN S, [facility] T VISIT HIGH/URGE NT SEVERITY [facility]OSPITAL [facility] - 5 5 [facility] OUTPATIEN COUNTS INCLUDE 234 BEDS AT THE [facility] OFFICE 71693 [facility] OUTPAT[facility] 5 5 PHYSICIAN CHUY T VISIT S GROUP 15 MINUTES EMERGENCY 05138 [facility] 4 4 [facility] T VISIT LIMITED/M INOR PROB EMERGENCY 41725 [facility] 4 4 [place] IMT DEPARTMEN EMERGENCY T VISIT PHYS MODERATE SEVERITY [facility]OSP[facility] - 4 4 [facility] T OFFICE 67890 [facility] 4 4 HEALTH TJ T VISIT CLINIC OF 15 DANITA MINUTES OFFICE 07090 [facility] 4 4 HEALTH TJ T VISIT CLINIC OF 25 DANITA MINUTES EMERGENCY 58415 [facility] 4 4 [facility] DEPARTMEN INC T VISIT LOW/MODER SEVERITY EMERGENCY 00167 [facility] 4 4 BENJAMIN [facility] DEPARTMEN EMERGENCY T VISIT PHYS HIGH/URGE NT SEVERITY HOSPITAL [facility] - 4 4 [facility] OUTPATIEN COUNTS INCLUDE 234 BEDS AT [facility] HOSPITAL M[facility] - 3 3 [facility] OUTPATIEN COUNTS INCLUDE 234 BEDS AT [facility] HOSPITAL M[facility]ES - 3 3 [facility] OUTPATIEN COUNTS INCLUDE 234 BEDS AT [facility] HOSPITAL MELQUIADES - 3 3 [facility] INPATIENT [facility] OFFICE 78319 [facility] OUT[facility] 3 3 TJ TJ T VISIT 15 MINUTES OFFICE 08878 SP M[facility]RISE OUTPATIEN 3 3 TJ TJ T VISIT 15 MINUTES OFFICE 79403 HARPEL HARPEL OUTPATIEN 3 3 DAVID DAVID T VISIT 15 MINUTES HOSPITAL [facility] - 3 3 [facility] OUTPATIEN [facility] T OFFICE 03921 SP M[facility]RISE OUTPATIEN 3 3 TJ TJ T VISIT 15 MINUTES OFFICE 22699 [facility] 3 3 TJ TJ T VISIT 15 MINUTES OFFICE 33550 [facility] OUT[facility] 3 3 TJ TJ T VISIT 15 MINUTES OFFICE 86501 [facility] OUT[facility] 3 3 TJ TJ T VISIT 15 MINUTES OFFICE 65602 [facility] OUT[facility]IEN 3 3 TJ TJ T VISIT 15 MINUTES OFFICE 48370 [facility] OUT[facility]IEN 3 3 TJ TJ T VISIT 15 MINUTES OFFICE 27586 [facility] OUTPATIEN 3 3 TJ TJ T VISIT 15 MINUTES OFFICE 84836 [facility] OUTPATIEN 3 3 TJ TJ T VISIT 5 MINUTES OFFICE 27384 [facility] OUTPATIEN 3 3 TJ TJ T VISIT 15 MINUTES HOSPITAL UN[facility]ERSIT - 3 3 [facility] M[facility] - 3 3 [facility] OUTPATIEN INC T OFFICE 57884 [facility] OUTPATI[facility] 3 3 TJ TJ T VISIT 15 MINUTES HOSPITAL [facility] - 3 3 [facility] OUTPATIEN INC T OFFICE 69649 [facility] OUTPATI[facility] 3 3 TJ TJ T VISIT 15 MINUTES EMERGENCY 05184 MELQUIADES 3 3 [facility] DEPARTMEN INC T VISIT HIGH/URGE NT SEVERITY [facility]OSPITAL [facility] - 3 3 [facility] OUTPATIEN INC T EMERGENCY 38226 QUANG DEL RIO DEPT 3 3 CHUY CHUY VISIT HIGH SEVERITY& THREAT FUN OFFICE 49136 [facility] OUT[facility] 3 3 TJ TJ T VISIT 15 MINUTES EMERGENCY 11336 EUGENE VAUGHAN DEPT 3 3 EMERGENCY VISIT SERVICES HIGH SEVERITY& THREAT [facility] HOSPITAL M[facility]QUIADES - 3 3 [facility] OUTPATIEN INC T EMERGENCY 20993 MELQUIADES 3 3 [facility] DEPARTMEN INC T VISIT HIGH/URGE NT SEVERITY OFFICE 97276 [facility] OUTPATIEN 3 3 TJ TJ T VISIT 15 MINUTES HOSPITAL [facility] - 3 3 [facility] OUTPATIEN INC T EMERGENCY 25129 [facility]AD[facility] 3 3 [facility] DEPARTMEN INC T VISIT HIGH/URGE NT SEVERITY [facility]OSPITAL [facility] - 3 3 [facility] OUTPATIEN INC T EMERGENCY 09827 CHRISTIAN GONZALES DEPT 3 3 III MITCHEL III MITCHEL VISIT HIGH SEVERITY& THREAT FUNJ OFFICE 34235 [facility] OUTPATIEN 3 3 TJ TJ T VISIT 15 MINUTES EMERGENCY 40136 [facility] 2 2 [facility] DEPARTMEN INC T VISIT LIMITED/M INOR PROB [facility]PITAL M[facility] - 2 2 [facility] OUTPATIEN INC T EMERGENCY 76418 QUANG DEL RIO 2 2 [facility] DEPARTMEN T VISIT HIGH/URGE NT SEVERITY OFFICE 38586 [facility] OUTPATI[facility] 2 2 TJ TJ T VISIT 15 MINUTES HOSPITAL M[facility]QUIADES - 2 2 [facility] OUTPATIEN INC T EMERGENCY 65853 MELQUIADES 2 2 [facility] DEPARTMEN INC T VISIT LOW/MODER SEVERITY EMERGENCY 09286 EUGENE MCCALLUM DEPT 2 2 EMERGENCY MITCHEL VISIT SERVICES HIGH SEVERITY& THREAT [facility] OFFICE 16894 [facility] OUTPATIEN 2 2 TJ TJ T VISIT 15 MINUTES EMERGENCY 74943 CHRISTIAN GONZALES DEPT 2 2 III MITCHEL III MITCHEL VISIT HIGH SEVERITY& THREAT [facility] HOSPITAL MELQUIADES - 2 2 [facility] OUTPATIEN INC T EMERGENCY 48771 MELQUIADES 2 2 [facility] DEPARTMEN INC T VISIT HIGH/URGE NT SEVERITY EMERGENCY 11222 MELQUIADES KELLEYT 2 2 [facility] VISIT INC HIGH SEVERITY& THREAT [facility]OSPITAL MELQUIADES - 2 2 [facility] OUTPATIEN INC T EMERGENCY 29675 EUGENE CASTILLO DEPT 2 2 EMERGENCY VISIT SERVICES HIGH SEVERITY& THREAT FUNJ EMERGENCY 46077 QUANG DEL RIO 2 2 [facility] DEPARTMEN T VISIT HIGH/URGE NT SEVERITY EMERGENCY 77821 MELQUIADES 2 2 [facility] DEPARTMEN INC T VISIT LIMITED/M INOR PROB HOSPITAL MELQUIADES - 2 2 [facility] OUTPATIEN INC T OFFICE 80278 MELQUIADES ARNETT OUTANAHIEN 2 2 [facility] T VISIT CENTER CENTER 25 MINUTES EMERGENCY 94823 MELQUIADES 2 2 [facility] DEPARTMEN INC T VISIT MODERATE SEVERITY HOSPITAL M[facility]QUIADES - 2 2 [facility] OUTPATIEN [facility] T EMERGENCY 41577 EUGENE CASTILLO 2 2 EMERGENCY DEPARTMEN SERVICES T VISIT HIGH/URGE NT SEVERITY EMERGENCY 93132 [place] [address] T VISIT MODERATE SEVERITY EMERGENCY 51571 EUGENE CASTILLO DEPT 2 2 EMERGENCY VISIT SERVICES HIGH SEVERITY& THREAT [facility]OSPITAL MELQUIADES - 2 2 [facility] OUTPATIEN [facility] T OFFICE 26827 [facility] 2 2 TJ TJ T VISIT 25 MINUTES EMERGENCY 60593 M[place]QU[place]ADES [address] [facility] T VISIT LOW/MODER SEVERITY EMERGENCY 17247 CHRISTIAN GONZALES 2 2 III MITCHEL III [facility] T VISIT HIGH/URGE NT SEVERITY HOSPITAL MELQUIADES - 2 2 [facility] OUTPATIEN [facility] T HOSPITAL MELQUIADES - 2 2 [facility] OUTPATIEN INC T EMERGENCY 88632 EUGENE MCCALLUM 2 2 EMERGENCY [facility] SERVICES T VISIT MODERATE SEVERITY EMERGENCY 27568 MELQUIADES 2 2 [facility] DEPARTMEN INC T VISIT LOW/MODER SEVERITY HOSPITAL MELQUIADES - 2 2 [facility] OUTPATIEN INC T EMERGENCY 72243 EUGENE DEL RIO DEPT 2 2 EMERGENCY CHUY VISIT SERVICES HIGH SEVERITY& THREAT FUNCJ EMERGENCY 79312 [place] [address] [facility] T VISIT LOW/MODER SEVERITY OFFICE 21748 [facility] 2 2 TJ TJ T VISIT 25 MINUTES EMERGENCY 21361 BOMILDREDON 2 2 [facility] T VISIT LOW/MODER SEVERITY EMERGENCY 16251 DULCE PEREZ DEPT 2 2 VISIT HIGH SEVERITY& THREAT [facility] - 2 2 [facility] MELQUIADES - 2 2 [facility] OUTPATIEN COUNTS INCLUDE 234 BEDS AT [facility] EMERGENCY 61361 MELQUIADES 2 2 [facility] T VISIT MODERATE SEVERITY EMERGENCY 30573 CHRISTIAN GONZALES 2 2 III MITCHEL III [facility] T VISIT HIGH/URGE NT SEVERITY [facility]OSPITAL MELQUIADES - 2 2 [facility] COUNTS INCLUDE 234 BEDS AT [facility] OFFICE 79349 MELQUIADES ARNETT [facility] 2 2 [facility] T VISIT CENTER CENTER 15 MINUTES EMERGENCY 90488 MELQUIADES 2 2 [facility] T VISIT MODERATE SEVERITY EMERGENCY 21517 EUGENE DEL RIO 2 2 EMERGENCY [facility] T VISIT HIGH/URGE NT SEVERITY HOSPITAL MELQUIADES - 2 2 [facility] OUTPATIEN COUNTS INCLUDE 234 BEDS AT [facility] HOSPITAL MELQUIADES - 2 2 [facility] OUTPATIEN [facility] T EMERGENCY 43223 MELQUIADES [address] [facility] T VISIT LOW/MODER SEVERITY EMERGENCY 80854 EUGENE DEL RIO 2 2 EMERGENCY [facility] T VISIT MODERATE SEVERITY HOSPITAL UNIVERSIT - 2 2 [facility] EMERGENCY 59764 [facility]QU[facility]ES 2 2 [facility] DEPARTMEN INC T VISIT LIMITED/M INOR PROB EMERGENCY 56093 CHRISTIAN GONZALES 2 2 III MITCHEL III [facility] T VISIT MODERATE SEVERITY EMERGENCY 50371 UNIVERSIT 2 2 [facility] T VISIT HIGH/URGE NT SEVERITY EMERGENCY 03270 [place] [facility]CKER[facility] DEPT 2 2 MEDICAL C VISIT SERV HIGH FOUNDATIO SEVERITY& THREAT [facility] UNIVERSIT - 2 2 [facility] MELQUIADES - 2 2 [facility] OUTPATIEN INC T EMERGENCY 01389 MELQUIADES 2 2 [facility] T VISIT LIMITED/M INOR PROB EMERGENCY 65729 CHRISTIAN GONZALES 2 2 III MITCHEL III [facility] T VISIT MODERATE SEVERITY HOSPITAL MELQUIADES - 2 2 [facility] T EMERGENCY 81718 MELQUIADES 2 2 [facility] T VISIT LOW/MODER SEVERITY EMERGENCY 36753 CHRISTIAN GONZALES 2 2 III MITCHEL III [facility] T VISIT MODERATE SEVERITY EMERGENCY 68781 EUGENE DEL RIO 1 1 EMERGENCY [facility] SERVICES T VISIT MODERATE SEVERITY HOSPITAL M[facility]QUIADES - 1 1 [facility] T EMERGENCY 27562 MELQUIADES 1 1 [facility] INC T VISIT LOW/MODER SEVERITY HOSPITAL [address] OUTPATIEN T EMERGENCY [address] T VISIT MODERATE SEVERITY EMERGENCY 27228 [facility] 1 1 [facility] EMERGENCY T VISIT PHYSI HIGH/URGE NT SEVERITY OFFICE 53243 MELQUIADES SIMMONS 1 1 [facility] T VISIT CENTER CENTER 15 MINUTES EMERGENCY 23838 [facility] CARLEY JAM 1 1 [place] DEPARTMEN EMERGENCY T VISIT PHYSI HIGH/URGE NT SEVERITY EMERGENCY 60980 [facility] RADHA DEPT 1 1 [place] EDW VISIT EMERGENCY HIGH PHYSI SEVERITY& THREAT FUNCJ EMERGENCY 10058 MELQUIADES 1 1 [facility] DEPARTMEN INC T VISIT LOW/MODER SEVERITY HOSPITAL MELQUIADES - 1 1 [facility] OUTPATIEN INC T EMERGENCY 73872 MELQUIADES 0 0 [facility] DEPARTMEN INC T VISIT HIGH/URGE NT SEVERITY HOSPITAL [facility]QUIAD[facility] - 0 0 [facility] OUTPATIEN INC T OFFICE 95319 [facility]IEN 0 0 HEALTH ERIK J T VISIT 5 CLINIC OF MINUTES [facility] MELQUIADES - 0 0 [facility] OUTPATIEN INC T OFFICE 85728 [facility], OUTPATIEN 9 9 HEALTH ERIK J T VISIT 5 CLINIC OF MINUTES [facility] EMERGENCY 04868 MELQUIADES 9 9 [facility] DEPARTMEN INC T VISIT LIMITED/M INOR PROB HOSPITAL MELQUIADES - 9 9 [facility] OUTPATIEN INC T EMERGENCY 40407 EUGENE DEL RIO, 9 9 EMERGENCY CATARINA S DEPARTMEN SERVICES T VISIT HIGH/URGE ASSOCIATE NT S SEVERITY EMERGENCY 81108 EUGENE MARES, 9 [address] [facility] T VISIT HIGH/URGE ASSOCIATE NT S SEVERITY HOSPITAL M[facility]QUIADES - 9 9 [facility] OUTPATIEN INC T EMERGENCY 65116 M[facility]QUIADES 9 9 [facility] DEPARTMEN INC T VISIT LOW/MODER SEVERITY OFFICE 63009 DHS/CO MELQUIADES SIMMONS 9 9 HEALTH CO HEALTH T VISIT [facility] 25 BANK ACCT MINUTES OFFICE 37876 [facility], OUTPATIEN 9 9 HEALTH ERIK J T VISIT CLINIC OF 25 MINUTES [facility] OFFICE 12072 [facility], OUTPATIEN 9 9 HEALTH ERIK J T VISIT CLINIC OF 15 MINUTES [facility] UNIVERSIT - 9 9 Y INPATIENT HOSPITAL OFFICE 51434 [facility], OUTPATIEN 9 9 HEALTH ERIK J T VISIT 5 CLINIC OF MINUTES [facility] OFFICE 47793 [facility], OUTPATIEN 9 9 HEALTH ERIK J T VISIT CLINIC OF 15 MINUTES [facility] OFFICE 78954 [facility] MURRIETAPATIEN 9 9 , ANNIKA ROBLERO T VISIT 10 MINUTES [facility] MELQUIADES - 9 9 [facility] OUTPATIEN INC T OFFICE 63496 [facility] 9 9 , ANNIKA ROBLERO ION NEW/ESTAB PATIENT 60 MIN [facility] MELQUIADES - 9 9 [facility] OUTPATIEN INC T EMERGENCY 40069 EUGENE MARES, ALLIET 9 9 EMERGENCY ADAN VISIT SERVICES O HIGH SEVERITY& ASSOCIATE THREAT S FUNJ EMERGENCY 03323 MELQUIADES 9 9 [facility] DEPARTMEN INC T VISIT LOW/MODER SEVERITY OFFICE 46439 [facility], OUTPATIEN 9 9 HEALTH ERIK J T VISIT CLINIC OF 15 MINUTES [facility] OFFICE 50587 [facility] SP OUTPATIEN 9 9 HEALTH ERIK J T VISIT CLINIC OF 15 MINUTES [facility] MELQUIADES - 9 9 [facility] OUTPATIEN INC T EMERGENCY 10438 MELQUIADES 9 9 [facility] DEPARTMEN INC T VISIT MODERATE SEVERITY OFFICE 10554 [facility] OUTPATIEN 9 9 HEALTH ERIK J T VISIT CLINIC OF 15 MINUTES [facility] MELQUIADES - 9 9 [facility] OUTPATIEN INC T EMERGENCY 95840 EDMUNDO MINAYA, 9 9 [facility] T VISIT LOW/MODER SEVERITY OFFICE 71843 DHS[facility] 9 9 HEALTH CO HEALTH T VISIT [facility] 25 BANK ACCT MINUTES EMERGENCY 62752 JUSTICE MEJIA, 8 8 [facility] VISIT [facility] INC MODERATE SEVERITY HOSPITAL NAHED - 8 8 [facility] T EMERGENCY 80455 NAHED 8 8 [facility] T VISIT LOW/MODER SEVERITY HOSPITAL MELQUIADES - 8 8 [facility] OUTPATIEN INC T EMERGENCY 78426 MELQUIADES 8 8 [facility] T VISIT LIMITED/M INOR PROB HOSPITAL MELQUIADES - 8 8 [facility] OUTPATIEN INC T EMERGENCY 17084 MELQUIADES COOLEY, 8 8 [facility] T VISIT PROF SERV LOW/MODER SEVERITY EMERGENCY 98528 MELQUIADES 8 8 [facility] T VISIT MODERATE SEVERITY HOSPITAL MELQUIADES - 8 8 [facility] OUTPATIEN INC T OFFICE 10988 ZURDO MORGAN [facility] 8 8 CATHY [place] T VISIT 15 MINUTES HOSPITAL MELQUIADES - 8 8 [facility] OUTPATIEN INC T EMERGENCY 10181 MELQUIADES HERNANDEZ, 8 8 [facility] T VISIT PROF SERV MODERATE SEVERITY EMERGENCY 75468 MELQUIADES 8 8 [facility] T VISIT LOW/MODER SEVERITY OFFICE 05917 ISAURO PISANO OUTPATIEN 8 8 [place] JR, T VISIT INTERNAL PEDRO F 15 MED MINUTES EMERGENCY 82635 MELQUIADES 8 8 [facility] DEPARTMEN INC T VISIT MODERATE SEVERITY HOSPITAL MELQUIADES - 8 8 [facility] OUTPATIEN INC T OFFICE 69647 LICKING VIRAL, OUTPATIEN 8 8 [place] REMI T VISIT INTERNAL 15 MED MINUTES OFFICE 69350 ZURDO MORGAN, OUTPATIEN 8 8 CATHY [place] T VISIT 15 MINUTES OFFICE 59319 [facility] 8 CATHY [place] T VISIT 15 MINUTES HOSPITAL MELQUIADES - 8 8 [facility] OUTPATIEN INC T EMERGENCY 30150 MELQUIADES 8 8 [facility] DEPARTMEN INC T VISIT LOW/MODER SEVERITY OFFICE 56548 DHS/CO [facility] 8 8 HEALTH CO HEALTH T VISIT [facility] 10 BANK ACCT MINUTES PERIODIC 82514 ZURDO MORGAN, PREVENTIV 8 8 CATHY [place] E MED EST PATIENT 18-39 YRS HOSPITAL MELQUIADES - 8 8 [facility] OUTPATIEN INC T EMERGENCY 66721 MELQUIADES LONG 8 8 [facility] T VISIT PROF SERV LOW/MODER SEVERITY
--- OUTSIDE RECORDS SUMMARY | 2016-11-10 01:04 | External Medical Summary Rpt ---
Author Author , LANE SHERMAN Address Unknown Phone [email or web address] Immunization Name Date Rout CVX Reac Dose Comm Prov Is Faci e tion ent ider Refu lity Give sed n HPV4 02-1 62 999 Hist H149 No H149 8-20 oric (Gar 08 al dasi Info l) rmat ion - Sour ce Unsp ecif ied HPV4 10-2 62 999 Hist H149 No H149 3-20 oric (Gar 07 al dasi Info l) rmat ion - Sour ce Unsp ecif ied HPV4 08-1 62 999 Hist H149 No H149 5-20 oric (Gar 07 al dasi Info l) rmat ion - Sour ce Unsp ecif ied Td 03-1 9 999 Hist H149 No H149 (erika 6-20 oric lt), 04 al Info adso rmat rbed ion - Sour ce Unsp ecif ied Hep 11-3 8 999 Hist H149 No H149 B, 0-20 oric ped/ 01 al adol Info rmat ion - Sour ce Unsp ecif ied Hep 06-1 8 999 Hist H149 No H149 B, 3-20 oric ped/ 01 al adol Info rmat ion - Sour ce Unsp ecif ied Hep 05-0 8 999 Hist H149 No H149 B, 4-20 oric ped/ 01 al adol Info rmat ion - Sour ce Unsp ecif ied MMR 05-0 3 999 Hist H149 No H149 4-20 oric 01 al Info rmat ion - Sour ce Unsp ecif ied
--- OUTSIDE RECORDS SUMMARY | 2016-11-10 01:04 | External Medical Summary Rpt ---
Author Author , LANE SHERMAN Address Unknown Phone [email or web address] Immunization Name Date Rout CVX Reac Dose [...]
--- OUTSIDE RECORDS SUMMARY | 2016-11-10 01:05 | External Medical Summary Rpt ---
Author Author LANE [facility], [employer] Organization [employer] Address Unknown Phone Unavailable Results Urinalysis dipstick W Reflex Microscopic panel in Urine Observa Value Referen Units Interpr Notes Date tion ce etation Range Appeara SL CLEAR No No No Oct 20 nce of CLOUDY informa informa informa 2017 Urine tion in tion in tion in 5:20 PM source source source data data data Bacteri 2+ O No No No Oct 20 a informa informa informa 2016 [Presen tion in tion in tion in 5:20 PM ce] in source source source Urine data data data sedimen t by Light microsc opy Bilirub NEGATIV NEG No No No Oct 20 in E informa informa informa 2016 [Presen tion in tion in tion in 5:20 PM ce] in source source source Urine data data data by Test strip Erythro 1+ NEG No Abnorma No Oct 20 cytes informa l informa 2016 [Presen tion in tion in 5:20 PM ce] in source source Urine data data Color DK YELLOW No No No Oct 20 of YELLOW informa informa informa 2016 Urine tion in tion in tion in 5:20 PM source source source data data data Glucose NEG No No No Oct 20 [Mass/vol informati informati informati 2016 5:20 ume] in on in on in on in PM Urine by source source source Test data data data strip Ketones NEGATIV NEG mg/dL No No Oct 20 E informa informa 2016 [Presen tion in tion in 5:20 PM ce] in source source Urine data data by Automat ed test strip Mucus TRACE NEG No Abnorma No Oct 20 [Presen informa l informa 2016 ce] in tion in tion in 5:20 PM Urine source source sedimen data data t by Light microsc opy Mucus 3+ OCC No No No Oct 20 [Presen informa informa informa 2016 ce] in tion in tion in tion in 5:20 PM Urine source source source sedimen data data data t by Light microsc opy Nitrite NEGATIV NEG No No No Oct 20 E informa informa informa 2016 [Presen tion in tion in tion in 5:20 PM ce] in source source source Urine data data data by Test strip pH of 5.0 - 8.5 No Normal No Oct 17 Urine informati informati 2017 5:20 on in on in PM source source data data Protein NEG mg/dL High No Oct 20 [Mass/vol informati 2017 5:20 ume] in on in PM Urine by source Automated data test strip Erythro 3-5 0 rbc/hpf No No Oct 20 cytes informa informa 2016 [Presen tion in tion in 5:20 PM ce] in source source Urine data data sedimen t by Light microsc opy Specific 1.005 - No Normal No Oct 20 gravity 1.030 informati informati 2017 5:20 of Urine on in on in PM source source data data Urobili 1.0 NEG E.U./dL No No Oct 20 nogen informa informa 2016 [Presen tion in tion in 5:20 PM ce] in source source Urine data data by Test strip Leukocy [10 O wbc/hpf No No Oct 17 raina wbc/hpf informa informa 2016 [#/volu ; 20 tion in tion in 5:20 PM me] in wbc/hpf source source Urine ] data data Lactate [Moles/volume] in Blood Observa Value Referen Units Interpr Notes Date tion ce etation Range Lactate 0.4 - 2.0 mmol/L Normal No Oct 17 [Moles/vo informati 2017 4:05 lume] in on in PM Blood source data Comprehensive metabolic 2000 panel in Serum or Plasma Observa Value Referen Units Interpr Notes Date tion ce etation Range Albumin/G 1.1 - 1.8 No Low No Oct 17 lobulin informati informati 2017 4:00 [Mass on in on in PM ratio] in source source Serum or data data Plasma Albumin 3.4 - 5.0 gm/dL Normal No Oct 17 [Mass/vol informati 2017 4:00 ume] in on in [...] 7 - 18 mg/dL No No Oct 17 nitrogen informati informati 2016 4:00 [Mass/vol on in on in PM ume] in source source Serum or data data Plasma Calcium 8.5 - mg/dL Normal No Oct 20 [Mass/vol 10.1 informati 2016 4:00 ume] in on in PM Serum or source Plasma data Chloride 98 - 107 mmoL/L Normal No Oct 20 [Moles/vo informati 2016 4:00 lume] in on in PM Serum or source Plasma data Carbon 21.0 - mmoL/L Normal No Oct 20 dioxide, 32.0 informati 2016 4:00 total on in PM [Moles/vo source lume] in data Serum or Plasma Creatinin 0.55 - mg/dL High No Oct 20 e 1.02 informati 2016 4:00 [Mass/vol on in PM [...] 3.5 - 5.1 mmoL/L Low No Oct 20 informati 2016 4:00 [Moles/vo on in PM lume] in [...] 78 U/L High No Oct 20 aminotran inform2016 4:00 sferase on in PM [Enzymati source c data activity/ volume] in Serum or Plasma Protein 6.4 - 8.2 gm/dL High No Oct 20 [Mass/vol inform2016 4:00 ume] in on in PM Serum [...] 1.8 - 7.8 K/mm3 Normal No Oct 20 raina ati 2016 4:00 [#/volume on in PM ] in source Blood by data Automated count Granulocy 37.0 - % Normal No Oct 20 raina/100 80.0 ati 2016 4:00 leukocyte on in PM s in source Blood by data Automated count Hematocri 37.0 - % Normal No Oct 20 t [Volume 47.0 ati 2016 4:00 on in PM Fraction] source [...] 27 - 31.2 pg Normal No Oct 17 te mean inform2016 4:00 corpuscul on in PM ar source hemoglobi data n [Entitic mass] Erythrocy 31.8 - g/dl Normal No Oct 20 te mean 35.4 inform2016 4:00 corpuscul on in PM ar source hemoglobi data n concentra tion [Mass/vol ume] by Automated count Erythrocy 82.2 - fl Normal No Oct 20 te mean 97.8 informati 2016 4:00 corpuscul on in PM ar volume source [Entitic data volume] by Automated count Monocytes 0.1 - 1.0 K/mm3 Normal No Oct 20 informati 2016 4:00 [#/volume on in PM ] in source Blood by data Automated count Monocytes 1.7 - 9.3 % Normal No Oct 20 /100 informati 2016 4:00 leukocyte on in PM s in source Blood by data Automated count Platelet 7.4 - fl Low No Oct 20 mean 10.4 informati 2016 4:00 volume on in PM [Entitic source volume] data in Blood by Automated count Platelets 142 - 424 K/mm3 No No Oct 20 informati informati 2016 4:00 [#/volume on in on in PM [...] No No Oct 19 dine informati informati 2016 2:31 [Mass/vol on in on in AM [...] IS Plasma CONSIDERE D LEGALLYIN TOXICATED UNDER [facility] LAW. Acetaminophen [Mass/volume] in Unspecified specimen Observa Value Referen Units Interpr Notes Date tion ce etation Range Acetamino 10 - 30 ug/mL Low No Oct 16 phen informati 2017 2:08 [Mass/vol on in AM ume] in source Unspecifi data ed specimen Comprehensive metabolic 2000 panel in Serum or Plasma Observa Value Referen Units Interpr Notes Date tion ce etation Range Albumin/G 1.1 - 1.8 No Low No Walker 16 lobulin informati informati 2017 2:08 [Mass on in on in AM ratio] in source source Serum or data data Plasma Albumin 3.4 - 5.0 gm/dL Normal No Oct 16 [Mass/vol informati 2017 2:08 ume] in on in AM Serum or source Plasma data Alkaline 46 - 116 U/L Normal No Oct 16 phosphata informati 2017 2:08 se on in AM [Enzymati source c data activity/ volume] in Serum or Plasma Bilirubin 0.2 - 1.0 mg/dL Normal No Oct 16 .total informati 2016 2:08 [Mass/vol on in AM ume] in source Serum or data Plasma Urea 7 - 18 mg/dL Normal No Oct 16 nitrogen informati 2017 2:08 [Mass/vol on in [...] Carbon 21.0 - mmoL/L Normal No Oct 16 dioxide, 32.0 informati 2017 2:08 total on in AM [Moles/vo source lume] in data Serum or Plasma Creatinin 0.55 - mg/dL High No Oct 16 e 1.02 informati 2017 2:08 [Mass/vol on in AM ume] in source Serum or data Plasma Creatinin 50 - 200 ML/MIN Low No Oct 16 e renal informati 2017 2:08 clearance on in AM source predicted data by Cockcroft -Gault formula Estimated 59- ML/MIN Low REFERENCE Oct 16 RANGE: 2017 2:08 glomerula >60 AM r [...] - 5.1 mmoL/L Low No Oct 19 inform2016 2:08 [Moles/vo on in AM lume] in source Serum or data Plasma Sodium 136 - 145 mmoL/L Normal No Oct 16 [Moles/vo informati 2016 2:08 lume] in on in AM Serum or source Plasma data Aspartate 15 - 37 U/L High No Oct 19 informati 2016 2:08 aminotran on in AM sferase source [Enzymati data c activity/ volume] in Serum or Plasma Alanine 12 - 78 U/L High No Oct 19 aminotran informati 2016 2:08 sferase on in AM [Enzymati source c data activity/ volume] in Serum or Plasma Protein 6.4 - 8.2 gm/dL High No Oct 19 [Mass/vol informati 2016 2:08 ume] in on in AM Serum or source Plasma data Salicylates [Mass/volume] in Serum or Plasma Observa Value Referen Units Interpr Notes Date tion ce etation Range Salicylat 2.8 - mg/dL Low No Oct 19 es 20.0 informati 2016 2:08 [Mass/vol on in AM ume] in source Serum or data Plasma CBC W Auto Differential panel in Blood Observa Value Referen Units Interpr Notes Date tion ce etation Range Granulocy 1.8 - 7.8 K/mm3 Normal No Oct 19 raina informati 2016 2:08 [#/volume on in AM ] in source Blood by data Automated count Granulocy 37.0 - % Normal No Oct 19 raina/100 80.0 informati 2016 2:08 leukocyte on in AM s in source Blood by data Automated count Hematocri 37.0 - % Normal No Oct 19 t [Volume 47.0 informati 2016 2:08 on in AM Fraction] source of Blood data Hemoglobi 12.2 - g/dL Normal No Oct 16 n 16.2 informati 2016 2:08 [Mass/vol on in AM ume] in source Blood data Lymphocyt 0.7 - 4.5 K/mm3 Normal No Oct 16 es informati 2016 2:08 [#/volume on in AM ] in source Unspecifi data ed specimen by Automated count Lymphocyt 10 - 50.0 % Normal No Oct 16 es informati 2016 2:08 [#/volume on in AM ] in source Unspecifi data ed specimen by Automated count Erythrocy 27 - 31.2 pg Normal No Oct 16 te mean informati 2016 2:08 corpuscul on in AM ar source hemoglobi data n [Entitic mass] Erythrocy 31.8 - g/dl Normal No Oct 19 te mean 35.4 informati 2016 2:08 corpuscul on in AM ar source hemoglobi data n concentra tion [Mass/vol ume] by Automated count Erythrocy 82.2 - fL Normal No Oct 16 te mean 97.8 informati 2016 2:08 corpuscul [...] 424 K/mm3 Normal No Oct 16 informati 2016 2:08 [#/volume on in AM ] in source Blood data Erythrocy 4.2 - 5.4 M/mm3 Normal No Oct 16 raina informati 2017 2:08 [#/volume on in AM ] in source Amniotic data fluid Erythrocy 11.5 - % Normal No Oct 16 te 17.5 informati 2016 2:08 distribut on in AM ion width source [Entitic data volume] by Automated count Leukocyte 4.8 - K/mm3 Normal No Oct 16 s 10.8 informati 2016 2:08 [#/volume on in AM ] in source Blood data
--- OUTSIDE RECORDS SUMMARY | 2016-11-10 01:05 | External Medical Summary Rpt ---
[...] IS Plasma CONSIDERE D LEGALLYIN TOXICATED UNDER [facility] LAW. Acetaminophen [Mass/volume] in Unspecified specimen [...]
--- NOTE | 2016-11-10 01:35 | Emergency Room Report ---
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 HX IV DRUG USE. 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 N Clinical Suspician of Infection? Y Mental Status: 1 - Regular (Normal Baseline) Sepsis Risk:Possible Sepsis Risk Have you (or family members/close friends) recently traveled outside the [place]? N If Yes, where/when: Have you had exposure to infectious disease within the past month? N TB? Other? Specify: Source patient, RN notes reviewed, EMS, old records Exam Limitations no limitations Comment pt with crampy abd pain with nausea after using cocaine this pm - Cardiac Chest Pain Chest pain indicative of cardiac No Timing/Duration this evening Severity moderate ALLERGIES Coded Allergies: cephalexin (From KEFLEX) (11/25/15) morphine (11/25/15) promethazine (From PHENERGAN) (11/25/15) tetanus toxoid, adsorbed (11/25/15) Home Medications Active Scripts Minocycline Hcl (Minocycline 100MG. Capsule) 100 MG PO BID #20 CAP Prov: 11/09/16 SULFAMETHOXAZOLE/TRIMETHOPRIM (Sulfamethoxazole-Tmp Ds Tablet) 1 TAB PO BID #20 TAB Prov: 11/09/16 History Medical History General CAD? No Angina: No [place]: No Hypertension? No Hyperlipidemia? No CHF? No DVT? No PE? No COPD? No Asthma? No Anemia? No GERD? No Gastric ulcers? Yes GI Bleed? No Hernia? No Thyroid Problems? No Hypothyroidism? No CVA? No Seizures? No Diabetes? No Insulin Dependent: No Insulin Pump: No Home FSBS? No Renal Insuffiency? No End Stage Renal Disease? No UTI? Yes BPH? No GB Disease: Yes Nephritic Syndrome? No Asplenia? No Hepatitis? No Sickle Cell Disease? No Arthritis? No Migraines? Yes Cataracts? No Glaucoma? No MRSA? No HIV? No TB? No Anxiety? Yes Depression? Yes Cancer? Yes Site: CERVICAL More? Yes Additional hx: DRUG USE Immunization Hx DT/Tetanus 5-10 Years Ago Flu Refused Pneumonia Refuses Surgical Hx Previous Surgery?Y EXP LAP -ENDOMETRIOSIS Tonsils EXC. 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 Respiratory denies cough, denies shortness of breath, denies wheezing Cardiovascular denies chest pain, denies palpitations, denies syncope Gastrointestinal see HPI, denies abdominal pain, nausea, vomiting Genitourinary denies: dysuria, frequency, hesitancy, hematuria. Musculoskeletal denies back pain, denies joint pain, denies joint swelling, denies neck pain Skin denies rash Psychiatric/Neurological denies headache, denies seizure Physical Exam Vital Signs Vital Signs Date Time Temp Pulse Resp B/P Pulse O2 O2 Flow FiO2 Ox Delivery Rate 11/10 0151 98.6 84 18 145/94 98 11/10 0022 98.6 107 20 146/105 96 - WBC >12,000 or <4,000 or 10% bands? 2 or more SIRS Criteria Met? B/P:145/94 MAP:118 Creatinine >2.0? UA output<0.5ml/kg/hr for 2 hrs? Platelet count >100,000? Lactate >2.0mmol/1? INR >1.2 or PTT > than 60 sec? Evidence of Organ Dysfunction? Provider documented clinical suspician of infection? Y Sepsis Criteria Count: 2 Sepsis Risk: Possible Sepsis Risk General Appearance no apparent distress Eye Exam - bilateral eye PERRL, bilateral eye EOMI Ear, Nose, Throat normal ENT inspection Neck supple Respiratory Status No: respiratory distress. 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 No Results/Orders Laboratory Tests 11/10/16 0150: Opiates Screen NEGATIVE, Urine Methadone Screen NEGATIVE, Barbiturates NEGATIVE, Phencyclidine Screen NEGATIVE, Amphetamines Screen NEGATIVE, Benzodiazepines Screen NEGATIVE, Cocaine Screen POSITIVE H, Marijuana (THC) Screen POSITIVE H, Urine Color YELLOW, Urine Appearance SL CLOUDY, Urine pH 6.0, Ur Specific [place] 1.025, Urine Protein NEGATIVE, Urine Ketones TRACE H, Urine Blood NEGATIVE, Urine Nitrate NEGATIVE, Urine Bilirubin NEGATIVE, Urine Urobilinogen 0.2, Ur Leukocyte Esterase 1+ H, Urine WBC 10-20, Ur Squamous Epith Cells 5-10, Amorphous Sediment TRACE, Urine Mucus 4+, Urine Glucose NEGATIVE 11/10/1634: Lactic Acid 1.4 11/10/1634: Sodium 141, Potassium 3.3 L, Chloride 104, Carbon Dioxide 27, BUN 11, Creatinine 1.1 H, Estimated Creat Clear 63, Estimated GFR (MDRD) 59, Glucose 99 , Calcium 9.8, Total Bilirubin 0.5, AST 65 H, ALT 145 H, Alkaline Phosphatase 81, Total Protein 8.8 H, Albumin 4.2, Globulin 4.6 H, Albumin/Globulin Ratio 0.9 L, Amylase 34, Lipase 83, WBC 8.0, RBC 5.16, Hgb 14.5, Hct 43.5, MCV 84.2, RDW 13.7, Plt Count 265, MPV 7.3 L, Gran % 66.2, Gran # 5.3, Lymphocytes % 27.5 , Monocytes % 5.6, Eosinophils % 0.4, Basophils % 0.3, Lymphocytes # 2.2, Monocytes # 0.4, Eosinophils # 0.0, Basophils # 0.0, PUBS MCHC 33.3, MCH 28.1 Current Medication Orders Sig/Ashley Start time Last Medication Dose Route Stop Time Status Admin Sodium Chloride 10 ML PRN PRN 11/10 29 AC IV 11/11 28 Orders Procedure Date/time Status CULTURE, URINE 11/10 149 Active URINALYSIS/COMPLETE 11/10 136 Complete DRUG ABUSE SCREEN (TRIAGE) 11/10 136 Complete IV SALINE LOCK 11/10 29 Active CULTURE, BLOOD 11/10 29 Active LIPASE 11/10 29 Complete LACTIC ACID 11/10 29 Complete CBC WITH AUTO DIFF 11/10 29 Complete CHEM 12 PROFILE 11/10 29 Complete AMYLASE 11/10 29 Complete Departure Departure Time of Disposition 213 Disposition DC Home or Self Care(routine) Clinical Impression Primary Impression: Cocaine abuse Condition STABLE Referrals NAVEED MAYS (Family) Patient Instructions DI for Drug Abuse and Drug Addiction Additional Instructions see pcp for follow up and hold minocycline Discharge Counseling Counseled pt/family regarding diagnosis, test results, medications/RX, follow up needs ED Critical Care Critical Care No at 0210
--- NOTE | 2016-11-10 01:35 | Emergency Room Report ---
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 HX IV DRUG USE. 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 N Clinical Suspician of Infection? Y Mental Status: 1 - Regular (Normal Baseline) Sepsis Risk:Possible Sepsis Risk Have you (or family members/close friends) recently traveled outside the [place]? N If Yes, where/when: Have you had exposure to infectious disease within the past month? N TB? Other? Specify: Source patient, RN notes reviewed, EMS, old records Exam Limitations no limitations Comment pt with crampy abd pain with nausea after using cocaine this pm - Cardiac Chest Pain Chest pain indicative of cardiac No Timing/Duration this evening Severity moderate ALLERGIES Coded Allergies: cephalexin (From KEFLEX) (11/25/15) morphine (11/25/15) promethazine (From PHENERGAN) (11/25/15) tetanus toxoid, adsorbed (11/25/15) Home Medications Active Scripts Minocycline Hcl (Minocycline 100MG. Capsule) 100 MG PO BID #20 CAP Prov: 11/09/16 SULFAMETHOXAZOLE/TRIMETHOPRIM (Sulfamethoxazole-Tmp Ds Tablet) 1 TAB PO BID #20 TAB Prov: 11/09/16 History Medical History General CAD? No Angina: No [place]: No Hypertension? No Hyperlipidemia? No CHF? No DVT? No PE? No COPD? No Asthma? No Anemia? No GERD? No Gastric ulcers? Yes GI Bleed? No Hernia? No Thyroid Problems? No Hypothyroidism? No CVA? No Seizures? No Diabetes? No Insulin Dependent: No Insulin Pump: No Home FSBS? No Renal Insuffiency? No End Stage Renal Disease? No UTI? Yes BPH? No GB Disease: Yes Nephritic Syndrome? No Asplenia? No Hepatitis? No Sickle Cell Disease? No Arthritis? No Migraines? Yes Cataracts? No Glaucoma? No MRSA? No HIV? No TB? No Anxiety? Yes Depression? Yes Cancer? Yes Site: CERVICAL More? Yes Additional hx: DRUG USE Immunization Hx DT/Tetanus 5-10 Years Ago Flu Refused Pneumonia Refuses Surgical Hx Previous Surgery?Y EXP LAP -ENDOMETRIOSIS Tonsils EXC. 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 Respiratory denies cough, denies shortness of breath, denies wheezing Cardiovascular denies chest pain, denies palpitations, denies syncope Gastrointestinal see HPI, denies abdominal pain, nausea, vomiting Genitourinary denies: dysuria, frequency, hesitancy, hematuria. Musculoskeletal denies back pain, denies joint pain, denies joint swelling, denies neck pain Skin denies rash Psychiatric/Neurological denies headache, denies seizure Physical Exam Vital Signs Vital Signs Date Time Temp Pulse Resp B/P Pulse O2 O2 Flow FiO2 Ox Delivery Rate 11/10 0151 98.6 84 18 145/94 98 11/10 0022 98.6 107 20 146/105 96 - WBC >12,000 or <4,000 or 10% bands? 2 or more SIRS Criteria Met? B/P:145/94 MAP:118 Creatinine >2.0? UA output<0.5ml/kg/hr for 2 hrs? Platelet count >100,000? Lactate >2.0mmol/1? INR >1.2 or PTT > than 60 sec? Evidence of Organ Dysfunction? Provider documented clinical suspician of infection? Y Sepsis Criteria Count: 2 Sepsis Risk: Possible Sepsis Risk General Appearance no apparent distress Eye Exam - bilateral eye PERRL, bilateral eye EOMI Ear, Nose, Throat normal ENT inspection Neck supple Respiratory Status No: respiratory distress. 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 No Results/Orders Laboratory Tests 11/10/16 0150: Opiates Screen NEGATIVE, Urine Methadone Screen NEGATIVE, Barbiturates NEGATIVE, Phencyclidine Screen NEGATIVE, Amphetamines Screen NEGATIVE, Benzodiazepines Screen NEGATIVE, Cocaine Screen POSITIVE H, Marijuana (THC) Screen POSITIVE H, Urine Color YELLOW, Urine Appearance SL CLOUDY, Urine pH 6.0, Ur Specific [place] 1.025, Urine Protein NEGATIVE, Urine Ketones TRACE H, Urine Blood NEGATIVE, Urine Nitrate NEGATIVE, Urine Bilirubin NEGATIVE, Urine Urobilinogen 0.2, Ur Leukocyte Esterase 1+ H, Urine WBC 10-20, Ur Squamous Epith Cells 5-10, Amorphous Sediment TRACE, Urine Mucus 4+, Urine Glucose NEGATIVE 11/10/1634: Lactic Acid 1.4 11/10/1634: Sodium 141, Potassium 3.3 L, Chloride 104, Carbon Dioxide 27, BUN 11, Creatinine 1.1 H, Estimated Creat Clear 63, Estimated GFR (MDRD) 59, Glucose 99 , Calcium 9.8, Total Bilirubin 0.5, AST 65 H, ALT 145 H, Alkaline Phosphatase 81, Total Protein 8.8 H, Albumin 4.2, Globulin 4.6 H, Albumin/Globulin Ratio 0.9 L, Amylase 34, Lipase 83, WBC 8.0, RBC 5.16, Hgb 14.5, Hct 43.5, MCV 84.2, RDW 13.7, Plt Count 265, MPV 7.3 L, Gran % 66.2, Gran # 5.3, Lymphocytes % 27.5 , Monocytes % 5.6, Eosinophils % 0.4, Basophils % 0.3, Lymphocytes # 2.2, Monocytes # 0.4, Eosinophils # 0.0, Basophils # 0.0, PUBS MCHC 33.3, MCH 28.1 Current Medication Orders Sig/Ashley Start time Last Medication Dose Route Stop Time Status Admin Sodium Chloride 10 ML PRN PRN 11/10 29 AC IV 11/11 28 Orders Procedure Date/time Status CULTURE, URINE 11/10 149 Active URINALYSIS/COMPLETE 11/10 136 Complete DRUG ABUSE SCREEN (TRIAGE) 11/10 136 Complete IV SALINE LOCK 11/10 29 Active CULTURE, BLOOD 11/10 29 Active LIPASE 11/10 29 Complete LACTIC ACID 11/10 29 Complete CBC WITH AUTO DIFF 11/10 29 Complete CHEM 12 PROFILE 11/10 29 Complete AMYLASE 11/10 29 Complete Departure Departure Time of Disposition 213 Disposition DC Home or Self Care(routine) Clinical Impression Primary Impression: Cocaine abuse Condition STABLE Referrals NAVEED MAYS (Family) Patient Instructions DI for Drug Abuse and Drug Addiction Additional Instructions see pcp for follow up and hold minocycline Discharge Counseling Counseled pt/family regarding diagnosis, test results, medications/RX, follow up needs ED Critical Care Critical Care No at 0218
[2016-11-10 02:00] LABS: URINE BILIRUBIN - DIPSTICK NEGATIVE (NEG); URINE BLOOD NEGATIVE (NEG)
[2016-11-10 02:03] LABS: AMPHETAMINES/METAMPHETAMINES NEGATIVE ng/mL (<1000)
[2016-11-10 02:20] VITALS: BP 131/79
== END 2016-11-10 02:22 | disposition home or self-care (01) ==
LOC: ER 00:19
PROVIDERS: Emergency Medicine
DX: F14.10 Cocaine abuse, uncomplicated (principal)